=== PATIENT | male | born 1965 | race Caucasian/White ===

== ENCOUNTER → 2019-07-27 10:43 | Outpatient (CLI) | payer MEDICARE, MEDICAID, SELFPAY ==
--- NOTE | 2019-07-27 11:11 | BD_ITS ---
STUDY: DUAL ENERGY X-RAY ABSORPTIOMETRY / DXA REASON FOR EXAM: Male, 53 years old. DIABETIC- TAKES MEDS -- HAS BEEN ON PREDNISONE DAILY x8 YRS -- DOES MODERATE-HIGH AMOUNT OF EXERCISE -- NO FABIAN TECHNIQUE: Bone Mineral Density (BMD) measurements of lumbar spine and bilateral hips were obtained. COMPARISON: Comparison is made with prior study dated June 03, 2017. FINDINGS: Lumbar Spine (L1-L4): g/cm2 (1.118) / T-score (-0.9) / Z-score (-0.6) Findings are suggestive of normal bone density with a low fracture risk. Left Femur Total: g/cm2 (0.701) / T-score (-2.8) / Z-score (-2.4) Left Femoral Neck: g/cm2 (0.768) / T-score (-2.3) / Z-score (-1.6) Right Femur Total: g/cm2 (0.789) / T-score (-2.2) / Z-score (-1.8) Right Femoral Neck: g/cm2 (0.828) / T-score (-1.9) / Z-score (-1.1) The T-Scores on the most recent prior examination were: Lumbar Spine (L1-L4): There has been improvement of bone density since the previous examination. Left Femur Total: which represents a worsening of 0.1%. Right Femur Total: which represents a worsening of 1.3%. BD/Dexa Bone Density Study IMPRESSION: The patient is considered osteoporotic as outlined below according to World Herm[employer] Organization (WHO) criteria with a high fracture risk. There has been worsening of bone density since the previous examination. Reference Information: The T-score is the number of standard deviations above or below the standard which is normal for young adults at their peak bone mineral density. The World Health Organization (WHO) interprets the T-scores as follows: Above -1 Normal bone density Between -1 and -2.5 Osteopenia Equal to / or below -2.5 Osteoporosis As a practical clinical guideline, osteopenia may be graded as follows: Mild -1 through -1.5 Moderate -1.6 through -2.0 Severe -2.1 through -2.4 The Z-score is the number of standard deviations above or below age-matched controls. A Z-score of less than -1.5 would be considered abnormal. References: 1. NIH Osteoporosis and Related Bone Diseases http://www.osteo.org 2. International Society for Clinical Densitometry http://www.iscd.org 3. National Osteoporosis Foundation http://www.nof.org Electronically Signed: Uriel Albright, at 15:24 EST , Service support ,
== END ==
PROVIDERS: Family Provider Internal Medicine; PCP Internal Medicine; Referring Provider Internal Medicine Nephrology; Visit Provider Internal Medicine Nephrology
DX: M85.89 Other specified disorders of bone density and structure, multiple sites (principal)
CPT/HCPCS: 77080

== ENCOUNTER → 2020-07-31 12:47 | Outpatient (CLI) | payer MEDICARE, SELFPAY ==
[2020-07-14 11:43] VITALS: BMI 26.2
[2020-07-31 12:55] VITALS: BP 147/77; PULSE 76; RESP 16; TEMP 37.1; O2SAT 96; BMI 25.7
[2020-07-31] MEDS: DENOSUMAB 60 MG/ML SQ (12:57)
== END ==
PROVIDERS: PCP Internal Medicine; Referring Provider Internal Medicine Endocrinology, Diabetes & Metabolism; Visit Provider Internal Medicine Endocrinology, Diabetes & Metabolism
DX: M81.0 Age-related osteoporosis without current pathological fracture (principal)
CPT/HCPCS: 96372; J0897

== ENCOUNTER → 2021-01-29 12:46 | Outpatient (CLI) | payer MEDICARE, MEDICAID, SELFPAY ==
[2020-07-14 11:43] VITALS: BMI 26.2
[2020-07-31 12:55] VITALS: BMI 25.7
[2021-01-29 12:53] VITALS: BP 142/77; PULSE 88; RESP 16; TEMP 36.6; BMI 26.2
[2021-01-29] MEDS: DENOSUMAB 60 MG/ML SC (12:56)
== END ==
PROVIDERS: PCP Internal Medicine; Referring Provider Internal Medicine Endocrinology, Diabetes & Metabolism; Visit Provider Internal Medicine Endocrinology, Diabetes & Metabolism
DX: M81.0 Age-related osteoporosis without current pathological fracture (principal)
CPT/HCPCS: 96372; J0897

== ENCOUNTER 2021-07-31 12:52 | Outpatient (CLI) | payer MEDICARE, MEDICAID, SELFPAY ==
[2020-07-31 12:55] VITALS: BMI 25.7
[2021-07-31 13:30] VITALS: BP 123/77; PULSE 81; RESP 16; TEMP 36.1; O2SAT 99
[2021-07-31] MEDS: DENOSUMAB 60 MG/ML SC (13:32)
== END 2021-07-31 23:59 | disposition short-term general hospital (02) ==
LOC: MEDOUTP 12:52
PROVIDERS: PCP Internal Medicine; Referring Provider Internal Medicine Endocrinology, Diabetes & Metabolism; Visit Provider Internal Medicine Endocrinology, Diabetes & Metabolism
DX: M81.0 Age-related osteoporosis without current pathological fracture (principal)
CPT/HCPCS: 96372; J0897

== ENCOUNTER → 2022-02-01 | Outpatient (CLI) | payer MEDICARE, MEDICAID, SELFPAY ==
[2022-02-01] MEDS: DENOSUMAB 60 MG/ML SC (13:04)
[2022-02-01 13:09] VITALS: BP 132/78; PULSE 85; RESP 16; TEMP 35.9; O2SAT 97
== END | disposition home or self-care (01) ==
LOC: MEDOUTP 12:55
PROVIDERS: PCP Internal Medicine; Referring Provider Internal Medicine Endocrinology, Diabetes & Metabolism; Visit Provider Internal Medicine Endocrinology, Diabetes & Metabolism
DX: M81.8 Other osteoporosis without current pathological fracture (principal)
CPT/HCPCS: 96372; J0897

== ENCOUNTER 2022-02-05 18:36 | Emergency (ER) | payer MEDICARE, MEDICAID, SELFPAY ==
[2022-02-05] VITALS (7 sets, daily range): BP systolic 149–168; BP diastolic 56–88; PULSE 97–102; RESP 16–18; TEMP 36.6–36.9; O2SAT 95–99; BMI 27.1
--- NOTE | 2022-02-05 19:25 | EKG12_ITS ---
Test Reason : Blood Pressure : / mmHG Vent. Rate : 101 BPM Atrial Rate : 101 BPM P-R Int : 166 ms QRS Dur : 094 ms QT Int : 344 ms P-R-T Axes : 049 025 055 degrees QTc Int : 446 ms Sinus tachycardia Otherwise normal ECG Confirmed by SRINIVASAN SENIOR, AUBREY ([id number]), food editor JOSEPH MICHELE ([id number]) on 02/08/2022 2:01:00 PM Referred By: Confirmed By:AUBREY MATTSON MD
--- NOTE | 2022-02-05 19:27 | EDS_ITS ---
HPI <Dr. Elias Casiano DO - Last Filed: 02/05/22 22:47> Narrative Narrative: 56-year-old male presenting with altered mental status which has resolved. Apparently his blood sugar was in the 40s at home. On EMS arrival he was given glucose. Is also given intranasal Narcan had a concern that he might be an overdose. After this he did awake. Patient states that he has blood sugar was about 390 today and he gave himself 17 units of insulin and his typical dose of long-acting insulin. Patient states his blood sugar has not been that high in a while. He states he was otherwise well prior to this. He denies fever, chills, cough. He has mild nausea but no vomiting. He has been eating okay. No urinary complaints. Patient denies drug or alcohol use. [facility] <Dr. Elias Casiano DO - Last Filed: 02/05/22 22:47> [facility] Medical History Diabetes type 1, controlled Steroid-induced osteoporosis Vitamin D deficiency Home Medications aspirin 81 mg chewable tablet 81 mg PO DAILY@0800 09/07/13 [History Last Taken Unknown] mycophenolate mofetil 250 mg capsule 750 mg PO BID 09/07/13 [History Last Taken Unknown] prednisone 5 mg tablet 7.5 mg PO DAILY 09/07/13 [History Last Taken Unknown] tacrolimus 1 mg capsule, immediate-release 1 mg PO BID 09/07/13 [History Last Taken Unknown] atorvastatin 20 mg tablet 20 mg PO QHS 04/24/16 [History Last Taken Unknown] cholecalciferol (vitamin D3) 25 mcg (1,000 unit) tablet 1,000 unit PO DAILY 04/24/16 [History Last Taken Unknown] gabapentin 300 mg capsule 300 mg PO BIDCM 04/24/16 [History Last Taken Unknown] insulin lispro 100 unit/mL subcutaneous pen 6 units subcut TIDCM 04/24/16 [History Last Taken Unknown] magnesium 250 mg tablet 250 mg PO DAILY 04/24/16 [History Last Taken Unknown] naproxen sodium 220 mg tablet 220 mg PO Q12H PRN PRN Pain 04/24/16 [History Last Taken Unknown] omeprazole 40 mg capsule,delayed release 40 mg PO DAILY 04/24/16 [History Last Taken Unknown] vitamin E (dl, acetate) 90 mg (200 unit) capsule 200 unit PO DAILY 04/24/16 [History Last Taken Unknown] dicyclomine 10 mg capsule ea PO 07/14/20 [History Last Taken Unknown] escitalopram oxalate 10 mg tablet ea PO 07/14/20 [History Last Taken Unknown] insulin glargine 100 unit/mL (3 mL) subcutaneous pen 12 unit subcut QHS 07/14/20 [History Last Taken Unknown] multivit,mineral-folic acid 800 mcg-vit K 100 mcg-herbal no.289 tablet (Alive Once Daily Women 50 Plus) 1 tab PO DAILY 07/14/20 [History Last Taken Unknown] tacrolimus 0.5 mg capsule,extended release 24 hr 1 mg PO BREAKFAST 07/14/20 [History Last Taken Unknown] zolpidem 5 mg tablet (Ambien) 5 mg PO QHS PRN 07/14/20 [History Last Taken Unknown] denosumab 60 mg/mL subcutaneous syringe (Prolia) 60 mg subcut [id number] #1 mL 07/06/21 [Rx Last Taken Unknown] Allergy/AdvReac Type Severity Reaction Status Date / Time No Known Allergies Allergy Verified 02/05/22 18:42 Surgical History History of appendectomy Renal transplant, status post Social History Smoking Status: Former smoker alcohol intake: never substance use type: does not use ROS <Dr. Elias Casiano DO - Last Filed: 02/05/22 22:47> ROS ED Constitutional Constitutional ED: Denies chills or fever(s) Eyes Eyes: Denies change in vision ENT ENT ED: Denies rhinorrhea or sore throat Cardiovascular Cardiovascular: Denies chest pain or palpitations Respiratory/Chest Respiratory/Chest: Denies cough or dyspnea Gastrointestinal Gastrointestinal: Reports nausea; Denies abdominal pain Genitourinary Genitourinary ED: Denies dysuria or hematuria Musculoskeletal Musculoskeletal: Denies arthralgias or back pain Integumentary Denies abscess Neurologic Neurologic: Reports headache(s); Denies paresthesias or weakness Psychiatric Psychiatric: Denies anxiety or depression EXAM <Dr. Elias Casiano DO - Last Filed: 02/05/22 22:47> Physical Exam Const Vital Signs: 02/05/22 18:37 02/05/22 19:41 02/05/22 21:00 Temperature 97.8 F 98.4 F Temperature Source Oral Oral Pulse Rate 97 98 Respiratory Rate 16 18 Blood Pressure 154/56 H 161/79 H Blood Pressure Mean 88 106 Pulse Ox 99 95 Oxygen Delivery Method Room Air Room Air 02/05/22 21:35 02/05/22 22:16 Temperature 98.4 F Temperature Source Oral Pulse Rate 102 H 101 H Respiratory Rate 18 18 Blood Pressure 168/88 H 165/86 H Blood Pressure Mean 114 112 Pulse Ox 99 98 Oxygen Delivery Method Room Air Room Air Positive well nourished HEENT Reports moist mucous membranes Eyes PERRL and EOMs intact bilaterally Chest Wall inspection of chest normal and palpation of chest normal Resp normal respiratory effort and clear to auscultation bilaterally Cardio regular rate and regular rhythm GI normal to inspection, nondistended, normoactive bowel sounds Extremity normal to inspection Neuro oriented x3 and CN's II-XII intact bilaterally Sensorium / Orientation: alert Motor Exam: strength 5/5 throughout Psych mental status grossly normal Skin no rashes or lesions noted <Dr. Michael Easley MD - Last Filed: 02/10/22 00:17> Physical Exam Const Vital Signs: 02/05/22 18:37 02/05/22 19:41 02/05/22 21:00 Temperature 97.8 F 98.4 F Temperature Source Oral Oral Pulse Rate 97 98 Respiratory Rate 16 18 Blood Pressure 154/56 H 161/79 H Blood Pressure Mean 88 106 Pulse Ox 99 95 Oxygen Delivery Method Room Air Room Air 02/05/22 21:35 02/05/22 22:16 Temperature 98.4 F Temperature Source Oral Pulse Rate 102 H 101 H Respiratory Rate 18 18 Blood Pressure 168/88 H 165/86 H Blood Pressure Mean 114 112 Pulse Ox 99 98 Oxygen Delivery Method Room Air Room Air MDM <Dr. Elias Casiano DO - Last Filed: 02/05/22 22:47> [facility] Narrative Medical decision making narrative: Presenting with altered mental status and confusion for short while. He was hypoglycemic and he was given glucose via squad. Patient was also given Narcan out of concern he might be an opioid overdose. Patient denies any drug or alcohol use. He is awake and alert and talking. He stated to me on arrival that he felt like his sugar was dropping and he was given something to eat. He does not have any pain complaints. He has not been otherwise ill prior to his sugar dropping. He does state that his blood sugar was around 390 and he gave him himself 17 units of Humalog. He states he thinks he might of over treated himself. Blood work was obtained and his CBC shows a leukocytosis of 15.7, hemoglobin 14.4, hematocrit 44.3, platelets 186. Creatinine is normal. BUN slightly elevated. Glucose is 101. Potassium is elevated 7.5 however there is moderate hemolysis. I will retest this. LFTs are unremarkable. Urinalysis negative for infection but does show small ketones. Urine drug screen is positive for MDMA however the patient is just recently started on Wellbutrin. Is possible to cross-react. Patient denies that he did any drugs. With a negative chest x-ray, urinalysis, COVID test I think the white blood cell count is likely reactive to the hypoglycemic exercises. I called the lab and received a verbal report that the potassium on redraw is 3.6. At this point I feel the patient is stable for discharge. Impression: 1. Hypoglycemia 2. Leukocytosis Lab Data Attestation: I reviewed the patient's lab results. Labs: Laboratory Results - last 24 hr 02/05/22 02/05/22 02/05/22 18:17 18:17 18:17 WBC 15.7 H RBC 4.55 L Hgb 14.4 Hct 44.3 MCV 97.4 H MCH 31.6 MCHC 32.5 RDW Std Deviation 45.1 H RDW Coeff of Jarad 12.8 Plt Count 186 MPV 10.4 Immature Gran % (Auto) 0.600 Neut % (Auto) 87.5 H Lymph % (Auto) 4.4 L [place] % (Auto) 6.9 Eos % (Auto) 0.2 Baso % (Auto) 0.4 Absolute Neuts (auto) 13.8 H Absolute Lymphs (auto) 0.69 L Nucleated RBC % 0 Sodium 138 Potassium 7.5 H* Chloride 111 H Carbon Dioxide 26.0 Anion Gap 1 L BUN 30 H Creatinine 1.17 Estim Creat Clear Calc 77.38 Est GFR (MDRD) Af Amer 83 Est GFR (MDRD) Non-Af 69 BUN/Creatinine Ratio 25.6 H Glucose 101 Calcium 8.6 Total Bilirubin 0.40 AST 67 H ALT 31 Alkaline Phosphatase 62 Troponin I High Sens 8 Total Protein 5.9 L Albumin 3.0 L Globulin 2.9 Albumin/Globulin Ratio 1.0 Urine Color Urine Clarity Urine pH Ur Specific [place] Urine Protein Urine Glucose (UA) Urine Ketones Urine Occult Blood Urine Nitrite Urine Bilirubin Urine Urobilinogen Ur Leukocyte Esterase Urine RBC Urine WBC Ur Squamous Epith Cells Calcium Oxalate Crystal Urine Bacteria Urine Mucus Urine Opiates Screen Urine Methadone Screen Ur Barbiturates Screen Ur Phencyclidine Scrn Ur Amphetamines Screen MDMA (Ecstasy) Screen U Benzodiazepines Scrn Urine Cocaine Screen U Cannabinoids Screen Ur Drug Screen Comment Ethyl Alcohol < 3.0 POC Glucose 02/05/22 02/05/22 02/05/22 20:02 21:25 21:25 WBC RBC Hgb Hct MCV MCH MCHC RDW Std Deviation RDW Coeff of Jarad Plt Count MPV Immature Gran % (Auto) Neut % (Auto) Lymph % (Auto) [place] % (Auto) Eos % (Auto) Baso % (Auto) Absolute Neuts (auto) Absolute Lymphs (auto) Nucleated RBC % Sodium Potassium Chloride Carbon Dioxide Anion Gap BUN Creatinine Estim Creat Clear Calc Est GFR (MDRD) Af Amer Est GFR (MDRD) Non-Af BUN/Creatinine Ratio Glucose Calcium Total Bilirubin AST ALT Alkaline Phosphatase Troponin I High Sens Total Protein Albumin Globulin Albumin/Globulin Ratio Urine Color Yellow Urine Clarity Sl. Cloudy Urine pH 6.0 Ur Specific [place] 1.020 Urine Protein 30 H Urine Glucose (UA) 100 H Urine Ketones 5 H Urine Occult Blood Negative Urine Nitrite Negative Urine Bilirubin Negative Urine Urobilinogen Normal Ur Leukocyte Esterase Negative Urine RBC 0 SEEN Urine WBC 0 SEEN Ur Squamous Epith Cells 0 SEEN Calcium Oxalate Crystal 3+ Urine Bacteria RARE Urine Mucus 0 SEEN Urine Opiates Screen NEGATIVE Urine Methadone Screen NEGATIVE Ur Barbiturates Screen NEGATIVE Ur Phencyclidine Scrn NEGATIVE Ur Amphetamines Screen NEGATIVE MDMA (Ecstasy) Screen POSITIVE H U Benzodiazepines Scrn NEGATIVE Urine Cocaine Screen NEGATIVE U Cannabinoids Screen NEGATIVE Ur Drug Screen Comment Ethyl Alcohol POC Glucose 117 H Radiography Diagnostic Testing: Clinical Impression(s) from Imaging Studies Chest X-Ray 02/05/22 20:14 IMPRESSION: No radiographic evidence of acute cardiopulmonary disease. Electronically Signed: Vu Greenwood MD at 21:13 EDT , <Dr. Michael Easley MD - Last Filed: 02/10/22 00:17> [facility] Narrative Medical decision making narrative: Presenting with altered mental status and confusion for short while. He was hypoglycemic and he was given glucose via squad. Patient was also given Narcan out of concern he might be an opioid overdose. Patient denies any drug or alcohol use. He is awake and alert and talking. He stated to me on arrival that he felt like his sugar was dropping and he was given something to eat. He does not have any pain complaints. He has not been otherwise ill prior to his sugar dropping. He does state that his blood sugar was around 390 and he gave him himself 17 units of Humalog. He states he thinks he might of over treated himself. Blood work was obtained and his CBC shows a leukocytosis of 15.7, hemoglobin 14.4, hematocrit 44.3, platelets 186. Creatinine is normal. BUN slightly elevated. Glucose is 101. Potassium is elevated 7.5 however there is moderate hemolysis. I will retest this. LFTs are unremarkable. Urinalysis negative for infection but does show small ketones. Urine drug screen is positive for MDMA however the patient is just recently started on Wellbutrin. Is possible to cross-react. Patient denies that he did any drugs. With a negative chest x-ray, urinalysis, COVID test I think the white blood cell count is likely reactive to the hypoglycemic exercises. I called the lab and received a verbal report that the potassium on redraw is 3.6. At this point I feel the patient is stable for discharge. Impression: 1. Hypoglycemia 2. Leukocytosis This is the note from Dr. Casiano which came to me out of error. I do not need to cosign his note. I already talked to him in person. Michael Easley MD Lab Data Labs: Laboratory Results - last 24 hr 02/05/22 02/05/22 02/05/22 18:17 18:17 18:17 WBC 15.7 H RBC 4.55 L Hgb 14.4 Hct 44.3 MCV 97.4 H MCH 31.6 MCHC 32.5 RDW Std Deviation 45.1 H RDW Coeff of Jarad 12.8 Plt Count 186 MPV 10.4 Immature Gran % (Auto) 0.600 Neut % (Auto) 87.5 H Lymph % (Auto) 4.4 L [place] % (Auto) 6.9 Eos % (Auto) 0.2 Baso % (Auto) 0.4 Absolute Neuts (auto) 13.8 H Absolute Lymphs (auto) 0.69 L Nucleated RBC % 0 Sodium 138 Potassium 7.5 H* Chloride 111 H Carbon Dioxide 26.0 Anion Gap 1 L BUN 30 H Creatinine 1.17 Estim Creat Clear Calc 77.38 Est GFR (MDRD) Af Amer 83 Est GFR (MDRD) Non-Af 69 BUN/Creatinine Ratio 25.6 H Glucose 101 Calcium 8.6 Total Bilirubin 0.40 AST 67 H ALT 31 Alkaline Phosphatase 62 Troponin I High Sens 8 Total Protein 5.9 L Albumin 3.0 L Globulin 2.9 Albumin/Globulin Ratio 1.0 Urine Color Urine Clarity Urine pH Ur Specific [place] Urine Protein Urine Glucose (UA) Urine Ketones Urine Occult Blood Urine Nitrite Urine Bilirubin Urine Urobilinogen Ur Leukocyte Esterase Urine RBC Urine WBC Ur Squamous Epith Cells Calcium Oxalate Crystal Urine Bacteria Urine Mucus Urine Opiates Screen Urine Methadone Screen Ur Barbiturates Screen Ur Phencyclidine Scrn Ur Amphetamines Screen MDMA (Ecstasy) Screen U Benzodiazepines Scrn Urine Cocaine Screen U Cannabinoids Screen Ur Drug Screen Comment Ethyl Alcohol < 3.0 POC Glucose 02/05/22 02/05/22 02/05/22 20:02 21:25 21:25 WBC RBC Hgb Hct MCV MCH MCHC RDW Std Deviation RDW Coeff of Jarad Plt Count MPV Immature Gran % (Auto) Neut % (Auto) Lymph % (Auto) [place] % (Auto) Eos % (Auto) Baso % (Auto) Absolute Neuts (auto) Absolute Lymphs (auto) Nucleated RBC % Sodium Potassium Chloride Carbon Dioxide Anion Gap BUN Creatinine Estim Creat Clear Calc Est GFR (MDRD) Af Amer Est GFR (MDRD) Non-Af BUN/Creatinine Ratio Glucose Calcium Total Bilirubin AST ALT Alkaline Phosphatase Troponin I High Sens Total Protein Albumin Globulin Albumin/Globulin Ratio Urine Color Yellow Urine Clarity Sl. Cloudy Urine pH 6.0 Ur Specific [place] 1.020 Urine Protein 30 H Urine Glucose (UA) 100 H Urine Ketones 5 H Urine Occult Blood Negative Urine Nitrite Negative Urine Bilirubin Negative Urine Urobilinogen Normal Ur Leukocyte Esterase Negative Urine RBC 0 SEEN Urine WBC 0 SEEN Ur Squamous Epith Cells 0 SEEN Calcium Oxalate Crystal 3+ Urine Bacteria RARE Urine Mucus 0 SEEN Urine Opiates Screen NEGATIVE Urine Methadone Screen NEGATIVE Ur Barbiturates Screen NEGATIVE Ur Phencyclidine Scrn NEGATIVE Ur Amphetamines Screen NEGATIVE MDMA (Ecstasy) Screen POSITIVE H U Benzodiazepines Scrn NEGATIVE Urine Cocaine Screen NEGATIVE U Cannabinoids Screen NEGATIVE Ur Drug Screen Comment Ethyl Alcohol POC Glucose 117 H Radiography Diagnostic Testing: Clinical Impression(s) from Imaging Studies Chest X-Ray 02/05/22 20:14 IMPRESSION: No radiographic evidence of acute cardiopulmonary disease. Electronically Signed: Vu Greenwood MD at 21:13 EDT , Discharge Plan Triage Chief Complaint: Alt LOC ED Provider: Elias Casiano Dx/Rx/DC Orders Instructions: ED Diabetic Insulin Reaction Prescriptions: No Action Alive Once Daily Women 50 Plus 800-100 mcg tablet 1 tab PO DAILY zolpidem [Ambien] 5 mg tablet 5 mg PO QHS PRN escitalopram oxalate 10 mg tablet PO Label Comments: TAKE 1 TABLET BY MOUTH EVERY DAY dicyclomine 10 mg capsule PO Label Comments: TAKE 1 CAPSULE BY MOUTH BEFORE MEALS AND AT BEDTIME. Prolia 60 mg/mL syringe 60 mg SC [id number] Qty: 1 1RF mycophenolate mofetil 250 MG capsule 750 mg PO BID prednisone 5 MG tablet 7.5 mg PO DAILY aspirin 81 MG tablet,chewable 81 mg PO DAILY@0800 Label Comments: heart health tacrolimus 1 MG capsule 1 mg PO BID Label Comments: transplant atorvastatin 20 MG tablet 20 mg PO QHS Label Comments: high cholesterol omeprazole 40 MG capsule 40 mg PO DAILY Label Comments: acid reflux naproxen sodium 220 MG tablet 220 mg PO Q12H PRN PRN (Reason: Pain) Label Comments: anti inflammatory gabapentin 300 MG capsule 300 mg PO BIDCM Label Comments: neuropathy magnesium 250 MG tablet 250 mg PO DAILY Label Comments: supplement cholecalciferol (vitamin D3) 1,000 UNIT tablet 1,000 unit PO DAILY Label Comments: supplement vitamin E (dl, acetate) 200 UNIT capsule 200 unit PO DAILY Label Comments: vitamin insulin lispro 100 UNIT/ML insulin pen 6 units SC TIDCM Label Comments: INJECT 6-12 UNITS 3X/DAILY WITH MEALS AND 3 UNITS 2X/DAY WITH SNACKS insulin glargine 100 unit/mL (3 mL) insulin pen 12 unit SC QHS tacrolimus 0.5 mg capsule,extended release 24hr 1 mg PO BREAKFAST Label Comments: transplant Primary Care Provider: Magaly Hull Referrals: Magaly Hull MD [Primary Care Provider] - Disposition Disposition: Home, Self Care Discharge Date/Time: 02/05/22 23:13
[2022-02-05] MEDS: Ondansetron 4 MG/2 ML Vial IV (19:36)
[2022-02-05] MEDS: 0.9% Normal Saline 1,000 ML 1000 ML IV (19:36)
--- NOTE | 2022-02-05 19:44 | ED.RN ---
snack of yogurt, cody crackers and milk given to pt.
--- NOTE | 2022-02-05 20:14 | RAD_ITS ---
Portable INDICATION: ams EXAMINATION/TECHNIQUE: X-RAY - XR Chest 1 View COMPARISON: None. FINDINGS: LINES/DEVICES: None. LUNGS: No consolidation, edema or effusion. No pneumothorax. MEDIASTINUM AND CARDIOVASCULAR STRUCTURES: Cardiac silhouette not enlarged. Central airways and mediastinal contour are unremarkable. BONES AND SOFT TISSUES: Unremarkable. RAD/Chest 1 View (Portable) IMPRESSION: No radiographic evidence of acute cardiopulmonary disease. Electronically Signed: Vu Greenwood MD at 21:13 EDT ,
[2022-02-05 20:15] LABS: Absolute Lymphocyte Count 0.69 X10^3/uL (0.83-4.51); Absolute Neutrophil Count 13.8 X10^3/uL (2.0-7.7); Basophil# 0.06 X10^3/uL; Basophil% 0.4 % (0-1); Eosinophil# 0.03 X10^3/uL; Eosinophils% 0.2 % (0-5); Hematocrit 44.3 % (40-54); Hemoglobin 14.4 g/dL (13.0-16.5); Lymphocyte # 0.69 X10^3/ul (0.83-4.51); Lymphocyte % 4.4 % (19-41); Mean Corp Hgb Conc 32.5 g/dL (32-36); Mean Corpuscular Hgb 31.6 pg (27.0-32.0); Mean Corpuscular Volume 97.4 fL (80-94); Mean Platelet Vol. 10.4 fl (6.2-12.0); Monocyte# 1.09 X10^3/uL; Monocyte% 6.9 % (0-10); NRBC Flagged by Analyzer 0 % (0-5); Neutrophil # 13.77 X10^3/uL (2.7-7.7); Neutrophil % 87.5 % (47-70); Platelet Count 186 K/mm3 (150-450); RBC Distribution Width CV 12.8 % (11.6-14.6); RBC Distribution Width SD 45.1 fl (35.1-43.9); Red Blood Count 4.55 M/mm3 (4.6-6.2); White Blood Count 15.7 K/mm3 (4.4-11.0)
[2022-02-05 20:21] LABS: Bedside Glucose 117 mg/dL (74-106)
[2022-02-05 20:47] LABS: Alcohol, Blood (Medical)-Serum < 3.0 mg/dL
[2022-02-05 21:32] LABS: Mucous, Urine 0 SEEN /hpf (<or=2+); Red Blood Cells-Urine 0 SEEN /hpf (0-5); Squamous Epithelial Cells - UA 0 SEEN /hpf (0-5); White Blood Cells 0 SEEN /hpf (0-5)
[2022-02-05 21:33] LABS: Color, Urine Yellow (Yellow); Glucose, Dipstick 100 mg/dl (Normal); Ketone-Dipstick 5 mg/dl (Negative); Leukocyte Esterase-Dipstick Negative /ul (Negative); Nitrite-Dipstick Negative (Negative); Occult Blood-Urine Negative /ul (Negative); Protein-Dipstick 30 mg/dl (Negative); Urine Bilirubin Dipstick Negative (Negative); Urine Clarity Sl. Cloudy (Clear); Urine Urobilinogen Normal (Normal)
[2022-02-05 21:56] LABS: Bacteria RARE /hpf (None Seen); Calcium Oxalate Crystals Ur 3+ /hpf (<or=2+)
[2022-02-05 22:04] LABS: Amphetamine Urine VISTA NEGATIVE (<1000 ng/mL); Barbiturate Urine VISTA NEGATIVE (< 200 ng/mL); Benzodiazepine Urine VISTA NEGATIVE (< 200 ng/mL); Cocaine Urine VISTA NEGATIVE (< 300 ng/mL); Ecstacy Urine VISTA POSITIVE (< 500 ng/mL); Methadone Urine VISTA NEGATIVE (< 300 ng/mL); PCP Urine VISTA NEGATIVE (< 25 ng/mL); THC Urine VISTA NEGATIVE (< 50 ng/mL); Vista UDS pH Range 6
[2022-02-05 22:04] LABS: AST(SGOT) 67 U/L (15-37); Alanine Aminotransfer ALT/SGPT 31 U/L (16-61); Alkaline Phosphatase 62 U/L (45-117); BUN 30 mg/dL (7-18); BUN/Creat Ratio 25.6 RATIO (10-20); Calcium,Total 8.6 mg/dL (8.5-10.1); Chloride 111 mmol/L (98-107); Creatinine, Serum 1.17 mg/dL (0.70-1.30); EST Glomerular Filtration Rate 69 mL/min (>60); Est Glom Filt Rate - Afr Amer 83 mL/min (>60); Estimated Creatinine Clearance 77.38 ml/min; Globulin 2.9 g/dL (2.2-4.2); Glucose 101 mg/dL (74-106); Potassium 7.5 mmol/L (3.5-5.1); Protein, Total 5.9 g/dL (6.4-8.2); Sodium Level 138 mmol/L (136-145); Troponin-I HS 8 pg/mL (3.0-78.0)
[2022-02-05 22:07] LABS: Anion Gap 1 (5-15)
[2022-02-05 22:51] LABS: ALB/GLOB Ratio 1.4 RATIO (0.9-2.4); AST(SGOT) 23 U/L (15-37); Alanine Aminotransfer ALT/SGPT 27 U/L (16-61); Albumin, Serum 2.9 g/dL (3.2-5.0); Alkaline Phosphatase 60 U/L (45-117); Anion Gap 5 (5-15); BUN 30 mg/dL (7-18); BUN/Creat Ratio 36.1 RATIO (10-20); Calcium,Total 7.9 mg/dL (8.5-10.1); Chloride 113 mmol/L (98-107); Creatinine, Serum 0.83 mg/dL (0.70-1.30); EST Glomerular Filtration Rate 102 mL/min (>60); Est Glom Filt Rate - Afr Amer 123 mL/min (>60); Estimated Creatinine Clearance 109.08 ml/min; Glucose 121 mg/dL (74-106); Potassium 3.6 mmol/L (3.5-5.1); Protein, Total 4.9 g/dL (6.4-8.2); Sodium Level 143 mmol/L (136-145)
== END 2022-02-05 23:13 | disposition home or self-care (01) ==
PROVIDERS: Emergency Provider Student in an Organized Health Care Education/Training Program; PCP Internal Medicine; Visit Provider Student in an Organized Health Care Education/Training Program
DX: E10.649 Type 1 diabetes mellitus with hypoglycemia without coma (principal); Z79.4 Long term (current) use of insulin; D72.829 Elevated white blood cell count, unspecified; Z87.891 Personal history of nicotine dependence
CPT/HCPCS: 36415; 71045; 80053; 80307; 81001; 82077; 82962; 84484; 85025; 93005; 96361; 96374; 99285; J7030; A4216; J2405

== ENCOUNTER 2023-10-28 08:52 | Outpatient (RCR) | payer MEDICARE, MEDICAID, SELFPAY ==
[2023-10-28 09:10] VITALS: BP 116/62; PULSE 89; TEMP 36.2
--- NOTE | 2023-10-28 10:13 | HP.PCM_ITS ---
History of Present Illness Date of Service: 10/28/23 Chief Complaint: Right heel wound History of Wound: Patient is a type II diabetic with history of ESRD status post kidney transplant in setting of peripheral polyneuropathy Patient presents with neuropathic ulceration present for 1 month. Patient was treated by Dr. Linda ramirez in outpatient setting. Patient was referred to us for more advanced wound care treatment. Patient denies any fever chills nausea vomiting chest pain calf pain shortness of breath. Patient is ambulatory in a cam walking boot today. Patient has been applying Santyl dressings to the site daily basis. Patient has no acute complaints. [facility] Medical History Diabetes type 1, controlled Steroid-induced osteoporosis Vitamin D deficiency Home Medications aspirin 81 mg chewable tablet 81 mg PO DAILY@0800 09/07/13 [History Last Taken Unknown] mycophenolate mofetil 250 mg capsule 750 mg PO BID 09/07/13 [History Last Taken Unknown] prednisone 5 mg tablet 5 mg PO DAILY 09/07/13 [History Last Taken Unknown] tacrolimus 1 mg capsule, immediate-release 1 mg PO .EVENING 09/07/13 [History Last Taken Unknown] atorvastatin 20 mg tablet 20 mg PO QHS 04/24/16 [History Last Taken Unknown] cholecalciferol (vitamin D3) 25 mcg (1,000 unit) tablet 1,000 unit PO DAILY 04/24/16 [History Last Taken Unknown] gabapentin 300 mg capsule 300 mg PO BIDCM 04/24/16 [History Last Taken Unknown] insulin lispro 100 unit/mL subcutaneous pen 16 unit subcut TIDCM 04/24/16 [History Last Taken Unknown] naproxen sodium 220 mg tablet 220 mg PO Q12H PRN PRN Pain 04/24/16 [History Last Taken Unknown] omeprazole 40 mg capsule,delayed release 40 mg PO DAILY 04/24/16 [History Last Taken Unknown] vitamin E (dl, acetate) 90 mg (200 unit) capsule 200 unit PO DAILY 04/24/16 [History Last Taken Unknown] dicyclomine 10 mg capsule 10 mg PO .BEFORE MEALS AND BED 07/14/20 [History Last Taken Unknown] escitalopram oxalate 10 mg tablet 10 mg PO DAILY 07/14/20 [History Last Taken Unknown] insulin glargine 100 unit/mL (3 mL) subcutaneous pen 30 unit subcut QHS 07/14/20 [History Last Taken Unknown] multivit,mineral-folic acid 800 mcg-vit K 100 mcg-herbal no.289 tablet (Alive Once Daily Women 50 Plus) 1 tab PO DAILY 07/14/20 [History Last Taken Unknown] tacrolimus 0.5 mg capsule,extended release 24 hr 2 mg PO BREAKFAST 07/14/20 [History Last Taken Unknown] zolpidem 5 mg tablet (Ambien) 5 mg PO QHS PRN sleep 07/14/20 [History Last Taken Unknown] denosumab 60 mg/mL subcutaneous syringe (Prolia) 60 mg subcut [id number] #1 mL 08/09/22 [Rx Last Taken Unknown] bupropion HCl 75 mg tablet 75 mg PO BID 10/28/23 [History Last Taken Unknown] hydroxyzine HCl 25 mg tablet 25 mg PO QHS PRN PRN anxiety 10/28/23 [History Last Taken Unknown] magnesium oxide 400 mg PO DAILY 10/28/23 [History Last Taken Unknown] Allergy/AdvReac Type Severity Reaction Status Date / Time No Known Allergies Allergy Verified 02/05/22 18:42 Surgical History History of appendectomy Renal transplant, status post Social History Smoking Status: Former smoker alcohol intake: never substance use type: does not use Vital Signs Vital Signs Vital Signs: 10/28/23 09:10 Temperature 97.2 F L Temperature Source Temporal Pulse Rate 89 Blood Pressure 116/62 Blood Pressure Mean 80 Blood Pressure Source Monitor Blood Pressure Position Semi-Fowlers Blood Pressure Location Right Arm Physical Exam Narrative Atrophic skin changes noted. Dorsalis pedis and posterior tibial pulses are biphasic by Doppler examination. Absent digital hair growth noted to bilateral feet. Light touch protective sensation absent to entire bilateral lower extremity extending up past the knee. Dermatologic: Full-thickness wound noted to the plantar right heel. Wound demonstrates mixed fibrogranular and necrotic base predebridement. Postdebridement wound demonstrated clean granular base slightly macerated skin edges. Moderate drainage noted. No malodor edema erythema noted at current. No purulent drainage noted. Pre and postdebridement measurements documented bethany sing notes. Musculoskeletal: No wound forming deformity noted. Muscular strength full to bilateral lower extremity compartments. Debridement Note Debridement Note Post-Debridement Measurements and Additional Note: Post-Debridement Measurements/Treatment - Nurse 1 - General Ulcer Assessment Start: 10/28/23 09:08 Freq: Status: Active Protocol: JOSÉ MANUEL Activity Type Activity Date Activity User E-sign Co-sign Detail Recorded Client Recorded Date Recorded By Document 10/28/23 09:10 KW Desktop 10/28/23 09:29 KW 10/28/23 09:10 - Today's Visit Information Type of service Initial Visit Arrival Mode Ambulatory Vital Signs Temperature (97.8 F-99.1 F) 97.2 F L Temperature Source Temporal Pulse Rate (60-100) 89 Pulse Location Monitor Blood Pressure (90/60-120/80) 116/62 Blood Pressure Mean 80 Source Monitor Position Semi-Fowlers Blood Pressure Location Right Arm History Since Last Visit- (Skip if this is Patient's initial visit) Have you changed medications since your No last visit? Any new allergies or adverse reactions No Had a fall/change in ADL's that may No increase risk of falls Signs or symptoms of abuse and/or No neglect since last visit Have you been in the hospital since your No last visit? Has dressing in place as prescribed Yes Has compression in place as prescribed No Has offloadiing in place as prescribed Yes Experienced any changes in pain level or Yes management Left Footwear Regular Shoe Right Footwear Removable Cast Walker/Walking Boot Pain Scale: 0-10 Numeric Is Patient Pain Free? Yes Lower Extremity Assessment/ Foot Assessment/ Toe Nail Assessment Right -Posterior Tibial Doppler Monophasic -Dorsalis Pedis Doppler Multiphasic -Hair Growth on Legs Yes -Hair Growth on Toes No -Capillary Refill Less than 3 Seconds -Thick Yes -Discolored Yes -Deformed No -Improper Length & Hygeine No Communication Assessment Preferred language French Gas Engineer Required No Able to Read Yes Able to Write Yes Right Hearing Abillity Normal Visual Assistive Devices Glasses Teaching Assessment Preferences Verbal,Written, Demonstration Readiness To Learn Good Willingness to Engage in Self Management High Activies Readiness to Engage in Self Management High Activities Anxiety Level Calm Cooperation Cooperative Perception Coherent Interest in Health Problem Asks Questions Education Importance Acknowledges Need Does Patient Smoke tobacco or other No substances Smoking Status Former smoker Is Patient Diabetic Yes Functional Assessment Recent Decline in Ability to Perform Denies Any Declines Culture/Jehovah'S Witness/Contact And Service 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 Cultural/Jehovah'S Witness Needs that may affect No Treatment Plan Teaching: Wound Center *Welcome to the Wound Center -Person Taught Patient,Family -Teaching Method Discussion -Response to teaching Verbalize understanding MARK - Nurse 1 - General Ulcer Measurement Start: 10/28/23 09:08 Freq: Status: Active Protocol: Activity Type Activity Date Activity User E-sign Co-sign Detail Recorded Client Recorded Date Recorded By Document 10/28/23 09:10 KW Desktop 10/28/23 09:29 KW 10/28/23 09:10 Wound Center Nurse 1 #1 right heel -Combined with other wound No -Current Size (cm) - Length 3 -Current Size (cm) - Width 3 -Current Size (cm) - Depth 0.1 -Total Square Cm 9 -Date of Last Picture (Recall this 10/28/23 field) -Photo Taken Yes -Tunneling No -Undermining/Tunneling No -Circular Undermining No -Exudate Amt Small -Exudate Type Serosanguineous -Wound Margin Distinct, Outline Attached -Granulation Amt Medium (34-66%) -Granulation Quality Red -Slough/Fibrin Yes -Necrosis Amt Medium (34-66%) -Necrotic Tissue Type Adherent Slough -Texture (Eloisa-wound Skin Appearance) Assessed -Moisture (Eloisa-wound Skin Appearance) Assessed,Dry/ Scaly -Color (Eloisa-wound Skin Appearance) Assessed, Erythema -Temperature (Eloisa-wound Skin No Abnormality Appearance) (Pt Warm) -Tenderness on Palpation (Eloisa-wound No Skin Appearance) -Ulcer Cleansing Rinsed/ Irrigated with Saline -Anesthetic Used 5% Lidocaine Gel Right Calf (cm) 36.5 Right Ankle (cm) 21.5 Left Calf (cm) 36 Left Ankle (cm) 20 MARK - Nurse 2 - General Ulcer CM Notes Start: 10/28/23 09:08 Freq: Status: Active Protocol: Activity Type Activity Date Activity User E-sign Co-sign Detail Recorded Client Recorded Date Recorded By Document 10/28/23 09:52 Laptop 10/28/23 10:09 10/28/23 09:52 Wound Center Nurse 2 #1 right heel -Time 10:06 -Correct Patient Yes -Correct Side, Site, Position Yes -Correct Procedure Yes -Procedure Performed Yes -Type of Procedure Debridement -Clinical Debridement Subcutaneous -Tissue Removed Subcutaneous -Post Debridement (cm) - Length 4.3 -Post Debridement (cm) - Width 3.5 -Post Debridement (cm) - Depth 0.2 -Total Square (Post) (cm) 15.05 -Area of Debridement (cm) - Length 4.3 -Area of Debridement (cm) - Width 3.5 -Total Square (Area) (cm) 15.05 -Tunneling No -Undermining/Tunneling No -Circular Undermining No -Wound/Ulcer Outcome Not Healed -Ulcer Cleansing Rinsed/ Irrigated with Saline -Foul Odor after Cleansing No -Bioengineered Tissue No -Bleeding Controlled with Pressure -Treatment Response Procedure Tolerated Well -Offloading Yes -Type of Offloading Surgical Shoe -Assistive Device(s) Crutches -Debridement - Subq, 1st 20sq cm Yes Pain Scale: 0-10 Numeric Is Patient Pain Free? Yes Assessment/Plan Assessment/Plan (1) Other specified peripheral vascular diseases: CODE(S): I73.89 - Other specified peripheral vascular diseases PLAN: Exam performed. Radiographs right foot ordered. Lab work including CBC, CMP, ESR, CRP, hemoglobin A1c ordered. Arterial and venous studies ordered. Today wound was excisionally debrided down to including the level of subcutaneous tissue of all nonviable tissue using a 5 mm dermal curette to the right heel without incident. Topical anesthesia used despite patient's neuropathy. Patient tolerated procedure well. Hemostasis obtained with light compression. Pre and postdebridement measurements documented nursing notes. At current I have recommended transition to nonweightbearing. Patient has crutches at home maintain nonweightbearing status with crutches. At current I have recommended daily dressing changes consisting of Betadine paint DSD and Tubigrip. Wound was flushed and cultured prior to dressing today. There are any systemic signs of infection or invasive bacterial will consider treatment. Due to setting of renal transplant we will avoid antibiotics unless required. Will consider advanced wound care grafting and total contact cast if there are any delays in healing. Follow-up in 1 week. (2) Non-pressure chronic ulcer of other part of right foot with fat layer exposed: CODE(S): L97.512 - Non-pressure chronic ulcer of other part of right foot with fat layer exposed (3) Type 2 diabetes mellitus with diabetic polyneuropathy: CODE(S): E11.42 - Type 2 diabetes mellitus with diabetic polyneuropathy
--- NOTE | 2023-10-28 11:06 | RAD_ITS ---
STUDY: X-RAY - RIGHT FOOT CLINICAL: Male, 57 years old. Right heel ulcer x one month. TECHNIQUE: 3 views of the right foot. COMPARISON: None. FINDINGS: Normal talus, calcaneus, and tarsal bones. Normal visualized subtalar, talonavicular, calcaneocuboid, tarsal and tarsometatarsal articulations. Normal metatarsi. Normal metatarsophalangeal joint of the great toe. Normal tibial and fibular sesamoid bones. There is degenerative arthrosis of the interphalangeal joint of the great toe. Normal phalanges of the great toe. Normal second through fifth metatarsophalangeal joints. Normal interphalangeal joints and phalanges of the lesser toes. There are atherosclerotic calcifications. There is no demonstrated fracture. There is mild ulceration at the heel. Normal underlying calcaneus. 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 Mild heel ulceration, with normal underlying calcaneus. Electronically Signed: Jerry Morrow MD at 9:51 EDT ,
[2023-10-28 12:39] LABS: Hematocrit 44.5 % (40-54); Hemoglobin 14.1 g/dL (13.0-16.5); Mean Corp Hgb Conc 31.7 g/dL (32-36); Mean Corpuscular Hgb 31.1 pg (27.0-32.0); Mean Corpuscular Volume 98.2 fL (80-94); Mean Platelet Vol. 9.8 fl (6.2-12.0); Platelet Count 239 K/mm3 (150-450); RBC Distribution Width SD 43.9 fl (35.1-43.9); Red Blood Count 4.53 M/mm3 (4.6-6.2); White Blood Count 9.4 K/mm3 (4.4-11.0)
[2023-10-28 13:09] LABS: Erythrocyte Sedimentation Rate 20 mm/hr (0-20)
[2023-10-28 13:31] LABS: ALB/GLOB Ratio 0.9 RATIO (0.9-2.4); AST(SGOT) 21 U/L (15-37); Alanine Aminotransfer ALT/SGPT 22 U/L (16-61); Albumin, Serum 3.1 g/dL (3.2-5.0); Alkaline Phosphatase 106 U/L (45-117); Anion Gap 7 (5-15); BUN 22 mg/dL (7-18); BUN/Creat Ratio 21.8 RATIO (10-20); CRP 7.02 mg/L (0.0-3.0); Calcium,Total 8.9 mg/dL (8.5-10.1); Chloride 106 mmol/L (98-107); Creatinine, Serum 1.01 mg/dL (0.70-1.30); EST Glomerular Filtration Rate 81 mL/min (>60); Est Glom Filt Rate - Afr Amer 98 mL/min (>60); Globulin 3.3 g/dL (2.2-4.2); Glucose 239 mg/dL (74-106); Potassium 3.9 mmol/L (3.5-5.1); Prealbumin 16.1 mg/dL (20.0-40.0); Protein, Total 6.4 g/dL (6.4-8.2); Sodium Level 141 mmol/L (136-145)
[2023-10-28 13:59] LABS: Hemoglobin A1c 5.8 % (3.8-5.6)
== END 2023-10-28 23:59 | disposition home or self-care (01) ==
LOC: WC 08:52
PROVIDERS: PCP Internal Medicine; Referring Provider Podiatrist Foot & Ankle Surgery; Visit Provider Podiatrist
DX: E10.621 Type 1 diabetes mellitus with foot ulcer (principal); N18.6 End stage renal disease; L97.412 Non-pressure chronic ulcer of right heel and midfoot with fat layer exposed; Q05.9 Spina bifida, unspecified; E10.51 Type 1 diabetes mellitus with diabetic peripheral angiopathy without gangrene; E10.42 Type 1 diabetes mellitus with diabetic polyneuropathy; E10.22 Type 1 diabetes mellitus with diabetic chronic kidney disease; Z79.4 Long term (current) use of insulin; Z87.891 Personal history of nicotine dependence; Z79.82 Long term (current) use of aspirin; Z94.0 Kidney transplant status; Z79.899 Other long term (current) drug therapy
CPT/HCPCS: 11042; 36415; 73630; 80053; 83036; 84134; 85027; 85652; 86140; 87070; 87075; 87077; 87186; 87205; 99214; G0463

== ENCOUNTER 2023-11-25 11:15 | Outpatient (RCR) | payer MEDICARE, MEDICAID, SELFPAY ==
[2023-10-29 00:58] VITALS: BP 116/62; PULSE 89; TEMP 36.2
[2023-11-04 11:18] VITALS: BP 98/61; PULSE 82; RESP 18; TEMP 36.5
--- NOTE | 2023-11-04 11:39 | PN.PCM_ITS ---
History of Present Illness Date of Service: 12/05/23 Chief Complaint: Right heel wound History of Wound: Patient is a type II diabetic with history of ESRD status post kidney transplant in setting of peripheral polyneuropathy Patient presents with neuropathic ulceration present for 1 month. Patient was treated by Dr. Linda ramirez in outpatient setting. Patient was referred to us for more advanced wound care treatment. Patient denies any fever chills nausea vomiting chest pain calf pain shortness of breath. Patient is ambulatory in a cam walking boot today. Patient has been applying Santyl dressings to the site daily basis. Patient has no acute complaints. Objective Data Objective Data Vital Signs: Vital Signs Temp Pulse Resp BP 97.7 F L 82 18 98/61 11/04/23 11:18 11/04/23 11:18 11/04/23 11:18 11/04/23 11:18 Debridement Note Debridement Note Post-Debridement Measurements and Additional Note: Post-Debridement Measurements/Treatment WC - Nurse 1 - General Ulcer Assessment Start: 11/04/23 11:18 Freq: Status: Active Protocol: JOSÉ MANUEL Activity Type Activity Date Activity User E-sign Co-sign Detail Recorded Client Recorded Date Recorded By Document 11/04/23 11:18 RB Desktop 11/04/23 11:21 RB 11/04/23 11:18 WC - Today's Visit Information Type of service Follow-up Visit (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/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 Any new allergies or adverse reactions No Had a fall/change in ADL's that may No increase risk of falls Signs or symptoms of abuse and/or No neglect since last visit Have you been in the hospital since your No last visit? Has dressing in place as prescribed Yes Has compression in place as prescribed Yes Has offloadiing in place as prescribed No Experienced any changes in pain level or No management Pain Scale: 0-10 Numeric Is Patient Pain Free? Yes WC - Nurse 1 - General Ulcer Measurement Start: 11/04/23 11:18 Freq: Status: Active Protocol: Activity Type Activity Date Activity User E-sign Co-sign Detail Recorded Client Recorded Date Recorded By Document 11/04/23 11:18 RB Desktop 11/04/23 11:21 RB 11/04/23 11:18 Wound Center Nurse 1 #1 right heel -Combined with other wound No -Current Size (cm) - Length 3 -Current Size (cm) - Width 3.4 -Current Size (cm) - Depth 0.1 -Total Square Cm 10.2 -Tunneling No -Undermining/Tunneling No -Circular Undermining No -Exudate Amt Medium -Exudate Type Serosanguineous -Wound Margin Distinct, Outline Attached -Granulation Amt Medium (34-66%) -Granulation Quality [place] -Slough/Fibrin Yes -Necrosis Amt Medium (34-66%) -Necrotic Tissue Type Adherent Slough -Structure Exposed N/A -Texture (Eloisa-wound Skin Appearance) Assessed,Callus -Moisture (Eloisa-wound Skin Appearance) Assessed,Dry/ Scaly -Color (Eloisa-wound Skin Appearance) Assessed -Temperature (Eloisa-wound Skin No Abnormality Appearance) (Pt Warm) -Tenderness on Palpation (Eloisa-wound No Skin Appearance) -Ulcer Cleansing Wound Cleanser -Foul Odor after Cleansing No -Anesthetic Used 5% Lidocaine Gel Lower Limb Edema Present Yes Right Calf (cm) 36 Right Ankle (cm) 24.2
--- NOTE | 2023-11-04 11:39 | PN.PCM_ITS ---
History of Present Illness Date of Service: 11/04/23 Chief Complaint: Right heel wound History of Wound: Patient is a type II diabetic with history of ESRD status post kidney transplant in setting of peripheral polyneuropathy Patient presents with neuropathic ulceration present for 1 month. Patient was treated by Dr. Linda ramirez in outpatient setting. Patient was referred to us for more advanced wound care treatment. Patient denies any fever chills nausea vomiting chest pain calf pain shortness of breath. Patient is ambulatory in a cam walking boot today. Patient has been applying Santyl dressings to the site daily basis. Patient has no acute complaints. Objective Data Objective Data Vital Signs: Vital Signs Temp Pulse Resp BP 97.7 F L 82 18 98/61 11/04/23 11:18 11/04/23 11:18 11/04/23 11:18 11/04/23 11:18 Physical Exam Narrative Atrophic skin changes noted. Dorsalis pedis and posterior tibial pulses are biphasic by Doppler examination. Absent digital hair growth noted to bilateral feet. Light touch protective sensation absent to entire bilateral lower extremity extending up past the knee. Dermatologic: Full-thickness wound noted to the plantar right heel. Wound demonstrates mixed fibrogranular and necrotic base predebridement. Postdebridement wound demonstrated clean granular base slightly macerated skin edges. Moderate drainage noted. No malodor edema erythema noted at current. No purulent drainage noted. Pre and postdebridement measurements documented nursing notes. Musculoskeletal: No wound forming deformity noted. Muscular strength full to bilateral lower extremity compartments. 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 Any new allergies or adverse reactions No Had a fall/change in ADL's that may No increase risk of falls Signs or symptoms of abuse and/or No neglect since last visit Have you been in the hospital since your No last visit? Has dressing in place as prescribed Yes Has compression in place as prescribed Yes Has offloadiing in place as prescribed No Experienced any changes in pain level or No management Pain Scale: 0-10 Numeric Is Patient Pain Free? Yes WC - Nurse 1 - General Ulcer Measurement Start: 11/04/23 11:18 Freq: Status: Active Protocol: Activity Type Activity Date Activity User E-sign Co-sign Detail Recorded Client Recorded Date Recorded By Document 11/04/23 11:18 RB Desktop 11/04/23 11:21 RB 11/04/23 11:18 Wound Center Nurse 1 #1 right heel -Combined with other wound No -Current Size (cm) - Length 3 -Current Size (cm) - Width 3.4 -Current Size (cm) - Depth 0.1 -Total Square Cm 10.2 -Tunneling No -Undermining/Tunneling No -Circular Undermining No -Exudate Amt Medium -Exudate Type Serosanguineous -Wound Margin Distinct, Outline Attached -Granulation Amt Medium (34-66%) -Granulation Quality [place] -Slough/Fibrin Yes -Necrosis Amt Medium (34-66%) -Necrotic Tissue Type Adherent Slough -Structure Exposed N/A -Texture (Eloisa-wound Skin Appearance) Assessed,Callus -Moisture (Eloisa-wound Skin Appearance) Assessed,Dry/ Scaly -Color (Eloisa-wound Skin Appearance) Assessed -Temperature (Eloisa-wound Skin No Abnormality Appearance) (Pt Warm) -Tenderness on Palpation (Eloisa-wound No Skin Appearance) -Ulcer Cleansing Wound Cleanser -Foul Odor after Cleansing No -Anesthetic Used 5% Lidocaine Gel Lower Limb Edema Present Yes Right Calf (cm) 36 Right Ankle (cm) 24.2 Assessment/Plan Assessment/Plan (1) Other specified peripheral vascular diseases: CODE(S): I73.89 - Other specified peripheral vascular diseases PLAN: Exam performed. Radiographs right foot ordered. Hemoglobin A1c 5.8. CBC CMP ESR CRP within normal limits for kidney function, liver function. Mild elevation CRP. No leukocytosis. Some evidence of protein deficiency with diminished prealbumin and albumin levels. Recommend Shady supplementation for nutritional support. Due to positive cultures growing staph lugdunensis and Enterococcus faecalis. Rx for Augmentin and doxycycline. Arterial and venous studies awaiting results. Today wound was excisionally debrided down to including the level of subcutaneous tissue of all nonviable tissue using a 5 mm dermal curette to the right heel without incident. Topical anesthesia used despite patient's neuropathy. Patient tolerated procedure well. Hemostasis obtained with light compression. Pre and postdebridement measurements documented nursing notes. At current I have recommended transition to nonweightbearing. Patient has crutches at home maintain nonweightbearing status with crutches. At current I have recommended daily dressing changes consisting of Betadine paint DSD and Tubigrip. Wound was flushed and cultured prior to dressing today. There are any systemic signs of infection or invasive bacterial will consider treatment. Due to setting of renal transplant we will avoid antibiotics unless required. Will consider advanced wound care grafting and total contact cast if there are any delays in healing. Follow-up in 1 week. (2) Non-pressure chronic ulcer of other part of right foot with fat layer exposed: CODE(S): L97.512 - Non-pressure chronic ulcer of other part of right foot with fat layer exposed (3) Type 2 diabetes mellitus with diabetic polyneuropathy: CODE(S): E11.42 - Type 2 diabetes mellitus with diabetic polyneuropathy
--- NOTE | 2023-11-05 13:59 | ART_ITS ---
Reason For Study: PVD Procedure A bilateral lower extremity continuous wave Doppler with analog waveform analysis,segmental pressures,and ankle brachial indexes without exercise. Left Segmental Pressures Left brachial= 195mmHg. Left posterior tibial artery = >254mmHg. Left dorsalis pedis artery = >254mmHg. The left dorsalis pedis waveforms are triphasic. The left posterior tibial artery waveforms are triphasic. Right Segmental Pressures Right brachial= 185mmHg. Right posterior tibial artery = >254mmHg. Right dorsalis pedis artery = >254mmHg. Right digit = 111 mmHg. The right dorsalis pedis waveforms are triphasic. The right posterior tibial artery waveforms are triphasic. Indices The right ankle brachial index by the dorsalis pedis is NC. The right ankle brachial index by the posterior tibial artery is NC. The right digital-brachial index is 0.57. The left ankle brachial index by the dorsalis pedis is NC. The left ankle brachial index by the posterior tibial artery is NC. VL/Lower Ext Art Exam w/o Exercis Interpretation Summary Triphasic Doppler waveforms are noted at ankle level bilaterally. Pulse-volume recordings appear satisfactory at all levels bilaterally. Resting ankle-brachial indices could no t be determined on either side due to the non-compressibility of the vasculature at ankle level bi laterally. The right digital-brachial index is mildly diminished. The left digital-brachial index wa s not determined, as the patient has had a prior left great toe amputation. There is evidence of arterial calcification at ankle level bilaterally. Arteria l flow appears normal at ankle level bilaterally. There is evidence of mild arterial occlusive diseas e at digital level on the right. Arterial flow was not fully assessed at digital level on the left du e to prior left great toe amputation, though pulse-volume recordings suggest arterial flow at this le keri to be generally equivalent to that on the right. Clinical correlation is advised. Ordering Physician: Gilberto Chung Referring Physician: Magaly Hull Performed By: Zabrina Bustamante RVT and Student
--- NOTE | 2023-11-05 13:59 | VDLE_ITS ---
Reason For Study: Right heel ulcer RIGHT LEFT CFV is compressible, spontaneous, phasic, CFV is compressible, spontaneous, phasic, competent and demonstrates normal competent, and demonstrates normal augmentation. augmentation. FV is compressible, spontaneous, phasic, FV is compressible, spontaneous, phasic, competent and demonstrates normal competent and demonstrates normal augmentation. augmentation. POP V is compressible, spontaneous, phasic, POP V is compressible, phasic, and competent and demonstrates normal INCOMPETENT for greater than 1.0 second. augmentation. T/P Trunk is compressible. T/P Trunk is compressible. PTV is compressible. PTV is compressible. LT PerV is compressible. RT PerV is compressible. SFJ is competent and measures 0.67 x 0.85 cm. SFJ is competent and measures 0.60 x 0.61 cm. GSV proximal thigh measures 0.38 x 0.50 cm. GSV proximal thigh measures 0.49 x 0.51 cm. GSV above knee is competent. GSV above knee is competent. GSV at knee measures 0.39 x 0.43 cm. GSV at knee measures 0.54 x 0.54 cm. GSV below knee is INCOMPETENT for greater GSV below knee is INCOMPETENT for greater than 0.5 seconds. than 0.5 seconds. SSV is partially compressible with bright ASV proximal calf is INCOMPETENT for greater intraluminal echoes consistent with Chronic than 0.5 seconds and measures 0.33 x 0.37 cm. SVT. ASV prox/mid calf from SSV is INCOMPETENT for SSV proximal calf is INCOMPETENT for greater greater than 0.5 seconds and measures 0.45 x than 0.5 seconds and measures 0.63 x 0.60 cm. 0.48 cm. SSV is partially compressible with bright intraluminal echoes consistent with Chronic SVT. SSV at junction is INCOMPETENT for greater than 0.5 seconds and measures 0.45 x 0.47 cm. Procedure This is a venous duplex using B-mode, color flow and spectral Doppler. Exam performed in department. Patient was scanned in reverse Trendelenburg position during reflux assessment. A preliminary report was called and/or faxed to . VL/Venous Duplex US - Onel Extrem Interpretation Summary Deep veins of the lower extremities are bilaterally patent and compressible seg mentally. There is no evidence of deep vein thrombosis on either side. Valvular competence appears in tact within the proximal deep venous system on the right . On the left, the popliteal vein is i ncompetent. The great saphenous veins appear bilaterally patent and compressible segmentally. Sapheno -femoral junctions are bilaterally competent . The right great saphenous vein appears competent ab ove the knee. The right great saphenous vein appears incompetent below the knee. The left great s aphenous vein appears competent above the knee. The left great saphenous vein appears incompetent bel ow the knee. Small saphenous veins are incompetent bilaterally, and demonstrate chronic venous nola nges. The accessory saphenous vein in the right proximal calf is incompetent. An accessory saphenou s vein in the right proximal/mid-calf, emanating from the small saphenous vein, is incompetent. Ordering Physician: Gilberto Chung Referring Physician: Magaly Hull Performed By: Zabrina Bustamante RVT and Student
[2023-11-11 11:17] VITALS: BP 156/97; PULSE 80; RESP 18; TEMP 37
--- NOTE | 2023-11-11 11:40 | PCM.WC.PN ---
History of Present Illness Date of Service: 11/11/23 Chief Complaint: Right heel wound History of Wound: Patient is a type II diabetic with history of ESRD status post kidney transplant in setting of peripheral polyneuropathy Patient presents with neuropathic ulceration present for 1 month. Patient was treated by Dr. Linda ramirez in outpatient setting. Patient was referred to us for more advanced wound care treatment. Patient denies any fever chills nausea vomiting chest pain calf pain shortness of breath. patient reports non-compliance with weightbearing. Objective Data Objective Data Vital Signs: Vital Signs Temp Pulse Resp BP O2 Del Method 98.6 F 80 18 156/97 H Room Air 11/11/23 11:17 11/11/23 11:17 11/11/23 11:17 11/11/23 11:17 11/11/23 11:17 Oxygen Delivery Method Room Air Physical Exam Narrative Atrophic skin changes noted. Dorsalis pedis and posterior tibial pulses are biphasic by Doppler examination. Absent digital hair growth noted to bilateral feet. Light touch protective sensation absent to entire bilateral lower extremity extending up past the knee. Dermatologic: Full-thickness wound noted to the plantar right heel. Wound demonstrates mixed fibrogranular and necrotic base predebridement. Postdebridement wound demonstrated clean granular base slightly macerated skin edges. Moderate drainage noted. No malodor edema erythema noted at current. No purulent drainage noted. Pre and postdebridement measurements documented nursing notes. Musculoskeletal: No wound forming deformity noted. Muscular strength full to bilateral lower extremity compartments. Debridement Note Debridement Note Post-Debridement Measurements and Additional Note: Post-Debridement Measurements/Treatment - Nurse 1 - General Ulcer Assessment Start: 11/04/23 11:18 Freq: Status: Active Protocol: MARK.LOWEXT Activity Type Activity Date Activity User E-sign Co-sign Detail Recorded Client Recorded Date Recorded By Document 11/04/23 11:18 RB Desktop 11/04/23 11:21 RB Document 11/11/23 11:17 [id number] 11/11/23 11:21 KW 11/04/23 11/11/23 11:18 11:17 - Today's Visit Information Type of service Follow-up Visit Follow-up Visit (Physician/ACCELERATOR SYSTEMS DIRECTOR (Physician/ACCELERATOR SYSTEMS DIRECTOR ) ) Arrival Mode Ambulatory Ambulatory Transfer Assistance None Accompanied by MOTHER Patient Identification Verified (Name & Yes Yes ) Patient Requires Transmission-Based No Precautions Vital Signs Temperature (97.8 F-99.1 F) 97.7 F L 98.6 F Temperature Source Temporal Temporal Pulse Rate (60-100) 82 80 Pulse Location Monitor Monitor Respiratory Rate (12-18) 18 18 Respiratory rate source Observation Observation Oxygen Delivery Method Room Air Blood Pressure (90/60-120/80) 98/61 156/97 H Blood Pressure Mean (mm Hg) 73 116 Source Monitor Monitor Position Semi-Fowlers Semi-Fowlers Blood Pressure Location Left Arm Left Arm History Since Last Visit- (Skip if this is Patient's initial visit) Have you changed medications since your No No last visit? Any new allergies or adverse reactions No No Had a fall/change in ADL's that may No No increase risk of falls Signs or symptoms of abuse and/or No No neglect since last visit Have you been in the hospital since your No No last visit? Has dressing in place as prescribed Yes Yes Has compression in place as prescribed Yes Yes Has offloadiing in place as prescribed No Yes Experienced any changes in pain level or No No management Left Footwear Regular Shoe Right Footwear Removable Cast Walker/Walking Boot Pain Scale: 0-10 Numeric Is Patient Pain Free? Yes Yes WC - Nurse 1 - General Ulcer Measurement Start: 11/04/23 11:18 Freq: Status: Active Protocol: Activity Type Activity Date Activity User E-sign Co-sign Detail Recorded Client Recorded Date Recorded By Document 11/04/23 11:18 RB Desktop 11/04/23 11:21 RB Document 11/11/23 11:17 [id number] 11/11/23 11:21 11/04/23 11/11/23 11:18 11:17 Wound Center Nurse 1 #1 right heel -Combined with other wound No -Current Size (cm) - Length 3 3.6 -Current Size (cm) - Width 3.4 3.1 -Current Size (cm) - Depth 0.1 0 -Total Square Cm 10.2 11.16 -Tunneling No -Undermining/Tunneling No -Circular Undermining No -Exudate Amt Medium Small -Exudate Type Serosanguineous Serosanguineous -Wound Margin Distinct, Distinct, Outline Outline Attached Attached -Granulation Amt Medium (34-66%) Small (1-33%) -Granulation Quality [place] Red -Slough/Fibrin Yes -Necrosis Amt Medium (34-66%) Large (67-100%) -Necrotic Tissue Type Adherent Slough Adherent Slough -Structure Exposed N/A -Texture (Eloisa-wound Skin Appearance) Assessed,Callus Assessed -Moisture (Eloisa-wound Skin Appearance) Assessed,Dry/ Assessed Scaly -Color (Eloisa-wound Skin Appearance) Assessed Assessed -Temperature (Eloisa-wound Skin No Abnormality No Abnormality Appearance) (Pt Warm) (Pt Warm) -Tenderness on Palpation (Eloisa-wound No Skin Appearance) -Ulcer Cleansing Wound Cleanser Rinsed/ Irrigated with Saline -Foul Odor after Cleansing No No -Anesthetic Used 5% Lidocaine 5% Lidocaine Gel Gel Lower Limb Edema Present Yes Right Calf (cm) 36 36.8 Right Ankle (cm) 24.2 21.6 WC - Nurse 2 - General Ulcer CM Notes Start: 11/04/23 11:18 Freq: Status: Active Protocol: Activity Type Activity Date Activity User E-sign Co-sign Detail Recorded Client Recorded Date Recorded By Document 11/04/23 11:37 Laptop 11/04/23 11:40 Document 11/11/23 11:28 DS [id number] 11/11/23 11:31 11/04/23 11/11/23 11:37 11:28 Wound Center Nurse 2 #1 right heel -Time 11:38 11:28 -Correct Patient Yes Yes -Correct Side, Site, Position Yes Yes -Correct Procedure Yes Yes -Procedure Performed Yes Yes -Type of Procedure Debridement Debridement -Clinical Debridement Subcutaneous Subcutaneous -Tissue Removed Subcutaneous Subcutaneous -Post Debridement (cm) - Length 3.6 3.0 -Post Debridement (cm) - Width 3.5 3.0 -Post Debridement (cm) - Depth 0.1 0.1 -Total Square (Post) (cm) 12.60 9.00 -Area of Debridement (cm) - Length 3.6 3.0 -Area of Debridement (cm) - Width 3.5 3.0 -Total Square (Area) (cm) 12.60 9.00 -Tunneling No No -Undermining/Tunneling No No -Circular Undermining No No -Wound/Ulcer Outcome Not Healed Not Healed -Ulcer Cleansing Rinsed/ Rinsed/ Irrigated with Irrigated with Saline Saline -Foul Odor after Cleansing No -Bioengineered Tissue No -Bleeding Controlled with Pressure Pressure -Treatment Response Procedure Procedure Tolerated Well Tolerated Well -Offloading No -Assistive Device(s) Crutches -Debridement - Subq, 1st 20sq cm Yes Yes Pain Scale: 0-10 Numeric Is Patient Pain Free? Yes Yes - Nurse 3 - General Ulcer D/C NN Start: 11/04/23 11:18 Freq: Status: Active Protocol: Activity Type Activity Date Activity User E-sign Co-sign Detail Recorded Client Recorded Date Recorded By Document 11/04/23 11:45 KW Desktop 11/04/23 11:46 KW 11/04/23 11:45 Wound Care Center Nurse 3 #1 right heel -Other Dressing BETADINE -Primary Dressing Covered/Secured with Dry Gauze & Roll Gauze, Secured with Tape Right -Tubular Bandage Single Layer -Size of Tubigrip Used Size D -Size D ($) 1 Pain Scale: 0-10 Numeric Is Patient Pain Free? Yes WC - Visit Discharge Discharge Condition Stable Ambulatory Status Ambulatory Transportation Private Auto Medication Reconcilliation completed & No provided to patient/care provider Clinical Summary of Care Provided Yes Assessment/Plan Assessment/Plan (1) Other specified peripheral vascular diseases: CODE(S): I73.89 - Other specified peripheral vascular diseases PLAN: Exam performed. Hemoglobin A1c 5.8. CBC CMP ESR CRP within normal limits for kidney function, liver function. Mild elevation CRP. No leukocytosis. Some evidence of protein deficiency with diminished prealbumin and albumin levels. Recommend Shady supplementation for nutritional support. completed PO course of abx. arterial studies suggest diminished blood flow to right lower extremity Today wound was excisionally debrided down to including the level of subcutaneous tissue of all nonviable tissue using a 5 mm dermal curette to the right heel without incident. Topical anesthesia used despite patient's neuropathy. Patient tolerated procedure well. Hemostasis obtained with light compression. Pre and postdebridement measurements documented nursing notes. At current I have recommended transition to nonweightbearing. Patient has crutches at home maintain nonweightbearing status with crutches. At current I have recommended daily dressing changes consisting of Betadine paint DSD and Tubigrip - patient non-compliant with this. Will consider advanced wound care grafting and total contact cast if there are any delays in healing - will delay until after vascular evaluation Follow-up in 1 week. detailed discussion regarding risk of non-healing wound to right heel. discussed risk of life/limb threatening infection due to presence and location of wound. Patient understands. Uncertain if patient will improve weightbearing restrictions. (2) Non-pressure chronic ulcer of other part of right foot with fat layer exposed: CODE(S): L97.512 - Non-pressure chronic ulcer of other part of right foot with fat layer exposed (3) Type 2 diabetes mellitus with diabetic polyneuropathy: CODE(S): E11.42 - Type 2 diabetes mellitus with diabetic polyneuropathy
[2023-11-25 11:19] VITALS: BP 115/71; PULSE 87; RESP 18; TEMP 36.2
--- NOTE | 2023-11-25 11:35 | PN.PCM_ITS ---
History of Present Illness Date of Service: 11/25/23 Chief Complaint: Right heel wound History of Wound: Patient is a type II diabetic with history of ESRD status post kidney transplant in setting of peripheral polyneuropathy Patient presents with neuropathic ulceration present for 1 month. Patient was treated by Dr. Linda ramirez in outpatient setting. Patient was referred to us for more advanced wound care treatment. Patient denies any fever chills nausea vomiting chest pain calf pain shortness of breath. patient reports non- compliance with weightbearing. Objective Data Objective Data Vital Signs: Vital Signs Temp Pulse Resp BP O2 Del Method 97.1 F L 87 18 115/71 Room Air 11/25/23 11:19 11/25/23 11:19 11/25/23 11:19 11/25/23 11:19 11/25/23 11:19 Oxygen Delivery Method Room Air Physical Exam Narrative Atrophic skin changes noted. Dorsalis pedis and posterior tibial pulses are biphasic by Doppler examination. Absent digital hair growth noted to bilateral feet. Light touch protective sensation absent to entire bilateral lower extremity extending up past the knee. Dermatologic: Full-thickness wound noted to the plantar right heel. Wound demonstrates mixed fibrogranular and necrotic base predebridement. Postdebridement wound demonstrated clean granular with no deep probing nor any signs of infection. No purulent drainage noted. Pre and postdebridement measurements documented nursing notes. Musculoskeletal: No wound forming deformity noted. Muscular strength full to bilateral lower extremity compartments. Debridement Note Debridement Note Post-Debridement Measurements and Additional Note: Post-Debridement Measurements/Treatment - Nurse 1 - General Ulcer Assessment Start: 11/04/23 11:18 Freq: Status: Active Protocol: JOSÉ MANUEL Activity Type Activity Date Activity User E-sign Co-sign Detail Recorded Client Recorded Date Recorded By Document 11/04/23 11:18 RB Desktop 11/04/23 11:21 RB Document 11/11/23 11:17 [id number] [id number] 11/11/23 11:21 KW Document 11/25/23 11:19 KW wound center 11/25/23 11:26 KW 11/04/23 11/11/23 11/25/23 11:18 11:17 11:19 - Today's Visit Information Type of service Follow-up Visit Follow-up Visit Follow-up Visit (Physician/RUNNER WORKER (Physician/RUNNER WORKER (Physician/RUNNER WORKER ) ) ) Arrival Mode Ambulatory Ambulatory Ambulatory Transfer Assistance None Accompanied by MOTHER Patient Identification Verified (Name & Yes Yes Yes ) Patient Requires Transmission-Based No Precautions Vital Signs Temperature (97.8 F-99.1 F) 97.7 F L 98.6 F 97.1 F L Temperature Source Temporal Temporal Temporal Pulse Rate (60-100) 82 80 87 Pulse Location Monitor Monitor Monitor Respiratory Rate (12-18) 18 18 18 Respiratory rate source Observation Observation Observation Oxygen Delivery Method Room Air Room Air Blood Pressure (90/60-120/80) 98/61 156/97 H 115/71 Blood Pressure Mean (mm Hg) 73 116 85 Source Monitor Monitor Monitor Position Semi-Fowlers Semi-Fowlers Semi-Fowlers Blood Pressure Location Left Arm Left Arm Left Arm History Since Last Visit- (Skip if this is Patient's initial visit) Have you changed medications since your No No No last visit? Any new allergies or adverse reactions No No No Had a fall/change in ADL's that may No No No increase risk of falls Signs or symptoms of abuse and/or No No No neglect since last visit Have you been in the hospital since your No No No last visit? Has dressing in place as prescribed Yes Yes Yes Has compression in place as prescribed Yes Yes Yes Has offloadiing in place as prescribed No Yes Yes Experienced any changes in pain level or No No No management Left Footwear Regular Shoe Regular Shoe Right Footwear Removable Cast Removable Cast Walker/Walking Walker/Walking Boot Boot Pain Scale: 0-10 Numeric Is Patient Pain Free? Yes Yes Yes WC - Nurse 1 - General Ulcer Measurement Start: 11/04/23 11:18 Freq: Status: Active Protocol: Activity Type Activity Date Activity User E-sign Co-sign Detail Recorded Client Recorded Date Recorded By Document 11/04/23 11:18 RB Desktop 11/04/23 11:21 RB Document 11/11/23 11:17 KW [id number] 11/11/23 11:21 KW Document 11/25/23 11:19 KW wound center 11/25/23 11:26 KW 11/04/23 11/11/23 11/25/23 11:18 11:17 11:19 Wound Center Nurse 1 #1 right heel -Combined with other wound No -Current Size (cm) - Length 3 3.6 3.4 -Current Size (cm) - Width 3.4 3.1 2.2 -Current Size (cm) - Depth 0.1 0 0 -Total Square Cm 10.2 11.16 7.48 -Date of Last Picture (Recall this 11/25/23 field) -Tunneling No -Undermining/Tunneling No -Circular Undermining No -Exudate Amt Medium Small Small -Exudate Type Serosanguineous Serosanguineous Serosanguineous -Wound Margin Distinct, Distinct, Distinct, Outline Outline Outline Attached Attached Attached -Granulation Amt Medium (34-66%) Small (1-33%) Large (67-100%) -Granulation Quality [place] Red Hyper- granulation, [place],Red -Slough/Fibrin Yes -Necrosis Amt Medium (34-66%) Large (67-100%) Small (1-33%) -Necrotic Tissue Type Adherent Slough Adherent Slough Adherent Slough -Structure Exposed N/A -Texture (Eloisa-wound Skin Appearance) Assessed,Callus Assessed Assessed -Moisture (Eloisa-wound Skin Appearance) Assessed,Dry/ Assessed Assessed, Scaly Maceration -Color (Eloisa-wound Skin Appearance) Assessed Assessed Assessed -Temperature (Eloisa-wound Skin No Abnormality No Abnormality No Abnormality Appearance) (Pt Warm) (Pt Warm) (Pt Warm) -Tenderness on Palpation (Eloisa-wound No No Skin Appearance) -Ulcer Cleansing Wound Cleanser Rinsed/ Rinsed/ Irrigated with Irrigated with Saline Saline -Foul Odor after Cleansing No No No -Anesthetic Used 5% Lidocaine 5% Lidocaine 5% Lidocaine Gel Gel Gel Lower Limb Edema Present Yes Right Calf (cm) 36 36.8 36 Right Ankle (cm) 24.2 21.6 21.5 WC - Nurse 2 - General Ulcer CM Notes Start: 11/04/23 11:18 Freq: Status: Active Protocol: Activity Type Activity Date Activity User E-sign Co-sign Detail Recorded Client Recorded Date Recorded By Document 11/04/23 11:37 Laptop 11/04/23 11:40 JF Document 11/11/23 11:28 [id number] 11/11/23 11:31 DS 11/04/23 11/11/23 11:37 11:28 Wound Center Nurse 2 #1 right heel -Time 11:38 11:28 -Correct Patient Yes Yes -Correct Side, Site, Position Yes Yes -Correct Procedure Yes Yes -Procedure Performed Yes Yes -Type of Procedure Debridement Debridement -Clinical Debridement Subcutaneous Subcutaneous -Tissue Removed Subcutaneous Subcutaneous -Post Debridement (cm) - Length 3.6 3.0 -Post Debridement (cm) - Width 3.5 3.0 -Post Debridement (cm) - Depth 0.1 0.1 -Total Square (Post) (cm) 12.60 9.00 -Area of Debridement (cm) - Length 3.6 3.0 -Area of Debridement (cm) - Width 3.5 3.0 -Total Square (Area) (cm) 12.60 9.00 -Tunneling No No -Undermining/Tunneling No No -Circular Undermining No No -Wound/Ulcer Outcome Not Healed Not Healed -Ulcer Cleansing Rinsed/ Rinsed/ Irrigated with Irrigated with Saline Saline -Foul Odor after Cleansing No -Bioengineered Tissue No -Bleeding Controlled with Pressure Pressure -Treatment Response Procedure Procedure Tolerated Well Tolerated Well -Offloading No -Assistive Device(s) Crutches -Debridement - Subq, 1st 20sq cm Yes Yes Pain Scale: 0-10 Numeric Is Patient Pain Free? Yes Yes - Nurse 3 - General Ulcer D/C NN Start: 11/04/23 11:18 Freq: Status: Active Protocol: Activity Type Activity Date Activity User E-sign Co-sign Detail Recorded Client Recorded Date Recorded By Document 11/04/23 11:45 KW Desktop 11/04/23 11:46 KW Document 11/11/23 11:42 DS [id number] 11/11/23 11:43 DS 11/04/23 11/11/23 11:45 11:42 Wound Care Center Nurse 3 #1 right heel -Ulcer Cleansing Rinsed/ Irrigated with Saline -Other Dressing BETADINE betadine -Primary Dressing Covered/Secured with Dry Gauze & Dry Gauze & Roll Gauze, Roll Gauze Secured with Tape Right -Tubular Bandage Single Layer -Size of Tubigrip Used Size D -Size D ($) 1 Pain Scale: 0-10 Numeric Is Patient Pain Free? Yes Yes - Visit Discharge Discharge Condition Stable Stable Ambulatory Status Ambulatory Crutches Transportation Private Auto Private Auto Medication Reconcilliation completed & No Yes provided to patient/care provider Clinical Summary of Care Provided Yes Yes Assessment/Plan Assessment/Plan (1) Other specified peripheral vascular diseases: CODE(S): I73.89 - Other specified peripheral vascular diseases PLAN: Exam performed. Hemoglobin A1c 5.8. No additional antibiotics indicated at this time arterial studies suggest diminished blood flow to right lower extremity - patient following with vascular surgery Today wound was excisionally debrided down to including the level of subcutaneous tissue of all nonviable tissue using a 5 mm dermal curette to the right heel without incident. Topical anesthesia used despite patient's neuropathy. Patient tolerated procedure well. Hemostasis obtained with light compression. Pre and postdebridement measurements documented nursing notes. I have recommended transition to nonweightbearing. Patient has crutches at home maintain nonweightbearing status with crutches. I have recommended daily dressing changes consisting of Betadine paint DSD and Tubigrip - patient non-compliant with this. Will consider advanced wound care grafting and total contact cast if there are any delays in healing Wound improving at this time Follow-up in 1 week. detailed discussion regarding risk of non-healing wound to right heel. discussed risk of life/limb threatening infection due to presence and location of wound. Patient understands. Uncertain if patient will improve weightbearing restrictions. (2) Non-pressure chronic ulcer of other part of right foot with fat layer exposed: CODE(S): L97.512 - Non-pressure chronic ulcer of other part of right foot with fat layer exposed (3) Type 2 diabetes mellitus with diabetic polyneuropathy: CODE(S): E11.42 - Type 2 diabetes mellitus with diabetic polyneuropathy
== END 2023-11-28 23:59 | disposition home or self-care (01) ==
LOC: WC 11:15
PROVIDERS: PCP Internal Medicine; Referring Provider Podiatrist Foot & Ankle Surgery; Visit Provider Podiatrist
DX: E11.621 Type 2 diabetes mellitus with foot ulcer (principal); N18.6 End stage renal disease; L97.512 Non-pressure chronic ulcer of other part of right foot with fat layer exposed; I83.015 Varicose veins of right lower extremity with ulcer other part of foot; E11.51 Type 2 diabetes mellitus with diabetic peripheral angiopathy without gangrene; E11.42 Type 2 diabetes mellitus with diabetic polyneuropathy; E11.22 Type 2 diabetes mellitus with diabetic chronic kidney disease; Z94.0 Kidney transplant status; Z91.199 Patient's noncompliance with other medical treatment and regimen due to unspecified reason; Z89.422 Acquired absence of other left toe(s); I83.92 Asymptomatic varicose veins of left lower extremity; R60.9 Edema, unspecified
CPT/HCPCS: 11042; 93923; 93970

== ENCOUNTER 2023-12-23 11:00 | Outpatient (RCR) | payer MEDICARE, MEDICAID, SELFPAY ==
[2023-11-29 01:16] VITALS: BP 116/62; PULSE 89; RESP 18; TEMP 36.2
[2023-12-02 11:11] VITALS: BP 121/63; PULSE 87; RESP 18; TEMP 35.9
--- NOTE | 2023-12-02 11:36 | PN.PCM_ITS ---
History of Present Illness Date of Service: 11/25/23 Chief Complaint: Right heel wound History of Wound: Patient is a type II diabetic with history of ESRD status post kidney transplant in setting of peripheral polyneuropathy Patient presents with neuropathic ulceration present for 1 month. Patient was treated by Dr. Linda ramirez in outpatient setting. Patient was referred to us for more advanced wound care treatment. Patient denies any fever chills nausea vomiting chest pain calf pain shortness of breath. patient reports non- compliance with weightbearing. Objective Data Objective Data Vital Signs: Vital Signs Temp Pulse Resp BP O2 Del Method 96.7 F L 87 18 121/63 H Room Air 12/02/23 11:11 12/02/23 11:11 12/02/23 11:11 12/02/23 11:11 12/02/23 11:11 Oxygen Delivery Method Room Air Physical Exam Narrative Atrophic skin changes noted. Dorsalis pedis and posterior tibial pulses are biphasic by Doppler examination. Absent digital hair growth noted to bilateral feet. Light touch protective sensation absent to entire bilateral lower extremity extending up past the knee. Dermatologic: Full-thickness wound noted to the plantar right heel. Wound demonstrates clean granular base. Postdebridement wound demonstrated clean granular with no deep probing nor any signs of infection. No purulent drainage noted. Pre and postdebridement measurements documented nursing notes. Musculoskeletal: No wound forming deformity noted. Muscular strength full to bilateral lower extremity compartments. Debridement Note Debridement Note Post-Debridement Measurements and Additional Note: Post-Debridement Measurements/Treatment - Nurse 1 - General Ulcer Assessment Start: 12/02/23 11:11 Freq: Status: Active Protocol: JOSÉ MANUEL Activity Type Activity Date Activity User E-sign Co-sign Detail Recorded Client Recorded Date Recorded By Document 12/02/23 11:11 wound center 12/02/23 11:17 KW 12/02/23 11:11 - Today's Visit Information Type of service Follow-up Visit (Physician/TELEPHONIC NURSE CASE MANAGER ) Arrival Mode Ambulatory Accompanied by MOTHER Patient Identification Verified (Name & Yes ) Vital Signs Temperature (97.8 F-99.1 F) 96.7 F L Temperature Source Temporal Pulse Rate (60-100) 87 Pulse Location Monitor Respiratory Rate (12-18) 18 Respiratory rate source Observation Oxygen Delivery Method Room Air Blood Pressure (90/60-120/80) 121/63 H Blood Pressure Mean (mm Hg) 82 Source Monitor Position Sitting Blood Pressure Location Right Arm History Since Last Visit- (Skip if this is Patient's initial visit) Have you changed medications since your No last visit? Any new allergies or adverse reactions No Had a fall/change in ADL's that may No increase risk of falls Signs or symptoms of abuse and/or No neglect since last visit Have you been in the hospital since your No last visit? Has dressing in place as prescribed Yes Has compression in place as prescribed Yes Has offloadiing in place as prescribed Yes Experienced any changes in pain level or No management Left Footwear Regular Shoe Right Footwear Removable Cast Walker/Walking Boot Pain Scale: 0-10 Numeric Is Patient Pain Free? Yes WC - Nurse 1 - General Ulcer Measurement Start: 12/02/23 11:11 Freq: Status: Active Protocol: Activity Type Activity Date Activity User E-sign Co-sign Detail Recorded Client Recorded Date Recorded By Document 12/02/23 11:11 wound center 12/02/23 11:17 12/02/23 11:11 Wound Center Nurse 1 #1 right heel -Current Size (cm) - Length 3.3 -Current Size (cm) - Width 3 -Current Size (cm) - Depth 0.1 -Total Square Cm 9.9 -Exudate Amt Small -Exudate Type Serosanguineous -Wound Margin Distinct, Outline Attached -Granulation Amt Large (67-100%) -Granulation Quality [place] -Texture (Eloisa-wound Skin Appearance) Assessed,Callus -Moisture (Eloisa-wound Skin Appearance) Assessed -Color (Eloisa-wound Skin Appearance) Assessed -Temperature (Eloisa-wound Skin No Abnormality Appearance) (Pt Warm) -Tenderness on Palpation (Eloisa-wound No Skin Appearance) -Ulcer Cleansing Rinsed/ Irrigated with Saline -Foul Odor after Cleansing No -Anesthetic Used 5% Lidocaine Gel Right Calf (cm) 35.5 Right Ankle (cm) 21 Assessment/Plan Assessment/Plan (1) Other specified peripheral vascular diseases: CODE(S): I73.89 - Other specified peripheral vascular diseases PLAN: Exam performed. Hemoglobin A1c 5.8. No additional antibiotics indicated at this time arterial studies suggest diminished blood flow to right lower extremity - patient following with vascular surgery Today wound was excisionally debrided down to including the level of subcutaneous tissue of all nonviable tissue using a 5 mm dermal curette to the right heel without incident. Topical anesthesia used despite patient's neuropathy. Patient tolerated procedure well. Hemostasis obtained with light compression. Pre and postdebridement measurements documented nursing notes. Today a 4 x 4.5 cm, 11 billing units, EpiFix graft was applied to the plantar heel wound on the right side. Entire graft used, no waste. Graft was stabilized with overlying wound veil and Steri-Strips. Site was dressed with a dry sterile dressing. Total contact cast applied to the right lower extremity. Patient to follow-up in 1 week. (2) Non-pressure chronic ulcer of other part of right foot with fat layer exposed: CODE(S): L97.512 - Non-pressure chronic ulcer of other part of right foot with fat layer exposed (3) Type 2 diabetes mellitus with diabetic polyneuropathy: CODE(S): E11.42 - Type 2 diabetes mellitus with diabetic polyneuropathy
[2023-12-09 11:41] VITALS: BP 109/62; PULSE 85; RESP 18; TEMP 36.9
--- NOTE | 2023-12-09 11:52 | PCM.WC.PN ---
History of Present Illness Date of Service: 12/09/23 Chief Complaint: Right heel wound History of Wound: Patient is a type II diabetic with history of ESRD status post kidney transplant in setting of peripheral polyneuropathy Patient presents with neuropathic ulceration present for 1 month. Patient was treated by Dr. Linda ramirez in outpatient setting. Patient was referred to us for more advanced wound care treatment. Patient denies any fever chills nausea vomiting chest pain calf pain shortness of breath. Patient is ambulatory in a cam walking boot today. Patient has been applying Santyl dressings to the site daily basis. Patient has no acute complaints. Objective Data Objective Data Vital Signs: Vital Signs Temp Pulse Resp BP O2 Del Method 98.4 F 85 18 109/62 Room Air 12/09/23 11:41 12/09/23 11:41 12/09/23 11:41 12/09/23 11:41 12/02/23 11:11 Oxygen Delivery Method Room Air Physical Exam Narrative Atrophic skin changes noted. Dorsalis pedis and posterior tibial pulses are biphasic by Doppler examination. Absent digital hair growth noted to bilateral feet. Light touch protective sensation absent to entire bilateral lower extremity extending up past the knee. Dermatologic: Full-thickness wound noted to the plantar right heel. Wound demonstrates clean granular base. Postdebridement wound demonstrated clean granular with no deep probing nor any signs of infection. No purulent drainage noted. Pre and postdebridement measurements documented nursing notes. Musculoskeletal: No wound forming deformity noted. Muscular strength full to bilateral lower extremity compartments. Debridement Note Debridement Note Post-Debridement Measurements and Additional Note: Post-Debridement Measurements/Treatment WC - Nurse 1 - General Ulcer Assessment Start: 12/02/23 11:11 Freq: Status: Active Protocol: AMRK.LOWEXT Activity Type Activity Date Activity User E-sign Co-sign Detail Recorded Client Recorded Date Recorded By Document 12/02/23 11:11 KW wound center 12/02/23 11:17 KW Document 12/09/23 11:41 RB wound 12/09/23 11:42 RB 12/02/23 12/09/23 11:11 11:41 - Today's Visit Information Type of service Follow-up Visit Follow-up Visit (Physician/INFORMATION CLERK BROKERAGE (Physician/INFORMATION CLERK BROKERAGE ) ) Arrival Mode Ambulatory Ambulatory Transfer Assistance None Accompanied by MOTHER Patient Identification Verified (Name & Yes Yes ) Patient Requires Transmission-Based No Precautions Vital Signs Temperature (97.8 F-99.1 F) 96.7 F L 98.4 F Temperature Source Temporal Temporal Pulse Rate (60-100) 87 85 Pulse Location Monitor Monitor Respiratory Rate (12-18) 18 18 Respiratory rate source Observation Observation Oxygen Delivery Method Room Air Blood Pressure (90/60-120/80) 121/63 H 109/62 Blood Pressure Mean (mm Hg) 82 77 Source Monitor Monitor Position Sitting Semi-Fowlers Blood Pressure Location Right Arm Left Arm History Since Last Visit- (Skip if this is Patient's initial visit) Have you changed medications since your No No last visit? Any new allergies or adverse reactions No No Had a fall/change in ADL's that may No No increase risk of falls Signs or symptoms of abuse and/or No No neglect since last visit Have you been in the hospital since your No No last visit? Has dressing in place as prescribed Yes Yes Has compression in place as prescribed Yes No Has offloadiing in place as prescribed Yes Yes Experienced any changes in pain level or No No management Left Footwear Regular Shoe Right Footwear Removable Cast Walker/Walking Boot Pain Scale: 0-10 Numeric Is Patient Pain Free? Yes Yes - Nurse 1 - General Ulcer Measurement Start: 12/02/23 11:11 Freq: Status: Active Protocol: Activity Type Activity Date Activity User E-sign Co-sign Detail Recorded Client Recorded Date Recorded By Document 12/02/23 11:11 KW wound center 12/02/23 11:17 KW Document 12/09/23 11:41 RB wound 12/09/23 11:42 RB 12/02/23 12/09/23 11:11 11:41 Wound Center Nurse 1 #1 right heel -Combined with other wound No -Current Size (cm) - Length 3.3 2.7 -Current Size (cm) - Width 3 2.9 -Current Size (cm) - Depth 0.1 0.1 -Total Square Cm 9.9 7.83 -Tunneling No -Undermining/Tunneling No -Circular Undermining No -Exudate Amt Small Medium -Exudate Type Serosanguineous Serosanguineous -Wound Margin Distinct, Distinct, Outline Outline Attached Attached -Granulation Amt Large (67-100%) Large (67-100%) -Granulation Quality [place] -Slough/Fibrin Yes -Necrosis Amt Small (1-33%) -Necrotic Tissue Type Adherent Slough -Structure Exposed N/A -Texture (Eloisa-wound Skin Appearance) Assessed,Callus Assessed,Callus -Moisture (Eloisa-wound Skin Appearance) Assessed Assessed -Color (Eloisa-wound Skin Appearance) Assessed Assessed -Temperature (Eloisa-wound Skin No Abnormality No Abnormality Appearance) (Pt Warm) (Pt Warm) -Tenderness on Palpation (Eloisa-wound No No Skin Appearance) -Ulcer Cleansing Rinsed/ Wound Cleanser Irrigated with Saline -Foul Odor after Cleansing No No -Anesthetic Used 5% Lidocaine 5% Lidocaine Gel Gel Right Calf (cm) 35.5 Right Ankle (cm) 21 WC - Nurse 2 - General Ulcer CM Notes Start: 12/02/23 11:11 Freq: Status: Active Protocol: Activity Type Activity Date Activity User E-sign Co-sign Detail Recorded Client Recorded Date Recorded By Document 12/02/23 11:58 KRIS [id number] 12/02/23 12:08 KRIS 12/02/23 11:58 Wound Center Nurse 2 -Time 11:59 -Correct Patient Yes -Correct Side, Site, Position Yes -Correct Procedure Yes -Procedure Performed Yes -Type of Procedure Debridement -Clinical Debridement Subcutaneous -Tissue Removed Subcutaneous -Post Debridement (cm) - Length 2.6 -Post Debridement (cm) - Width 2.9 -Post Debridement (cm) - Depth 0.1 -Total Square (Post) (cm) 7.54 -Area of Debridement (cm) - Length 2.6 -Area of Debridement (cm) - Width 2.9 -Total Square (Area) (cm) 7.54 -Tunneling No -Undermining/Tunneling No -Circular Undermining No -Wound/Ulcer Outcome Not Healed -Ulcer Cleansing Rinsed/ Irrigated with Saline -Foul Odor after Cleansing No -Bioengineered Tissue Yes -Type of Bioengineered Tissue Epifix Mesh -Expiration Date 06/30/28 -Product Lot Number [id number] -Percent Used 100 -Lot number of Saline Used [id number] -Bleeding Controlled with Pressure -Treatment Response Procedure Tolerated Well -Offloading Yes -Type of Offloading Total Contact Cast (TCC) - Right ($) -Debridement - Subq, 1st 20sq cm No -Apply Skin Sub - 1st 25 sq cm - Feet 1 -Epifix Mesh (per sq cm) 11 Pain Scale: 0-10 Numeric Is Patient Pain Free? Yes - Nurse 3 - General Ulcer D/C NN Start: 12/02/23 11:11 Freq: Status: Active Protocol: Activity Type Activity Date Activity User E-sign Co-sign Detail Recorded Client Recorded Date Recorded By Document 12/02/23 11:51 JF [id number] 12/02/23 11:52 12/02/23 11:51 Wound Care Center Nurse 3 #1 right heel -Ulcer Cleansing Rinsed/ Irrigated with Saline -Foul Odor after Cleansing No -Primary Dressing Applied Optilok 6.5x10 -Optilok 6.5x10 1 Pain Scale: 0-10 Numeric Is Patient Pain Free? Yes WC - Visit Discharge Discharge Condition Stable Ambulatory Status Ambulatory Transportation Private Auto Accompanied by mom Medication Reconcilliation completed & Yes provided to patient/care provider Clinical Summary of Care Provided Yes Assessment/Plan Assessment/Plan (1) Other specified peripheral vascular diseases: CODE(S): I73.89 - Other specified peripheral vascular diseases PLAN: Exam performed. Hemoglobin A1c 5.8. No additional antibiotics indicated at this time arterial studies suggest diminished blood flow to right lower extremity - patient following with vascular surgery Today wound was excisionally debrided down to including the level of subcutaneous tissue of all nonviable tissue using a 5 mm dermal curette to the right heel without incident. Topical anesthesia used despite patient's neuropathy. Patient tolerated procedure well. Hemostasis obtained with light compression. Pre and postdebridement measurements documented nursing notes. Today a 4 x 4.5 cm, 11 billing units, EpiFix graft was applied to the plantar heel wound on the right side. Entire graft used, no waste. Graft was stabilized with overlying wound veil and Steri-Strips. Site was dressed with a dry sterile dressing. Total contact cast applied to the right lower extremity. Patient to follow-up in 1 week. (2) Non-pressure chronic ulcer of other part of right foot with fat layer exposed: CODE(S): L97.512 - Non-pressure chronic ulcer of other part of right foot with fat layer exposed (3) Type 2 diabetes mellitus with diabetic polyneuropathy: CODE(S): E11.42 - Type 2 diabetes mellitus with diabetic polyneuropathy
[2023-12-16 11:18] VITALS: BP 138/75; PULSE 78; RESP 18; TEMP 35.7
--- NOTE | 2023-12-16 11:39 | PCM.WC.PN ---
History of Present Illness Date of Service: 12/16/23 Chief Complaint: Right heel wound History of Wound: Patient is a type II diabetic with history of ESRD status post kidney transplant in setting of peripheral polyneuropathy Patient presents with neuropathic ulceration present for 1 month. Patient was treated by Dr. Linda ramirez in outpatient setting. Patient was referred to us for more advanced wound care treatment. Patient denies any fever chills nausea vomiting chest pain calf pain shortness of breath. Patient is ambulatory in a cam walking boot today. Patient has been applying Santyl dressings to the site daily basis. Patient has no acute complaints. Objective Data Objective Data Vital Signs: Vital Signs Temp Pulse Resp BP O2 Del Method 96.3 F L 78 18 138/75 H Room Air 12/16/23 11:18 12/16/23 11:18 12/16/23 11:18 12/16/23 11:18 12/16/23 11:18 Oxygen Delivery Method Room Air Physical Exam Narrative Atrophic skin changes noted. Dorsalis pedis and posterior tibial pulses are biphasic by Doppler examination. Absent digital hair growth noted to bilateral feet. Light touch protective sensation absent to entire bilateral lower extremity extending up past the knee. Dermatologic: Full-thickness wound noted to the plantar right heel. Wound demonstrates clean granular base. Postdebridement wound demonstrated clean granular with no deep probing nor any signs of infection. No purulent drainage noted. Pre and postdebridement measurements documented nursing notes. Musculoskeletal: No wound forming deformity noted. Muscular strength full to bilateral lower extremity compartments. Debridement Note Debridement Note Post-Debridement Measurements and Additional Note: Post-Debridement Measurements/Treatment WC - Nurse 1 - General Ulcer Assessment Start: 12/02/23 11:11 Freq: Status: Active Protocol: JOSÉ MANUEL Activity Type Activity Date Activity User E-sign Co-sign Detail Recorded Client Recorded Date Recorded By Document 12/02/23 11:11 KW wound center 12/02/23 11:17 KW Document 12/09/23 11:41 RB wound 12/09/23 11:42 RB Document 12/16/23 11:18 KW g 12/16/23 11:28 KW 12/02/23 12/09/23 12/16/23 11:11 11:41 11:18 - Today's Visit Information Type of service Follow-up Visit Follow-up Visit Follow-up Visit (Physician/DIRECTOR OF DONOR RELATIONS (Physician/DIRECTOR OF DONOR RELATIONS (Physician/DIRECTOR OF DONOR RELATIONS ) ) ) Arrival Mode Ambulatory Ambulatory Ambulatory Transfer Assistance None Accompanied by MOTHER mother Patient Identification Verified (Name & Yes Yes Yes ) Patient Requires Transmission-Based No Precautions Vital Signs Temperature (97.8 F-99.1 F) 96.7 F L 98.4 F 96.3 F L Temperature Source Temporal Temporal Temporal Pulse Rate (60-100) 87 85 78 Pulse Location Monitor Monitor Monitor Respiratory Rate (12-18) 18 18 18 Respiratory rate source Observation Observation Observation Oxygen Delivery Method Room Air Room Air Blood Pressure (90/60-120/80) 121/63 H 109/62 138/75 H Blood Pressure Mean (mm Hg) 82 77 96 Source Monitor Monitor Monitor Position Sitting Semi-Fowlers Semi-Fowlers Blood Pressure Location Right Arm Left Arm Left Arm History Since Last Visit- (Skip if this is Patient's initial visit) Have you changed medications since your No No No last visit? Any new allergies or adverse reactions No No No Had a fall/change in ADL's that may No No No increase risk of falls Signs or symptoms of abuse and/or No No No neglect since last visit Have you been in the hospital since your No No No last visit? Has dressing in place as prescribed Yes Yes Yes Has compression in place as prescribed Yes No Yes Has offloadiing in place as prescribed Yes Yes Yes Experienced any changes in pain level or No No No management Left Footwear Regular Shoe Regular Shoe Right Footwear Removable Cast Total Contact Walker/Walking Cast Boot Pain Scale: 0-10 Numeric Is Patient Pain Free? Yes Yes Yes WC - Nurse 1 - General Ulcer Measurement Start: 12/02/23 11:11 Freq: Status: Active Protocol: Activity Type Activity Date Activity User E-sign Co-sign Detail Recorded Client Recorded Date Recorded By Document 12/02/23 11:11 KW wound center 12/02/23 11:17 KW Document 12/09/23 11:41 RB wound 12/09/23 11:42 RB Document 12/16/23 11:18 KW g 12/16/23 11:28 KW 12/02/23 12/09/23 12/16/23 11:11 11:41 11:18 Wound Center Nurse 1 #1 right heel -Combined with other wound No No -Current Size (cm) - Length 3.3 2.7 2.1 -Current Size (cm) - Width 3 2.9 2.6 -Current Size (cm) - Depth 0.1 0.1 0.1 -Total Square Cm 9.9 7.83 5.46 -Photo Taken No -Tunneling No No -Undermining/Tunneling No No -Circular Undermining No No -Exudate Amt Small Medium Medium -Exudate Type Serosanguineous Serosanguineous Serosanguineous -Wound Margin Distinct, Distinct, Distinct, Outline Outline Outline Attached Attached Attached -Granulation Amt Large (67-100%) Large (67-100%) Medium (34-66%) -Granulation Quality [place] -Slough/Fibrin Yes Yes -Necrosis Amt Small (1-33%) Medium (34-66%) -Necrotic Tissue Type Adherent Slough Adherent Slough -Structure Exposed N/A N/A -Texture (Eloisa-wound Skin Appearance) Assessed,Callus Assessed,Callus Callus -Moisture (Eloisa-wound Skin Appearance) Assessed Assessed Assessed, Maceration -Color (Eloisa-wound Skin Appearance) Assessed Assessed Assessed -Temperature (Eloisa-wound Skin No Abnormality No Abnormality No Abnormality Appearance) (Pt Warm) (Pt Warm) (Pt Warm) -Tenderness on Palpation (Eloisa-wound No No No Skin Appearance) -Ulcer Cleansing Rinsed/ Wound Cleanser Wound Cleanser Irrigated with Saline -Foul Odor after Cleansing No No No -Anesthetic Used 5% Lidocaine 5% Lidocaine 5% Lidocaine Gel Gel Gel Right Calf (cm) 35.5 Right Ankle (cm) 21 WC - Nurse 2 - General Ulcer CM Notes Start: 12/02/23 11:11 Freq: Status: Active Protocol: Activity Type Activity Date Activity User E-sign Co-sign Detail Recorded Client Recorded Date Recorded By Document 12/02/23 11:58 [id number] 12/02/23 12:08 Document 12/09/23 11:51 [id number] 12/09/23 11:55 Document 12/16/23 11:34 [id number] 12/16/23 11:37 12/02/23 12/09/23 12/16/23 11:58 11:51 11:34 Wound Center Nurse 2 #1 right heel -Time 11:59 11:54 11:35 -Correct Patient Yes Yes Yes -Correct Side, Site, Position Yes Yes Yes -Correct Procedure Yes Yes Yes -Procedure Performed Yes Yes Yes -Type of Procedure Debridement Debridement Debridement -Clinical Debridement Subcutaneous Subcutaneous Subcutaneous -Tissue Removed Subcutaneous Subcutaneous Subcutaneous -Post Debridement (cm) - Length 2.6 2.6 2.5 -Post Debridement (cm) - Width 2.9 2.9 2.3 -Post Debridement (cm) - Depth 0.1 0.1 0.1 -Total Square (Post) (cm) 7.54 7.54 5.75 -Area of Debridement (cm) - Length 2.6 2.6 2.5 -Area of Debridement (cm) - Width 2.9 2.9 2.3 -Total Square (Area) (cm) 7.54 7.54 5.75 -Tunneling No No No -Undermining/Tunneling No No No -Circular Undermining No No No -Wound/Ulcer Outcome Not Healed Not Healed Not Healed -Ulcer Cleansing Rinsed/ Rinsed/ Rinsed/ Irrigated with Irrigated with Irrigated with Saline Saline Saline -Foul Odor after Cleansing No No No -Bioengineered Tissue Yes Yes Yes -Type of Bioengineered Tissue Epifix Mesh Epifix Mesh Epifix Mesh -Expiration Date 06/30/28 06/30/28 06/30/28 -Product Lot Number [id number] -Percent Used 100 100 100 -Lot number of Saline Used [id number] -Bleeding Controlled with Pressure Pressure Pressure -Treatment Response Procedure Procedure Procedure Tolerated Well Tolerated Well Tolerated Well -Offloading Yes Yes Yes -Type of Offloading Total Contact Total Contact Total Contact Cast (TCC) - Cast (TCC) - Cast (TCC) - Right ($) Right ($) Right ($) -Debridement - Subq, 1st 20sq cm No No No -Apply Skin Sub - each addt'l 25 sq cm 1 - Legs -Apply Skin Sub - 1st 25 sq cm - Feet 1 1 -Epifix Mesh (per sq cm) 11 11 11 Pain Scale: 0-10 Numeric Is Patient Pain Free? Yes Yes Yes - Nurse 3 - General Ulcer D/C NN Start: 12/02/23 11:11 Freq: Status: Active Protocol: Activity Type Activity Date Activity User E-sign Co-sign Detail Recorded Client Recorded Date Recorded By Document 12/02/23 11:51 [id number] 12/02/23 11:52 Document 12/09/23 11:56 [id number] 12/09/23 11:56 12/02/23 12/09/23 11:51 11:56 Wound Care Center Nurse 3 #1 right heel -Ulcer Cleansing Rinsed/ Rinsed/ Irrigated with Irrigated with Saline Saline -Foul Odor after Cleansing No No -Primary Dressing Applied Optilok 6.5x10 Optilok 6.5x10 -Optilok 6.5x10 1 1 Pain Scale: 0-10 Numeric Is Patient Pain Free? Yes Yes WC - Visit Discharge Discharge Condition Stable Stable Ambulatory Status Ambulatory Ambulatory Transportation Private Auto Private Auto Accompanied by mom mother Medication Reconcilliation completed & Yes Yes provided to patient/care provider Clinical Summary of Care Provided Yes Yes Assessment/Plan Assessment/Plan (1) Other specified peripheral vascular diseases: CODE(S): I73.89 - Other specified peripheral vascular diseases PLAN: Exam performed. Hemoglobin A1c 5.8. No additional antibiotics indicated at this time arterial studies suggest diminished blood flow to right lower extremity - patient following with vascular surgery Today wound was excisionally debrided down to including the level of subcutaneous tissue of all nonviable tissue using a 5 mm dermal curette to the right heel without incident. Topical anesthesia used despite patient's neuropathy. Patient tolerated procedure well. Hemostasis obtained with light compression. Pre and postdebridement measurements documented nursing notes. Today a 4 x 4.5 cm, 11 billing units, EpiFix graft was applied to the plantar heel wound on the right side. Entire graft used, no waste. Graft was stabilized with overlying wound veil and Steri-Strips. Site was dressed with a dry sterile dressing. Total contact cast applied to the right lower extremity. Patient to follow-up in 1 week. (2) Non-pressure chronic ulcer of other part of right foot with fat layer exposed: CODE(S): L97.512 - Non-pressure chronic ulcer of other part of right foot with fat layer exposed (3) Type 2 diabetes mellitus with diabetic polyneuropathy: CODE(S): E11.42 - Type 2 diabetes mellitus with diabetic polyneuropathy
[2023-12-23 11:03] VITALS: BP 117/64; PULSE 77; RESP 18; TEMP 36.1
--- NOTE | 2023-12-23 11:29 | PN.PCM_ITS ---
History of Present Illness Date of Service: 12/23/23 Chief Complaint: Right heel wound History of Wound: Patient is a type II diabetic with history of ESRD status post kidney transplant in setting of peripheral polyneuropathy Patient presents with neuropathic ulceration present for 1 month. Patient was treated by Dr. Linda ramirez in outpatient setting. Patient was referred to us for more advanced wound care treatment. Patient denies any fever chills nausea vomiting chest pain calf pain shortness of breath. Patient is ambulatory in a cam walking boot today. Patient has been applying Santyl dressings to the site daily basis. Patient has no acute complaints. Objective Data Objective Data Vital Signs: Vital Signs Temp Pulse Resp BP O2 Del Method 97.0 F L 77 18 117/64 Room Air 12/23/23 11:03 12/23/23 11:03 12/23/23 11:03 12/23/23 11:03 12/23/23 11:03 Oxygen Delivery Method Room Air Physical Exam Narrative Atrophic skin changes noted. Dorsalis pedis and posterior tibial pulses are biphasic by Doppler examination. Absent digital hair growth noted to bilateral feet. Light touch protective sensation absent to entire bilateral lower extremity extending up past the knee. Dermatologic: Full-thickness wound noted to the plantar right heel. Wound demonstrates clean granular base. Postdebridement wound demonstrated clean granular with no deep probing nor any signs of infection. No purulent drainage noted. Pre and postdebridement measurements documented nursing notes. Musculoskeletal: No wound forming deformity noted. Muscular strength full to bilateral lower extremity compartments. Debridement Note Debridement Note Post-Debridement Measurements and Additional Note: Post-Debridement Measurements/Treatment - Nurse 1 - General Ulcer Assessment Start: 12/02/23 11:11 Freq: Status: Active Protocol: MARK.REZA Activity Type Activity Date Activity User E-sign Co-sign Detail Recorded Client Recorded Date Recorded By Document 12/02/23 11:11 KW wound center 12/02/23 11:17 KW Document 12/09/23 11:41 RB wound 12/09/23 11:42 RB Document 12/16/23 11:18 KW g 12/16/23 11:28 KW Document 12/23/23 11:03 KW h 12/23/23 11:18 KW 12/02/23 12/09/23 12/16/23 11:11 11:41 11:18 - Today's Visit Information Type of service Follow-up Visit Follow-up Visit Follow-up Visit (Physician/WATCH INSPECTOR (Physician/WATCH INSPECTOR (Physician/WATCH INSPECTOR ) ) ) Arrival Mode Ambulatory Ambulatory Ambulatory Transfer Assistance None Accompanied by MOTHER mother Patient Identification Verified (Name & Yes Yes Yes ) Patient Requires Transmission-Based No Precautions Vital Signs Temperature (97.8 F-99.1 F) 96.7 F L 98.4 F 96.3 F L Temperature Source Temporal Temporal Temporal Pulse Rate (60-100) 87 85 78 Pulse Location Monitor Monitor Monitor Respiratory Rate (12-18) 18 18 18 Respiratory rate source Observation Observation Observation Oxygen Delivery Method Room Air Room Air Blood Pressure (90/60-120/80) 121/63 H 109/62 138/75 H Blood Pressure Mean (mm Hg) 82 77 96 Source Monitor Monitor Monitor Position Sitting Semi-Fowlers Semi-Fowlers Blood Pressure Location Right Arm Left Arm Left Arm History Since Last Visit- (Skip if this is Patient's initial visit) Have you changed medications since your No No No last visit? Any new allergies or adverse reactions No No No Had a fall/change in ADL's that may No No No increase risk of falls Signs or symptoms of abuse and/or No No No neglect since last visit Have you been in the hospital since your No No No last visit? Has dressing in place as prescribed Yes Yes Yes Has compression in place as prescribed Yes No Yes Has offloadiing in place as prescribed Yes Yes Yes Experienced any changes in pain level or No No No management Left Footwear Regular Shoe Regular Shoe Right Footwear Removable Cast Total Contact Walker/Walking Cast Boot Pain Scale: 0-10 Numeric Is Patient Pain Free? Yes Yes Yes 12/23/23 11:03 - Today's Visit Information Type of service Follow-up Visit (Physician/WATCH INSPECTOR ) Arrival Mode Ambulatory Transfer Assistance Accompanied by mother Patient Identification Verified (Name & Yes ) Patient Requires Transmission-Based Precautions Vital Signs Temperature (97.8 F-99.1 F) 97.0 F L Temperature Source Temporal Pulse Rate (60-100) 77 Pulse Location Monitor Respiratory Rate (12-18) 18 Respiratory rate source Observation Oxygen Delivery Method Room Air Blood Pressure (90/60-120/80) 117/64 Blood Pressure Mean (mm Hg) 81 Source Monitor Position Semi-Fowlers Blood Pressure Location Left Forearm History Since Last Visit- (Skip if this is Patient's initial visit) Have you changed medications since your No last visit? Any new allergies or adverse reactions No Had a fall/change in ADL's that may No increase risk of falls Signs or symptoms of abuse and/or No neglect since last visit Have you been in the hospital since your No last visit? Has dressing in place as prescribed Yes Has compression in place as prescribed Yes Has offloadiing in place as prescribed Yes Experienced any changes in pain level or No management Left Footwear Regular Shoe Right Footwear Total Contact Cast Pain Scale: 0-10 Numeric Is Patient Pain Free? Yes WC - Nurse 1 - General Ulcer Measurement Start: 12/02/23 11:11 Freq: Status: Active Protocol: Activity Type Activity Date Activity User E-sign Co-sign Detail Recorded Client Recorded Date Recorded By Document 12/02/23 11:11 KW wound center 12/02/23 11:17 KW Document 12/09/23 11:41 RB wound 12/09/23 11:42 RB Document 12/16/23 11:18 KW g 12/16/23 11:28 KW Document 12/23/23 11:03 KW h 12/23/23 11:18 KW 12/02/23 12/09/23 12/16/23 11:11 11:41 11:18 Wound Center Nurse 1 #1 right heel -Combined with other wound No No -Current Size (cm) - Length 3.3 2.7 2.1 -Current Size (cm) - Width 3 2.9 2.6 -Current Size (cm) - Depth 0.1 0.1 0.1 -Total Square Cm 9.9 7.83 5.46 -Photo Taken No -Epithelialization -Tunneling No No -Undermining/Tunneling No No -Circular Undermining No No -Exudate Amt Small Medium Medium -Exudate Type Serosanguineous Serosanguineous Serosanguineous -Wound Margin Distinct, Distinct, Distinct, Outline Outline Outline Attached Attached Attached -Granulation Amt Large (67-100%) Large (67-100%) Medium (34-66%) -Granulation Quality [place] -Slough/Fibrin Yes Yes -Necrosis Amt Small (1-33%) Medium (34-66%) -Necrotic Tissue Type Adherent Slough Adherent Slough -Structure Exposed N/A N/A -Texture (Eloisa-wound Skin Appearance) Assessed,Callus Assessed,Callus Callus -Moisture (Eloisa-wound Skin Appearance) Assessed Assessed Assessed, Maceration -Color (Eloisa-wound Skin Appearance) Assessed Assessed Assessed -Temperature (Eloisa-wound Skin No Abnormality No Abnormality No Abnormality Appearance) (Pt Warm) (Pt Warm) (Pt Warm) -Tenderness on Palpation (Eloisa-wound No No No Skin Appearance) -Ulcer Cleansing Rinsed/ Wound Cleanser Wound Cleanser Irrigated with Saline -Foul Odor after Cleansing No No No -Anesthetic Used 5% Lidocaine 5% Lidocaine 5% Lidocaine Gel Gel Gel Right Calf (cm) 35.5 Right Ankle (cm) 21 12/23/23 11:03 Wound Center Nurse 1 #1 right heel -Combined with other wound -Current Size (cm) - Length 2.3 -Current Size (cm) - Width 2.5 -Current Size (cm) - Depth 0 -Total Square Cm 5.75 -Photo Taken -Epithelialization Small 1-33% -Tunneling -Undermining/Tunneling -Circular Undermining -Exudate Amt Medium -Exudate Type Serosanguineous -Wound Margin Distinct, Outline Attached -Granulation Amt Large (67-100%) -Granulation Quality Hyper- granulation,Red -Slough/Fibrin -Necrosis Amt -Necrotic Tissue Type -Structure Exposed -Texture (Eloisa-wound Skin Appearance) Assessed -Moisture (Eloisa-wound Skin Appearance) Assessed,Dry/ Scaly -Color (Eloisa-wound Skin Appearance) Assessed -Temperature (Eloisa-wound Skin No Abnormality Appearance) (Pt Warm) -Tenderness on Palpation (Eloisa-wound No Skin Appearance) -Ulcer Cleansing Soap and Water -Foul Odor after Cleansing No -Anesthetic Used 5% Lidocaine Gel Right Calf (cm) Right Ankle (cm) WC - Nurse 2 - General Ulcer CM Notes Start: 12/02/23 11:11 Freq: Status: Active Protocol: Activity Type Activity Date Activity User E-sign Co-sign Detail Recorded Client Recorded Date Recorded By Document 12/02/23 11:58 KRIS [id number] 12/02/23 12:08 Document 12/09/23 11:51 [id number] 12/09/23 11:55 Document 12/16/23 11:34 [id number] 12/16/23 11:37 Document 12/23/23 11:26 0000 12/23/23 11:28 JF 12/02/23 12/09/23 12/16/23 11:58 11:51 11:34 Wound Center Nurse 2 #1 right heel -Time 11:59 11:54 11:35 -Correct Patient Yes Yes Yes -Correct Side, Site, Position Yes Yes Yes -Correct Procedure Yes Yes Yes -Procedure Performed Yes Yes Yes -Type of Procedure Debridement Debridement Debridement -Clinical Debridement Subcutaneous Subcutaneous Subcutaneous -Tissue Removed Subcutaneous Subcutaneous Subcutaneous -Post Debridement (cm) - Length 2.6 2.6 2.5 -Post Debridement (cm) - Width 2.9 2.9 2.3 -Post Debridement (cm) - Depth 0.1 0.1 0.1 -Total Square (Post) (cm) 7.54 7.54 5.75 -Area of Debridement (cm) - Length 2.6 2.6 2.5 -Area of Debridement (cm) - Width 2.9 2.9 2.3 -Total Square (Area) (cm) 7.54 7.54 5.75 -Tunneling No No No -Undermining/Tunneling No No No -Circular Undermining No No No -Wound/Ulcer Outcome Not Healed Not Healed Not Healed -Ulcer Cleansing Rinsed/ Rinsed/ Rinsed/ Irrigated with Irrigated with Irrigated with Saline Saline Saline -Foul Odor after Cleansing No No No -Bioengineered Tissue Yes Yes Yes -Type of Bioengineered Tissue Epifix Mesh Epifix Mesh Epifix Mesh -Expiration Date 06/30/28 06/30/28 06/30/28 -Product Lot Number [id number] -Percent Used 100 100 100 -Lot number of Saline Used [id number] -Bleeding Controlled with Pressure Pressure Pressure -Treatment Response Procedure Procedure Procedure Tolerated Well Tolerated Well Tolerated Well -Offloading Yes Yes Yes -Type of Offloading Total Contact Total Contact Total Contact Cast (TCC) - Cast (TCC) - Cast (TCC) - Right ($) Right ($) Right ($) -Debridement - Subq, 1st 20sq cm No No No -Apply Skin Sub - each addt'l 25 sq cm 1 - Legs -Apply Skin Sub - 1st 25 sq cm - Feet 1 1 -Epifix Mesh (per sq cm) 11 11 11 Pain Scale: 0-10 Numeric Is Patient Pain Free? Yes Yes Yes 12/23/23 11:26 Wound Center Nurse 2 #1 right heel -Time 11:27 -Correct Patient Yes -Correct Side, Site, Position Yes -Correct Procedure Yes -Procedure Performed Yes -Type of Procedure Debridement -Clinical Debridement Subcutaneous -Tissue Removed Subcutaneous -Post Debridement (cm) - Length 2.3 -Post Debridement (cm) - Width 2.3 -Post Debridement (cm) - Depth 0.1 -Total Square (Post) (cm) 5.29 -Area of Debridement (cm) - Length 2.3 -Area of Debridement (cm) - Width 2.3 -Total Square (Area) (cm) 5.29 -Tunneling No -Undermining/Tunneling No -Circular Undermining No -Wound/Ulcer Outcome Not Healed -Ulcer Cleansing Rinsed/ Irrigated with Saline -Foul Odor after Cleansing No -Bioengineered Tissue Yes -Type of Bioengineered Tissue Epifix Mesh -Expiration Date 06/30/28 -Product Lot Number [id number] -Percent Used 100 -Lot number of Saline Used [id number] -Bleeding Controlled with Pressure -Treatment Response Procedure Tolerated Well -Offloading Yes -Type of Offloading Total Contact Cast (TCC) - Right ($) -Debridement - Subq, 1st 20sq cm No -Apply Skin Sub - each addt'l 25 sq cm - Legs -Apply Skin Sub - 1st 25 sq cm - Feet 1 -Epifix Mesh (per sq cm) 11 Pain Scale: 0-10 Numeric Is Patient Pain Free? Yes - Nurse 3 - General Ulcer D/C NN Start: 12/02/23 11:11 Freq: Status: Active Protocol: Activity Type Activity Date Activity User E-sign Co-sign Detail Recorded Client Recorded Date Recorded By Document 12/02/23 11:51 [id number] 12/02/23 11:52 JF Document 12/09/23 11:56 [id number] 12/09/23 11:56 JF Document 12/16/23 11:55 [id number] 12/16/23 11:56 JF 12/02/23 12/09/23 12/16/23 11:51 11:56 11:55 Wound Care Center Nurse 3 #1 right heel -Ulcer Cleansing Rinsed/ Rinsed/ Rinsed/ Irrigated with Irrigated with Irrigated with Saline Saline Saline -Foul Odor after Cleansing No No No -Primary Dressing Applied Optilok 6.5x10 Optilok 6.5x10 Optilok 6.5x10 -Optilok 6.5x10 1 1 1 Pain Scale: 0-10 Numeric Is Patient Pain Free? Yes Yes Yes WC - Visit Discharge Discharge Condition Stable Stable Stable Ambulatory Status Ambulatory Ambulatory Ambulatory Transportation Private Auto Private Auto Private Auto Accompanied by mom mother mom Medication Reconcilliation completed & Yes Yes Yes provided to patient/care provider Clinical Summary of Care Provided Yes Yes Yes Assessment/Plan Assessment/Plan (1) Other specified peripheral vascular diseases: CODE(S): I73.89 - Other specified peripheral vascular diseases PLAN: Exam performed. Hemoglobin A1c 5.8. No additional antibiotics indicated at this time arterial studies suggest diminished blood flow to right lower extremity - patient following with vascular surgery Today wound was excisionally debrided down to including the level of subcutaneous tissue of all nonviable tissue using a 5 mm dermal curette to the right heel without incident. Topical anesthesia used despite patient's neuropathy. Patient tolerated procedure well. Hemostasis obtained with light compression. Pre and postdebridement measurements documented nursing notes. Today a 4 x 4.5 cm, 11 billing units, EpiFix graft was applied to the plantar heel wound on the right side. Entire graft used, no waste. Graft was sta bilized with overlying wound veil and Steri-Strips. Site was dressed with a dry sterile dressing. Total contact cast applied to the right lower extremity. Patient to follow-up in 1 week. (2) Non-pressure chronic ulcer of other part of right foot with fat layer exposed: CODE(S): L97.512 - Non-pressure chronic ulcer of other part of right foot with fat layer exposed (3) Type 2 diabetes mellitus with diabetic polyneuropathy: CODE(S): E11.42 - Type 2 diabetes mellitus with diabetic polyneuropathy
== END 2023-12-28 23:59 | disposition home or self-care (01) ==
LOC: WC 11:00
PROVIDERS: PCP Internal Medicine; Referring Provider Podiatrist Foot & Ankle Surgery; Visit Provider Podiatrist
DX: E11.621 Type 2 diabetes mellitus with foot ulcer (principal); L97.412 Non-pressure chronic ulcer of right heel and midfoot with fat layer exposed; E11.42 Type 2 diabetes mellitus with diabetic polyneuropathy; E11.51 Type 2 diabetes mellitus with diabetic peripheral angiopathy without gangrene; Z94.0 Kidney transplant status
CPT/HCPCS: 15272; 15275; 29445; Q4186

== ENCOUNTER 2023-12-28 07:40 | Emergency (ER) | payer MEDICARE, MEDICAID, SELFPAY ==
[2023-12-28 07:41] VITALS: BP 86/59; PULSE 78; RESP 16; TEMP 36; O2SAT 98; BMI 28.7
--- NOTE | 2023-12-28 07:53 | EKG12_ITS ---
Test Reason : SYNCOPE Blood Pressure : / mmHG Vent. Rate : 073 BPM Atrial Rate : 073 BPM P-R Int : 152 ms QRS Dur : 092 ms QT Int : 384 ms P-R-T Axes : 043 009 046 degrees QTc Int : 423 ms Normal sinus rhythm Normal ECG Confirmed by FARHEEN SENIOR, JAMES ([id number]), commercial production editor TANIA CAGLE ([id number]) on 12/29/2023 8:09:29 AM Referred By: Confirmed By:JAMES ZHONG MD
--- NOTE | 2023-12-28 07:54 | EDS_ITS ---
HPI History of Present Illness Chief Complaint: Syncope Narrative Narrative: 58-year-old male presenting with an episode of lightheadedness. He felt like his blood sugar was low and he tried to eat some cereal. He states he fell into the stove and somehow sustained a laceration to the left lower leg. Last tetanus unknown. Patient able to ambulate. Bleeding was controlled on scene with pressure and a dressing. Patient denies hitting his head or LOC. Patient states that he is a diabetic and occasionally his blood sugars do drop but he usually catches it. He states that while he was trying to get up off the floor he checked his blood sugar and he thinks it was in the 40s. Patient denies chest pain or shortness of breath. He states he was in his usual state of health prior to his sugar going low. Patient's blood pressure is noted to be 86/59 on arrival he states it has been an issue since he had his renal transplant that his blood pressure is lower. [facility] Medical History Diabetes type 1, controlled Vitamin D deficiency Steroid-induced osteoporosis Home Medications ?Medication ?Instructions ?Recorded ?Last Taken ?Type aspirin 81 mg chewable tablet 81 mg PO DAILY@0800 09/07/13 Unknown History mycophenolate mofetil 250 mg 750 mg PO BID 09/07/13 Unknown History capsule prednisone 5 mg tablet 5 mg PO DAILY 09/07/13 Unknown History tacrolimus 1 mg capsule, 1 mg PO .EVENING 09/07/13 Unknown History immediate-release atorvastatin 20 mg tablet 20 mg PO QHS 04/24/16 Unknown History cholecalciferol (vitamin D3) 25 1,000 unit PO DAILY 04/24/16 Unknown History mcg (1,000 unit) tablet gabapentin 300 mg capsule 300 mg PO BIDCM 04/24/16 Unknown History insulin lispro 100 unit/mL 16 unit subcut TIDCM 04/24/16 Unknown History subcutaneous pen naproxen sodium 220 mg tablet 220 mg PO Q12H PRN PRN Pain 04/24/16 Unknown History omeprazole 40 mg capsule,delayed 40 mg PO DAILY 04/24/16 Unknown History release vitamin E (dl, acetate) 90 mg (200 200 unit PO DAILY 04/24/16 Unknown History unit) capsule dicyclomine 10 mg capsule 10 mg PO .BEFORE MEALS AND BED 07/14/20 Unknown History escitalopram oxalate 10 mg tablet 10 mg PO DAILY 07/14/20 Unknown History insulin glargine 100 unit/mL (3 30 unit subcut QHS 07/14/20 Unknown History mL) subcutaneous pen multivit,mineral-folic acid 800 1 tab PO DAILY 07/14/20 Unknown History mcg-vit K 100 mcg-herbal no.289 tablet (Alive Once Daily Women 50 Plus) zolpidem 5 mg tablet (Ambien) 5 mg PO QHS PRN sleep 07/14/20 Unknown History denosumab 60 mg/mL subcutaneous 60 mg subcut [id number] #1 mL 08/09/22 Unknown Rx syringe (Prolia) bupropion HCl 75 mg tablet 75 mg PO BID 10/28/23 Unknown History hydroxyzine HCl 25 mg tablet 25 mg PO QHS PRN PRN anxiety 10/28/23 Unknown History magnesium oxide 400 mg PO DAILY 10/28/23 Unknown History amoxicillin 875 mg-potassium 1 tab PO BID 10 days #20 tabs 11/04/23 Unknown Rx clavulanate 125 mg tablet doxycycline hyclate 100 mg capsule 100 mg PO BID #20 caps 11/04/23 Unknown Rx tacrolimus 0.5 mg capsule, 0.5 mg PO DAILY 12/28/23 Unknown History immediate-release Allergy/AdvReac Type Severity Reaction Status Date / Time No Known Allergies Allergy Verified 12/28/23 07:41 Surgical History History of appendectomy Renal transplant, status post Social History Smoking Status: Former smoker alcohol intake: never substance use type: does not use ROS ROS ED Constitutional Constitutional ED: Denies chills, fever(s) or sweats Eyes Eyes: Denies blurry vision or change in vision ENT ENT ED: Denies ear pain or sore throat Cardiovascular Cardiovascular: Reports other Details: Lightheadedness ; Denies chest pain, palpitations or racing heartbeat Respiratory/Chest Respiratory/Chest: Denies cough, dyspnea or sputum Gastrointestinal Gastrointestinal: Denies abdominal pain, constipation, diarrhea, nausea or vomiting Genitourinary Genitourinary ED: Denies dysuria, hematuria or urinary frequency Musculoskeletal Musculoskeletal: Denies arthralgias, myalgias or neck pain Integumentary Denies abscess, Abrasions or rash Neurologic Neurologic: Denies headache(s), paresthesias or weakness Psychiatric Psychiatric: Denies anxiety, depression, suicidal ideation or suicidal thoughts Endocrine Endocrinology: Reports other Details: Hypoglycemia ; Denies polydipsia or polyuria EXAM Physical Exam Const Vital Signs: 12/28/23 07:41 12/28/23 08:18 12/28/23 08:56 Temperature 96.8 F L 97.4 F L Temperature Source Temporal Temporal Pulse Rate 78 72 Respiratory Rate 16 15 Respiratory Effort Normal Non-Labored Respiratory Pattern Normal Blood Pressure 86/59 L 136/84 H Blood Pressure Mean 68 101 Pulse Ox 98 97 Oxygen Delivery Method Room Air Room Air 12/28/23 09:00 Temperature Temperature Source Pulse Rate 18 L Respiratory Rate 75 H Respiratory Effort Respiratory Pattern Blood Pressure 145/70 H Blood Pressure Mean 95 Pulse Ox 98 Oxygen Delivery Method Room Air Positive well nourished General Appearance ED: NAD HEENT Reports moist mucous membranes Eyes PERRL and EOMs intact bilaterally Chest Wall inspection of chest normal Resp normal respiratory effort and clear to auscultation bilaterally Auscultation: Negative for rales, rhonchi or wheezes Cardio regular rate and regular rhythm GI normal to inspection, nondistended, normoactive bowel sounds Neuro oriented x3 and CN's II-XII intact bilaterally Sensorium / Orientation: alert Psych mental status grossly normal Skin Skin Narrative: 6 cm laceration over the left tibia with slight V shaped. [place] medial. This includes skin and subcutaneous adipose layer. Bleeding well-controlled. No tendon or bony exposure. MDM MDM MDM Narrative Medical decision making narrative: Patient presenting with slightly low blood pressure and lightheadedness. He states he believes his blood sugar was in the 40s and he ate some cereal. He feels normal now. His blood sugar on the bedside was 178. Patient also states he has had some troubles with low blood pressure since his renal transplant and this occasionally happens as well. Differential includes orthostatic hypotension, dehydration, anemia, hypoglycemia, dysrhythmia. CBC will be obtained to assess white blood cell count, hemoglobin, platelets. BMP to assess renal function, electrolytes, glucose. High-sensitivity troponin and EKG to assess for ischemia/dysrhythmia. Chest x-ray will be obtained as part of cardiac workup. Patient's tetanus is updated today. Patient is given a liter normal saline. CBC shows mild leukocytosis 13.4. Hemoglobin 13.6. Platelets are 214. Renal function and electrolytes within normal limits. Slight prerenal azotemia noted. Patient given a liter IV fluids and his blood pressure is now 145/70. High-sensitivity troponin 11 and EKG interpreted by myself shows normal sinus rhythm at 75 bpm without sign of ischemic change or ectopy. Patient's wound was sutured. Please see procedure note. Patient tolerated well. Wound instructions and return precautions given. Impression: 1. Hypoglycemia 2. Hypotension resolved 3. Leg laceration 6 cm Lab Data Attestation: I reviewed the patient's lab results. Labs: Laboratory Results - last 24 hr 12/28/23 12/28/23 07:50 08:07 WBC 13.4 H RBC 4.43 L Hgb 13.6 Hct 43.3 MCV 97.7 H MCH 30.7 MCHC 31.4 L RDW Std Deviation 45.9 H RDW Coeff of Jarad 12.7 Plt Count 214 MPV 9.6 Immature Gran % (Auto) 0.600 Neut % (Auto) 81.4 H Lymph % (Auto) 8.6 L Gila % (Auto) 8.5 Eos % (Auto) 0.4 Baso % (Auto) 0.5 Absolute Neuts (auto) 10.9 H Absolute Lymphs (auto) 1.15 Nucleated RBC % 0 Sodium 140 Potassium 4.0 Chloride 105 Carbon Dioxide 29.0 Anion Gap 6 BUN 24 H Creatinine 1.14 Estim Creat Clear Calc 84.94 Est GFR (MDRD) Af Amer 85 Est GFR (MDRD) Non-Af 70 BUN/Creatinine Ratio 21.1 H Glucose 209 H Calcium 8.5 Troponin I High Sens 11 POC Glucose 178 H Procedures Lacerations left tibia: Length: 2.36 in Depth: Skin Shape: Flap Prep: Sterile Conditions and Shure-Clens Laceration repair: Irrigated and Lidocaine with epi Irrigated (ml): 250 Number of Sutures/Rizwan: 7 Suture Information: [place] Discharge Plan Triage Chief Complaint: Syncope ED Provider: Elias Casiano Dx/Rx/DC Orders Instructions: ED Low Blood Pressure, All Causes, ED Diabetic Insulin Reaction, ED Laceration Extremity Prescriptions: No Action Alive Once Daily Women 50 Plus 800-100 mcg tablet 1 tab PO DAILY zolpidem [Ambien] 5 mg tablet 5 mg PO QHS PRN (Reason: sleep) escitalopram oxalate 10 mg tablet 10 mg PO DAILY Patient Comments: TAKE 1 TABLET BY MOUTH EVERY DAY dicyclomine 10 mg capsule 10 mg PO .BEFORE MEALS AND BED Patient Comments: TAKE 1 CAPSULE BY MOUTH BEFORE MEALS AND AT BEDTIME. mycophenolate mofetil 250 MG capsule 750 mg PO BID prednisone 5 MG tablet 5 mg PO DAILY aspirin 81 MG tablet,chewable 81 mg PO DAILY@0800 Patient Comments: heart health tacrolimus 1 MG capsule 1 mg PO .EVENING Patient Comments: [id number] IN AM AND 12HROURS LATER 1MG IN EVENING atorvastatin 20 MG tablet 20 mg PO QHS Patient Comments: high cholesterol omeprazole 40 MG capsule 40 mg PO DAILY Patient Comments: acid reflux naproxen sodium 220 MG tablet 220 mg PO Q12H PRN PRN (Reason: Pain) Patient Comments: anti inflammatory gabapentin 300 MG capsule 300 mg PO BIDCM Patient Comments: neuropathy cholecalciferol (vitamin D3) 1,000 UNIT tablet 1,000 unit PO DAILY Patient Comments: supplement vitamin E (dl, acetate) 200 UNIT capsule 200 unit PO DAILY Patient Comments: vitamin insulin lispro 100 UNIT/ML insulin pen 16 unit SC TIDCM Patient Comments: INJECT 6-12 UNITS 3X/DAILY WITH MEALS AND 3 UNITS 2X/DAY WITH SNACKS insulin glargine 100 unit/mL (3 mL) insulin pen 30 unit SC QHS amoxicillin-pot clavulanate 875-125 mg tablet 1 tab PO BID 10 Days Qty: 20 0RF doxycycline hyclate 100 mg capsule 100 mg PO BID Qty: 20 0RF tacrolimus 0.5 mg capsule 0.5 mg PO DAILY bupropion HCl 75 mg tablet 75 mg PO BID hydroxyzine HCl 25 mg tablet 25 mg PO QHS PRN PRN (Reason: anxiety) magnesium oxide 400 mg magnesium capsule 400 mg PO DAILY Prolia 60 mg/mL syringe 60 mg SC [id number] Qty: 1 1RF Primary Care Provider: Magaly Hull Referrals: Magaly Hull MD [Primary Care Provider] - Print Language: [place] Disposition Disposition: Home, Self Care
[2023-12-28 08:08] LABS: Bedside Glucose 178 mg/dL (74-106)
[2023-12-28] MEDS: Diphth,Pertuss(Acell),Tet Vac 0.5 ML Vial IM (08:11)
[2023-12-28] MEDS: Lidocaine 1% /Epi 1:100 (20ml) 20 ML Vial 30 ML INFILT (08:11)
[2023-12-28] MEDS: 0.9% Normal Saline (1000mL) 1,000 ML 1000 ML IV (08:12)
[2023-12-28 08:17] LABS: Absolute Lymphocyte Count 1.15 X10^3/uL (0.83-4.51); Absolute Neutrophil Count 10.9 X10^3/uL (2.0-7.7); Basophil# 0.07 X10^3/uL; Basophil% 0.5 % (0-1); Eosinophil# 0.05 X10^3/uL; Eosinophils% 0.4 % (0-5); Hematocrit 43.3 % (40-54); Hemoglobin 13.6 g/dL (13.0-16.5); Lymphocyte # 1.15 X10^3/ul (0.83-4.51); Lymphocyte % 8.6 % (19-41); Mean Corp Hgb Conc 31.4 g/dL (32-36); Mean Corpuscular Hgb 30.7 pg (27.0-32.0); Mean Corpuscular Volume 97.7 fL (80-94); Mean Platelet Vol. 9.6 fl (6.2-12.0); Monocyte# 1.13 X10^3/uL; Monocyte% 8.5 % (0-10); NRBC Flagged by Analyzer 0 % (0-5); Neutrophil # 10.87 X10^3/uL (2.7-7.7); Neutrophil % 81.4 % (47-70); Platelet Count 214 K/mm3 (150-450); RBC Distribution Width CV 12.7 % (11.6-14.6); RBC Distribution Width SD 45.9 fl (35.1-43.9); Red Blood Count 4.43 M/mm3 (4.6-6.2); White Blood Count 13.4 K/mm3 (4.4-11.0)
[2023-12-28 08:35] LABS: Anion Gap 6 (5-15); BUN 24 mg/dL (7-18); BUN/Creat Ratio 21.1 RATIO (10-20); Calcium,Total 8.5 mg/dL (8.5-10.1); Chloride 105 mmol/L (98-107); Creatinine, Serum 1.14 mg/dL (0.70-1.30); EST Glomerular Filtration Rate 70 mL/min (>60); Est Glom Filt Rate - Afr Amer 85 mL/min (>60); Estimated Creatinine Clearance 84.94 ml/min; Glucose 209 mg/dL (74-106); Sodium Level 140 mmol/L (136-145); Troponin-I HS 11 pg/mL (3.0-78.0)
[2023-12-28 08:56] VITALS: BP 136/84; PULSE 72; RESP 15; TEMP 36.3; O2SAT 97
[2023-12-28 09:00] VITALS: BP 145/70; PULSE 75; RESP 18; O2SAT 98
[2023-12-28 10:00] VITALS: BP 144/99
[2023-12-28 10:54] VITALS: BP 121/71; PULSE 81; RESP 20; TEMP 36.4; O2SAT 98
== END 2023-12-28 11:00 | disposition home or self-care (01) ==
PROVIDERS: Emergency Provider Student in an Organized Health Care Education/Training Program; PCP Internal Medicine; Visit Provider Student in an Organized Health Care Education/Training Program
DX: E10.649 Type 1 diabetes mellitus with hypoglycemia without coma (principal); S81.812A Laceration without foreign body, left lower leg, initial encounter; Z87.891 Personal history of nicotine dependence; W19.XXXA Unspecified fall, initial encounter
CPT/HCPCS: 12002; 80048; 82962; 84484; 85025; 90715; 93005; 96360; 96361; 99285; J7030

== ENCOUNTER 2024-01-27 11:00 | Outpatient (RCR) | payer MEDICARE, MEDICAID, SELFPAY ==
[2023-12-29 00:15] VITALS: BP 116/62; PULSE 89; RESP 18; TEMP 36.2
[2023-12-30 11:03] VITALS: BP 122/29; PULSE 86; RESP 18; TEMP 36.5
--- NOTE | 2023-12-30 11:38 | PN.PCM_ITS ---
History of Present Illness Date of Service: 12/30/23 Chief Complaint: Right heel wound History of Wound: Patient is a type II diabetic with history of ESRD status post kidney transplant in setting of peripheral polyneuropathy Patient presents with neuropathic ulceration present for 1 month. Patient was treated by Dr. Linda ramirez in outpatient setting. Patient was referred to us for more advanced wound care treatment. Patient denies any fever chills nausea vomiting chest pain calf pain shortness of breath. patient reports non- compliance with weightbearing. Objective Data Objective Data Vital Signs: Vital Signs Temp Pulse Resp BP O2 Del Method 97.7 F L 86 18 122/29 H Room Air 12/30/23 11:03 12/30/23 11:03 12/30/23 11:03 12/30/23 11:03 12/30/23 11:03 Oxygen Delivery Method Room Air Physical Exam Narrative Atrophic skin changes noted. Dorsalis pedis and posterior tibial pulses are biphasic by Doppler examination. Absent digital hair growth noted to bilateral feet. Light touch protective sensation absent to entire bilateral lower extremity extending up past the knee. Dermatologic: Full-thickness wound noted to the plantar right heel. Wound demonstrates clean granular base. Postdebridement wound demonstrated clean granular with no deep probing nor any signs of infection. No purulent drainage noted. Pre and postdebridement measurements documented nursing notes. Musculoskeletal: No wound forming deformity noted. Muscular strength full to bilateral lower extremity compartments. Debridement Note Debridement Note Post-Debridement Measurements and Additional Note: Post-Debridement Measurements/Treatment - Nurse 1 - General Ulcer Assessment Start: 12/30/23 11:03 Freq: Status: Active Protocol: JOSÉ MANUEL Activity Type Activity Date Activity User E-sign Co-sign Detail Recorded Client Recorded Date Recorded By Document 12/30/23 11:03 KW z 12/30/23 11:14 KW 12/30/23 11:03 - Today's Visit Information Type of service Follow-up Visit (Physician/[employer] ) Arrival Mode Ambulatory Accompanied by mother Patient Identification Verified (Name & Yes ) Vital Signs Temperature (97.8 F-99.1 F) 97.7 F L Temperature Source Temporal Pulse Rate (60-100) 86 Pulse Location Monitor Respiratory Rate (12-18) 18 Respiratory rate source Observation Oxygen Delivery Method Room Air Blood Pressure (90/60-120/80) 122/29 H Blood Pressure Mean (mm Hg) 60 Source Monitor Position Sitting Blood Pressure Location Left Arm History Since Last Visit- (Skip if this is Patient's initial visit) Have you changed medications since your No last visit? Any new allergies or adverse reactions No Had a fall/change in ADL's that may No increase risk of falls Signs or symptoms of abuse and/or No neglect since last visit Have you been in the hospital since your No last visit? Has dressing in place as prescribed Yes Has compression in place as prescribed Yes Has offloadiing in place as prescribed Yes Experienced any changes in pain level or No management Left Footwear Regular Shoe Right Footwear Total Contact Cast Pain Scale: 0-10 Numeric Is Patient Pain Free? Yes WC - Nurse 1 - General Ulcer Measurement Start: 12/30/23 11:03 Freq: Status: Active Protocol: Activity Type Activity Date Activity User E-sign Co-sign Detail Recorded Client Recorded Date Recorded By Document 12/30/23 11:03 KW z 12/30/23 11:14 KW 12/30/23 11:03 Wound Center Nurse 1 #1 right heel -Combined with other wound No -Current Size (cm) - Length 1.5 -Current Size (cm) - Width 2 -Current Size (cm) - Depth 0.1 -Total Square Cm 3.0 -Epithelialization Small 1-33% -Tunneling No -Undermining/Tunneling No -Circular Undermining No -Exudate Amt Medium -Exudate Type Serosanguineous -Wound Margin Flat & Intact -Granulation Amt Large (67-100%) -Granulation Quality Red -Slough/Fibrin No -Necrosis Amt None Present (0 %) -Texture (Eloisa-wound Skin Appearance) Assessed, Scarring -Moisture (Eloisa-wound Skin Appearance) Assessed,Dry/ Scaly -Color (Eloisa-wound Skin Appearance) Assessed, Erythema -Temperature (Eloisa-wound Skin No Abnormality Appearance) (Pt Warm) -Tenderness on Palpation (Eloisa-wound No Skin Appearance) -Ulcer Cleansing Soap and Water -Foul Odor after Cleansing No -Anesthetic Used 5% Lidocaine Gel WC - Nurse 2 - General Ulcer CM Notes Start: 12/30/23 11:03 Freq: Status: Active Protocol: Activity Type Activity Date Activity User E-sign Co-sign Detail Recorded Client Recorded Date Recorded By Document 12/30/23 11:32 [id number] 12/30/23 11:37 JF 12/30/23 11:32 Wound Center Nurse 2 -Time 11:35 -Correct Patient Yes -Correct Side, Site, Position Yes -Correct Procedure Yes -Procedure Performed Yes -Type of Procedure Debridement -Clinical Debridement Subcutaneous -Tissue Removed Subcutaneous -Post Debridement (cm) - Length 1.6 -Post Debridement (cm) - Width 2.1 -Post Debridement (cm) - Depth 0.1 -Total Square (Post) (cm) 3.36 -Area of Debridement (cm) - Length 1.6 -Area of Debridement (cm) - Width 2.1 -Total Square (Area) (cm) 3.36 -Tunneling No -Undermining/Tunneling No -Circular Undermining No -Wound/Ulcer Outcome Not Healed -Ulcer Cleansing Rinsed/ Irrigated with Saline -Foul Odor after Cleansing No -Bioengineered Tissue Yes -Type of Bioengineered Tissue Epifix -Expiration Date 07/31/28 -Product Lot Number [id number] -Percent Used 100 -Lot number of Saline Used [id number] -Bleeding Controlled with Pressure -Treatment Response Procedure Tolerated Well -Offloading Yes -Type of Offloading Total Contact Cast (TCC) - Right ($) -Debridement - Subq, 1st 20sq cm No -Apply Skin Sub - 1st 25 sq cm - Feet 1 -Epifix (per sq cm) 4 Pain Scale: 0-10 Numeric Is Patient Pain Free? Yes Assessment/Plan Assessment/Plan (1) Other specified peripheral vascular diseases: CODE(S): I73.89 - Other specified peripheral vascular diseases PLAN: Exam performed. Hemoglobin A1c 5.8. No additional antibiotics indicated at this time arterial studies suggest diminished blood flow to right lower extremity - patient following with vascular surgery Today wound was excisionally debrided down to including the level of subcutaneous tissue of all nonviable tissue using a 5 mm dermal curette to the right heel without incident. Topical anesthesia used despite patient's neuropathy. Patient tolerated procedure well. Hemostasis obtained with light compression. Pre and postdebridement measurements documented nursing notes. Today a 2x2cm, EpiFix graft was applied to the plantar heel wound on the right side. Entire graft used, no waste. Graft was stabilized with overlying wound veil and Steri-Strips. Site was dressed with a dry sterile dressing. Total contact cast applied to the right lower extremity. Patient to follow-up in 1 week. (2) Non-pressure chronic ulcer of other part of right foot with fat layer exposed: CODE(S): L97.512 - Non-pressure chronic ulcer of other part of right foot with fat layer exposed (3) Type 2 diabetes mellitus with diabetic polyneuropathy: CODE(S): E11.42 - Type 2 diabetes mellitus with diabetic polyneuropathy
[2024-01-06 11:04] VITALS: BP 101/44; PULSE 82; RESP 18; TEMP 36.4
--- NOTE | 2024-01-06 11:38 | PCM.WC.PN ---
History of Present Illness Date of Service: 01/06/24 Chief Complaint: Right heel wound History of Wound: Patient is a type II diabetic with history of ESRD status post kidney transplant in setting of peripheral polyneuropathy Patient presents with neuropathic ulceration present for 1 month. Patient was treated by Dr. Linda ramirez in outpatient setting. Patient was referred to us for more advanced wound care treatment. Patient denies any fever chills nausea vomiting chest pain calf pain shortness of breath. patient compliant with total contact cast use. Objective Data Objective Data Vital Signs: Vital Signs Temp Pulse Resp BP O2 Del Method 97.5 F L 82 18 101/44 L Room Air 01/06/24 11:04 01/06/24 11:04 01/06/24 11:04 01/06/24 11:04 12/30/23 11:03 Oxygen Delivery Method Room Air Physical Exam Narrative Atrophic skin changes noted. Dorsalis pedis and posterior tibial pulses are biphasic by Doppler examination. Absent digital hair growth noted to bilateral feet. Light touch protective sensation absent to entire bilateral lower extremity extending up past the knee. Dermatologic: Full-thickness wound noted to the plantar right heel. Wound demonstrates clean granular base. Postdebridement wound demonstrated clean granular with no deep probing nor any signs of infection. No purulent drainage noted. Pre and postdebridement measurements documented nursing notes. laceration to superior anterior left leg, distal anterior left leg wound and 4th toe wound formation in setting of rigid adductovarus toe. no acute signs of infection. stable granular bases. Musculoskeletal: No wound forming deformity noted. Muscular strength full to bilateral lower extremity compartments. Debridement Note Debridement Note Post-Debridement Measurements and Additional Note: Post-Debridement Measurements/Treatment - Nurse 1 - General Ulcer Assessment Start: 12/30/23 11:03 Freq: Status: Active Protocol: WC.LOWERIKT Activity Type Activity Date Activity User E-sign Co-sign Detail Recorded Client Recorded Date Recorded By Document 12/30/23 11:03 KW z 12/30/23 11:14 KW Document 01/06/24 11:04 DL [id number] 01/06/24 11:17 DL 12/30/23 01/06/24 11:03 11:04 - Today's Visit Information Type of service Follow-up Visit Follow-up Visit (Physician/CHANNEL SALES MANAGER (Physician/CHANNEL SALES MANAGER ) ) Arrival Mode Ambulatory Ambulatory Transfer Assistance None Accompanied by mother Patient Identification Verified (Name & Yes Yes ) Patient Requires Transmission-Based No Precautions Safety Precautions Fall Prevention Finger Stick Blood Sugar(mg/dl) (if 127 indicated): Blood Sugar Stated by Patient Vital Signs Temperature (97.8 F-99.1 F) 97.7 F L 97.5 F L Temperature Source Temporal Temporal Pulse Rate (60-100) 86 82 Pulse Location Monitor Monitor Respiratory Rate (12-18) 18 18 Respiratory rate source Observation Observation Oxygen Delivery Method Room Air Blood Pressure (90/60-120/80) 122/29 H 101/44 L Blood Pressure Mean (mm Hg) 60 63 Source Monitor Monitor Position Sitting Blood Pressure Location Left Arm History Since Last Visit- (Skip if this is Patient's initial visit) Have you changed medications since your No No last visit? Any new allergies or adverse reactions No No Had a fall/change in ADL's that may No No increase risk of falls Signs or symptoms of abuse and/or No No neglect since last visit Have you been in the hospital since your No No last visit? Has dressing in place as prescribed Yes Yes Has compression in place as prescribed Yes Yes Has offloadiing in place as prescribed Yes Yes Experienced any changes in pain level or No No management Left Footwear Regular Shoe Regular Shoe Right Footwear Total Contact Total Contact Cast Cast Pain Scale: 0-10 Numeric Is Patient Pain Free? Yes Yes WC - Nurse 1 - General Ulcer Measurement Start: 12/30/23 11:03 Freq: Status: Active Protocol: Activity Type Activity Date Activity User E-sign Co-sign Detail Recorded Client Recorded Date Recorded By Document 12/30/23 11:03 KW z 12/30/23 11:14 KW Document 01/06/24 11:04 DL .[id number] 01/06/24 11:17 DL Edit Result 01/06/24 11:04 DL (1) [id number] 01/06/24 11:26 DL (1) #3 L [place] - Current Size (cm) - Length => 0.7 - Current Size (cm) - Width => 1.5 - Current Size (cm) - Depth => 0.1 - Total Square Cm => 1.05 - Photo Taken => Yes - Classification - Thickness => Full Thickness => without Exposed => Support Structure - Exudate Amt => Small - Granulation Amt => Medium (34-66%) - Granulation Quality => Red - Necrosis Amt => None Present (0%) - Structure Exposed => N/A - Texture (Eloisa-wound Skin Appearance) => Scarring - Moisture (Eloisa-wound Skin Appearance) => No Abnormality - Color (Eloisa-wound Skin Appearance) => No Abnormality - Temperature (Eloisa-wound Skin => No Abnormality (Pt Appearance) => Warm) - Tenderness on Palpation (Eloisa-wound => Yes Skin Appearance) - Ulcer Cleansing => Soap and Water - Foul Odor after Cleansing => No - Anesthetic Used => 4% Lidocaine => Solution #2 L 4th toe - Current Size (cm) - Length => 0.4 - Current Size (cm) - Width => 0.5 - Current Size (cm) - Depth => 0.1 - Total Square Cm => 0.20 - Photo Taken => Yes - Exudate Amt => Small - Exudate Type => Serosanguineous - Wound Margin => Distinct, Outline => Attached - Granulation Amt => Medium (34-66%) - Granulation Quality => [place] - Necrosis Amt => Small (1-33%) - Necrotic Tissue Type => Adherent Slough - Structure Exposed => N/A - Texture (Eloisa-wound Skin Appearance) => Scarring - Moisture (Eloisa-wound Skin Appearance) => No Abnormality - Color (Eloisa-wound Skin Appearance) => Erythema - Temperature (Eloisa-wound Skin => No Abnormality (Pt Appearance) => Warm) - Tenderness on Palpation (Eloisa-wound => No Skin Appearance) - Ulcer Cleansing => Soap and Water - Foul Odor after Cleansing => No - Anesthetic Used => 5% Lidocaine Gel 12/30/23 01/06/24 11:03 11:04 Wound Center Nurse 1 #3 L [place] -Current Size (cm) - Length 0.7 -Current Size (cm) - Width 1.5 -Current Size (cm) - Depth 0.1 -Total Square Cm 1.05 -Photo Taken Yes -Classification - Thickness Full Thickness without Exposed Support Structure -Exudate Amt Small -Granulation Amt Medium (34-66%) -Granulation Quality Red -Necrosis Amt None Present (0 %) -Structure Exposed N/A -Texture (Eloisa-wound Skin Appearance) Scarring -Moisture (Eloisa-wound Skin Appearance) No Abnormality -Color (Eloisa-wound Skin Appearance) No Abnormality -Temperature (Eloisa-wound Skin No Abnormality Appearance) (Pt Warm) -Tenderness on Palpation (Eloisa-wound Yes Skin Appearance) -Ulcer Cleansing Soap and Water -Foul Odor after Cleansing No -Anesthetic Used 4% Lidocaine Solution #2 L 4th toe -Current Size (cm) - Length 0.4 -Current Size (cm) - Width 0.5 -Current Size (cm) - Depth 0.1 -Total Square Cm 0.20 -Photo Taken Yes -Exudate Amt Small -Exudate Type Serosanguineous -Wound Margin Distinct, Outline Attached -Granulation Amt Medium (34-66%) -Granulation Quality [place] -Necrosis Amt Small (1-33%) -Necrotic Tissue Type Adherent Slough -Structure Exposed N/A -Texture (Eloisa-wound Skin Appearance) Scarring -Moisture (Eloisa-wound Skin Appearance) No Abnormality -Color (Eloisa-wound Skin Appearance) Erythema -Temperature (Eloisa-wound Skin No Abnormality Appearance) (Pt Warm) -Tenderness on Palpation (Eloisa-wound No Skin Appearance) -Ulcer Cleansing Soap and Water -Foul Odor after Cleansing No -Anesthetic Used 5% Lidocaine Gel #1 right heel -Combined with other wound No -Current Size (cm) - Length 1.5 1.6 -Current Size (cm) - Width 2 1.8 -Current Size (cm) - Depth 0.1 0.1 -Total Square Cm 3.0 2.88 -Epithelialization Small 1-33% -Tunneling No -Undermining/Tunneling No -Circular Undermining No -Exudate Amt Medium Medium -Exudate Type Serosanguineous -Wound Margin Flat & Intact Distinct, Outline Attached -Granulation Amt Large (67-100%) Large (67-100%) -Granulation Quality Red Red -Slough/Fibrin No -Necrosis Amt None Present (0 None Present (0 %) %) -Structure Exposed N/A -Texture (Eloisa-wound Skin Appearance) Assessed, Callus,Scarring Scarring -Moisture (Eloisa-wound Skin Appearance) Assessed,Dry/ No Abnormality Scaly -Color (Eloisa-wound Skin Appearance) Assessed, No Abnormality Erythema -Temperature (Eloisa-wound Skin No Abnormality No Abnormality Appearance) (Pt Warm) (Pt Warm) -Tenderness on Palpation (Eloisa-wound No Skin Appearance) -Ulcer Cleansing Soap and Water Soap and Water -Foul Odor after Cleansing No No -Anesthetic Used 5% Lidocaine 5% Lidocaine Gel Gel WC - Nurse 2 - General Ulcer CM Notes Start: 12/30/23 11:03 Freq: Status: Active Protocol: Activity Type Activity Date Activity User E-sign Co-sign Detail Recorded Client Recorded Date Recorded By Document 12/30/23 11:32 [id number] 12/30/23 11:37 JF Document 01/06/24 11:29 JF 0000 01/06/24 11:35 12/30/23 01/06/24 11:32 11:29 Wound Center Nurse 2 #3 L [place] -Correct Patient No -Correct Side, Site, Position No -Correct Procedure No -Procedure Performed No -Wound/Ulcer Outcome Not Healed #2 L 4th toe -Correct Patient No -Correct Side, Site, Position No -Correct Procedure No -Procedure Performed No -Wound/Ulcer Outcome Not Healed #1 right heel -Time 11:35 -Correct Patient Yes Yes -Correct Side, Site, Position Yes Yes -Correct Procedure Yes Yes -Procedure Performed Yes Yes -Type of Procedure Debridement Debridement -Clinical Debridement Subcutaneous Subcutaneous -Tissue Removed Subcutaneous Subcutaneous -Post Debridement (cm) - Length 1.6 1.6 -Post Debridement (cm) - Width 2.1 1.5 -Post Debridement (cm) - Depth 0.1 0.1 -Total Square (Post) (cm) 3.36 2.40 -Area of Debridement (cm) - Length 1.6 1.6 -Area of Debridement (cm) - Width 2.1 1.5 -Total Square (Area) (cm) 3.36 2.40 -Tunneling No No -Undermining/Tunneling No No -Circular Undermining No No -Wound/Ulcer Outcome Not Healed Not Healed -Ulcer Cleansing Rinsed/ Rinsed/ Irrigated with Irrigated with Saline Saline -Foul Odor after Cleansing No No -Bioengineered Tissue Yes Yes -Type of Bioengineered Tissue Epifix Epifix 18mm Disc -Expiration Date 07/31/28 07/31/28 -Product Lot Number [id number] -Percent Used 100 100 -Lot number of Saline Used [id number] -Bleeding Controlled with Pressure Pressure -Treatment Response Procedure Procedure Tolerated Well Tolerated Well -Offloading Yes Yes -Type of Offloading Total Contact Total Contact Cast (TCC) - Cast (TCC) - Right ($) Right ($) -Debridement - Subq, 1st 20sq cm No No -Apply Skin Sub - 1st 25 sq cm - Feet 1 1 -Epifix (per sq cm) 4 -Epifix 18mm Disc 3 Pain Scale: 0-10 Numeric Is Patient Pain Free? Yes Yes - Nurse 3 - General Ulcer D/C NN Start: 12/30/23 11:03 Freq: Status: Active Protocol: Activity Type Activity Date Activity User E-sign Co-sign Detail Recorded Client Recorded Date Recorded By Document 12/30/23 11:[address] [facility] [id number] 12/30/23 11:[address] [facility] 12/30/23 11:51 Wound Care Center Nurse 3 #1 right heel -Primary Dressing Applied AMD Dressing 4x4 -Other Dressing EPIMESH -AMD Dressing 4x4 1 -Wound Comment(s) TCC UNDERCAST APPLIED Treatment Response Procedure Tolerated Well Pain Scale: 0-10 Numeric Is Patient Pain Free? Yes - Visit Discharge Discharge Condition Stable Ambulatory Status Ambulatory Transportation Private Auto Accompanied by Assessment/Plan Assessment/Plan (1) Other specified peripheral vascular diseases: CODE(S): I73.89 - Other specified peripheral vascular diseases PLAN: Exam performed. Hemoglobin A1c 5.8. No additional antibiotics indicated at this time arterial studies suggest diminished blood flow to right lower extremity - patient following with vascular surgery Today wound was excisionally debrided down to including the level of subcutaneous tissue of all nonviable tissue using a 5 mm dermal curette to the right heel without incident. Topical anesthesia used despite patient's neuropathy. Patient tolerated procedure well. Hemostasis obtained with light compression. Pre and postdebridement measurements documented nursing notes. Today an 18mm disc EpiFix graft was applied to the plantar heel wound on the right side. Entire graft used, no waste. Graft was stabilized with overlying wound veil and Steri-Strips. Site was dressed with a dry sterile dressing. Patient to dress all sites on left with abx ointmend, dsd and tubigrip patient to offload left foot with surgical shoe will plan for left 4th toe flexor tenotomy to allow for reduction of flexion contracture to alleviate friction from the wound Total contact cast applied to the right lower extremity. Patient to follow-up in 1 week. (2) Non-pressure chronic ulcer of other part of right foot with fat layer exposed: CODE(S): L97.512 - Non-pressure chronic ulcer of other part of right foot with fat layer exposed (3) Type 2 diabetes mellitus with diabetic polyneuropathy: CODE(S): E11.42 - Type 2 diabetes mellitus with diabetic polyneuropathy
--- NOTE | 2024-01-08 10:05 | WC ---
PHOTO 01/06/2024 LEFT 4TH TOE
--- NOTE | 2024-01-08 10:06 | WC ---
PHOTO (I) LEFT LOWER GALINDO
[2024-01-13 08:44] VITALS: BP 142/82; PULSE 87; RESP 18; TEMP 36.1
--- NOTE | 2024-01-13 09:19 | PCM.WC.PN ---
History of Present Illness Date of Service: 01/13/24 Chief Complaint: Right heel wound History of Wound: Patient is a type II diabetic with history of ESRD status post kidney transplant in setting of peripheral polyneuropathy Follow-up bilateral lower extremity wounds. Denies fever chills nausea vomiting chest pain calf pain shortness of breath. Patient compliant. No other complaints. Objective Data Objective Data Vital Signs: Vital Signs Temp Pulse Resp BP O2 Del Method 97.0 F L 87 18 142/82 H Room Air 01/13/24 08:44 01/13/24 08:44 01/13/24 08:44 01/13/24 08:44 01/13/24 08:44 Oxygen Delivery Method Room Air Physical Exam Narrative Atrophic skin changes noted. Dorsalis pedis and posterior tibial pulses are biphasic by Doppler examination. Absent digital hair growth noted to bilateral feet. Light touch protective sensation absent to entire bilateral lower extremity extending up past the knee. Dermatologic: Full-thickness wound noted to the plantar right heel. Wound demonstrates clean granular base. Postdebridement wound demonstrated clean granular with no deep probing nor any signs of infection. No purulent drainage noted. Pre and postdebridement measurements documented nursing notes. laceration to superior anterior left leg, distal anterior left leg wound and 4th toe wound formation in setting of rigid adductovarus toe -healing well. No acute signs of infection. stable granular bases. Musculoskeletal: Adductovarus hammertoe left fourth toe contributing to dorsal fourth toe wound. Muscular strength full to bilateral lower extremity compartments. Debridement Note Debridement Note Post-Debridement Measurements and Additional Note: Post-Debridement Measurements/Treatment - Nurse 1 - General Ulcer Assessment Start: 12/30/23 11:03 Freq: Status: Active Protocol: JOSÉ MANUEL Activity Type Activity Date Activity User E-sign Co-sign Detail Recorded Client Recorded Date Recorded By Document 12/30/23 11:03 KW z 12/30/23 11:14 KW Document 01/06/24 11:04 DL [email or web address] 01/06/24 11:17 DL Document 01/13/24 08:44 KW ; 01/13/24 08:54 KW 12/30/23 01/06/24 01/13/24 11:03 11:04 08:44 - Today's Visit Information Type of service Follow-up Visit Follow-up Visit Follow-up Visit (Physician/COMPUTER HELP DESK REPRESENTATIVE (Physician/COMPUTER HELP DESK REPRESENTATIVE (Physician/COMPUTER HELP DESK REPRESENTATIVE ) ) ) Arrival Mode Ambulatory Ambulatory Ambulatory Transfer Assistance None Accompanied by mother mother Patient Identification Verified (Name & Yes Yes Yes ) Patient Requires Transmission-Based No Precautions Safety Precautions Fall Prevention Finger Stick Blood Sugar(mg/dl) (if 127 indicated): Blood Sugar Stated by Patient Vital Signs Temperature (97.8 F-99.1 F) 97.7 F L 97.5 F L 97.0 F L Temperature Source Temporal Temporal Temporal Pulse Rate (60-100) 86 82 87 Pulse Location Monitor Monitor Monitor Respiratory Rate (12-18) 18 18 18 Respiratory rate source Observation Observation Observation Oxygen Delivery Method Room Air Room Air Blood Pressure (90/60-120/80) 122/29 H 101/44 L 142/82 H Blood Pressure Mean (mm Hg) 60 63 102 Source Monitor Monitor Monitor Position Sitting Sitting Blood Pressure Location Left Arm Left Arm History Since Last Visit- (Skip if this is Patient's initial visit) Have you changed medications since your No No No last visit? Any new allergies or adverse reactions No No No Had a fall/change in ADL's that may No No No increase risk of falls Signs or symptoms of abuse and/or No No No neglect since last visit Have you been in the hospital since your No No No last visit? Has dressing in place as prescribed Yes Yes Yes Has compression in place as prescribed Yes Yes Yes Has offloadiing in place as prescribed Yes Yes Yes Experienced any changes in pain level or No No No management Left Footwear Regular Shoe Regular Shoe Regular Shoe Right Footwear Total Contact Total Contact Total Contact Cast Cast Cast Pain Scale: 0-10 Numeric Is Patient Pain Free? Yes Yes Yes WC - Nurse 1 - General Ulcer Measurement Start: 12/30/23 11:03 Freq: Status: Active Protocol: Activity Type Activity Date Activity User E-sign Co-sign Detail Recorded Client Recorded Date Recorded By Document 12/30/23 11:03 KW z 12/30/23 11:14 KW Document 01/06/24 11:04 DL [email or web address] 01/06/24 11:17 DL Edit Result 01/06/24 11:04 DL (1) [email or web address] 01/06/24 11:26 DL Document 01/13/24 08:44 KW ; 01/13/24 08:54 KW (1) #3 L [place] - Current Size (cm) - Length => 0.7 - Current Size (cm) - Width => 1.5 - Current Size (cm) - Depth => 0.1 - Total Square Cm => 1.05 - Photo Taken => Yes - Classification - Thickness => Full Thickness => without Exposed => Support Structure - Exudate Amt => Small - Granulation Amt => Medium (34-66%) - Granulation Quality => Red - Necrosis Amt => None Present (0%) - Structure Exposed => N/A - Texture (Eloisa-wound Skin Appearance) => Scarring - Moisture (Eloisa-wound Skin Appearance) => No Abnormality - Color (Eloisa-wound Skin Appearance) => No Abnormality - Temperature (Eloisa-wound Skin => No Abnormality (Pt Appearance) => Warm) - Tenderness on Palpation (Eloisa-wound => Yes Skin Appearance) - Ulcer Cleansing => Soap and Water - Foul Odor after Cleansing => No - Anesthetic Used => 4% Lidocaine => Solution #2 L 4th toe - Current Size (cm) - Length => 0.4 - Current Size (cm) - Width => 0.5 - Current Size (cm) - Depth => 0.1 - Total Square Cm => 0.20 - Photo Taken => Yes - Exudate Amt => Small - Exudate Type => Serosanguineous - Wound Margin => Distinct, Outline => Attached - Granulation Amt => Medium (34-66%) - Granulation Quality => Sealy - Necrosis Amt => Small (1-33%) - Necrotic Tissue Type => Adherent Slough - Structure Exposed => N/A - Texture (Eloisa-wound Skin Appearance) => Scarring - Moisture (Eloisa-wound Skin Appearance) => No Abnormality - Color (Eloisa-wound Skin Appearance) => Erythema - Temperature (Eloisa-wound Skin => No Abnormality (Pt Appearance) => Warm) - Tenderness on Palpation (Eloisa-wound => No Skin Appearance) - Ulcer Cleansing => Soap and Water - Foul Odor after Cleansing => No - Anesthetic Used => 5% Lidocaine Gel 12/30/23 01/06/24 01/13/24 11:03 11:04 08:44 Wound Center Nurse 1 #3 L [place] -Current Size (cm) - Length 0.7 0.8 -Current Size (cm) - Width 1.5 1.1 -Current Size (cm) - Depth 0.1 0.1 -Total Square Cm 1.05 0.88 -Photo Taken Yes -Classification - Thickness Full Thickness without Exposed Support Structure -Exudate Amt Small Small -Exudate Type Serosanguineous -Wound Margin Distinct, Outline Attached -Granulation Amt Medium (34-66%) Large (67-100%) -Granulation Quality Red Sealy,Red -Necrosis Amt None Present (0 %) -Structure Exposed N/A -Texture (Eloisa-wound Skin Appearance) Scarring Assessed -Moisture (Eloisa-wound Skin Appearance) No Abnormality Assessed -Color (Eloisa-wound Skin Appearance) No Abnormality Assessed -Temperature (Eloisa-wound Skin No Abnormality No Abnormality Appearance) (Pt Warm) (Pt Warm) -Tenderness on Palpation (Eloisa-wound Yes No Skin Appearance) -Ulcer Cleansing Soap and Water Soap and Water -Foul Odor after Cleansing No No -Anesthetic Used 4% Lidocaine 5% Lidocaine Solution Gel #2 L 4th toe -Current Size (cm) - Length 0.4 0.2 -Current Size (cm) - Width 0.5 0.2 -Current Size (cm) - Depth 0.1 0.1 -Total Square Cm 0.20 0.04 -Photo Taken Yes -Exudate Amt Small Small -Exudate Type Serosanguineous -Wound Margin Distinct, Distinct, Outline Outline Attached Attached -Granulation Amt Medium (34-66%) Large (67-100%) -Granulation Quality Sealy Sealy,Red -Necrosis Amt Small (1-33%) -Necrotic Tissue Type Adherent Slough -Structure Exposed N/A -Texture (Eloisa-wound Skin Appearance) Scarring Assessed -Moisture (Eloisa-wound Skin Appearance) No Abnormality Assessed -Color (Eloisa-wound Skin Appearance) Erythema Assessed -Temperature (Eloisa-wound Skin No Abnormality Appearance) (Pt Warm) -Tenderness on Palpation (Eloisa-wound No No Skin Appearance) -Ulcer Cleansing Soap and Water Soap and Water -Foul Odor after Cleansing No -Anesthetic Used 5% Lidocaine 5% Lidocaine Gel Gel #1 right heel -Combined with other wound No -Current Size (cm) - Length 1.5 1.6 1 -Current Size (cm) - Width 2 1.8 1.4 -Current Size (cm) - Depth 0.1 0.1 -Total Square Cm 3.0 2.88 1.4 -Epithelialization Small 1-33% -Tunneling No -Undermining/Tunneling No -Circular Undermining No -Exudate Amt Medium Medium -Exudate Type Serosanguineous -Wound Margin Flat & Intact Distinct, Distinct, Outline Outline Attached Attached -Granulation Amt Large (67-100%) Large (67-100%) -Granulation Quality Red Red -Slough/Fibrin No -Necrosis Amt None Present (0 None Present (0 %) %) -Structure Exposed N/A -Texture (Eloisa-wound Skin Appearance) Assessed, Callus,Scarring Assessed,Callus Scarring -Moisture (Eloisa-wound Skin Appearance) Assessed,Dry/ No Abnormality Assessed Scaly -Color (Eloisa-wound Skin Appearance) Assessed, No Abnormality Assessed Erythema -Temperature (Eloisa-wound Skin No Abnormality No Abnormality No Abnormality Appearance) (Pt Warm) (Pt Warm) (Pt Warm) -Tenderness on Palpation (Eloisa-wound No No Skin Appearance) -Ulcer Cleansing Soap and Water Soap and Water Soap and Water -Foul Odor after Cleansing No No No -Anesthetic Used 5% Lidocaine 5% Lidocaine 5% Lidocaine Gel Gel Gel Right Calf (cm) 37.5 Right Ankle (cm) 21.2 Left Calf (cm) 36 Left Ankle (cm) 21 - Nurse 2 - General Ulcer CM Notes Start: 12/30/23 11:03 Freq: Status: Active Protocol: Activity Type Activity Date Activity User E-sign Co-sign Detail Recorded Client Recorded Date Recorded By Document 12/30/23 11:32 [id number] 12/30/23 11:37 Document 01/06/24 11:29 0000 01/06/24 11:35 Document 01/13/24 08:57 [facility] [email or web address] 01/13/24 09:17 [facility] 12/30/23 01/06/24 01/13/24 11:32 11:29 08:57 Wound Center Nurse 2 #3 L [place] -Correct Patient No -Correct Side, Site, Position No -Correct Procedure No -Procedure Performed No -Post Debridement (cm) - Length 0.1 -Post Debridement (cm) - Width 0.1 -Post Debridement (cm) - Depth 0.1 -Total Square (Post) (cm) 0.01 -Area of Debridement (cm) - Length 0.1 -Area of Debridement (cm) - Width 0.1 -Total Square (Area) (cm) 0.01 -Wound/Ulcer Outcome Not Healed Not Healed #2 L 4th toe -Correct Patient No -Correct Side, Site, Position No -Correct Procedure No -Procedure Performed No -Wound/Ulcer Outcome Not Healed -Wound Comment(s) flexor tenotomy performed in clinic. consent obtained/ signed #1 right heel -Time 11:35 09:06 -Correct Patient Yes Yes Yes -Correct Side, Site, Position Yes Yes Yes -Correct Procedure Yes Yes Yes -Procedure Performed Yes Yes Yes -Type of Procedure Debridement Debridement Debridement -Clinical Debridement Subcutaneous Subcutaneous Subcutaneous -Tissue Removed Subcutaneous Subcutaneous Subcutaneous -Post Debridement (cm) - Length 1.6 1.6 1.2 -Post Debridement (cm) - Width 2.1 1.5 1.2 -Post Debridement (cm) - Depth 0.1 0.1 0.1 -Total Square (Post) (cm) 3.36 2.40 1.44 -Area of Debridement (cm) - Length 1.6 1.6 1.2 -Area of Debridement (cm) - Width 2.1 1.5 1.2 -Total Square (Area) (cm) 3.36 2.40 1.44 -Tunneling No No No -Undermining/Tunneling No No No -Circular Undermining No No No -Wound/Ulcer Outcome Not Healed Not Healed Not Healed -Ulcer Cleansing Rinsed/ Rinsed/ Rinsed/ Irrigated with Irrigated with Irrigated with Saline Saline Saline -Foul Odor after Cleansing No No No -Bioengineered Tissue Yes Yes Yes -Type of Bioengineered Tissue Epifix Epifix 18mm Epifix 18mm Disc Disc -Expiration Date 07/31/28 07/31/28 07/31/28 -Product Lot Number [id number] -Percent Used 100 100 100 -Lot number of Saline Used [id number] -Bleeding Controlled with Pressure Pressure Pressure -Treatment Response Procedure Procedure Procedure Tolerated Well Tolerated Well Tolerated Well -Offloading Yes Yes -Type of Offloading Total Contact Total Contact Cast (TCC) - Cast (TCC) - Right ($) Right ($) -Debridement - Subq, 1st 20sq cm No No No -Apply Skin Sub - 1st 25 sq cm - Feet 1 1 1 -Epifix (per sq cm) 4 -Epifix 18mm Disc 3 3 Pain Scale: 0-10 Numeric Is Patient Pain Free? Yes Yes Yes - Nurse 3 - General Ulcer D/C NN Start: 12/30/23 11:03 Freq: Status: Active Protocol: Activity Type Activity Date Activity User E-sign Co-sign Detail Recorded Client Recorded Date Recorded By Document 12/30/23 11:51 [facility] [id number] 12/30/23 11:52 [facility] Document 01/06/24 11:44 KW l 01/06/24 11:47 KW 12/30/23 01/06/24 11:51 11:44 Wound Care Center Nurse 3 #3 L [place] -Other Dressing ATB OINTMENT -Primary Dressing Covered/Secured with Dry Gauze & Roll Gauze, Secured with Tape #2 L 4th toe -Other Dressing ATB OINTMENT -Primary Dressing Covered/Secured with Dry Gauze & Roll Gauze, Secured with Tape #1 right heel -Primary Dressing Applied AMD Dressing AMD Dressing 4x4 4x4 -Other Dressing EPIMESH -Primary Dressing Covered/Secured with Secured with Tape -AMD Dressing 4x4 1 1 -Wound Comment(s) TCC UNDERCAST APPLIED Left -Tubular Bandage Single Layer -Size of Tubigrip Used Size D -Size D ($) 1 Treatment Response Procedure Tolerated Well Pain Scale: 0-10 Numeric Is Patient Pain Free? Yes Yes - Visit Discharge Discharge Condition Stable Stable Ambulatory Status Ambulatory Ambulatory Transportation Private Auto Private Auto Accompanied by Medication Reconcilliation completed & No provided to patient/care provider Clinical Summary of Care Provided Yes Assessment/Plan Assessment/Plan (1) Other specified peripheral vascular diseases: CODE(S): I73.89 - Other specified peripheral vascular diseases PLAN: Exam performed. Hemoglobin A1c 5.8. No additional antibiotics indicated at this time arterial studies suggest diminished blood flow to right lower extremity - patient following with vascular surgery Today wound was excisionally debrided down to including the level of subcutaneous tissue of all nonviable tissue using a 5 mm dermal curette to the right heel without incident. Topical anesthesia used despite patient's neuropathy. Patient tolerated procedure well. Hemostasis obtained with light compression. Pre and postdebridement measurements documented nursing notes. Today an 18mm disc EpiFix graft was applied to the plantar heel wound on the right side. Entire graft used, no waste. Graft was stabilized with overlying wound veil and Steri-Strips. Site was dressed with a dry sterile dressing. Sutures removed from laceration site to superior leg. Small full-thickness wound noted as a fissure. Appears to be healing well though. Content continue local wound care. Patient to dress all sites on left with abx ointmend, dsd and tubigrip patient to offload left foot with surgical shoe Left fourth toe flexor tenotomy performed today see below for procedure note Total contact cast applied to the right lower extremity. Patient to follow-up in 1 week. Patient consented for left fourth toe flexor tenotomy this was performed: Surgeon: Gilberto Chung D.P.M. No Mechanical Integrity Specialist Preoperative diagnosis left fourth toe hammertoe Postoperative diagnosis same Procedure flexor tenotomy left fourth toe Local anesthesia with 7 cc 2% lidocaine plain injected in a standard digital block technique Hemostasis with light compression Estimated blood loss minimal Materials none Injectables listed above Left fourth toe was painted with Betadine paint after obtaining consent. Local injection was performed with a digital block technique with 7 cc 2% lidocaine plain. Flexor tenotomy performed with a mini open incision using a #11 blade. Flexor tenotomy was noted to be successful as there is some flexibility and reduced ability to the left fourth toe hammertoe deformity. No suture due to small incision that should heal on its own. Patient tolerated procedure and anesthesia well with no complications. (2) Non-pressure chronic ulcer of other part of right foot with fat layer exposed: CODE(S): L97.512 - Non-pressure chronic ulcer of other part of right foot with fat layer exposed (3) Type 2 diabetes mellitus with diabetic polyneuropathy: CODE(S): E11.42 - Type 2 diabetes mellitus with diabetic polyneuropathy
[2024-01-20 11:44] VITALS: BP 109/54; PULSE 78; RESP 18; TEMP 36.1
--- NOTE | 2024-01-20 11:54 | PCM.WC.PN ---
History of Present Illness Date of Service: 01/20/24 Chief Complaint: Right heel wound History of Wound: Patient is a type II diabetic with history of ESRD status post kidney transplant in setting of peripheral polyneuropathy Follow-up bilateral lower extremity wounds. Denies fever chills nausea vomiting chest pain calf pain shortness of breath. Patient compliant. No other complaints. Objective Data Objective Data Vital Signs: Vital Signs Temp Pulse Resp BP O2 Del Method 96.9 F L 78 18 109/54 L Room Air 01/20/24 11:44 01/20/24 11:44 01/20/24 11:44 01/20/24 11:44 01/13/24 08:44 Oxygen Delivery Method Room Air Physical Exam Narrative Atrophic skin changes noted. Dorsalis pedis and posterior tibial pulses are biphasic by Doppler examination. Absent digital hair growth noted to bilateral feet. Light touch protective sensation absent to entire bilateral lower extremity extending up past the knee. Dermatologic: Full-thickness wound noted to the plantar right heel. Wound demonstrates clean granular base. Postdebridement wound demonstrated clean granular with no deep probing nor any signs of infection. No purulent drainage noted. Pre and postdebridement measurements documented nursing notes. laceration to superior anterior left leg - focal eschar noted - otherwise healing well. distal anterior left leg wound improving. healed left 4th toe wound Musculoskeletal: resolved adductovarus hammertoe left fourth toe. Muscular strength full to bilateral lower extremity compartments. Debridement Note Debridement Note Post-Debridement Measurements and Additional Note: Post-Debridement Measurements/Treatment - Nurse 1 - General Ulcer Assessment Start: 12/30/23 11:03 Freq: Status: Active Protocol: JOSÉ MANUEL Activity Type Activity Date Activity User E-sign Co-sign Detail Recorded Client Recorded Date Recorded By Document 12/30/23 11:03 KW z 12/30/23 11:14 KW Document 01/06/24 11:04 DL [email or web address] 01/06/24 11:17 DL Document 01/13/24 08:44 KW ; 01/13/24 08:54 KW Document 01/20/24 11:44 RB wound 01/20/24 11:47 RB 12/30/23 01/06/24 01/13/24 11:03 11:04 08:44 - Today's Visit Information Type of service Follow-up Visit Follow-up Visit Follow-up Visit (Physician/HADOOP DEVELOPER (Physician/HADOOP DEVELOPER (Physician/HADOOP DEVELOPER ) ) ) Arrival Mode Ambulatory Ambulatory Ambulatory Transfer Assistance None Accompanied by mother mother Patient Identification Verified (Name & Yes Yes Yes ) Patient Requires Transmission-Based No Precautions Safety Precautions Fall Prevention Finger Stick Blood Sugar(mg/dl) (if 127 indicated): Blood Sugar Stated by Patient Vital Signs Temperature (97.8 F-99.1 F) 97.7 F L 97.5 F L 97.0 F L Temperature Source Temporal Temporal Temporal Pulse Rate (60-100) 86 82 87 Pulse Location Monitor Monitor Monitor Respiratory Rate (12-18) 18 18 18 Respiratory rate source Observation Observation Observation Oxygen Delivery Method Room Air Room Air Blood Pressure (90/60-120/80) 122/29 H 101/44 L 142/82 H Blood Pressure Mean (mm Hg) 60 63 102 Source Monitor Monitor Monitor Position Sitting Sitting Blood Pressure Location Left Arm Left Arm History Since Last Visit- (Skip if this is Patient's initial visit) Have you changed medications since your No No No last visit? Any new allergies or adverse reactions No No No Had a fall/change in ADL's that may No No No increase risk of falls Signs or symptoms of abuse and/or No No No neglect since last visit Have you been in the hospital since your No No No last visit? Has dressing in place as prescribed Yes Yes Yes Has compression in place as prescribed Yes Yes Yes Has offloadiing in place as prescribed Yes Yes Yes Experienced any changes in pain level or No No No management Left Footwear Regular Shoe Regular Shoe Regular Shoe Right Footwear Total Contact Total Contact Total Contact Cast Cast Cast Pain Scale: 0-10 Numeric Is Patient Pain Free? Yes Yes Yes 01/20/24 11:44 - Today's Visit Information Type of service Follow-up Visit (Physician/HADOOP DEVELOPER ) Arrival Mode Ambulatory Transfer Assistance None Accompanied by Patient Identification Verified (Name & Yes ) Patient Requires Transmission-Based No Precautions Safety Precautions Finger Stick Blood Sugar(mg/dl) (if indicated): Blood Sugar Vital Signs Temperature (97.8 F-99.1 F) 96.9 F L Temperature Source Temporal Pulse Rate (60-100) 78 Pulse Location Monitor Respiratory Rate (12-18) 18 Respiratory rate source Observation Oxygen Delivery Method Blood Pressure (90/60-120/80) 109/54 L Blood Pressure Mean (mm Hg) 72 Source Monitor Position Semi-Fowlers Blood Pressure Location Left Arm History Since Last Visit- (Skip if this is Patient's initial visit) Have you changed medications since your No last visit? Any new allergies or adverse reactions No Had a fall/change in ADL's that may No increase risk of falls Signs or symptoms of abuse and/or No neglect since last visit Have you been in the hospital since your No last visit? Has dressing in place as prescribed Yes Has compression in place as prescribed No Has offloadiing in place as prescribed Yes Experienced any changes in pain level or No management Left Footwear Right Footwear Pain Scale: 0-10 Numeric Is Patient Pain Free? Yes WC - Nurse 1 - General Ulcer Measurement Start: 12/30/23 11:03 Freq: Status: Active Protocol: Activity Type Activity Date Activity User E-sign Co-sign Detail Recorded Client Recorded Date Recorded By Document 12/30/23 11:03 KW z 12/30/23 11:14 KW Document 01/06/24 11:04 DL [email or web address] 01/06/24 11:17 DL Edit Result 01/06/24 11:04 DL (1) [email or web address] 01/06/24 11:26 DL Document 01/13/24 08:44 KW ; 01/13/24 08:54 KW Document 01/20/24 11:44 RB wound 01/20/24 11:47 RB (1) #3 L [place] - Current Size (cm) - Length => 0.7 - Current Size (cm) - Width => 1.5 - Current Size (cm) - Depth => 0.1 - Total Square Cm => 1.05 - Photo Taken => Yes - Classification - Thickness => Full Thickness => without Exposed => Support Structure - Exudate Amt => Small - Granulation Amt => Medium (34-66%) - Granulation Quality => Red - Necrosis Amt => None Present (0%) - Structure Exposed => N/A - Texture (Eloisa-wound Skin Appearance) => Scarring - Moisture (Eloisa-wound Skin Appearance) => No Abnormality - Color (Eloisa-wound Skin Appearance) => No Abnormality - Temperature (Eloisa-wound Skin => No Abnormality (Pt Appearance) => Warm) - Tenderness on Palpation (Eloisa-wound => Yes Skin Appearance) - Ulcer Cleansing => Soap and Water - Foul Odor after Cleansing => No - Anesthetic Used => 4% Lidocaine => Solution #2 L 4th toe - Current Size (cm) - Length => 0.4 - Current Size (cm) - Width => 0.5 - Current Size (cm) - Depth => 0.1 - Total Square Cm => 0.20 - Photo Taken => Yes - Exudate Amt => Small - Exudate Type => Serosanguineous - Wound Margin => Distinct, Outline => Attached - Granulation Amt => Medium (34-66%) - Granulation Quality => [place] - Necrosis Amt => Small (1-33%) - Necrotic Tissue Type => Adherent Slough - Structure Exposed => N/A - Texture (Eloisa-wound Skin Appearance) => Scarring - Moisture (Eloisa-wound Skin Appearance) => No Abnormality - Color (Eloisa-wound Skin Appearance) => Erythema - Temperature (Eloisa-wound Skin => No Abnormality (Pt Appearance) => Warm) - Tenderness on Palpation (Eloisa-wound => No Skin Appearance) - Ulcer Cleansing => Soap and Water - Foul Odor after Cleansing => No - Anesthetic Used => 5% Lidocaine Gel 12/30/23 01/06/24 01/13/24 11:03 11:04 08:44 Wound Center Nurse 1 #3 L [place] -Combined with other wound -Current Size (cm) - Length 0.7 0.8 -Current Size (cm) - Width 1.5 1.1 -Current Size (cm) - Depth 0.1 0.1 -Total Square Cm 1.05 0.88 -Photo Taken Yes -Tunneling -Undermining/Tunneling -Circular Undermining -Classification - Thickness Full Thickness without Exposed Support Structure -Exudate Amt Small Small -Exudate Type Serosanguineous -Wound Margin Distinct, Outline Attached -Granulation Amt Medium (34-66%) Large (67-100%) -Granulation Quality Red [place],Red -Slough/Fibrin -Necrosis Amt None Present (0 %) -Necrotic Tissue Type -Structure Exposed N/A -Texture (Eloisa-wound Skin Appearance) Scarring Assessed -Moisture (Eloisa-wound Skin Appearance) No Abnormality Assessed -Color (Eloisa-wound Skin Appearance) No Abnormality Assessed -Temperature (Eloisa-wound Skin No Abnormality No Abnormality Appearance) (Pt Warm) (Pt Warm) -Tenderness on Palpation (Eloisa-wound Yes No Skin Appearance) -Ulcer Cleansing Soap and Water Soap and Water -Foul Odor after Cleansing No No -Anesthetic Used 4% Lidocaine 5% Lidocaine Solution Gel #2 L 4th toe -Combined with other wound -Current Size (cm) - Length 0.4 0.2 -Current Size (cm) - Width 0.5 0.2 -Current Size (cm) - Depth 0.1 0.1 -Total Square Cm 0.20 0.04 -Photo Taken Yes -Tunneling -Undermining/Tunneling -Circular Undermining -Exudate Amt Small Small -Exudate Type Serosanguineous -Wound Margin Distinct, Distinct, Outline Outline Attached Attached -Granulation Amt Medium (34-66%) Large (67-100%) -Granulation Quality [place],Red -Slough/Fibrin -Necrosis Amt Small (1-33%) -Necrotic Tissue Type Adherent Slough -Structure Exposed N/A -Texture (Eloisa-wound Skin Appearance) Scarring Assessed -Moisture (Eloisa-wound Skin Appearance) No Abnormality Assessed -Color (Eloisa-wound Skin Appearance) Erythema Assessed -Temperature (Eloisa-wound Skin No Abnormality Appearance) (Pt Warm) -Tenderness on Palpation (Eloisa-wound No No Skin Appearance) -Ulcer Cleansing Soap and Water Soap and Water -Foul Odor after Cleansing No -Anesthetic Used 5% Lidocaine 5% Lidocaine Gel Gel #1 right heel -Combined with other wound No -Current Size (cm) - Length 1.5 1.6 1 -Current Size (cm) - Width 2 1.8 1.4 -Current Size (cm) - Depth 0.1 0.1 -Total Square Cm 3.0 2.88 1.4 -Epithelialization Small 1-33% -Tunneling No -Undermining/Tunneling No -Circular Undermining No -Exudate Amt Medium Medium -Exudate Type Serosanguineous -Wound Margin Flat & Intact Distinct, Distinct, Outline Outline Attached Attached -Granulation Amt Large (67-100%) Large (67-100%) -Granulation Quality Red Red -Slough/Fibrin No -Necrosis Amt None Present (0 None Present (0 %) %) -Necrotic Tissue Type -Structure Exposed N/A -Texture (Eloisa-wound Skin Appearance) Assessed, Callus,Scarring Assessed,Callus Scarring -Moisture (Eloisa-wound Skin Appearance) Assessed,Dry/ No Abnormality Assessed Scaly -Color (Eloisa-wound Skin Appearance) Assessed, No Abnormality Assessed Erythema -Temperature (Eloisa-wound Skin No Abnormality No Abnormality No Abnormality Appearance) (Pt Warm) (Pt Warm) (Pt Warm) -Tenderness on Palpation (Eloisa-wound No No Skin Appearance) -Ulcer Cleansing Soap and Water Soap and Water Soap and Water -Foul Odor after Cleansing No No No -Anesthetic Used 5% Lidocaine 5% Lidocaine 5% Lidocaine Gel Gel Gel Lower Limb Edema Present Right Calf (cm) 37.5 Right Ankle (cm) 21.2 Left Calf (cm) 36 Left Ankle (cm) 21 01/20/24 11:44 Wound Center Nurse 1 #3 L [place] -Combined with other wound No -Current Size (cm) - Length 0.1 -Current Size (cm) - Width 0.1 -Current Size (cm) - Depth 0.1 -Total Square Cm 0.01 -Photo Taken -Tunneling No -Undermining/Tunneling No -Circular Undermining No -Classification - Thickness -Exudate Amt Large -Exudate Type Serosanguineous -Wound Margin Distinct, Outline Attached -Granulation Amt Medium (34-66%) -Granulation Quality [place] -Slough/Fibrin Yes -Necrosis Amt Small (1-33%) -Necrotic Tissue Type Adherent Slough -Structure Exposed N/A -Texture (Eloisa-wound Skin Appearance) Assessed -Moisture (Eloisa-wound Skin Appearance) Assessed -Color (Eloisa-wound Skin Appearance) Assessed -Temperature (Eloisa-wound Skin No Abnormality Appearance) (Pt Warm) -Tenderness on Palpation (Eloisa-wound No Skin Appearance) -Ulcer Cleansing Wound Cleanser -Foul Odor after Cleansing No -Anesthetic Used 5% Lidocaine Gel #2 L 4th toe -Combined with other wound No -Current Size (cm) - Length 0.1 -Current Size (cm) - Width 0.1 -Current Size (cm) - Depth 0.1 -Total Square Cm 0.01 -Photo Taken -Tunneling No -Undermining/Tunneling No -Circular Undermining No -Exudate Amt Medium -Exudate Type Serosanguineous -Wound Margin Distinct, Outline Attached -Granulation Amt Medium (34-66%) -Granulation Quality -Slough/Fibrin Yes -Necrosis Amt Medium (34-66%) -Necrotic Tissue Type Adherent Slough -Structure Exposed N/A -Texture (Eloisa-wound Skin Appearance) Assessed -Moisture (Eloisa-wound Skin Appearance) Assessed -Color (Eloisa-wound Skin Appearance) Assessed -Temperature (Eloisa-wound Skin No Abnormality Appearance) (Pt Warm) -Tenderness on Palpation (Eloisa-wound No Skin Appearance) -Ulcer Cleansing Wound Cleanser -Foul Odor after Cleansing No -Anesthetic Used 5% Lidocaine Gel #1 right heel -Combined with other wound No -Current Size (cm) - Length 0.5 -Current Size (cm) - Width 1 -Current Size (cm) - Depth 0.1 -Total Square Cm 0.5 -Epithelialization -Tunneling No -Undermining/Tunneling No -Circular Undermining No -Exudate Amt Medium -Exudate Type Serosanguineous -Wound Margin Distinct, Outline Attached -Granulation Amt Medium (34-66%) -Granulation Quality [place] -Slough/Fibrin Yes -Necrosis Amt Medium (34-66%) -Necrotic Tissue Type Adherent Slough -Structure Exposed N/A -Texture (Eloisa-wound Skin Appearance) Assessed -Moisture (Eloisa-wound Skin Appearance) Assessed -Color (Eloisa-wound Skin Appearance) Assessed -Temperature (Eloisa-wound Skin No Abnormality Appearance) (Pt Warm) -Tenderness on Palpation (Eloisa-wound No Skin Appearance) -Ulcer Cleansing Wound Cleanser -Foul Odor after Cleansing No -Anesthetic Used 5% Lidocaine Gel Lower Limb Edema Present No Right Calf (cm) Right Ankle (cm) Left Calf (cm) Left Ankle (cm) WC - Nurse 2 - General Ulcer CM Notes Start: 12/30/23 11:03 Freq: Status: Active Protocol: Activity Type Activity Date Activity User E-sign Co-sign Detail Recorded Client Recorded Date Recorded By Document 12/30/23 11:32 [id number] 12/30/23 11:37 Document 01/06/24 11:29 JF 0000 01/06/24 11:35 Document 01/13/24 08:57 BMF [email or web address] 01/13/24 09:17 BMF Edit Result 01/13/24 08:57 BMF (1) [id number] 01/13/24 09:26 BMF Edit Result 01/13/24 08:57 BMF (2) [id number] 01/13/24 12:25 BMF (1) #3 L [place] - Wound Comment(s) => suture removal #2 L 4th toe - Post Debridement (cm) - Length => 0.1 - Post Debridement (cm) - Width => 0.1 - Post Debridement (cm) - Depth => 0.1 - Total Square (Post) (cm) => 0.01 - Area of Debridement (cm) - Length => 0.1 - Area of Debridement (cm) - Width => 0.1 - Total Square (Area) (cm) => 0.01 (2) #2 L 4th toe - Injectable Lidocaine (%) => 2 - Lidocaine (ml) => 10 12/30/23 01/06/24 01/13/24 11:32 11:29 08:57 Wound Center Nurse 2 #3 L [place] -Correct Patient No -Correct Side, Site, Position No -Correct Procedure No -Procedure Performed No -Post Debridement (cm) - Length 0.1 -Post Debridement (cm) - Width 0.1 -Post Debridement (cm) - Depth 0.1 -Total Square (Post) (cm) 0.01 -Area of Debridement (cm) - Length 0.1 -Area of Debridement (cm) - Width 0.1 -Total Square (Area) (cm) 0.01 -Wound/Ulcer Outcome Not Healed Not Healed -Wound Comment(s) suture removal #2 L 4th toe -Correct Patient No -Correct Side, Site, Position No -Correct Procedure No -Procedure Performed No -Post Debridement (cm) - Length 0.1 -Post Debridement (cm) - Width 0.1 -Post Debridement (cm) - Depth 0.1 -Total Square (Post) (cm) 0.01 -Area of Debridement (cm) - Length 0.1 -Area of Debridement (cm) - Width 0.1 -Total Square (Area) (cm) 0.01 -Wound/Ulcer Outcome Not Healed -Injectable Lidocaine (%) 2 -Lidocaine (ml) 10 -Wound Comment(s) flexor tenotomy performed in clinic. consent obtained/ signed #1 right heel -Time 11:35 09:06 -Correct Patient Yes Yes Yes -Correct Side, Site, Position Yes Yes Yes -Correct Procedure Yes Yes Yes -Procedure Performed Yes Yes Yes -Type of Procedure Debridement Debridement Debridement -Clinical Debridement Subcutaneous Subcutaneous Subcutaneous -Tissue Removed Subcutaneous Subcutaneous Subcutaneous -Post Debridement (cm) - Length 1.6 1.6 1.2 -Post Debridement (cm) - Width 2.1 1.5 1.2 -Post Debridement (cm) - Depth 0.1 0.1 0.1 -Total Square (Post) (cm) 3.36 2.40 1.44 -Area of Debridement (cm) - Length 1.6 1.6 1.2 -Area of Debridement (cm) - Width 2.1 1.5 1.2 -Total Square (Area) (cm) 3.36 2.40 1.44 -Tunneling No No No -Undermining/Tunneling No No No -Circular Undermining No No No -Wound/Ulcer Outcome Not Healed Not Healed Not Healed -Ulcer Cleansing Rinsed/ Rinsed/ Rinsed/ Irrigated with Irrigated with Irrigated with Saline Saline Saline -Foul Odor after Cleansing No No No -Bioengineered Tissue Yes Yes Yes -Type of Bioengineered Tissue Epifix Epifix 18mm Epifix 18mm Disc Disc -Expiration Date 07/31/28 07/31/28 07/31/28 -Product Lot Number [id number] -Percent Used 100 100 100 -Lot number of Saline Used [id number] -Bleeding Controlled with Pressure Pressure Pressure -Treatment Response Procedure Procedure Procedure Tolerated Well Tolerated Well Tolerated Well -Offloading Yes Yes -Type of Offloading Total Contact Total Contact Cast (TCC) - Cast (TCC) - Right ($) Right ($) -Debridement - Subq, 1st 20sq cm No No No -Apply Skin Sub - 1st 25 sq cm - Feet 1 1 1 -Epifix (per sq cm) 4 -Epifix 18mm Disc 3 3 Pain Scale: 0-10 Numeric Is Patient Pain Free? Yes Yes Yes - Nurse 3 - General Ulcer D/C NN Start: 12/30/23 11:03 Freq: Status: Active Protocol: Activity Type Activity Date Activity User E-sign Co-sign Detail Recorded Client Recorded Date Recorded By Document 12/30/23 11:51 [facility] [id number] 12/30/23 11:52 [facility] Document 01/06/24 11:44 KW l 01/06/24 11:47 KW 12/30/23 01/06/24 11:51 11:44 Wound Care Center Nurse 3 #3 L [place] -Other Dressing ATB OINTMENT -Primary Dressing Covered/Secured with Dry Gauze & Roll Gauze, Secured with Tape #2 L 4th toe -Other Dressing ATB OINTMENT -Primary Dressing Covered/Secured with Dry Gauze & Roll Gauze, Secured with Tape #1 right heel -Primary Dressing Applied AMD Dressing AMD Dressing 4x4 4x4 -Other Dressing EPIMESH -Primary Dressing Covered/Secured with Secured with Tape -AMD Dressing 4x4 1 1 -Wound Comment(s) TCC UNDERCAST APPLIED Left -Tubular Bandage Single Layer -Size of Tubigrip Used Size D -Size D ($) 1 Treatment Response Procedure Tolerated Well Pain Scale: 0-10 Numeric Is Patient Pain Free? Yes Yes WC - Visit Discharge Discharge Condition Stable Stable Ambulatory Status Ambulatory Ambulatory Transportation Private Auto Private Auto Accompanied by Medication Reconcilliation completed & No provided to patient/care provider Clinical Summary of Care Provided Yes Assessment/Plan Assessment/Plan (1) Other specified peripheral vascular diseases: CODE(S): I73.89 - Other specified peripheral vascular diseases PLAN: Exam performed. Hemoglobin A1c 5.8. No additional antibiotics indicated at this time arterial studies suggest diminished blood flow to right lower extremity - patient following with vascular surgery Today wound was excisionally debrided down to including the level of subcutaneous tissue of all nonviable tissue using a 5 mm dermal curette to the right heel without incident. Topical anesthesia used despite patient's neuropathy. Patient tolerated procedure well. Hemostasis obtained with light compression. Pre and postdebridement measurements documented nursing notes. Today an 18mm disc EpiFix graft was applied to the plantar heel wound on the right side. Entire graft used, no waste. Graft was stabilized with overlying wound veil and Steri-Strips. Site was dressed with a dry sterile dressing. Patient to dress all sites on left with abx ointmend, dsd and tubigrip (2) Non-pressure chronic ulcer of other part of right foot with fat layer exposed: CODE(S): L97.512 - Non-pressure chronic ulcer of other part of right foot with fat layer exposed (3) Type 2 diabetes mellitus with diabetic polyneuropathy: CODE(S): E11.42 - Type 2 diabetes mellitus with diabetic polyneuropathy
--- NOTE | 2024-01-27 11:39 | PN.PCM_ITS ---
History of Present Illness Date of Service: 01/27/24 Chief Complaint: Right heel wound History of Wound: Patient is a type II diabetic with history of ESRD status post kidney transplant in setting of peripheral polyneuropathy Follow-up bilateral lower extremity wounds. Denies fever chills nausea vomiting chest pain calf pain shortness of breath. Patient compliant. No other complaints. Objective Data Objective Data Vital Signs: Vital Signs Temp Pulse Resp BP O2 Del Method 96.9 F L 78 18 109/54 L Room Air 01/20/24 11:44 01/20/24 11:44 01/20/24 11:44 01/20/24 11:44 01/13/24 08:44 Oxygen Delivery Method Room Air Physical Exam Narrative Atrophic skin changes noted. Dorsalis pedis and posterior tibial pulses are biphasic by Doppler examination. Absent digital hair growth noted to bilateral feet. Light touch protective sensation absent to entire bilateral lower extremity extending up past the knee. Dermatologic: Full-thickness wound noted to the plantar right heel. Wound demonstrates clean granular base. Postdebridement wound demonstrated clean granular with no deep probing nor any signs of infection. No purulent drainage noted. Pre and postdebridement measurements documented nursing notes. laceration to superior anterior left leg - healed. distal anterior left leg wound healed. healed left 4th toe wound Musculoskeletal: resolved adductovarus hammertoe left fourth toe. Muscular strength full to bilateral lower extremity compartments. Debridement Note Debridement Note Post-Debridement Measurements and Additional Note: Post-Debridement Measurements/Treatment - Nurse 1 - General Ulcer Assessment Start: 12/30/23 11:03 Freq: Status: Active Protocol: JOSÉ MANUEL Activity Type Activity Date Activity User E-sign Co-sign Detail Recorded Client Recorded Date Recorded By Document 12/30/23 11:03 KW z 12/30/23 11:14 KW Document 01/06/24 11:04 DL [email or web address] 01/06/24 11:17 DL Document 01/13/24 08:44 KW ; 01/13/24 08:54 KW Document 01/20/24 11:44 RB wound 01/20/24 11:47 RB 12/30/23 01/06/24 01/13/24 11:03 11:04 08:44 - Today's Visit Information Type of service Follow-up Visit Follow-up Visit Follow-up Visit (Physician/HAULAGE ENGINE OPERATOR (Physician/HAULAGE ENGINE OPERATOR (Physician/HAULAGE ENGINE OPERATOR ) ) ) Arrival Mode Ambulatory Ambulatory Ambulatory Transfer Assistance None Accompanied by mother mother Patient Identification Verified (Name & Yes Yes Yes ) Patient Requires Transmission-Based No Precautions Safety Precautions Fall Prevention Finger Stick Blood Sugar(mg/dl) (if 127 indicated): Blood Sugar Stated by Patient Vital Signs Temperature (97.8 F-99.1 F) 97.7 F L 97.5 F L 97.0 F L Temperature Source Temporal Temporal Temporal Pulse Rate (60-100) 86 82 87 Pulse Location Monitor Monitor Monitor Respiratory Rate (12-18) 18 18 18 Respiratory rate source Observation Observation Observation Oxygen Delivery Method Room Air Room Air Blood Pressure (90/60-120/80) 122/29 H 101/44 L 142/82 H Blood Pressure Mean (mm Hg) 60 63 102 Source Monitor Monitor Monitor Position Sitting Sitting Blood Pressure Location Left Arm Left Arm History Since Last Visit- (Skip if this is Patient's initial visit) Have you changed medications since your No No No last visit? Any new allergies or adverse reactions No No No Had a fall/change in ADL's that may No No No increase risk of falls Signs or symptoms of abuse and/or No No No neglect since last visit Have you been in the hospital since your No No No last visit? Has dressing in place as prescribed Yes Yes Yes Has compression in place as prescribed Yes Yes Yes Has offloadiing in place as prescribed Yes Yes Yes Experienced any changes in pain level or No No No management Left Footwear Regular Shoe Regular Shoe Regular Shoe Right Footwear Total Contact Total Contact Total Contact Cast Cast Cast Pain Scale: 0-10 Numeric Is Patient Pain Free? Yes Yes Yes 01/20/24 11:44 - Today's Visit Information Type of service Follow-up Visit (Physician/HAULAGE ENGINE OPERATOR ) Arrival Mode Ambulatory Transfer Assistance None Accompanied by Patient Identification Verified (Name & Yes ) Patient Requires Transmission-Based No Precautions Safety Precautions Finger Stick Blood Sugar(mg/dl) (if indicated): Blood Sugar Vital Signs Temperature (97.8 F-99.1 F) 96.9 F L Temperature Source Temporal Pulse Rate (60-100) 78 Pulse Location Monitor Respiratory Rate (12-18) 18 Respiratory rate source Observation Oxygen Delivery Method Blood Pressure (90/60-120/80) 109/54 L Blood Pressure Mean (mm Hg) 72 Source Monitor Position Semi-Fowlers Blood Pressure Location Left Arm History Since Last Visit- (Skip if this is Patient's initial visit) Have you changed medications since your No last visit? Any new allergies or adverse reactions No Had a fall/change in ADL's that may No increase risk of falls Signs or symptoms of abuse and/or No neglect since last visit Have you been in the hospital since your No last visit? Has dressing in place as prescribed Yes Has compression in place as prescribed No Has offloadiing in place as prescribed Yes Experienced any changes in pain level or No management Left Footwear Right Footwear Pain Scale: 0-10 Numeric Is Patient Pain Free? Yes WC - Nurse 1 - General Ulcer Measurement Start: 12/30/23 11:03 Freq: Status: Active Protocol: Activity Type Activity Date Activity User E-sign Co-sign Detail Recorded Client Recorded Date Recorded By Document 12/30/23 11:03 KW z 12/30/23 11:14 KW Document 01/06/24 11:04 DL [email or web address] 01/06/24 11:17 DL Edit Result 01/06/24 11:04 DL (1) [email or web address] 01/06/24 11:26 DL Document 01/13/24 08:44 KW ; 01/13/24 08:54 KW Document 01/20/24 11:44 RB wound 01/20/24 11:47 RB (1) #3 L [place] - Current Size (cm) - Length => 0.7 - Current Size (cm) - Width => 1.5 - Current Size (cm) - Depth => 0.1 - Total Square Cm => 1.05 - Photo Taken => Yes - Classification - Thickness => Full Thickness => without Exposed => Support Structure - Exudate Amt => Small - Granulation Amt => Medium (34-66%) - Granulation Quality => Red - Necrosis Amt => None Present (0%) - Structure Exposed => N/A - Texture (Eloisa-wound Skin Appearance) => Scarring - Moisture (Eloisa-wound Skin Appearance) => No Abnormality - Color (Eloisa-wound Skin Appearance) => No Abnormality - Temperature (Eloisa-wound Skin => No Abnormality (Pt Appearance) => Warm) - Tenderness on Palpation (Eloisa-wound => Yes Skin Appearance) - Ulcer Cleansing => Soap and Water - Foul Odor after Cleansing => No - Anesthetic Used => 4% Lidocaine => Solution #2 L 4th toe - Current Size (cm) - Length => 0.4 - Current Size (cm) - Width => 0.5 - Current Size (cm) - Depth => 0.1 - Total Square Cm => 0.20 - Photo Taken => Yes - Exudate Amt => Small - Exudate Type => Serosanguineous - Wound Margin => Distinct, Outline => Attached - Granulation Amt => Medium (34-66%) - Granulation Quality => [place] - Necrosis Amt => Small (1-33%) - Necrotic Tissue Type => Adherent Slough - Structure Exposed => N/A - Texture (Eloisa-wound Skin Appearance) => Scarring - Moisture (Eloisa-wound Skin Appearance) => No Abnormality - Color (Eloisa-wound Skin Appearance) => Erythema - Temperature (Eloisa-wound Skin => No Abnormality (Pt Appearance) => Warm) - Tenderness on Palpation (Eloisa-wound => No Skin Appearance) - Ulcer Cleansing => Soap and Water - Foul Odor after Cleansing => No - Anesthetic Used => 5% Lidocaine Gel 12/30/23 01/06/24 01/13/24 11:03 11:04 08:44 Wound Center Nurse 1 #3 L [place] -Combined with other wound -Current Size (cm) - Length 0.7 0.8 -Current Size (cm) - Width 1.5 1.1 -Current Size (cm) - Depth 0.1 0.1 -Total Square Cm 1.05 0.88 -Photo Taken Yes -Tunneling -Undermining/Tunneling -Circular Undermining -Classification - Thickness Full Thickness without Exposed Support Structure -Exudate Amt Small Small -Exudate Type Serosanguineous -Wound Margin Distinct, Outline Attached -Granulation Amt Medium (34-66%) Large (67-100%) -Granulation Quality Red [place],Red -Slough/Fibrin -Necrosis Amt None Present (0 %) -Necrotic Tissue Type -Structure Exposed N/A -Texture (Eloisa-wound Skin Appearance) Scarring Assessed -Moisture (Eloisa-wound Skin Appearance) No Abnormality Assessed -Color (Eloisa-wound Skin Appearance) No Abnormality Assessed -Temperature (Eloisa-wound Skin No Abnormality No Abnormality Appearance) (Pt Warm) (Pt Warm) -Tenderness on Palpation (Eloisa-wound Yes No Skin Appearance) -Ulcer Cleansing Soap and Water Soap and Water -Foul Odor after Cleansing No No -Anesthetic Used 4% Lidocaine 5% Lidocaine Solution Gel #2 L 4th toe -Combined with other wound -Current Size (cm) - Length 0.4 0.2 -Current Size (cm) - Width 0.5 0.2 -Current Size (cm) - Depth 0.1 0.1 -Total Square Cm 0.20 0.04 -Photo Taken Yes -Tunneling -Undermining/Tunneling -Circular Undermining -Exudate Amt Small Small -Exudate Type Serosanguineous -Wound Margin Distinct, Distinct, Outline Outline Attached Attached -Granulation Amt Medium (34-66%) Large (67-100%) -Granulation Quality [place],Red -Slough/Fibrin -Necrosis Amt Small (1-33%) -Necrotic Tissue Type Adherent Slough -Structure Exposed N/A -Texture (Eloisa-wound Skin Appearance) Scarring Assessed -Moisture (Eloisa-wound Skin Appearance) No Abnormality Assessed -Color (Eloisa-wound Skin Appearance) Erythema Assessed -Temperature (Eloisa-wound Skin No Abnormality Appearance) (Pt Warm) -Tenderness on Palpation (Eloisa-wound No No Skin Appearance) -Ulcer Cleansing Soap and Water Soap and Water -Foul Odor after Cleansing No -Anesthetic Used 5% Lidocaine 5% Lidocaine Gel Gel #1 right heel -Combined with other wound No -Current Size (cm) - Length 1.5 1.6 1 -Current Size (cm) - Width 2 1.8 1.4 -Current Size (cm) - Depth 0.1 0.1 -Total Square Cm 3.0 2.88 1.4 -Epithelialization Small 1-33% -Tunneling No -Undermining/Tunneling No -Circular Undermining No -Exudate Amt Medium Medium -Exudate Type Serosanguineous -Wound Margin Flat & Intact Distinct, Distinct, Outline Outline Attached Attached -Granulation Amt Large (67-100%) Large (67-100%) -Granulation Quality Red Red -Slough/Fibrin No -Necrosis Amt None Present (0 None Present (0 %) %) -Necrotic Tissue Type -Structure Exposed N/A -Texture (Eloisa-wound Skin Appearance) Assessed, Callus,Scarring Assessed,Callus Scarring -Moisture (Eloisa-wound Skin Appearance) Assessed,Dry/ No Abnormality Assessed Scaly -Color (Eloisa-wound Skin Appearance) Assessed, No Abnormality Assessed Erythema -Temperature (Eloisa-wound Skin No Abnormality No Abnormality No Abnormality Appearance) (Pt Warm) (Pt Warm) (Pt Warm) -Tenderness on Palpation (Eloisa-wound No No Skin Appearance) -Ulcer Cleansing Soap and Water Soap and Water Soap and Water -Foul Odor after Cleansing No No No -Anesthetic Used 5% Lidocaine 5% Lidocaine 5% Lidocaine Gel Gel Gel Lower Limb Edema Present Right Calf (cm) 37.5 Right Ankle (cm) 21.2 Left Calf (cm) 36 Left Ankle (cm) 21 01/20/24 11:44 Wound Center Nurse 1 #3 L [place] -Combined with other wound No -Current Size (cm) - Length 0.1 -Current Size (cm) - Width 0.1 -Current Size (cm) - Depth 0.1 -Total Square Cm 0.01 -Photo Taken -Tunneling No -Undermining/Tunneling No -Circular Undermining No -Classification - Thickness -Exudate Amt Large -Exudate Type Serosanguineous -Wound Margin Distinct, Outline Attached -Granulation Amt Medium (34-66%) -Granulation Quality [place] -Slough/Fibrin Yes -Necrosis Amt Small (1-33%) -Necrotic Tissue Type Adherent Slough -Structure Exposed N/A -Texture (Eloisa-wound Skin Appearance) Assessed -Moisture (Eloisa-wound Skin Appearance) Assessed -Color (Eloisa-wound Skin Appearance) Assessed -Temperature (Eloisa-wound Skin No Abnormality Appearance) (Pt Warm) -Tenderness on Palpation (Eloisa-wound No Skin Appearance) -Ulcer Cleansing Wound Cleanser -Foul Odor after Cleansing No -Anesthetic Used 5% Lidocaine Gel #2 L 4th toe -Combined with other wound No -Current Size (cm) - Length 0.1 -Current Size (cm) - Width 0.1 -Current Size (cm) - Depth 0.1 -Total Square Cm 0.01 -Photo Taken -Tunneling No -Undermining/Tunneling No -Circular Undermining No -Exudate Amt Medium -Exudate Type Serosanguineous -Wound Margin Distinct, Outline Attached -Granulation Amt Medium (34-66%) -Granulation Quality -Slough/Fibrin Yes -Necrosis Amt Medium (34-66%) -Necrotic Tissue Type Adherent Slough -Structure Exposed N/A -Texture (Eloisa-wound Skin Appearance) Assessed -Moisture (Eloisa-wound Skin Appearance) Assessed -Color (Eloisa-wound Skin Appearance) Assessed -Temperature (Eloisa-wound Skin No Abnormality Appearance) (Pt Warm) -Tenderness on Palpation (Eloisa-wound No Skin Appearance) -Ulcer Cleansing Wound Cleanser -Foul Odor after Cleansing No -Anesthetic Used 5% Lidocaine Gel #1 right heel -Combined with other wound No -Current Size (cm) - Length 0.5 -Current Size (cm) - Width 1 -Current Size (cm) - Depth 0.1 -Total Square Cm 0.5 -Epithelialization -Tunneling No -Undermining/Tunneling No -Circular Undermining No -Exudate Amt Medium -Exudate Type Serosanguineous -Wound Margin Distinct, Outline Attached -Granulation Amt Medium (34-66%) -Granulation Quality [place] -Slough/Fibrin Yes -Necrosis Amt Medium (34-66%) -Necrotic Tissue Type Adherent Slough -Structure Exposed N/A -Texture (Eloisa-wound Skin Appearance) Assessed -Moisture (Eloisa-wound Skin Appearance) Assessed -Color (Eloisa-wound Skin Appearance) Assessed -Temperature (Eloisa-wound Skin No Abnormality Appearance) (Pt Warm) -Tenderness on Palpation (Eloisa-wound No Skin Appearance) -Ulcer Cleansing Wound Cleanser -Foul Odor after Cleansing No -Anesthetic Used 5% Lidocaine Gel Lower Limb Edema Present No Right Calf (cm) Right Ankle (cm) Left Calf (cm) Left Ankle (cm) WC - Nurse 2 - General Ulcer CM Notes Start: 12/30/23 11:03 Freq: Status: Active Protocol: Activity Type Activity Date Activity User E-sign Co-sign Detail Recorded Client Recorded Date Recorded By Document 12/30/23 11:32 [id number] 12/30/23 11:37 Document 01/06/24 11:29 JF 0000 01/06/24 11:35 Document 01/13/24 08:57 BMF [email or web address] 01/13/24 09:17 BMF Edit Result 01/13/24 08:57 BMF (1) [id number] 01/13/24 09:26 BMF Edit Result 01/13/24 08:57 BMF (2) [id number] 01/13/24 12:25 BMF Edit Result 01/13/24 08:57 BMF (3) [id number] 01/22/24 08:15 BMF Document 01/20/24 11:49 JF 0000 01/20/24 11:58 JF Document 01/27/24 11:36 JF 0000 01/27/24 11:39 JF (1) #3 L [place] - Wound Comment(s) => suture removal #2 L 4th toe - Post Debridement (cm) - Length => 0.1 - Post Debridement (cm) - Width => 0.1 - Post Debridement (cm) - Depth => 0.1 - Total Square (Post) (cm) => 0.01 - Area of Debridement (cm) - Length => 0.1 - Area of Debridement (cm) - Width => 0.1 - Total Square (Area) (cm) => 0.01 (2) #2 L 4th toe - Injectable Lidocaine (%) => 2 - Lidocaine (ml) => 10 (3) #1 right heel - Type of Offloading => Total Contact Cast => (TCC) - Right ($) 12/30/23 01/06/24 01/13/24 11:32 11:29 08:57 Wound Center Nurse 2 5-left superior leg -Time -Correct Patient -Correct Side, Site, Position -Correct Procedure -Procedure Performed -Type of Procedure -Clinical Debridement -Tissue Removed -Post Debridement (cm) - Length -Post Debridement (cm) - Width -Post Debridement (cm) - Depth -Total Square (Post) (cm) -Area of Debridement (cm) - Length -Area of Debridement (cm) - Width -Total Square (Area) (cm) -Tunneling -Undermining/Tunneling -Circular Undermining -Wound/Ulcer Outcome -Ulcer Cleansing -Foul Odor after Cleansing -Bioengineered Tissue -Bleeding Controlled with -Treatment Response -Offloading -Debridement - Subq, 1st 20sq cm #3 L [place] -Time -Correct Patient No -Correct Side, Site, Position No -Correct Procedure No -Procedure Performed No -Type of Procedure -Clinical Debridement -Tissue Removed -Post Debridement (cm) - Length 0.1 -Post Debridement (cm) - Width 0.1 -Post Debridement (cm) - Depth 0.1 -Total Square (Post) (cm) 0.01 -Area of Debridement (cm) - Length 0.1 -Area of Debridement (cm) - Width 0.1 -Total Square (Area) (cm) 0.01 -Tunneling -Undermining/Tunneling -Circular Undermining -Wound/Ulcer Outcome Not Healed Not Healed -Ulcer Cleansing -Foul Odor after Cleansing -Bioengineered Tissue -Bleeding Controlled with -Treatment Response -Offloading -Debridement - Subq, 1st 20sq cm -Wound Comment(s) suture removal #2 L 4th toe -Correct Patient No -Correct Side, Site, Position No -Correct Procedure No -Procedure Performed No -Post Debridement (cm) - Length 0.1 -Post Debridement (cm) - Width 0.1 -Post Debridement (cm) - Depth 0.1 -Total Square (Post) (cm) 0.01 -Area of Debridement (cm) - Length 0.1 -Area of Debridement (cm) - Width 0.1 -Total Square (Area) (cm) 0.01 -Wound/Ulcer Outcome Not Healed -Injectable Lidocaine (%) 2 -Lidocaine (ml) 10 -Wound Comment(s) flexor tenotomy performed in clinic. consent obtained/ signed #1 right heel -Time 11:35 09:06 -Correct Patient Yes Yes Yes -Correct Side, Site, Position Yes Yes Yes -Correct Procedure Yes Yes Yes -Procedure Performed Yes Yes Yes -Type of Procedure Debridement Debridement Debridement -Clinical Debridement Subcutaneous Subcutaneous Subcutaneous -Tissue Removed Subcutaneous Subcutaneous Subcutaneous -Post Debridement (cm) - Length 1.6 1.6 1.2 -Post Debridement (cm) - Width 2.1 1.5 1.2 -Post Debridement (cm) - Depth 0.1 0.1 0.1 -Total Square (Post) (cm) 3.36 2.40 1.44 -Area of Debridement (cm) - Length 1.6 1.6 1.2 -Area of Debridement (cm) - Width 2.1 1.5 1.2 -Total Square (Area) (cm) 3.36 2.40 1.44 -Tunneling No No No -Undermining/Tunneling No No No -Circular Undermining No No No -Wound/Ulcer Outcome Not Healed Not Healed Not Healed -Ulcer Cleansing Rinsed/ Rinsed/ Rinsed/ Irrigated with Irrigated with Irrigated with Saline Saline Saline -Foul Odor after Cleansing No No No -Bioengineered Tissue Yes Yes Yes -Type of Bioengineered Tissue Epifix Epifix 18mm Epifix 18mm Disc Disc -Expiration Date 07/31/28 07/31/28 07/31/28 -Product Lot Number [id number] -Percent Used 100 100 100 -Lot number of Saline Used [id number] -Bleeding Controlled with Pressure Pressure Pressure -Treatment Response Procedure Procedure Procedure Tolerated Well Tolerated Well Tolerated Well -Offloading Yes Yes -Type of Offloading Total Contact Total Contact Total Contact Cast (TCC) - Cast (TCC) - Cast (TCC) - Right ($) Right ($) Right ($) -Debridement - Subq, 1st 20sq cm No No No -Apply Skin Sub - 1st 25 sq cm - Feet 1 1 1 -Epifix (per sq cm) 4 -Epifix 18mm Disc 3 3 Pain Scale: 0-10 Numeric Is Patient Pain Free? Yes Yes Yes 01/20/24 01/27/24 11:49 11:36 Wound Center Nurse 2 5-left superior leg -Time 11:57 -Correct Patient Yes No -Correct Side, Site, Position Yes No -Correct Procedure Yes No -Procedure Performed Yes No -Type of Procedure Debridement -Clinical Debridement Subcutaneous -Tissue Removed Subcutaneous -Post Debridement (cm) - Length 2.5 0 -Post Debridement (cm) - Width 0.4 0 -Post Debridement (cm) - Depth 0.2 0 -Total Square (Post) (cm) 1.00 0 -Area of Debridement (cm) - Length 2.5 0 -Area of Debridement (cm) - Width 0.4 0 -Total Square (Area) (cm) 1.00 0 -Tunneling No -Undermining/Tunneling No -Circular Undermining No -Wound/Ulcer Outcome Not Healed Healed- Epithelialized -Ulcer Cleansing Rinsed/ Irrigated with Saline -Foul Odor after Cleansing No -Bioengineered Tissue No -Bleeding Controlled with Pressure -Treatment Response Procedure Tolerated Well -Offloading No -Debridement - Subq, 1st 20sq cm No #3 L [place] -Time 11:53 -Correct Patient Yes No -Correct Side, Site, Position Yes No -Correct Procedure Yes No -Procedure Performed Yes No -Type of Procedure Debridement -Clinical Debridement Subcutaneous -Tissue Removed Subcutaneous -Post Debridement (cm) - Length 0 -Post Debridement (cm) - Width 0 -Post Debridement (cm) - Depth 0 -Total Square (Post) (cm) 0 -Area of Debridement (cm) - Length 0 -Area of Debridement (cm) - Width 0 -Total Square (Area) (cm) 0 -Tunneling No -Undermining/Tunneling No -Circular Undermining No -Wound/Ulcer Outcome Not Healed Healed- Epithelialized -Ulcer Cleansing Rinsed/ Irrigated with Saline -Foul Odor after Cleansing No -Bioengineered Tissue No -Bleeding Controlled with Pressure -Treatment Response Procedure Tolerated Well -Offloading No -Debridement - Subq, 1st 20sq cm Yes -Wound Comment(s) #2 L 4th toe -Correct Patient No -Correct Side, Site, Position No -Correct Procedure No -Procedure Performed No -Post Debridement (cm) - Length 0 -Post Debridement (cm) - Width 0 -Post Debridement (cm) - Depth 0 -Total Square (Post) (cm) 0 -Area of Debridement (cm) - Length 0 -Area of Debridement (cm) - Width 0 -Total Square (Area) (cm) 0 -Wound/Ulcer Outcome Healed- Epithelialized -Injectable Lidocaine (%) -Lidocaine (ml) -Wound Comment(s) #1 right heel -Time 11:50 11:37 -Correct Patient Yes Yes -Correct Side, Site, Position Yes Yes -Correct Procedure Yes Yes -Procedure Performed Yes Yes -Type of Procedure Debridement Debridement -Clinical Debridement Subcutaneous Subcutaneous -Tissue Removed Subcutaneous Subcutaneous -Post Debridement (cm) - Length 0.7 0.3 -Post Debridement (cm) - Width 0.5 0.4 -Post Debridement (cm) - Depth 0.1 0.1 -Total Square (Post) (cm) 0.35 0.12 -Area of Debridement (cm) - Length 0.7 0.3 -Area of Debridement (cm) - Width 0.5 0.4 -Total Square (Area) (cm) 0.35 0.12 -Tunneling No No -Undermining/Tunneling No No -Circular Undermining No No -Wound/Ulcer Outcome Not Healed Not Healed -Ulcer Cleansing Rinsed/ Rinsed/ Irrigated with Irrigated with Saline Saline -Foul Odor after Cleansing No No -Bioengineered Tissue Yes Yes -Type of Bioengineered Tissue Epifix 18mm Epifix 18mm Disc Disc -Expiration Date 07/31/28 07/31/28 -Product Lot Number [id number] -Percent Used 100 100 -Lot number of Saline Used [id number] -Bleeding Controlled with Pressure Pressure -Treatment Response Procedure Procedure Tolerated Well Tolerated Well -Offloading Yes Yes -Type of Offloading Total Contact Total Contact Cast (TCC) - Cast (TCC) - Right ($) Right ($) -Debridement - Subq, 1st 20sq cm No No -Apply Skin Sub - 1st 25 sq cm - Feet 1 1 -Epifix (per sq cm) -Epifix 18mm Disc 3 3 Pain Scale: 0-10 Numeric Is Patient Pain Free? Yes Yes - Nurse 3 - General Ulcer D/C NN Start: 12/30/23 11:03 Freq: Status: Active Protocol: Activity Type Activity Date Activity User E-sign Co-sign Detail Recorded Client Recorded Date Recorded By Document 12/30/23 11:51 [facility] [id number] 12/30/23 11:52 [facility] Document 01/06/24 11:44 KW l 01/06/24 11:47 KW Document 01/20/24 12:31 RB wound 01/20/24 12:33 RB 12/30/23 01/06/24 01/20/24 11:51 11:44 12:31 Wound Care Center Nurse 3 5-left superior leg -Other Dressing bacitracin -Primary Dressing Covered/Secured with Dry Gauze, Secured with Tape #3 L [place] -Other Dressing ATB OINTMENT bacitracin -Primary Dressing Covered/Secured with Dry Gauze & Dry Gauze, Roll Gauze, Secured with Secured with Tape Tape #2 L 4th toe -Other Dressing ATB OINTMENT -Primary Dressing Covered/Secured with Dry Gauze & Roll Gauze, Secured with Tape #1 right heel -Primary Dressing Applied AMD Dressing AMD Dressing 4x4 4x4 -Other Dressing EPIMESH -Primary Dressing Covered/Secured with Secured with Tape -AMD Dressing 4x4 1 1 -Wound Comment(s) TCC UNDERCAST primary layer APPLIED of TCC applied foam appplied. Left -Tubular Bandage Single Layer Single Layer -Size of Tubigrip Used Size D Size D -Size D ($) 1 1 Treatment Response Procedure Procedure Tolerated Well Tolerated Well Pain Scale: 0-10 Numeric Is Patient Pain Free? Yes Yes Yes WC - Visit Discharge Discharge Condition Stable Stable Stable Ambulatory Status Ambulatory Ambulatory Ambulatory Transportation Private Auto Private Auto Private Auto Accompanied by Medication Reconcilliation completed & No No provided to patient/care provider Clinical Summary of Care Provided Yes Yes Assessment/Plan Assessment/Plan (1) Other specified peripheral vascular diseases: CODE(S): I73.89 - Other specified peripheral vascular diseases PLAN: Exam performed. Hemoglobin A1c 5.8. No additional antibiotics indicated at this time arterial studies suggest diminished blood flow to right lower extremity - patient following with vascular surgery Today wound was excisionally debrided down to including the level of subcutaneous tissue of all nonviable tissue using a 5 mm dermal curette to the right heel without incident. Topical anesthesia used despite patient's neuropathy. Patient tolerated procedure well. Hemostasis obtained with light compression. Pre and postdebridement measurements documented nursing notes. Today an 18mm disc EpiFix graft was applied to the plantar heel wound on the right side. Entire graft used, no waste. Graft was stabilized with overlying wound veil and Steri-Strips. Site was dressed with a dry sterile dressing. Patient to dress all sites on left with abx ointmend, dsd and tubigrip (2) Non-pressure chronic ulcer of other part of right foot with fat layer exposed: CODE(S): L97.512 - Non-pressure chronic ulcer of other part of right foot with fat layer exposed (3) Type 2 diabetes mellitus with diabetic polyneuropathy: CODE(S): E11.42 - Type 2 diabetes mellitus with diabetic polyneuropathy
[2024-01-27 11:51] VITALS: BP 109/62; PULSE 84; RESP 18; TEMP 36.5
--- NOTE | 2024-01-30 08:59 | WC ---
PHOTO 01/27/24 LEFT LEG
--- NOTE | 2024-01-30 09:00 | WC ---
PHOTO 01/27/24
== END 2024-01-28 23:59 | disposition home or self-care (01) ==
LOC: WC 11:00
PROVIDERS: PCP Internal Medicine; Referring Provider Podiatrist Foot & Ankle Surgery; Visit Provider Podiatrist
DX: E11.621 Type 2 diabetes mellitus with foot ulcer (principal); L97.512 Non-pressure chronic ulcer of other part of right foot with fat layer exposed; E11.42 Type 2 diabetes mellitus with diabetic polyneuropathy; E11.51 Type 2 diabetes mellitus with diabetic peripheral angiopathy without gangrene; Z94.0 Kidney transplant status
CPT/HCPCS: 11042; 15275; 29445; Q4186

== ENCOUNTER 2024-02-10 11:00 | Outpatient (RCR) | payer MEDICARE, MEDICAID, SELFPAY ==
[2024-01-29 00:36] VITALS: BP 116/62; PULSE 89; RESP 18; TEMP 36.2
[2024-02-03 08:37] VITALS: BP 115/64; PULSE 76; RESP 18; TEMP 35.5
--- NOTE | 2024-02-03 09:43 | WC ---
PHOTO RIGHT HEEL 02/03/24
--- NOTE | 2024-02-03 10:33 | PN.PCM_ITS ---
History of Present Illness Date of Service: 02/03/24 Chief Complaint: Right heel wound History of Wound: Patient is a type II diabetic with history of ESRD status post kidney transplant in setting of peripheral polyneuropathy Patient presents with neuropathic ulceration present for 1 month. Patient was treated by Dr. Linda ramirez in outpatient setting. Patient was referred to us for more advanced wound care treatment. Patient denies any fever chills nausea vomiting chest pain calf pain shortness of breath. patient reports non- compliance with weightbearing. Progress of Wound: Right plantar heel is healed today. There is a fragile covering of epithelial skin. He has been tolerating his TCC well. He does have a small area on his right lateral leg where the TCC rubbed. Objective Data Objective Data Vital Signs: Vital Signs Temp Pulse Resp BP 96 F L 76 18 115/64 02/03/24 08:37 02/03/24 08:37 02/03/24 08:37 02/03/24 08:37 Charges/Coding Visit Charges Office Visits / Consults: 24589 OV L3 Est 20min Physical Exam Const alert, oriented x3 and no apparent distress General Appearance: cooperative HEENT normocephalic Head and Scalp: atraumatic Eyes PERRL Resp normal respiratory effort, no use of accessory muscles and clear to auscultation bilaterally Effort and Inspection: able to speak in complete sentences Cardio regular rate and regular rhythm Extremity Extremity Narrative: Atrophic skin changes noted. Dorsalis pedis and posterior tibial pulses are biphasic by Doppler examination. Absent digital hair growth noted to bilateral feet. Skin Wound Narrative: Right plantar heel ulcer is healed today. There is fragile epithelial skin in place. He has a small wound on right lateral mid lower leg that is new this week, right where the top edge of the TCC was located. Neuro CN's II-XII intact bilaterally Psych affect normal Debridement Note Debridement Note No debridement was completed: No debridement was completed today Post-Debridement Measurements and Additional Note: Post-Debridement Measurements/Treatment MARK - Nurse 1 - General Ulcer Assessment Start: 02/03/24 08:37 Freq: Status: Active Protocol: JOSÉ MANUEL Activity Type Activity Date Activity User E-sign Co-sign Detail Recorded Client Recorded Date Recorded By Document 02/03/24 08:37 RB wound 02/03/24 08:39 RB 02/03/24 08:37 - Today's Visit Information Type of service Follow-up Visit (Physician/BAR STEWARD ) Arrival Mode Ambulatory Transfer Assistance None Patient Identification Verified (Name & Yes ) Patient Requires Transmission-Based No Precautions Vital Signs Temperature (97.8 F-99.1 F) 96 F L Temperature Source Temporal Pulse Rate (60-100) 76 Pulse Location Monitor Respiratory Rate (12-18) 18 Respiratory rate source Observation Blood Pressure (90/60-120/80) 115/64 Blood Pressure Mean (mm Hg) 81 Source Monitor Position Semi-Fowlers Blood Pressure Location Left Arm History Since Last Visit- (Skip if this is Patient's initial visit) Have you changed medications since your No last visit? Any new allergies or adverse reactions No Had a fall/change in ADL's that may No increase risk of falls Signs or symptoms of abuse and/or No neglect since last visit Have you been in the hospital since your No last visit? Has dressing in place as prescribed Yes Has compression in place as prescribed No Has offloadiing in place as prescribed Yes Experienced any changes in pain level or No management Right Footwear Total Contact Cast Pain Scale: 0-10 Numeric Is Patient Pain Free? Yes WC - Nurse 1 - General Ulcer Measurement Start: 02/03/24 08:37 Freq: Status: Active Protocol: Activity Type Activity Date Activity User E-sign Co-sign Detail Recorded Client Recorded Date Recorded By Document 02/03/24 08:37 RB wound 02/03/24 08:39 RB 02/03/24 08:37 Wound Center Nurse 1 #1 right heel -Combined with other wound No -Current Size (cm) - Length 0.1 -Current Size (cm) - Width 0.1 -Current Size (cm) - Depth 0.1 -Total Square Cm 0.01 -Photo Taken Yes -Tunneling No -Undermining/Tunneling No -Circular Undermining No -Exudate Amt None Present -Wound Margin Distinct, Outline Attached -Granulation Amt Large (67-100%) -Granulation Quality [place] -Slough/Fibrin Yes -Necrosis Amt Small (1-33%) -Necrotic Tissue Type Adherent Slough -Structure Exposed N/A -Texture (Eloisa-wound Skin Appearance) Assessed -Moisture (Eloisa-wound Skin Appearance) Assessed -Color (Eloisa-wound Skin Appearance) Assessed -Temperature (Eloisa-wound Skin No Abnormality Appearance) (Pt Warm) -Tenderness on Palpation (Eloisa-wound No Skin Appearance) -Ulcer Cleansing Wound Cleanser -Foul Odor after Cleansing No -Anesthetic Used 5% Lidocaine Gel - Nurse 2 - General Ulcer CM Notes Start: 02/03/24 08:37 Freq: Status: Active Protocol: Activity Type Activity Date Activity User E-sign Co-sign Detail Recorded Client Recorded Date Recorded By Document 02/03/24 08:43 JF 0000 02/03/24 08:47 JF 02/03/24 08:43 Wound Center Nurse 2 -Time 08:44 -Correct Patient No -Correct Side, Site, Position No -Correct Procedure No -Procedure Performed No -Post Debridement (cm) - Length 0 -Post Debridement (cm) - Width 0 -Post Debridement (cm) - Depth 0 -Total Square (Post) (cm) 0 -Area of Debridement (cm) - Length 0 -Area of Debridement (cm) - Width 0 -Total Square (Area) (cm) 0 -Wound/Ulcer Outcome Healed- Epithelialized -Type of Offloading Total Contact Cast (TCC) - Right ($) Pain Scale: 0-10 Numeric Is Patient Pain Free? Yes - Nurse 3 - General Ulcer D/C NN Start: 02/03/24 08:37 Freq: Status: Active Protocol: Activity Type Activity Date Activity User E-sign Co-sign Detail Recorded Client Recorded Date Recorded By Document 02/03/24 09:05 RB wound 02/03/24 09:07 RB 02/03/24 09:05 Wound Care Center Nurse 3 #1 right heel -Primary Dressing Applied Mepilex Border -Other Dressing hydrogel/ foam pad secured with paper tape -Mepilex Border 2 -Wound Comment(s) primary layer of TCC applied Treatment Response Procedure Tolerated Well Pain Scale: 0-10 Numeric Is Patient Pain Free? Yes WC - Visit Discharge Discharge Condition Stable Ambulatory Status Ambulatory Transportation Private Auto Medication Reconcilliation completed & No provided to patient/care provider Clinical Summary of Care Provided Yes Assessment/Plan Assessment/Plan (1) Other specified peripheral vascular diseases: CODE(S): I73.89 - Other specified peripheral vascular diseases PLAN: Courtesy visit for Dr. Chung. Hemoglobin A1c 5.8. No additional antibiotics indicated at this time arterial studies suggest diminished blood flow to right lower extremity - patient following with vascular surgery Today the right heel ulcer is healed with fragile epithelial tissue. He has had 9 applications of EpiFix. Will place collagen hydrogel and cover with gauze. Will place a TCC this week to help keep him offloaded to allow further healing. On his right lateral leg will place collagen hydrogel and cover with an [place] SAP to allow cushioning to prevent any sort of pressure from the edge of the TCC. Follow-up [address] Chung. (2) Non-pressure chronic ulcer of other part of right foot with fat layer exposed: CODE(S): L97.512 - Non-pressure chronic ulcer of other part of right foot with fat layer exposed (3) Type 2 diabetes mellitus with diabetic polyneuropathy: CODE(S): E11.42 - Type 2 diabetes mellitus with diabetic polyneuropathy (4) Wound of right lower extremity: CODE(S): S81.801A - Unspecified open wound, right lower leg, initial encounter QUALIFIERS: Encounter type: initial encounter Qualified Code(s): S81.801A - Unspecified open wound, right lower leg, initial encounter
[2024-02-10 11:22] VITALS: PULSE 84; RESP 18; TEMP 36.5
--- NOTE | 2024-02-10 11:39 | PCM.WC.PN ---
History of Present Illness Date of Service: 02/10/24 Chief Complaint: Right heel wound History of Wound: Patient is a type II diabetic with history of ESRD status post kidney transplant in setting of peripheral polyneuropathy Patient presents with neuropathic ulceration present for 1 month. Patient was treated by Dr. Linda ramirez in outpatient setting. Patient was referred to us for more advanced wound care treatment. Patient denies any fever chills nausea vomiting chest pain calf pain shortness of breath. patient reports non-compliance with weightbearing. Progress of Wound: Right plantar heel is healed today. There is a fragile covering of epithelial skin. He has been tolerating his TCC well. He does have a small area on his right lateral leg where the TCC rubbed. Objective Data Objective Data Vital Signs: Vital Signs Temp Pulse Resp BP O2 Del Method 97.7 F L 84 18 115/64 Room Air 02/10/24 11:22 02/10/24 11:22 02/10/24 11:22 02/03/24 08:37 02/10/24 11:22 Oxygen Delivery Method Room Air Physical Exam Narrative Atrophic skin changes noted. Dorsalis pedis and posterior tibial pulses are biphasic by Doppler examination. Absent digital hair growth noted to bilateral feet. Light touch protective sensation absent to entire bilateral lower extremity extending up past the knee. Dermatologic: Full-thickness wound noted to the plantar right heel healed. Musculoskeletal: resolved adductovarus hammertoe left fourth toe. Muscular strength full to bilateral lower extremity compartments. Debridement Note Debridement Note Post-Debridement Measurements and Additional Note: Post-Debridement Measurements/Treatment - Nurse 1 - General Ulcer Assessment Start: 02/03/24 08:37 Freq: Status: Active Protocol: JOSÉ MANUEL Activity Type Activity Date Activity User E-sign Co-sign Detail Recorded Client Recorded Date Recorded By Document 02/03/24 08:37 RB wound 02/03/24 08:39 RB Document 02/10/24 11:22 KW gfj 02/10/24 11:36 KW 02/03/24 02/10/24 08:37 11:22 - Today's Visit Information Type of service Follow-up Visit Follow-up Visit (Physician/FARM OPERATIONS TECHNICAL DIRECTOR (Physician/FARM OPERATIONS TECHNICAL DIRECTOR ) ) Arrival Mode Ambulatory Ambulatory Transfer Assistance None Accompanied by mother Patient Identification Verified (Name & Yes Yes ) Patient Requires Transmission-Based No Precautions Vital Signs Temperature (97.8 F-99.1 F) 96 F L 97.7 F L Temperature Source Temporal Temporal Pulse Rate (60-100) 76 84 Pulse Location Monitor Monitor Respiratory Rate (12-18) 18 18 Respiratory rate source Observation Observation Oxygen Delivery Method Room Air Blood Pressure (90/60-120/80) 115/64 Blood Pressure Mean (mm Hg) 81 Source Monitor Monitor Position Semi-Fowlers Sitting Blood Pressure Location Left Arm Left Arm History Since Last Visit- (Skip if this is Patient's initial visit) Have you changed medications since your No No last visit? Any new allergies or adverse reactions No No Had a fall/change in ADL's that may No No increase risk of falls Signs or symptoms of abuse and/or No No neglect since last visit Have you been in the hospital since your No No last visit? Has dressing in place as prescribed Yes Yes Has compression in place as prescribed No N/A Has offloadiing in place as prescribed Yes Yes Experienced any changes in pain level or No No management Left Footwear Regular Shoe Right Footwear Total Contact Total Contact Cast Cast Pain Scale: 0-10 Numeric Is Patient Pain Free? Yes Yes WC - Nurse 1 - General Ulcer Measurement Start: 02/03/24 08:37 Freq: Status: Active Protocol: Activity Type Activity Date Activity User E-sign Co-sign Detail Recorded Client Recorded Date Recorded By Document 02/03/24 08:37 RB wound 02/03/24 08:39 RB Document 02/10/24 11:22 KW gfj 02/10/24 11:36 KW 02/03/24 02/10/24 08:37 11:22 Wound Center Nurse 1 #1 right heel -Combined with other wound No -Current Size (cm) - Length 0.1 0.1 -Current Size (cm) - Width 0.1 0.1 -Current Size (cm) - Depth 0.1 0.1 -Total Square Cm 0.01 0.01 -Date of Last Picture (Recall this 02/10/24 field) -Photo Taken Yes -Tunneling No -Undermining/Tunneling No -Circular Undermining No -Exudate Amt None Present None Present -Wound Margin Distinct, Outline Attached -Granulation Amt Large (67-100%) None Present (0 %) -Granulation Quality Minor -Slough/Fibrin Yes -Necrosis Amt Small (1-33%) None Present (0 %) -Necrotic Tissue Type Adherent Slough -Structure Exposed N/A -Texture (Eloisa-wound Skin Appearance) Assessed Assessed -Moisture (Eloisa-wound Skin Appearance) Assessed Assessed -Color (Eloisa-wound Skin Appearance) Assessed Assessed -Temperature (Eloisa-wound Skin No Abnormality No Abnormality Appearance) (Pt Warm) (Pt Warm) -Tenderness on Palpation (Eloisa-wound No No Skin Appearance) -Ulcer Cleansing Wound Cleanser Soap and Water -Foul Odor after Cleansing No No -Anesthetic Used 5% Lidocaine Gel Right Calf (cm) 37 WC - Nurse 2 - General Ulcer CM Notes Start: 02/03/24 08:37 Freq: Status: Active Protocol: Activity Type Activity Date Activity User E-sign Co-sign Detail Recorded Client Recorded Date Recorded By Document 02/03/24 08:43 JF 0000 02/03/24 08:47 JF Document 02/10/24 11:37 KW gfj 02/10/24 11:37 KW 02/03/24 02/10/24 08:43 11:37 Wound Center Nurse 2 #1 right heel -Time 08:44 -Correct Patient No No -Correct Side, Site, Position No No -Correct Procedure No No -Procedure Performed No No -Post Debridement (cm) - Length 0 0 -Post Debridement (cm) - Width 0 0 -Post Debridement (cm) - Depth 0 0 -Total Square (Post) (cm) 0 0 -Area of Debridement (cm) - Length 0 0 -Area of Debridement (cm) - Width 0 0 -Total Square (Area) (cm) 0 0 -Wound/Ulcer Outcome Healed- Failed Graft Epithelialized -Type of Offloading Total Contact Cast (TCC) - Right ($) Pain Scale: 0-10 Numeric Is Patient Pain Free? Yes Yes - Nurse 3 - General Ulcer D/C NN Start: 02/03/24 08:37 Freq: Status: Active Protocol: Activity Type Activity Date Activity User E-sign Co-sign Detail Recorded Client Recorded Date Recorded By Document 02/03/24 09:05 RB wound 02/03/24 09:07 RB Document 02/10/24 11:38 KW gfj 02/10/24 11:38 KW 02/03/24 02/10/24 09:05 11:38 Wound Care Center Nurse 3 #1 right heel -Primary Dressing Applied Mepilex Border -Other Dressing hydrogel/ foam pad secured with paper tape -Mepilex Border 2 -Wound Comment(s) primary layer of TCC applied Treatment Response Procedure Tolerated Well Pain Scale: 0-10 Numeric Is Patient Pain Free? Yes Yes WC - Visit Discharge Discharge Condition Stable Stable Ambulatory Status Ambulatory Ambulatory Transportation Private Auto Private Auto Medication Reconcilliation completed & No Yes provided to patient/care provider Clinical Summary of Care Provided Yes Yes Assessment/Plan Assessment/Plan (1) Other specified peripheral vascular diseases: CODE(S): I73.89 - Other specified peripheral vascular diseases PLAN: Courtesy visit for Dr. Chung. Hemoglobin A1c 5.8. No additional antibiotics indicated at this time wound healed today Rx for DM shoes contact office as needed (2) Non-pressure chronic ulcer of other part of right foot with fat layer exposed: CODE(S): L97.512 - Non-pressure chronic ulcer of other part of right foot with fat layer exposed (3) Type 2 diabetes mellitus with diabetic polyneuropathy: CODE(S): E11.42 - Type 2 diabetes mellitus with diabetic polyneuropathy (4) Wound of right lower extremity: CODE(S): S81.801A - Unspecified open wound, right lower leg, initial encounter QUALIFIERS: Encounter type: initial encounter Qualified Code(s): S81.801A - Unspecified open wound, right lower leg, initial encounter
== END 2024-02-10 12:53 | disposition home or self-care (01) ==
LOC: WC 11:00
PROVIDERS: PCP Internal Medicine; Referring Provider Podiatrist Foot & Ankle Surgery; Visit Provider Podiatrist
DX: Z09 Encounter for follow-up examination after completed treatment for conditions other than malignant neoplasm (principal); E11.42 Type 2 diabetes mellitus with diabetic polyneuropathy; E11.51 Type 2 diabetes mellitus with diabetic peripheral angiopathy without gangrene; S81.801A Unspecified open wound, right lower leg, initial encounter; Z94.0 Kidney transplant status; X58.XXXA Exposure to other specified factors, initial encounter
CPT/HCPCS: 29445; 99213; G0463

== ENCOUNTER 2024-02-24 09:56 | Outpatient (RCR) | payer MEDICARE, MEDICAID, SELFPAY ==
[2024-02-24 10:12] VITALS: BP 136/72; PULSE 79; RESP 18; TEMP 36.3
--- NOTE | 2024-02-24 10:55 | PCM.WC.PN ---
History of Present Illness Date of Service: 02/10/24 Chief Complaint: Right heel wound History of Wound: Patient is a type II diabetic with history of ESRD status post kidney transplant in setting of peripheral polyneuropathy Patient presents with neuropathic ulceration present for 1 month. Patient was treated by Dr. Linda ramirez in outpatient setting. Patient was referred to us for more advanced wound care treatment. Patient denies any fever chills nausea vomiting chest pain calf pain shortness of breath. patient reports non-compliance with weightbearing. Progress of Wound: Recurrence to right heel wound noted today. Denies constitutional symptoms or signs or symptoms of infection. Objective Data Objective Data Vital Signs: Vital Signs Temp Pulse Resp BP O2 Del Method 97.4 F L 79 18 136/72 H Room Air 02/24/24 10:12 02/24/24 10:12 02/24/24 10:12 02/24/24 10:12 02/24/24 10:12 Oxygen Delivery Method Room Air Physical Exam Narrative Atrophic skin changes noted. Dorsalis pedis and posterior tibial pulses are biphasic by Doppler examination. Absent digital hair growth noted to bilateral feet. Light touch protective sensation absent to entire bilateral lower extremity extending up past the knee. Dermatologic: Full-thickness wound noted to the plantar right heel, no deep probing undermining. No acute signs of infection. Musculoskeletal: resolved adductovarus hammertoe left fourth toe. Muscular strength full to bilateral lower extremity compartments. Debridement Note Debridement Note Post-Debridement Measurements and Additional Note: Post-Debridement Measurements/Treatment - Nurse 1 - General Ulcer Assessment Start: 02/24/24 10:12 Freq: Status: Active Protocol: JOSÉ MANUEL Activity Type Activity Date Activity User E-sign Co-sign Detail Recorded Client Recorded Date Recorded By Document 02/24/24 10:12 KW [id number] 02/24/24 10:21 ISIDRO 02/24/24 10:12 - Today's Visit Information Type of service Follow-up Visit (Physician/FIELD CONTROL INSPECTOR ) Arrival Mode Ambulatory Accompanied by mother Patient Identification Verified (Name & Yes ) Vital Signs Temperature (97.8 F-99.1 F) 97.4 F L Temperature Source Temporal Pulse Rate (60-100) 79 Pulse Location Monitor Respiratory Rate (12-18) 18 Respiratory rate source Observation Oxygen Delivery Method Room Air Blood Pressure (90/60-120/80) 136/72 H Blood Pressure Mean (mm Hg) 93 Source Monitor Position Semi-Fowlers Blood Pressure Location Right Arm History Since Last Visit- (Skip if this is Patient's initial visit) Have you changed medications since your No last visit? Any new allergies or adverse reactions No Had a fall/change in ADL's that may No increase risk of falls Signs or symptoms of abuse and/or No neglect since last visit Have you been in the hospital since your No last visit? Has dressing in place as prescribed Yes Has compression in place as prescribed Yes Has offloadiing in place as prescribed N/A Experienced any changes in pain level or No management Left Footwear Regular Shoe Right Footwear Regular Shoe Pain Scale: 0-10 Numeric Is Patient Pain Free? Yes - Nurse 1 - General Ulcer Measurement Start: 02/24/24 10:12 Freq: Status: Active Protocol: Activity Type Activity Date Activity User E-sign Co-sign Detail Recorded Client Recorded Date Recorded By Document 02/24/24 10:12 ISIDRO [id number] 02/24/24 10:21 ISIDRO 02/24/24 10:12 Wound Center Nurse 1 #1 right heel -Current Size (cm) - Length 2 -Current Size (cm) - Width 1.6 -Current Size (cm) - Depth 0.1 -Total Square Cm 3.2 -Date of Last Picture (Recall this 02/24/24 field) -Exudate Amt Small -Exudate Type Serosanguineous -Wound Margin Distinct, Outline Attached -Granulation Amt Large (67-100%) -Granulation Quality Red -Texture (Eloisa-wound Skin Appearance) Assessed,Callus -Moisture (Eloisa-wound Skin Appearance) Assessed -Color (Eloisa-wound Skin Appearance) Assessed -Temperature (Eloisa-wound Skin No Abnormality Appearance) (Pt Warm) -Tenderness on Palpation (Eloisa-wound No Skin Appearance) -Ulcer Cleansing Rinsed/ Irrigated with Saline -Foul Odor after Cleansing No -Anesthetic Used 5% Lidocaine Gel MARK - Nurse 2 - General Ulcer CM Notes Start: 02/24/24 10:12 Freq: Status: Active Protocol: Activity Type Activity Date Activity User E-sign Co-sign Detail Recorded Client Recorded Date Recorded By Document 02/24/24 10:48 KRIS [id number] 02/24/24 10:50 KRIS 02/24/24 10:48 Wound Center Nurse 2 -Correct Patient Yes -Correct Side, Site, Position Yes -Correct Procedure Yes -Procedure Performed Yes -Type of Procedure Debridement -Clinical Debridement Subcutaneous -Tissue Removed Subcutaneous -Post Debridement (cm) - Length 1.8 -Post Debridement (cm) - Width 1.7 -Post Debridement (cm) - Depth 0.1 -Total Square (Post) (cm) 3.06 -Area of Debridement (cm) - Length 1.8 -Area of Debridement (cm) - Width 1.7 -Total Square (Area) (cm) 3.06 -Tunneling No -Undermining/Tunneling No -Circular Undermining No -Wound/Ulcer Outcome Not Healed -Ulcer Cleansing Rinsed/ Irrigated with Saline -Foul Odor after Cleansing No -Bioengineered Tissue Yes -Type of Bioengineered Tissue Epifix -Expiration Date 11/29/27 -Product Lot Number [id number] -Percent Used 100 -Lot number of Saline Used [id number] -Bleeding Controlled with Pressure -Treatment Response Procedure Tolerated Well -Offloading Yes -Type of Offloading Total Contact Cast (TCC) - Right ($) -Debridement - Subq, 1st 20sq cm No -Apply Skin Sub - 1st 25 sq cm - Feet 1 -Epifix (per sq cm) 4 Pain Scale: 0-10 Numeric Is Patient Pain Free? Yes Assessment/Plan Assessment/Plan (1) Other specified peripheral vascular diseases: CODE(S): I73.89 - Other specified peripheral vascular diseases PLAN: Exam performed. Recent hemoglobin A1c 5.8. Right heel wound noted today. Right heel wound excisionally debrided down to including level of subcutaneous tissue of all nonviable tissue using 5 mm dermal curette. Topical anesthesia used. Topical hemostasis obtained with light compression. Patient tolerated procedure well. Patient has neuropathy and topical anesthesia was used. Pre and postdebridement measurements documented nursing notes. Today a 2 x 2 cm EpiFix graft was applied to the wound bed in its entirety. This was secured with overlying Adaptic and Steri-Strips. Overlying dry sterile dressing was applied. Total contact cast applied to right lower extremity of foot and ankle held in rectus alignment. Follow-up in 1 week. (2) Non-pressure chronic ulcer of other part of right foot with fat layer exposed: CODE(S): L97.512 - Non-pressure chronic ulcer of other part of right foot with fat layer exposed (3) Type 2 diabetes mellitus with diabetic polyneuropathy: CODE(S): E11.42 - Type 2 diabetes mellitus with diabetic polyneuropathy (4) Wound of right lower extremity: CODE(S): S81.801A - Unspecified open wound, right lower leg, initial encounter QUALIFIERS: Encounter type: initial encounter Qualified Code(s): S81.801A - Unspecified open wound, right lower leg, initial encounter
--- NOTE | 2024-02-26 09:10 | WC ---
PHOTO 02/24/24 RIGHT HEEL
== END 2024-02-28 23:59 | disposition home or self-care (01) ==
LOC: WC 09:56
PROVIDERS: PCP Internal Medicine; Referring Provider Podiatrist; Visit Provider Podiatrist
DX: E11.621 Type 2 diabetes mellitus with foot ulcer (principal); L97.512 Non-pressure chronic ulcer of other part of right foot with fat layer exposed; E11.42 Type 2 diabetes mellitus with diabetic polyneuropathy; E11.51 Type 2 diabetes mellitus with diabetic peripheral angiopathy without gangrene; Z94.0 Kidney transplant status
CPT/HCPCS: 15275; 29445; Q4186

== ENCOUNTER 2024-03-23 11:30 | Outpatient (RCR) | payer MEDICARE, MEDICAID, SELFPAY ==
[2024-02-29 00:56] VITALS: BP 136/72; PULSE 79; RESP 18; TEMP 36.3
[2024-03-02 11:22] VITALS: BP 126/67; PULSE 79; RESP 18; TEMP 36.1
--- NOTE | 2024-03-02 11:52 | PN.PCM_ITS ---
History of Present Illness Date of Service: 02/10/24 Chief Complaint: Right heel wound History of Wound: Patient is a type II diabetic with history of ESRD status post kidney transplant in setting of peripheral polyneuropathy Patient presents with neuropathic ulceration present for 1 month. Patient was treated by Dr. Linda ramirez in outpatient setting. Patient was referred to us for more advanced wound care treatment. Patient denies any fever chills nausea vomiting chest pain calf pain shortness of breath. patient reports non- compliance with weightbearing. Progress of Wound: Recurrence to right heel wound noted today. Denies constitutional symptoms or signs or symptoms of infection. Objective Data Objective Data Vital Signs: Vital Signs Temp Pulse Resp BP O2 Del Method 97.0 F L 79 18 126/67 H Room Air 03/02/24 11:22 03/02/24 11:22 03/02/24 11:22 03/02/24 11:22 03/02/24 11:22 Oxygen Delivery Method Room Air Physical Exam Narrative Atrophic skin changes noted. Dorsalis pedis and posterior tibial pulses are biphasic by Doppler examination. Absent digital hair growth noted to bilateral feet. Light touch protective sensation absent to entire bilateral lower extremity extending up past the knee. Dermatologic: Full-thickness wound noted to the plantar right heel, no deep probing undermining. No acute signs of infection. Musculoskeletal: resolved adductovarus hammertoe left fourth toe. Muscular strength full to bilateral lower extremity compartments. Debridement Note Debridement Note Post-Debridement Measurements and Additional Note: Post-Debridement Measurements/Treatment - Nurse 1 - General Ulcer Assessment Start: 03/02/24 11:22 Freq: Status: Active Protocol: JOSÉ MANUEL Activity Type Activity Date Activity User E-sign Co-sign Detail Recorded Client Recorded Date Recorded By Document 03/02/24 11:22 KW [id number] 03/02/24 11:35 KW 03/02/24 11:22 - Today's Visit Information Type of service Follow-up Visit (Physician/NURSE FIRST AID ) Arrival Mode Ambulatory Patient Identification Verified (Name & Yes ) Vital Signs Temperature (97.8 F-99.1 F) 97.0 F L Temperature Source Temporal Pulse Rate (60-100) 79 Pulse Location Monitor Respiratory Rate (12-18) 18 Respiratory rate source Observation Oxygen Delivery Method Room Air Blood Pressure (90/60-120/80) 126/67 H Blood Pressure Mean (mm Hg) 86 Source Monitor Position Semi-Fowlers Blood Pressure Location Right Arm History Since Last Visit- (Skip if this is Patient's initial visit) Have you changed medications since your No last visit? Any new allergies or adverse reactions No Had a fall/change in ADL's that may No increase risk of falls Signs or symptoms of abuse and/or No neglect since last visit Have you been in the hospital since your No last visit? Has dressing in place as prescribed Yes Has compression in place as prescribed Yes Has offloadiing in place as prescribed Yes Experienced any changes in pain level or No management Left Footwear Regular Shoe Right Footwear Total Contact Cast Pain Scale: 0-10 Numeric Is Patient Pain Free? Yes - Nurse 1 - General Ulcer Measurement Start: 03/02/24 11:22 Freq: Status: Active Protocol: Activity Type Activity Date Activity User E-sign Co-sign Detail Recorded Client Recorded Date Recorded By Document 03/02/24 11:22 [email or web address] [id number] 03/02/24 11:35 ISIDRO 03/02/24 11:22 Wound Center Nurse 1 #1 right heel -Current Size (cm) - Length 1.5 -Current Size (cm) - Width 1.6 -Current Size (cm) - Depth 0.1 -Total Square Cm 2.40 -Exudate Amt Small -Exudate Type Serosanguineous -Wound Margin Distinct, Outline Attached -Granulation Amt Large (67-100%) -Granulation Quality Red -Texture (Eloisa-wound Skin Appearance) Assessed,Callus -Moisture (Eloisa-wound Skin Appearance) Maceration -Color (Eloisa-wound Skin Appearance) Assessed -Temperature (Eloisa-wound Skin No Abnormality Appearance) (Pt Warm) -Tenderness on Palpation (Eloisa-wound No Skin Appearance) -Ulcer Cleansing Soap and Water -Foul Odor after Cleansing No -Anesthetic Used 5% Lidocaine Gel Right Calf (cm) 35.6 Right Ankle (cm) 21.5 - Nurse 2 - General Ulcer CM Notes Start: 03/02/24 11:22 Freq: Status: Active Protocol: Activity Type Activity Date Activity User E-sign Co-sign Detail Recorded Client Recorded Date Recorded By Document 03/02/24 11:49 KRIS [id number] 03/02/24 11:51 KRIS 03/02/24 11:49 Wound Center Nurse 2 #1 right heel -Time 11:50 -Correct Patient Yes -Correct Side, Site, Position Yes -Correct Procedure Yes -Procedure Performed Yes -Type of Procedure Debridement -Clinical Debridement Subcutaneous -Tissue Removed Subcutaneous -Post Debridement (cm) - Length 1.1 -Post Debridement (cm) - Width 1.0 -Post Debridement (cm) - Depth 0.1 -Total Square (Post) (cm) 1.10 -Area of Debridement (cm) - Length 1.1 -Area of Debridement (cm) - Width 1.0 -Total Square (Area) (cm) 1.10 -Tunneling No -Undermining/Tunneling No -Circular Undermining No -Wound/Ulcer Outcome Not Healed -Ulcer Cleansing Rinsed/ Irrigated with Saline -Foul Odor after Cleansing Yes, Due to Product Use -Bleeding Controlled with Pressure -Treatment Response Procedure Tolerated Well -Offloading Yes -Type of Offloading Total Contact Cast (TCC) - Right ($) -Debridement - Subq, 1st 20sq cm Yes Pain Scale: 0-10 Numeric Is Patient Pain Free? Yes - Nurse 3 - General Ulcer D/C NN Start: 03/02/24 11:22 Freq: Status: Active Protocol: Activity Type Activity Date Activity User E-sign Co-sign Detail Recorded Client Recorded Date Recorded By Document 03/02/24 11:51 [id number] 03/02/24 11:51 03/02/24 11:51 Wound Care Center Nurse 3 #1 right heel -Ulcer Cleansing Rinsed/ Irrigated with Saline -Other Dressing betadine and adaptic Pain Scale: 0-10 Numeric Is Patient Pain Free? Yes - Visit Discharge Discharge Condition Stable Ambulatory Status Ambulatory Transportation Private Auto Medication Reconcilliation completed & Yes provided to patient/care provider Clinical Summary of Care Provided Yes Assessment/Plan Assessment/Plan (1) Other specified peripheral vascular diseases: CODE(S): I73.89 - Other specified peripheral vascular diseases PLAN: Exam performed. Recent hemoglobin A1c 5.8. Right heel wound improved today. Right heel wound excisionally debrided down to including level of subcutaneous tissue of all nonviable tissue using 5 mm dermal curette. Topical anesthesia used. Topical hemostasis obtained with light compression. Patient tolerated procedure well. Patient has neuropathy and topical anesthesia was used. Pre and postdebridement measurements documented nursing notes. Wound dressed with Betadine Adaptic dry sterile dressing. Total contact cast applied to right lower extremity of foot and ankle held in rectus alignment. Follow-up in 1 week. (2) Non-pressure chronic ulcer of other part of right foot with fat layer exposed: CODE(S): L97.512 - Non-pressure chronic ulcer of other part of right foot with fat layer exposed (3) Type 2 diabetes mellitus with diabetic polyneuropathy: CODE(S): E11.42 - Type 2 diabetes mellitus with diabetic polyneuropathy (4) Wound of right lower extremity: CODE(S): S81.801A - Unspecified open wound, right lower leg, initial encounter QUALIFIERS: Encounter type: initial encounter Qualified Code(s): S81.801A - Unspecified open wound, right lower leg, initial encounter
[2024-03-09 11:39] VITALS: BP 156/98; PULSE 90; RESP 18; TEMP 36.5
--- NOTE | 2024-03-09 11:56 | PN.PCM_ITS ---
History of Present Illness Date of Service: 03/09/24 Chief Complaint: Right heel wound History of Wound: Patient is a type II diabetic with history of ESRD status post kidney transplant in setting of peripheral polyneuropathy Patient presents with neuropathic ulceration present for 1 month. Patient was treated by Dr. Linda ramirez in outpatient setting. Patient was referred to us for more advanced wound care treatment. Patient denies any fever chills nausea vomiting chest pain calf pain shortness of breath. patient reports non- compliance with weightbearing. Progress of Wound: Recurrence to right heel wound noted today. Denies constitutional symptoms or signs or symptoms of infection. Objective Data Objective Data Vital Signs: Vital Signs Temp Pulse Resp BP O2 Del Method 97.7 F L 90 18 156/98 H Room Air 03/09/24 11:39 03/09/24 11:39 03/09/24 11:39 03/09/24 11:39 03/09/24 11:39 Oxygen Delivery Method Room Air Physical Exam Narrative Atrophic skin changes noted. Dorsalis pedis and posterior tibial pulses are biphasic by Doppler examination. Absent digital hair growth noted to bilateral feet. Light touch protective sensation absent to entire bilateral lower extremity extending up past the knee. Dermatologic: Full-thickness wound noted to the plantar right heel, no deep probing undermining. No acute signs of infection. Musculoskeletal: resolved adductovarus hammertoe left fourth toe. Muscular strength full to bilateral lower extremity compartments. 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 (Physician/CROWN ASSEMBLY MACHINE 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 ) ) Arrival Mode Ambulatory Ambulatory Patient Identification Verified (Name & Yes Yes ) Vital Signs Temperature (97.8 F-99.1 F) 97.0 F L 97.7 F L Temperature Source Temporal Temporal Pulse Rate (60-100) 79 90 Pulse Location Monitor Monitor Respiratory Rate (12-18) 18 18 Respiratory rate source Observation Observation Oxygen Delivery Method Room Air Room Air Blood Pressure (90/60-120/80) 126/67 H 156/98 H Blood Pressure Mean (mm Hg) 86 117 Source Monitor Monitor Position Semi-Fowlers Sitting Blood Pressure Location Right Arm Left Arm History Since Last Visit- (Skip if this is Patient's initial visit) Have you changed medications since your No No last visit? Any new allergies or adverse reactions No No Had a fall/change in ADL's that may No No increase risk of falls Signs or symptoms of abuse and/or No No neglect since last visit Have you been in the hospital since your No No last visit? Has dressing in place as prescribed Yes Yes Has compression in place as prescribed Yes Yes Has offloadiing in place as prescribed Yes Yes Experienced any changes in pain level or No No management Left Footwear Regular Shoe Regular Shoe Right Footwear Total Contact Total Contact Cast Cast Pain Scale: 0-10 Numeric Is Patient Pain Free? Yes Yes - Nurse 1 - General Ulcer Measurement Start: 03/02/24 11:22 Freq: Status: Active Protocol: Activity Type Activity Date Activity User E-sign Co-sign Detail Recorded Client Recorded Date Recorded By Document 03/02/24 11:22 KW [id number] 03/02/24 11:35 KW Document 03/09/24 11:39 KW [id number] 03/09/24 11:48 KW 03/02/24 03/09/24 11:22 11:39 Wound Center Nurse 1 #1 right heel -Current Size (cm) - Length 1.5 1 -Current Size (cm) - Width 1.6 1.7 -Current Size (cm) - Depth 0.1 0.1 -Total Square Cm 2.40 1.7 -Exudate Amt Small Large -Exudate Type Serosanguineous Serosanguineous -Wound Margin Distinct, Distinct, Outline Outline Attached Attached -Granulation Amt Large (67-100%) Large (67-100%) -Granulation Quality Red [place] -Texture (Eloisa-wound Skin Appearance) Assessed,Callus Assessed -Moisture (Eloisa-wound Skin Appearance) Maceration Assessed -Color (Eloisa-wound Skin Appearance) Assessed Assessed -Temperature (Eloisa-wound Skin No Abnormality No Abnormality Appearance) (Pt Warm) (Pt Warm) -Tenderness on Palpation (Eloisa-wound No No Skin Appearance) -Ulcer Cleansing Soap and Water Soap and Water -Foul Odor after Cleansing No No -Anesthetic Used 5% Lidocaine 5% Lidocaine Gel Gel Right Calf (cm) 35.6 Right Ankle (cm) 21.5 - Nurse 2 - General Ulcer CM Notes Start: 03/02/24 11:22 Freq: Status: Active Protocol: Activity Type Activity Date Activity User E-sign Co-sign Detail Recorded Client Recorded Date Recorded By Document 03/02/24 11:49 KRIS [id number] 03/02/24 11:51 03/02/24 11:49 Wound Center Nurse 2 -Time 11:50 -Correct Patient Yes -Correct Side, Site, Position Yes -Correct Procedure Yes -Procedure Performed Yes -Type of Procedure Debridement -Clinical Debridement Subcutaneous -Tissue Removed Subcutaneous -Post Debridement (cm) - Length 1.1 -Post Debridement (cm) - Width 1.0 -Post Debridement (cm) - Depth 0.1 -Total Square (Post) (cm) 1.10 -Area of Debridement (cm) - Length 1.1 -Area of Debridement (cm) - Width 1.0 -Total Square (Area) (cm) 1.10 -Tunneling No -Undermining/Tunneling No -Circular Undermining No -Wound/Ulcer Outcome Not Healed -Ulcer Cleansing Rinsed/ Irrigated with Saline -Foul Odor after Cleansing Yes, Due to Product Use -Bleeding Controlled with Pressure -Treatment Response Procedure Tolerated Well -Offloading Yes -Type of Offloading Total Contact Cast (TCC) - Right ($) -Debridement - Subq, 1st 20sq cm Yes Pain Scale: 0-10 Numeric Is Patient Pain Free? Yes - Nurse 3 - General Ulcer D/C NN Start: 03/02/24 11:22 Freq: Status: Active Protocol: Activity Type Activity Date Activity User E-sign Co-sign Detail Recorded Client Recorded Date Recorded By Document 03/02/24 11:51 KRIS [id number] 03/02/24 11:51 03/02/24 11:51 Wound Care Center Nurse 3 #1 right heel -Ulcer Cleansing Rinsed/ Irrigated with Saline -Other Dressing betadine and adaptic Pain Scale: 0-10 Numeric Is Patient Pain Free? Yes - Visit Discharge Discharge Condition Stable Ambulatory Status Ambulatory Transportation Private Auto Medication Reconcilliation completed & Yes provided to patient/care provider Clinical Summary of Care Provided Yes Assessment/Plan Assessment/Plan (1) Other specified peripheral vascular diseases: CODE(S): I73.89 - Other specified peripheral vascular diseases PLAN: Exam performed. Recent hemoglobin A1c 5.8. Right heel wound improved today. Right heel wound excisionally debrided down to including level of subcutaneous tissue of all nonviable tissue using 5 mm dermal curette. Topical anesthesia used. Topical hemostasis obtained with light compression. Patient tolerated procedure well. Patient has neuropathy and topical anesthesia was used. Pre and postdebridement measurements documented nursing notes. Wound dressed with silver alginate sterile dressing. Total contact cast applied to right lower extremity of foot and ankle held in rectus alignment. Follow-up in 1 week. (2) Non-pressure chronic ulcer of other part of right foot with fat layer exposed: CODE(S): L97.512 - Non-pressure chronic ulcer of other part of right foot with fat layer exposed (3) Type 2 diabetes mellitus with diabetic polyneuropathy: CODE(S): E11.42 - Type 2 diabetes mellitus with diabetic polyneuropathy (4) Wound of right lower extremity: CODE(S): S81.801A - Unspecified open wound, right lower leg, initial encounter QUALIFIERS: Encounter type: initial encounter Qualified Code(s): S81.801A - Unspecified open wound, right lower leg, initial encounter
[2024-03-16 11:04] VITALS: BP 132/82; PULSE 87; RESP 16; TEMP 36.3
--- NOTE | 2024-03-16 11:54 | PCM.WC.PN ---
History of Present Illness Date of Service: 03/16/24 Chief Complaint: Right heel wound History of Wound: Patient is a type II diabetic with history of ESRD status post kidney transplant in setting of peripheral polyneuropathy Patient presents with neuropathic ulceration present for 1 month. Patient was treated by Dr. Linda ramirez in outpatient setting. Patient was referred to us for more advanced wound care treatment. Patient denies any fever chills nausea vomiting chest pain calf pain shortness of breath. patient reports non-compliance with weightbearing. Progress of Wound: Courtesy visit for Dr. Chung. Right heel ulcer is beefy pink. Removed some thickened tissue surrounding the ulcer. Denies constitutional symptoms or signs or symptoms of infection. He has a lesion on his left lower lip. He states that he has had it for years and was told it was a chalazion lesion in the past. It is the size of over 1/3 of his lower lip. He states that it crusts and then heals. He has seen Dr. Webb in the past for this. Recommend further evaluation of this lip lesion, recommend following up with Derm for possible biopsy. Objective Data Objective Data Vital Signs: Vital Signs Temp Pulse Resp BP O2 Del Method 97.3 F L 87 16 132/82 H Room Air 03/16/24 11:04 03/16/24 11:04 03/16/24 11:04 03/16/24 11:04 03/16/24 11:04 Oxygen Delivery Method Room Air Charges/Coding Procedures Integumentary 111xxx-113xx: 92621 Bethany subq tissue 20 sq cm/< Procedures Musculoskeletal 20xxx-29xxx: 63617 APPLY RIGID LEG CAST (total contact cast applied to right lower extremity) Debridement Note Debridement Note Wound debrided: plantar heel ulcer Laterality: Right Type of Debridement: Excisional debridement Anesthesia Used: 5% Lidocaine Gel Depth: Down to and including healthy tissue and in the subcutaneous layer Percentage of wound debrided: 100 Instrument Used: 5mm curette Tissue Removed: Non viable tissue and slough Severity: Fat Layer Exposed Amount of bleeding with debridement: Mild Bleeding Controlled with: Pressure and Compression and gauze Patient tolerated procedure: Patient tolerated procedure well No debridement was completed: No debridement was completed today Post-Debridement Measurements and Additional Note: Post-Debridement Measurements/Treatment MARK - Nurse 1 - General Ulcer Assessment Start: 03/02/24 11:22 Freq: Status: Active Protocol: JIGNAEXT Activity Type Activity Date Activity User E-sign Co-sign Detail Recorded Client Recorded Date Recorded By Document 03/02/24 11:22 KW [id number] 03/02/24 11:35 KW Document 03/09/24 11:39 KW [id number] 03/09/24 11:48 KW Document 03/16/24 11:04 KW [id number] 03/16/24 11:13 KW 03/02/24 03/09/24 03/16/24 11:22 11:39 11:04 - Today's Visit Information Type of service Follow-up Visit Follow-up Visit Follow-up Visit (Physician/AIRPLANE PILOT CROP DUSTING (Physician/AIRPLANE PILOT CROP DUSTING (Physician/AIRPLANE PILOT CROP DUSTING ) ) ) Arrival Mode Ambulatory Ambulatory Ambulatory Patient Identification Verified (Name & Yes Yes Yes ) Vital Signs Temperature (97.8 F-99.1 F) 97.0 F L 97.7 F L 97.3 F L Temperature Source Temporal Temporal Temporal Pulse Rate (60-100) 79 90 87 Pulse Location Monitor Monitor Monitor Respiratory Rate (12-18) 18 18 16 Respiratory rate source Observation Observation Observation Oxygen Delivery Method Room Air Room Air Room Air Blood Pressure (90/60-120/80) 126/67 H 156/98 H 132/82 H Blood Pressure Mean (mm Hg) 86 117 98 Source Monitor Monitor Monitor Position Semi-Fowlers Sitting Semi-Fowlers Blood Pressure Location Right Arm Left Arm Left Arm History Since Last Visit- (Skip if this is Patient's initial visit) Have you changed medications since your No No No last visit? Any new allergies or adverse reactions No No No Had a fall/change in ADL's that may No No No increase risk of falls Signs or symptoms of abuse and/or No No No neglect since last visit Have you been in the hospital since your No No No last visit? Has dressing in place as prescribed Yes Yes Yes Has compression in place as prescribed Yes Yes Yes Has offloadiing in place as prescribed Yes Yes Yes Experienced any changes in pain level or No No No management Left Footwear Regular Shoe Regular Shoe Regular Shoe Right Footwear Total Contact Total Contact Total Contact Cast Cast Cast Pain Scale: 0-10 Numeric Is Patient Pain Free? Yes Yes Yes - Nurse 1 - General Ulcer Measurement Start: 03/02/24 11:22 Freq: Status: Active Protocol: Activity Type Activity Date Activity User E-sign Co-sign Detail Recorded Client Recorded Date Recorded By Document 03/02/24 11:22 KW [id number] 03/02/24 11:35 KW Document 03/09/24 11:39 KW [id number] 03/09/24 11:48 KW Document 03/16/24 11:04 KW [id number] 03/16/24 11:13 KW 03/02/24 03/09/24 03/16/24 11:22 11:39 11:04 Wound Center Nurse 1 #1 right heel -Current Size (cm) - Length 1.5 1 2 -Current Size (cm) - Width 1.6 1.7 1.9 -Current Size (cm) - Depth 0.1 0.1 0.1 -Total Square Cm 2.40 1.7 3.8 -Exudate Amt Small Large Small -Exudate Type Serosanguineous Serosanguineous Serosanguineous -Wound Margin Distinct, Distinct, Distinct, Outline Outline Outline Attached Attached Attached -Granulation Amt Large (67-100%) Large (67-100%) Large (67-100%) -Granulation Quality [place] -Texture (Eloisa-wound Skin Appearance) Assessed,Callus Assessed Assessed,Callus -Moisture (Eloisa-wound Skin Appearance) Maceration Assessed Assessed,Dry/ Scaly -Color (Eloisa-wound Skin Appearance) Assessed Assessed Assessed -Temperature (Eloisa-wound Skin No Abnormality No Abnormality No Abnormality Appearance) (Pt Warm) (Pt Warm) (Pt Warm) -Tenderness on Palpation (Eloisa-wound No No No Skin Appearance) -Ulcer Cleansing Soap and Water Soap and Water Soap and Water -Foul Odor after Cleansing No No No -Anesthetic Used 5% Lidocaine 5% Lidocaine 5% Lidocaine Gel Gel Gel Right Calf (cm) 35.6 Right Ankle (cm) 21.5 WC - Nurse 2 - General Ulcer CM Notes Start: 03/02/24 11:22 Freq: Status: Active Protocol: Activity Type Activity Date Activity User E-sign Co-sign Detail Recorded Client Recorded Date Recorded By Document 03/02/24 11:49 JF [id number] 03/02/24 11:51 JF Document 03/09/24 11:56 JF [id number] 03/09/24 11:57 JF Document 03/16/24 11:30 [id number] 03/16/24 11:31 03/02/24 03/09/24 03/16/24 11:49 11:56 11:30 Wound Center Nurse 2 #1 right heel -Time 11:50 11:56 11:30 -Correct Patient Yes Yes Yes -Correct Side, Site, Position Yes Yes Yes -Correct Procedure Yes Yes Yes -Procedure Performed Yes Yes Yes -Type of Procedure Debridement Debridement Debridement -Clinical Debridement Subcutaneous Subcutaneous Subcutaneous -Tissue Removed Subcutaneous Subcutaneous Subcutaneous -Post Debridement (cm) - Length 1.1 1.8 -Post Debridement (cm) - Width 1.0 0.5 -Post Debridement (cm) - Depth 0.1 0.1 -Total Square (Post) (cm) 1.10 0.90 -Area of Debridement (cm) - Length 1.1 1.8 -Area of Debridement (cm) - Width 1.0 0.5 -Total Square (Area) (cm) 1.10 0.90 -Tunneling No No No -Undermining/Tunneling No No No -Circular Undermining No No No -Wound/Ulcer Outcome Not Healed Not Healed Not Healed -Ulcer Cleansing Rinsed/ Rinsed/ Rinsed/ Irrigated with Irrigated with Irrigated with Saline Saline Saline -Foul Odor after Cleansing Yes, Due to No No Product Use -Bioengineered Tissue No No -Bleeding Controlled with Pressure Pressure Pressure -Treatment Response Procedure Procedure Procedure Tolerated Well Tolerated Well Tolerated Well -Offloading Yes Yes Yes -Type of Offloading Total Contact Total Contact Total Contact Cast (TCC) - Cast (TCC) - Cast (TCC) - Right ($) Right ($) Right ($) -Debridement - Subq, 1st 20sq cm Yes Yes Yes Pain Scale: 0-10 Numeric Is Patient Pain Free? Yes Yes Yes - Nurse 3 - General Ulcer D/C NN Start: 03/02/24 11:22 Freq: Status: Active Protocol: Activity Type Activity Date Activity User E-sign Co-sign Detail Recorded Client Recorded Date Recorded By Document 03/02/24 11:51 KRIS [id number] 03/02/24 11:51 Document 03/09/24 12:02 KRIS [id number] 03/09/24 12:02 Document 03/16/24 11:31 KRIS [id number] 03/16/24 11:32 JF 09/03/24 09/10/24 09/17/24 11:51 12:02 11:31 Wound Care Center Nurse 3 #1 right heel -Ulcer Cleansing Rinsed/ Rinsed/ Irrigated with Irrigated with Saline Saline -Foul Odor after Cleansing No -Primary Dressing Applied Aquacel AG 2x2, Aquacel AG 2x2, Mepilex Border Mepilex Border -Other Dressing betadine and adaptic -Aquacel AG 2x2 1 1 -Mepilex Border 1 1 Pain Scale: 0-10 Numeric Is Patient Pain Free? Yes Yes Yes WC - Visit Discharge Discharge Condition Stable Stable Stable Ambulatory Status Ambulatory Ambulatory Ambulatory Transportation Private Auto Private Auto Private Auto Medication Reconcilliation completed & Yes Yes Yes provided to patient/care provider Clinical Summary of Care Provided Yes Yes Yes Assessment/Plan Assessment/Plan (1) Other specified peripheral vascular diseases: CODE(S): I73.89 - Other specified peripheral vascular diseases (2) Non-pressure chronic ulcer of other part of right foot with fat layer exposed: CODE(S): L97.512 - Non-pressure chronic ulcer of other part of right foot with fat layer exposed (3) Type 2 diabetes mellitus with diabetic polyneuropathy: CODE(S): E11.42 - Type 2 diabetes mellitus with diabetic polyneuropathy (4) Wound of right lower extremity: CODE(S): S81.801A - Unspecified open wound, right lower leg, initial encounter QUALIFIERS: Encounter type: initial encounter Qualified Code(s): S81.801A - Unspecified open wound, right lower leg, initial encounter (5) Lesion of lip: CODE(S): K13.0 - Diseases of lips PLAN: Plan Patient evaluated at the wound healing center. Wound dressed with silver alginate sterile dressing. Total contact cast applied to right lower extremity of foot and ankle held in rectus alignment. Keep right leg elevated when sitting. Instructed to follow up with Dermatology for further evaluation of his left lower lip lesion. He has seen Dr. Webb in the past but it has been many years. If he is not able to get into see Dr. Webb, recommend going to [facility] for further evaluation of this lesion. I did discuss my concern that it should be biopsied to make sure it is not a skin cancer. Patient verbalized understanding. Follow-up in [address] Chung.
[2024-03-23 11:30] VITALS: BP 133/50; RESP 18; TEMP 36.6
--- NOTE | 2024-03-23 11:45 | PN.PCM_ITS ---
History of Present Illness Date of Service: 03/23/24 Chief Complaint: Right heel wound History of Wound: Patient is a type II diabetic with history of ESRD status post kidney transplant in setting of peripheral polyneuropathy Patient presents with neuropathic ulceration present for 1 month. Patient was treated by Dr. Linda ramirez in outpatient setting. Patient was referred to us for more advanced wound care treatment. Patient denies any fever chills nausea vomiting chest pain calf pain shortness of breath. patient reports non- compliance with weightbearing. Progress of Wound: Courtesy visit for Dr. Chung. Right heel ulcer is beefy pink. Removed some thickened tissue surrounding the ulcer. Denies constitutional symptoms or signs or symptoms of infection. He has a lesion on his left lower lip. He states that he has had it for years and was told it was a chalazion lesion in the past. It is the size of over 1/3 of his lower lip. He states that it crusts and then heals. He has seen Dr. Webb in the past for this. Recommend further evaluation of this lip lesion, recommend following up with Derm for possible biopsy. Objective Data Objective Data Vital Signs: Vital Signs Temp Pulse Resp BP O2 Del Method 97.8 F 87 18 133/50 H Room Air 03/23/24 11:30 03/16/24 11:04 03/23/24 11:30 03/23/24 11:30 03/23/24 11:30 Oxygen Delivery Method Room Air Physical Exam Narrative Atrophic skin changes noted. Dorsalis pedis and posterior tibial pulses are biphasic by Doppler examination. Absent digital hair growth noted to bilateral feet. Light touch protective sensation absent to entire bilateral lower extremity extending up past the knee. Dermatologic: Full-thickness wound to right heel healed. No acute signs of infection. Musculoskeletal: resolved adductovarus hammertoe left fourth toe. Muscular strength full to bilateral lower extremity compartments. Debridement Note Debridement Note Post-Debridement Measurements and Additional Note: Post-Debridement Measurements/Treatment WC - Nurse 1 - General Ulcer Assessment Start: 03/02/24 11:22 Freq: Status: Active Protocol: JOSÉ MANUEL Activity Type Activity Date Activity User E-sign Co-sign Detail Recorded Client Recorded Date Recorded By Document 03/02/24 11:22 KW [id number] 03/02/24 11:35 KW Document 03/09/24 11:39 KW [id number] 03/09/24 11:48 KW Document 03/16/24 11:04 KW [id number] 03/16/24 11:13 KW Document 03/23/24 11:30 KW [id number] 03/23/24 11:43 KW 03/02/24 03/09/24 03/16/24 11:22 11:39 11:04 - Today's Visit Information Type of service Follow-up Visit Follow-up Visit Follow-up Visit (Physician/DIFFERENTIAL SPECIALIST (Physician/DIFFERENTIAL SPECIALIST (Physician/DIFFERENTIAL SPECIALIST ) ) ) Arrival Mode Ambulatory Ambulatory Ambulatory Accompanied by Patient Identification Verified (Name & Yes Yes Yes ) Vital Signs Temperature (97.8 F-99.1 F) 97.0 F L 97.7 F L 97.3 F L Temperature Source Temporal Temporal Temporal Pulse Rate (60-100) 79 90 87 Pulse Location Monitor Monitor Monitor Respiratory Rate (12-18) 18 18 16 Respiratory rate source Observation Observation Observation Oxygen Delivery Method Room Air Room Air Room Air Blood Pressure (90/60-120/80) 126/67 H 156/98 H 132/82 H Blood Pressure Mean (mm Hg) 86 117 98 Source Monitor Monitor Monitor Position Semi-Fowlers Sitting Semi-Fowlers Blood Pressure Location Right Arm Left Arm Left Arm History Since Last Visit- (Skip if this is Patient's initial visit) Have you changed medications since your No No No last visit? Any new allergies or adverse reactions No No No Had a fall/change in ADL's that may No No No increase risk of falls Signs or symptoms of abuse and/or No No No neglect since last visit Have you been in the hospital since your No No No last visit? Has dressing in place as prescribed Yes Yes Yes Has compression in place as prescribed Yes Yes Yes Has offloadiing in place as prescribed Yes Yes Yes Experienced any changes in pain level or No No No management Left Footwear Regular Shoe Regular Shoe Regular Shoe Right Footwear Total Contact Total Contact Total Contact Cast Cast Cast Pain Scale: 0-10 Numeric Is Patient Pain Free? Yes Yes Yes 03/23/24 11:30 - Today's Visit Information Type of service Follow-up Visit (Physician/DIFFERENTIAL SPECIALIST ) Arrival Mode Ambulatory Accompanied by mother Patient Identification Verified (Name & Yes ) Vital Signs Temperature (97.8 F-99.1 F) 97.8 F Temperature Source Temporal Pulse Rate (60-100) Pulse Location Monitor Respiratory Rate (12-18) 18 Respiratory rate source Observation Oxygen Delivery Method Room Air Blood Pressure (90/60-120/80) 133/50 H Blood Pressure Mean (mm Hg) 77 Source Monitor Position Semi-Fowlers Blood Pressure Location Left Arm History Since Last Visit- (Skip if this is Patient's initial visit) Have you changed medications since your No last visit? Any new allergies or adverse reactions No Had a fall/change in ADL's that may No increase risk of falls Signs or symptoms of abuse and/or No neglect since last visit Have you been in the hospital since your No last visit? Has dressing in place as prescribed Yes Has compression in place as prescribed Yes Has offloadiing in place as prescribed Yes Experienced any changes in pain level or No management Left Footwear Regular Shoe Right Footwear Total Contact Cast Pain Scale: 0-10 Numeric Is Patient Pain Free? Yes WC - Nurse 1 - General Ulcer Measurement Start: 03/02/24 11:22 Freq: Status: Active Protocol: Activity Type Activity Date Activity User E-sign Co-sign Detail Recorded Client Recorded Date Recorded By Document 03/02/24 11:22 KW [id number] 03/02/24 11:35 KW Document 03/09/24 11:39 KW [id number] 03/09/24 11:48 KW Document 03/16/24 11:04 KW [id number] 03/16/24 11:13 KW Document 03/23/24 11:30 KW [id number] 03/23/24 11:43 KW 03/02/24 03/09/24 03/16/24 11:22 11:39 11:04 Wound Center Nurse 1 #1 right heel -Current Size (cm) - Length 1.5 1 2 -Current Size (cm) - Width 1.6 1.7 1.9 -Current Size (cm) - Depth 0.1 0.1 0.1 -Total Square Cm 2.40 1.7 3.8 -Exudate Amt Small Large Small -Exudate Type Serosanguineous Serosanguineous Serosanguineous -Wound Margin Distinct, Distinct, Distinct, Outline Outline Outline Attached Attached Attached -Granulation Amt Large (67-100%) Large (67-100%) Large (67-100%) -Granulation Quality [place] -Texture (Eloisa-wound Skin Appearance) Assessed,Callus Assessed Assessed,Callus -Moisture (Eloisa-wound Skin Appearance) Maceration Assessed Assessed,Dry/ Scaly -Color (Eloisa-wound Skin Appearance) Assessed Assessed Assessed -Temperature (Eloisa-wound Skin No Abnormality No Abnormality No Abnormality Appearance) (Pt Warm) (Pt Warm) (Pt Warm) -Tenderness on Palpation (Eloisa-wound No No No Skin Appearance) -Ulcer Cleansing Soap and Water Soap and Water Soap and Water -Foul Odor after Cleansing No No No -Anesthetic Used 5% Lidocaine 5% Lidocaine 5% Lidocaine Gel Gel Gel -Wound Comment(s) Right Calf (cm) 35.6 Right Ankle (cm) 21.5 03/23/24 11:30 Wound Center Nurse 1 #1 right heel -Current Size (cm) - Length 0.1 -Current Size (cm) - Width 0.1 -Current Size (cm) - Depth 0 -Total Square Cm 0.01 -Exudate Amt None Present -Exudate Type -Wound Margin -Granulation Amt -Granulation Quality -Texture (Eloisa-wound Skin Appearance) Assessed -Moisture (Eloisa-wound Skin Appearance) Assessed -Color (Eloisa-wound Skin Appearance) Assessed -Temperature (Eloisa-wound Skin No Abnormality Appearance) (Pt Warm) -Tenderness on Palpation (Eloisa-wound No Skin Appearance) -Ulcer Cleansing Soap and Water -Foul Odor after Cleansing No -Anesthetic Used -Wound Comment(s) closed Right Calf (cm) Right Ankle (cm) WC - Nurse 2 - General Ulcer CM Notes Start: 03/02/24 11:22 Freq: Status: Active Protocol: Activity Type Activity Date Activity User E-sign Co-sign Detail Recorded Client Recorded Date Recorded By Document 03/02/24 11:49 [id number] 03/02/24 11:51 Document 03/09/24 11:56 [id number] 03/09/24 11:57 Document 03/16/24 11:30 [id number] 03/16/24 11:31 Document 03/23/24 11:43 [id number] 03/23/24 11:44 03/02/24 03/09/24 03/16/24 11:49 11:56 11:30 Wound Center Nurse 2 #1 right heel -Time 11:50 11:56 11:30 -Correct Patient Yes Yes Yes -Correct Side, Site, Position Yes Yes Yes -Correct Procedure Yes Yes Yes -Procedure Performed Yes Yes Yes -Type of Procedure Debridement Debridement Debridement -Clinical Debridement Subcutaneous Subcutaneous Subcutaneous -Tissue Removed Subcutaneous Subcutaneous Subcutaneous -Post Debridement (cm) - Length 1.1 1.8 -Post Debridement (cm) - Width 1.0 0.5 -Post Debridement (cm) - Depth 0.1 0.1 -Total Square (Post) (cm) 1.10 0.90 -Area of Debridement (cm) - Length 1.1 1.8 -Area of Debridement (cm) - Width 1.0 0.5 -Total Square (Area) (cm) 1.10 0.90 -Tunneling No No No -Undermining/Tunneling No No No -Circular Undermining No No No -Wound/Ulcer Outcome Not Healed Not Healed Not Healed -Ulcer Cleansing Rinsed/ Rinsed/ Rinsed/ Irrigated with Irrigated with Irrigated with Saline Saline Saline -Foul Odor after Cleansing Yes, Due to No No Product Use -Bioengineered Tissue No No -Bleeding Controlled with Pressure Pressure Pressure -Treatment Response Procedure Procedure Procedure Tolerated Well Tolerated Well Tolerated Well -Offloading Yes Yes Yes -Type of Offloading Total Contact Total Contact Total Contact Cast (TCC) - Cast (TCC) - Cast (TCC) - Right ($) Right ($) Right ($) -Debridement - Subq, 1st 20sq cm Yes Yes Yes Pain Scale: 0-10 Numeric Is Patient Pain Free? Yes Yes Yes 03/23/24 11:43 Wound Center Nurse 2 #1 right heel -Time -Correct Patient No -Correct Side, Site, Position No -Correct Procedure No -Procedure Performed No -Type of Procedure -Clinical Debridement -Tissue Removed -Post Debridement (cm) - Length 0 -Post Debridement (cm) - Width 0 -Post Debridement (cm) - Depth 0 -Total Square (Post) (cm) 0 -Area of Debridement (cm) - Length 0 -Area of Debridement (cm) - Width 0 -Total Square (Area) (cm) 0 -Tunneling -Undermining/Tunneling -Circular Undermining -Wound/Ulcer Outcome -Ulcer Cleansing -Foul Odor after Cleansing -Bioengineered Tissue -Bleeding Controlled with -Treatment Response -Offloading -Type of Offloading Total Contact Cast (TCC) - Right ($) -Debridement - Subq, 1st 20sq cm Pain Scale: 0-10 Numeric Is Patient Pain Free? Yes - Nurse 3 - General Ulcer D/C NN Start: 03/02/24 11:22 Freq: Status: Active Protocol: Activity Type Activity Date Activity User E-sign Co-sign Detail Recorded Client Recorded Date Recorded By Document 03/02/24 11:51 [id number] 03/02/24 11:51 Document 03/09/24 12:02 [id number] 03/09/24 12:02 Document 03/16/24 11:31 [id number] 03/16/24 11:32 03/02/24 03/09/24 03/16/24 11:51 12:02 11:31 Wound Care Center Nurse 3 #1 right heel -Ulcer Cleansing Rinsed/ Rinsed/ Irrigated with Irrigated with Saline Saline -Foul Odor after Cleansing No -Primary Dressing Applied Aquacel AG 2x2, Aquacel AG 2x2, Mepilex Border Mepilex Border -Other Dressing betadine and adaptic -Aquacel AG 2x2 1 1 -Mepilex Border 1 1 Pain Scale: 0-10 Numeric Is Patient Pain Free? Yes Yes Yes - Visit Discharge Discharge Condition Stable Stable Stable Ambulatory Status Ambulatory Ambulatory Ambulatory Transportation Private Auto Private Auto Private Auto Medication Reconcilliation completed & Yes Yes Yes provided to patient/care provider Clinical Summary of Care Provided Yes Yes Yes Assessment/Plan Assessment/Plan (1) Other specified peripheral vascular diseases: CODE(S): I73.89 - Other specified peripheral vascular diseases PLAN: Exam performed. Recent hemoglobin A1c 5.8. Right heel wound healed today Total contact cast applied to right lower extremity of foot and ankle held in rectus alignment. Need to allow skin to strengthen prior to return to normal ambulation. Follow-up in 1 week. (2) Non-pressure chronic ulcer of other part of right foot with fat layer exposed: CODE(S): L97.512 - Non-pressure chronic ulcer of other part of right foot with fat layer exposed (3) Type 2 diabetes mellitus with diabetic polyneuropathy: CODE(S): E11.42 - Type 2 diabetes mellitus with diabetic polyneuropathy (4) Wound of right lower extremity: CODE(S): S81.801A - Unspecified open wound, right lower leg, initial encounter QUALIFIERS: Encounter type: initial encounter Qualified Code(s): S81.801A - Unspecified open wound, right lower leg, initial encounter
== END 2024-03-29 23:59 | disposition home or self-care (01) ==
LOC: WC 11:30
PROVIDERS: PCP Internal Medicine; Referring Provider Podiatrist; Visit Provider Podiatrist
DX: E11.621 Type 2 diabetes mellitus with foot ulcer (principal); L97.512 Non-pressure chronic ulcer of other part of right foot with fat layer exposed; E11.42 Type 2 diabetes mellitus with diabetic polyneuropathy; E11.51 Type 2 diabetes mellitus with diabetic peripheral angiopathy without gangrene; S81.801A Unspecified open wound, right lower leg, initial encounter; K13.0 Diseases of lips
CPT/HCPCS: 11042; 29445; 99213; G0463

== ENCOUNTER 2024-03-30 11:10 | Outpatient (RCR) | payer MEDICARE, MEDICAID, SELFPAY ==
[2024-03-30 00:45] VITALS: BP 136/72; PULSE 79; RESP 18; TEMP 36.3
[2024-03-30 11:15] VITALS: BP 164/93; PULSE 80; RESP 18; TEMP 36.4
--- NOTE | 2024-03-30 11:33 | PN.PCM_ITS ---
History of Present Illness Date of Service: 03/23/24 Chief Complaint: Right heel wound History of Wound: Patient is a type II diabetic with history of ESRD status post kidney transplant in setting of peripheral polyneuropathy Patient presents with neuropathic ulceration present for 1 month. Patient was treated by Dr. Linda ramirez in outpatient setting. Patient was referred to us for more advanced wound care treatment. Patient denies any fever chills nausea vomiting chest pain calf pain shortness of breath. patient reports non- compliance with weightbearing. Objective Data Objective Data Vital Signs: Vital Signs Temp Pulse Resp BP O2 Del Method 97.6 F L 80 18 164/93 H Room Air 03/30/24 11:15 03/30/24 11:15 03/30/24 11:15 03/30/24 11:15 03/30/24 11:15 Oxygen Delivery Method Room Air Physical Exam Narrative Atrophic skin changes noted. Dorsalis pedis and posterior tibial pulses are biphasic by Doppler examination. Absent digital hair growth noted to bilateral feet. Light touch protective sensation absent to entire bilateral lower extremity extending up past the knee. Dermatologic: Full-thickness wound to right heel healed. No acute signs of infection. Musculoskeletal: resolved adductovarus hammertoe left fourth toe. Muscular strength full to bilateral lower extremity compartments. Debridement Note Debridement Note Post-Debridement Measurements and Additional Note: Post-Debridement Measurements/Treatment - Nurse 1 - General Ulcer Assessment Start: 03/30/24 11:15 Freq: Status: Active Protocol: .LOWEXT Activity Type Activity Date Activity User E-sign Co-sign Detail Recorded Client Recorded Date Recorded By Document 03/30/24 11:15 [id number] 03/30/24 11:21 03/30/24 11:15 - Today's Visit Information Type of service Follow-up Visit (Physician/[employer] ) Arrival Mode Ambulatory Accompanied by mother Patient Identification Verified (Name & Yes ) Vital Signs Temperature (97.8 F-99.1 F) 97.6 F L Temperature Source Temporal Pulse Rate (60-100) 80 Pulse Location Monitor Respiratory Rate (12-18) 18 Respiratory rate source Observation Oxygen Delivery Method Room Air Blood Pressure (90/60-120/80) 164/93 H Blood Pressure Mean (mm Hg) 116 Source Monitor Position Semi-Fowlers Blood Pressure Location Left Arm History Since Last Visit- (Skip if this is Patient's initial visit) Have you changed medications since your No last visit? Any new allergies or adverse reactions No Had a fall/change in ADL's that may No increase risk of falls Signs or symptoms of abuse and/or No neglect since last visit Have you been in the hospital since your No last visit? Has dressing in place as prescribed Yes Has compression in place as prescribed Yes Has offloadiing in place as prescribed N/A Experienced any changes in pain level or No management Left Footwear Regular Shoe Right Footwear Total Contact Cast Pain Scale: 0-10 Numeric Is Patient Pain Free? Yes WC - Nurse 1 - General Ulcer Measurement Start: 03/30/24 11:15 Freq: Status: Active Protocol: Activity Type Activity Date Activity User E-sign Co-sign Detail Recorded Client Recorded Date Recorded By Document 03/30/24 11:15 [email or web address] [id number] 03/30/24 11:21 KW 03/30/24 11:15 Wound Center Nurse 1 #1 right heel -Current Size (cm) - Length 0 -Current Size (cm) - Width 0 -Current Size (cm) - Depth 0 -Total Square Cm 0 -Date of Last Picture (Recall this 03/30/24 field) -Texture (Eloisa-wound Skin Appearance) Assessed -Moisture (Eloisa-wound Skin Appearance) Assessed -Color (Eloisa-wound Skin Appearance) Assessed -Temperature (Eloisa-wound Skin No Abnormality Appearance) (Pt Warm) -Tenderness on Palpation (Eloisa-wound No Skin Appearance) -Ulcer Cleansing Soap and Water -Foul Odor after Cleansing No WC - Nurse 2 - General Ulcer CM Notes Start: 03/30/24 11:15 Freq: Status: Active Protocol: Activity Type Activity Date Activity User E-sign Co-sign Detail Recorded Client Recorded Date Recorded By Document 03/30/24 11:26 KRIS [id number] 03/30/24 11:27 KRIS 03/30/24 11:26 Wound Center Nurse 2 -Correct Patient No -Correct Side, Site, Position No -Correct Procedure No -Procedure Performed No -Post Debridement (cm) - Length 0 -Post Debridement (cm) - Width 0 -Post Debridement (cm) - Depth 0 -Total Square (Post) (cm) 0 -Area of Debridement (cm) - Length 0 -Area of Debridement (cm) - Width 0 -Total Square (Area) (cm) 0 -Wound/Ulcer Outcome Healed- Epithelialized Pain Scale: 0-10 Numeric Is Patient Pain Free? Yes - Nurse 3 - General Ulcer D/C NN Start: 03/30/24 11:15 Freq: Status: Active Protocol: Activity Type Activity Date Activity User E-sign Co-sign Detail Recorded Client Recorded Date Recorded By Document 03/30/24 11:28 KRIS [id number] 03/30/24 11:28 KRIS 03/30/24 11:28 Is Patient Pain Free? Yes WC - Visit Discharge Discharge Condition Stable Ambulatory Status Ambulatory Transportation Private Auto Accompanied by mother Medication Reconcilliation completed & Yes provided to patient/care provider Clinical Summary of Care Provided Yes Assessment/Plan Assessment/Plan (1) Other specified peripheral vascular diseases: CODE(S): I73.89 - Other specified peripheral vascular diseases PLAN: Exam performed. Recent hemoglobin A1c 5.8. Right heel wound healed today Return to diabetic shoe gear Follow-up in 1 week. (2) Non-pressure chronic ulcer of other part of right foot with fat layer exposed: CODE(S): L97.512 - Non-pressure chronic ulcer of other part of right foot with fat layer exposed (3) Type 2 diabetes mellitus with diabetic polyneuropathy: CODE(S): E11.42 - Type 2 diabetes mellitus with diabetic polyneuropathy (4) Wound of right lower extremity: CODE(S): S81.801A - Unspecified open wound, right lower leg, initial encounter QUALIFIERS: Encounter type: initial encounter Qualified Code(s): S81.801A - Unspecified open wound, right lower leg, initial encounter
--- NOTE | 2024-03-31 11:52 | WC ---
PHOTO 03/30/24 RIGHT HEEL
== END 2024-03-30 15:49 | disposition home or self-care (01) ==
LOC: WC 11:10
PROVIDERS: PCP Internal Medicine; Referring Provider Podiatrist; Visit Provider Podiatrist
DX: L97.512 Non-pressure chronic ulcer of other part of right foot with fat layer exposed (principal); E11.42 Type 2 diabetes mellitus with diabetic polyneuropathy; I73.89 Other specified peripheral vascular diseases; S81.801A Unspecified open wound, right lower leg, initial encounter
CPT/HCPCS: 99213; G0463

== ENCOUNTER → 2024-08-17 | Outpatient (CLI) | payer MEDICARE, MEDICAID, SELFPAY ==
--- NOTE | 2024-08-17 07:30 | PET_ITS ---
EXAM: PET/CT Study CLINICAL SIGNS/SYMPTOMS/INDICATIONS: PROCEDURE: Following the intravenous administration of radionucleotide, image acquisition on a dedicated PET/CT unit was performed at one hour post injection. A preliminary CT study encompassing the Skull base, neck, chest, abdomen, pelvis, and bilateral lower extremities was performed for purposes of attenuation correction and anatomic localization. The proximal thighs were also included. The patient's blood glucose level was 166 mg/dL (allowable range: 50-180 mg/dL). RADIOPHARMACEUTICAL: 12 mCi 18F-FDG (Fluorodeoxyglucose F18) IV was injected into the patient. COMPARISON FROM CT, PET OR OTHER PERTINENT EXAMS: No priors available. 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 - Melanoma: Status post wide local excision and sentinel node biopsy on 04/30/2024 (demonstrating 3/3 positive axillary nodes), and left axillary node dissection on 07/16/2024 with 0/15 positive axillary nodes. 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 COMPARISON: No prior imaging available, prior PET-CT report on 05/21/2024 reporting indeterminate left lower extremity subcutaneous nodule without significant FDG uptake. TECHNIQUE: Approximately 60 minutes following the intravenous administration of 12 mCi of [id number], CT scan of the body was performed, without intravenous contrast medium, from the base of the skull down to the middle of the thighs followed by PET scan in same sequence. The CT scan was used for anatomic localization and photon attenuation correction of the PET scan. Utilizing a [employer] workstation, images were reconstructed and viewed in the axial, sagittal and coronal planes. Fused axial CT/SPECT images were also obtained. The blood glucose level was 166 mg/dl. The average SUV liver uptake is 3.3. FINDINGS: Physiologic uptake: There may be expected metabolic uptake within the brain, tongue and floor of the mouth and larynx/vocal cords, heart, juan luis (many normal individuals have hilar uptake in less than 3 nodes with mildly avid hilar nodes less than 2.7 SUV), liver and spleen, system, and GI tract and symmetric muscle uptake. FDG AVID AND NON-AVID LESIONS. Reported avid SUV values (g/mL*) are maximum SUV. HEAD/NECK: Hypermetabolic soft tissue mass along the left lower lip, demonstrating a maximum SUV of 4.8 (axial fused images # 81). CHEST: No hypermetabolic lesion. Mild uptake along the left axilla at site of axillary drain. ABDOMEN/PELVIS: No hypermetabolic lesion. LOWER EXTREMITIES: Cutaneous and subcutaneous thickening with hypermetabolic activity along the right posterior heel with focal area of ulceration. Small subcutaneous nodule along the left posterior knee correlating with vessel on noncontrast imaging. Noncontrast CT findings: Left axillary drain. Coronary artery calcifications. Layering stones within the gallbladder. Marked symmetric atrophy of the bilateral [place] kidneys. Right lower quadrant renal transplant. Moderate atherosclerotic plaque throughout the aortoiliac vessels. Nodularity along the ventral abdominal wall, likely subcutaneous injection sites. PET/PET/CT Tumor WB Subs IMPRESSION: 1. Hypermetabolic left lower lip soft tissue mass, compatible with squamous cecy l carcinoma. Findings may also reflect recent surgery in the correct clinical context. Correlation with recent surgery recom mended. 2. Cutaneous and subcutaneous thickening with hypermetabolic activity along the right posterior heel with focal area of ulceration, most compatible with ulcer. Clinical correlation recommended. 3. Mild FDG uptake within the left axilla, compatible with reported recent surg stefania and indwelling surgical drain. Please note the low-dose CT scan was performed to facilitate PET image reconstr uction and anatomic localization and does not replace a diagnostic CT. Any diagnostic CT requested and performed at the time of the PET will be reported separately. Reading Location: [id number]
== END | disposition home or self-care (01) ==
LOC: ONC 07:11
PROVIDERS: PCP Internal Medicine; Referring Provider Internal Medicine Hematology & Oncology; Visit Provider Internal Medicine Hematology & Oncology
DX: C43.62 Malignant melanoma of left upper limb, including shoulder (principal); C77.3 Secondary and unspecified malignant neoplasm of axilla and upper limb lymph nodes; C44.02 Squamous cell carcinoma of skin of lip
CPT/HCPCS: 78816; A9552

== ENCOUNTER 2024-10-26 12:59 | Outpatient (RCR) | payer MEDICARE, MEDICAID, SELFPAY ==
[2024-10-26 13:13] VITALS: BP 110/65; PULSE 96; RESP 18; TEMP 36.6; BMI 25.4
--- NOTE | 2024-10-27 09:22 | PCM.WC.HP ---
History of Present Illness Date of Service: 10/26/24 Chief Complaint: Surgical wound dehiscence of the left lower extremity History of Wound: This is a 58-year-old diabetic male with multiple pre-existing medical conditions. 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 A reconstruction was performed concurrently, and a myocutaneous tissue graft was harvested from the patient's left posterior calf. In addition, a split-thickness skin graft was obtained from the patient's left anterolateral thigh. The patient presents at this time with a large, open, surgical wound on the left posterior calf, with gastrocnemius muscle exposed. The patient's operative report is not available, but is to be requested. It appears as though some form of surgical closure of the left calf graft site was attempted, which has failed. It is conjectured that the split-thickness skin graft obtained from the left thigh may have been used for closure of the myocutaneous graft donor site in the left posterior calf, which has failed. The patient was referred for definitive evaluation and management of his nonhealing surgical wound, the donor site for his recent lip reconstruction. With respect to the open wound on the left posterior calf, the patient has been using Xeroform and Medihoney topically. The [facility] surgeon was involved in the patient's recent surgical procedure where Dr. Jeter and Dr. Yumi Bird. These are ENT and plastic surgeons, respectively. The patient has multiple pre-existing conditions, including diabetes mellitus type 1, end-stage renal failure for which the patient has previously undergone renal transplantation, peripheral polyneuropathy, steroid-induced osteoporosis, and peripheral vascular disease. The patient has previously undergone excision of the melanoma from his left arm, and a left great toe amputation in 2003. 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 without evidence of necrosis Surgical wound dehiscence Postoperative wound dehiscence Chronic kidney disease Squamous cell cancer of lip Diabetic polyneuropathy Diabetes type 1, controlled Vitamin D deficiency Steroid-induced osteoporosis Home Medications ?Medication ?Instructions ?Recorded ?Last Taken ?Type aspirin 81 mg chewable tablet 81 mg PO DAILY@0800 09/07/13 Unknown History mycophenolate mofetil 250 mg 750 mg PO BID 09/07/13 Unknown History capsule prednisone 5 mg tablet 5 mg PO DAILY 09/07/13 Unknown History tacrolimus 1 mg capsule, 1 mg PO .EVENING 09/07/13 Unknown History immediate-release atorvastatin 20 mg tablet 20 mg PO QHS 04/24/16 Unknown History cholecalciferol (vitamin D3) 25 1,000 unit PO DAILY 04/24/16 Unknown History mcg (1,000 unit) tablet gabapentin 300 mg capsule 300 mg PO BIDCM 04/24/16 Unknown History Held on 10/28/23. Instructions: MD Ordered insulin lispro 100 unit/mL 16 unit subcut TIDCM 04/24/16 Unknown History subcutaneous pen naproxen sodium 220 mg tablet 220 mg PO Q12H PRN PRN Pain 04/24/16 Unknown History Held on 10/28/23. Instructions: MD Ordered omeprazole 40 mg capsule,delayed 40 mg PO DAILY 04/24/16 Unknown History release vitamin E (dl, acetate) 90 mg (200 200 unit PO DAILY 04/24/16 Unknown History unit) capsule Held on 10/28/23. Instructions: Duplicate Order dicyclomine 10 mg capsule 10 mg PO .BEFORE MEALS AND BED 07/14/20 Unknown History escitalopram oxalate 10 mg tablet 10 mg PO DAILY 07/14/20 Unknown History insulin glargine 100 unit/mL (3 30 unit subcut QHS 07/14/20 Unknown History mL) subcutaneous pen multivit,mineral-folic acid 800 1 tab PO DAILY 07/14/20 Unknown History mcg-vit K 100 mcg-herbal no.289 tablet (Alive Once Daily Women 50 Plus) zolpidem 5 mg tablet (Ambien) 5 mg PO QHS PRN sleep 07/14/20 Unknown History Held on 10/28/23. Instructions: Duplicate Order denosumab 60 mg/mL subcutaneous 60 mg subcut [id number] #1 mL 08/09/22 Unknown Rx syringe (Prolia) Held on 10/28/23. Instructions: MD Ordered bupropion HCl 75 mg tablet 75 mg PO BID 10/28/23 Unknown History hydroxyzine HCl 25 mg tablet 25 mg PO QHS PRN PRN anxiety 10/28/23 Unknown History magnesium oxide 400 mg PO DAILY 10/28/23 Unknown History amoxicillin 875 mg-potassium 1 tab PO BID 10 days #20 tabs 11/04/23 Unknown Rx clavulanate 125 mg tablet doxycycline hyclate 100 mg capsule 100 mg PO BID #20 caps 11/04/23 Unknown Rx tacrolimus 0.5 mg capsule, 0.5 mg PO DAILY 12/28/23 Unknown History immediate-release bupropion HCl 100 mg tablet,12 hr 100 mg PO BID 10/26/24 Unknown History sustained-release everolimus (immunosuppressive) 0.5 0.5 mg PO QPM 10/26/24 Unknown History mg tablet everolimus (immunosuppressive) 1 1 mg PO BID 10/26/24 Unknown History mg tablet famotidine 40 mg tablet 40 mg PO BID 10/26/24 Unknown History Allergy/AdvReac Type Severity Reaction Status Date / Time No Known Allergies Allergy Verified 10/26/24 13:09 Surgical History History of amputation of left great toe History of melanoma excision History of appendectomy Renal transplant, status post Social History Smoking Status: Never smoker alcohol intake: never substance use type: does not use Vital Signs Vital Signs Vital Signs: 10/26/24 13:13 Temperature 97.8 F Temperature Source Temporal Pulse Rate 96 Respiratory Rate 18 Blood Pressure 110/65 Blood Pressure Mean 80 Blood Pressure Source Monitor Blood Pressure Position Semi-Fowlers Blood Pressure Location Left Arm Oxygen Delivery Method Room Air Weight Weight: 188 lb Body Mass Index (BMI) 25.4 Physical Exam Const alert, oriented x3, no apparent distress, average body habitus and no limitations Constitutional Narrative: The patient's BMI is 25.5. The patient appears chronically ill and frail. The patient is wearing a surgical mask, concealing his mouth and nose. He is reluctant to reveal the recent surgical site on his lower lip which recently underwent excision of a squamous cell carcinoma with a concurrent reconstructive procedure. Therefore, the concealed portion of the patient's face was not examined. General Appearance: cooperative and well developed Orientation / Consciousness: awake, oriented to person, oriented to place and oriented to time Exam Limitations: no limitations HEENT normocephalic and head/scalp atraumatic Head and Scalp: normocephalic External Ear: external ears normal Eyes EOMs intact bilaterally General Eye: normal appearance of both eyes Neck Neck Narrative: A skin lesion is noted at the base of the patient's left neck, measuring approximately 1 cm in diameter. Resp normal respiratory effort, normal air movement, no retractions and no use of accessory muscles Effort and Inspection: able to speak in complete sentences Extremity no calf tenderness Extremity Narrative: Left great toe amputation is noted, which appears remote, and well-healed. General Extremity: Negative for clubbing or cyanosis Skin Wound Narrative: A split-thickness skin graft site is noted on the patient's left anterolateral thigh. It appears to be healing in satisfactory fashion. There is an adjacent linear surgical incision which also appears to be healing appropriately. A large, elliptical wound is noted on the patient's left posterior calf. Dimensions are documented elsewhere. The open wound extends through all layers of the dermis and subcutaneous tissues, and the gastrocnemius muscle is exposed. There is a moderate amount of nonviable and necrotic tissue at the margins of the wound. In addition, a retained surgical suture is also noted. Probing of the wound reveals a large amount of undermining superiorly, with extension of approximately 5 centimeters. There is no sign of infection or cellulitis. The gastrocnemius muscle appears to be largely intact. Neuro oriented x3, CN's II-XII intact bilaterally, moves all extremities and no focal motor deficits Sensorium / Orientation: awake, alert, oriented to person, oriented to place and oriented to time Psych Appearance: grossly normal and appropriate Attitude: calm Activity / Motor Behavior: appropriate eye contact Speech: normal speech Mood & Affect: euthymic mood Thought Process: normal thought process Thought Content: normal thought content Attention / Concentration: attention grossly intact Debridement Note Debridement Note Wound debrided: Dehiscent surgical wound of the left posterior calf Laterality: Left Type of Debridement: Excisional debridement Anesthesia Used: 5% Lidocaine Gel and Cetacaine Depth: to muscle Percentage of wound debrided: 100 Instrument Used: 5mm curette Tissue Removed: Necrotic and nonviable tissue; bioburden Severity: Necrosis of Muscle Amount of bleeding with debridement: Mild Bleeding Controlled with: Compression and gauze Patient tolerated procedure: Patient tolerated procedure well Post-Debridement Measurements and Additional Note: Post-Debridement Measurements/Treatment MARK - Nurse 1 - General Ulcer Assessment Start: 10/26/24 13:09 Freq: Status: Active Protocol: JOSÉ MANUEL Activity Type Activity Date Activity User E-sign Co-sign Detail Recorded Client Recorded Date Recorded By Document 10/26/24 13:13 [id number] 10/26/24 13:27 10/26/24 13:13 WC - Today's Visit Information Type of service Initial Visit Arrival Mode Ambulatory Accompanied by MOTHER Finger Stick Blood Sugar(mg/dl) (if 88 indicated): Blood Sugar Stated by Patient Height and Weight Height 6 ft Weight 188 lb Weight in Pounds 188.0 lbs Weight Measurement Method Estimated by Patient Body Mass Index (BMI) 25.4 BMI Classification Overweight Vital Signs Temperature (97.8 F-99.1 F) 97.8 F Temperature Source Temporal Pulse Rate (60-100) 96 Pulse Location Monitor Respiratory Rate (12-18) 18 Respiratory rate source Observation Oxygen Delivery Method Room Air Blood Pressure (90/60-120/80) 110/65 Blood Pressure Mean 80 Source Monitor Position Semi-Fowlers Blood Pressure Location Left Arm History Since Last Visit- (Skip if this is Patient's initial visit) Left Footwear Regular Shoe Right Footwear Regular Shoe Pain Scale: 0-10 Numeric Is Patient Pain Free? Yes Communication Assessment Preferred language Tajik Slip Injector And Applicator Required No Able to Read Yes Able to Write Yes Caregiver Communication Skills No Impairment Impairment Right Hearing Abillity Normal Left Hearing Abillity Normal Visual Assistive Devices None Teaching Assessment Preferences Verbal,Written, Demonstration Barriers to Learning None Readiness To Learn Excellent Willingness to Engage in Self Management High Activies Readiness to Engage in Self Management High Activities Anxiety Level Calm Cooperation Cooperative Perception Coherent Interest in Health Problem Asks Questions Education Importance Acknowledges Need Does Patient Smoke tobacco or other No substances Smoking Status Never smoker Is Patient Diabetic Yes Functional Assessment Recent Decline in Ability to Perform Denies Any Declines Culture/Rastafari/Core Rescuer Cultural/Rastafari Needs that may affect No Treatment Plan Would you allow our hospital janitor cleaner to No meet you for the purpose of spiritual/ emotional support? Core Rescuer to contact place of zoroastrianism No WC - Nurse 1 - General Ulcer Measurement Start: 10/26/24 13:09 Freq: Status: Active Protocol: Activity Type Activity Date Activity User E-sign Co-sign Detail Recorded Client Recorded Date Recorded By Document 10/26/24 13:13 [id number] 10/26/24 13:27 10/26/24 13:13 Wound Center Nurse 1 #6 LT POST LE -Current Size (cm) - Length 13 -Current Size (cm) - Width 4.8 -Current Size (cm) - Depth 0.3 -Total Square Cm 62.4 -Date of Last Picture (Recall this 10/26/24 field) -Undermining/Tunneling Yes -Undermining/Tunneling Starts (O'clock 12 ) -Undermining/Tunneling Ends (O'clock) 3 -Maximum Distance (cm) 3.4 -Exudate Amt Medium -Exudate Type Serosanguineous -Wound Margin Distinct, Outline Attached -Granulation Amt Small (1-33%) -Granulation Quality [place] -Structure Exposed Fascia,Muscle -Texture (Eloisa-wound Skin Appearance) Assessed -Moisture (Eloisa-wound Skin Appearance) Assessed -Color (Eloisa-wound Skin Appearance) Assessed -Temperature (Eloisa-wound Skin No Abnormality Appearance) (Pt Warm) -Tenderness on Palpation (Eloisa-wound No Skin Appearance) -Ulcer Cleansing Soap and Water -Foul Odor after Cleansing No -Anesthetic Used 4% Lidocaine Solution WC - Nurse 2 - General Ulcer CM Notes Start: 10/26/24 13:09 Freq: Status: Active Protocol: Activity Type Activity Date Activity User E-sign Co-sign Detail Recorded Client Recorded Date Recorded By Document 10/26/24 13:41 [id number] 10/26/24 13:56 KRIS 10/26/24 13:41 Wound Center Nurse 2 -Time 13:47 -Correct Patient Yes -Correct Side, Site, Position Yes -Correct Procedure Yes -Procedure Performed Yes -Type of Procedure Debridement -Clinical Debridement Muscle / Fascia -Tissue Removed Muscle,Fascia -Post Debridement (cm) - Length 12 -Post Debridement (cm) - Width 5 -Post Debridement (cm) - Depth 0.4 -Total Square (Post) (cm) 60 -Area of Debridement (cm) - Length 12 -Area of Debridement (cm) - Width 5 -Total Square (Area) (cm) 60 -Tunneling Yes -Tunneling Position (O'clock) 12 -Tunneling Distance (cm) 5 -Undermining/Tunneling No -Circular Undermining No -Wound/Ulcer Outcome Not Healed -Ulcer Cleansing Rinsed/ Irrigated with Saline -Foul Odor after Cleansing No -Bioengineered Tissue No -Bleeding Controlled with Pressure -Treatment Response Procedure Tolerated Well -Offloading No -Debridement - Muscle / Fascia, 1st Yes 20sq cm -Debridement, Muscle/Fascia, ea addt'l 2 20sq cm or part thereof Pain Scale: 0-10 Numeric Is Patient Pain Free? Yes - Nurse 3 - General Ulcer D/C NN Start: 10/26/24 13:09 Freq: Status: Active Protocol: Activity Type Activity Date Activity User E-sign Co-sign Detail Recorded Client Recorded Date Recorded By Document 10/26/24 14:08 RB [id number] 10/26/24 14:12 RB 10/26/24 14:08 Wound Care Center Nurse 3 #6 LT POST LE -Ulcer Cleansing DAKINS -Other Dressing DAKINS MOISTENED GAUZE -Primary Dressing Covered/Secured with Dry Gauze,Dry Gauze & Roll Gauze,Secured with Tape -Other Covering ABD LLE -Compression Wrap Rod Wrap Treatment Response Procedure Tolerated Well Pain Scale: 0-10 Numeric Is Patient Pain Free? 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: CODE(S): L97.905 - Non-pressure chronic ulcer of unspecified part of unspecified lower leg with muscle involvement without evidence of necrosis QUALIFIERS: Laterality: left Qualified Code(s): L97.925 - Non-pressure chronic ulcer of unspecified part of left lower leg with muscle involvement without evidence of necrosis (2) Surgical wound dehiscence: CODE(S): T81.31XA - Disruption of external operation (surgical) wound, not elsewhere classified, initial encounter QUALIFIERS: Encounter type: initial encounter Qualified Code(s): T81.31XA - Disruption of external operation (surgical) wound, not elsewhere classified, initial encounter (3) Postoperative wound dehiscence: CODE(S): T81.31XA - Disruption of external operation (surgical) wound, not elsewhere classified, initial encounter QUALIFIERS: Encounter type: initial encounter Qualified Code(s): T81.31XA - Disruption of external operation (surgical) wound, not elsewhere classified, initial encounter (4) Diabetes type 1, controlled: CODE(S): E10.9 - Type 1 diabetes mellitus without complications QUALIFIERS: Diabetes mellitus complication status: with kidney complications (5) Vitamin D deficiency: CODE(S): E55.9 - Vitamin D deficiency, unspecified (6) Steroid-induced osteoporosis: CODE(S): M81.8 - Other osteoporosis without current pathological fracture; T38.0X5A - Adverse effect of glucocorticoids and synthetic analogues, initial encounter (7) Renal transplant, status post: CODE(S): Z94.0 - Kidney transplant status (8) Other specified peripheral vascular diseases: CODE(S): I73.89 - Other specified peripheral vascular diseases (9) Diabetic polyneuropathy: CODE(S): E11.42 - Type 2 diabetes mellitus with diabetic polyneuropathy (10) Squamous cell cancer of lip: CODE(S): C44.02 - Squamous cell carcinoma of skin of lip (11) Chronic kidney disease: CODE(S): N18.9 - Chronic kidney disease, unspecified (12) History of melanoma excision: CODE(S): Z98.890 - Other specified postprocedural states; Z85.820 - Personal history of malignant melanoma of skin (13) History of appendectomy: CODE(S): Z90.49 - Acquired absence of other specified parts of digestive tract (14) History of amputation of left great toe: CODE(S): Z89.412 - Acquired absence of left great toe PLAN: Plan This is a 58-year-old diabetic male with multiple pre-existing medical problems. 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 At this juncture, the patient's operative report and recent medical records are not available. These are to be requested. However, it appears as though a myocutaneous graft was obtained from the patient's left posterior calf, which was then closed with a split-thickness skin graft which was obtained from the patient's left anterolateral thigh. The split-thickness skin graft has failed completely, rendering a frankly exposed left gastrocnemius muscle, with extensive undermining. The patient has been advised to consume a healthy and nutritious diet, and to use nutritional supplements as well. Optimization of the patient's blood sugars has also been recommended. We are to implement the use of Dakin's-moistened gauze packing to the open wound, which will be performed on a daily basis. The patient and his mother, at the bedside, have been instructed in the appropriate means of application. Ultimately, the patient may be a candidate for negative pressure wound therapy. We are to request consultation by the Plastic Surgery service, Dr. Juan Carlos Duenas. Of concern, as the large degree of undermining related to the open wound, and whether surgical unroofing may be of benefit. The patient is to return in 1 week for reassessment. Additional evaluation is likely to include lab work and a noninvasive lower extremity arterial study in the near future. We are to request the patient's medical records, which will be reviewed upon receipt. Total time: 50 minutes
--- NOTE | 2024-10-27 14:01 | WC ---
PHOTO 10/26/24 LEFT POST LE
== END 2024-10-27 23:59 | disposition home or self-care (01) ==
LOC: WC 12:59
PROVIDERS: PCP Internal Medicine; Referring Provider Student in an Organized Health Care Education/Training Program; Visit Provider Surgery
DX: T81.31XA Disruption of external operation (surgical) wound, not elsewhere classified, initial encounter (principal); N18.6 End stage renal disease; E10.22 Type 1 diabetes mellitus with diabetic chronic kidney disease; E10.42 Type 1 diabetes mellitus with diabetic polyneuropathy; E10.51 Type 1 diabetes mellitus with diabetic peripheral angiopathy without gangrene; Z79.4 Long term (current) use of insulin; C44.02 Squamous cell carcinoma of skin of lip; E55.9 Vitamin D deficiency, unspecified; Z94.0 Kidney transplant status; Y83.2 Surgical operation with anastomosis, bypass or graft as the cause of abnormal reaction of the patient, or of later complication, without mention of misadventure at the time of the procedure; T86.821 Skin graft (allograft) (autograft) failure; Z79.899 Other long term (current) drug therapy; Z79.82 Long term (current) use of aspirin; Z89.412 Acquired absence of left great toe; M81.8 Other osteoporosis without current pathological fracture; T38.0X5A Adverse effect of glucocorticoids and synthetic analogues, initial encounter
CPT/HCPCS: 11043; 11046; 99214; G0463

== ENCOUNTER 2024-11-25 14:15 | Outpatient (RCR) | payer MEDICARE, MEDICAID, SELFPAY ==
[2024-10-28 00:46] VITALS: BP 110/65; PULSE 96; RESP 18; TEMP 36.6; BMI 25.4
--- NOTE | 2024-11-01 10:10 | PCM.WC.HP ---
History of Present Illness Date of Service: 11/01/24 Chief Complaint: Surgical wound dehiscence of the left lower extremity History of Wound: Raymundo Soler is a delightful 58-year-old male with history of type 1 diabetes as well as other multiple pre-existing comorbid medical conditions including end-stage kidney disease who underwent wide local excision for a lower lip squamous cell carcinoma as well as selective neck dissection at [facility] on 08 October 2024, followed by immediate reconstruction with a left cervical advancement flap, tensor fascia jaspreet sling, and left medial sural artery power plant mechanic free flap reconstruction anastomosed to the left facial artery. In addition, a split-thickness skin graft was obtained from the patient's left anterolateral thigh for reconstruction of the donor site. He was seen and evaluated by Dr. Miguel Meneses at the wound care center last week and referred to me for follow-up as he has persistent left calf surgical wound with exposure of underlying gastrocnemius muscle. The patient's operative report was reviewed today (I reviewed extensive medical medical records from the clinical). The patient reports that he has been doing dressing changes for the left medial calf with the assistance of his who is at the appointment today. He also is complaining that he is having some drooling. He has been eating like normal since surgery (no PEG tube) and feels like he is getting sufficient calories. The patient has multiple pre-existing conditions, including diabetes mellitus type 1, end-stage renal failure for which the patient has previously undergone renal transplantation, peripheral polyneuropathy, steroid-induced osteoporosis, and peripheral vascular disease. 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 Patient is currently making excellent urine. He takes Prograf and corticosteroids for immunosuppression. He does not smoke. 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 Surgical wound dehiscence Postoperative wound dehiscence Chronic kidney disease Squamous cell cancer of lip Diabetic polyneuropathy Diabetes type 1, controlled Vitamin D deficiency Steroid-induced osteoporosis Home Medications ?Medication ?Instructions ?Recorded ?Last Taken ?Type aspirin 81 mg chewable tablet 81 mg PO DAILY@0800 09/07/13 Unknown History mycophenolate mofetil 250 mg 750 mg PO BID 09/07/13 Unknown History capsule prednisone 5 mg tablet 5 mg PO DAILY 09/07/13 Unknown History tacrolimus 1 mg capsule, 1 mg PO .EVENING 09/07/13 Unknown History immediate-release atorvastatin 20 mg tablet 20 mg PO QHS 04/24/16 Unknown History cholecalciferol (vitamin D3) 25 1,000 unit PO DAILY 04/24/16 Unknown History mcg (1,000 unit) tablet gabapentin 300 mg capsule 300 mg PO BIDCM 04/24/16 Unknown History Held on 10/28/23. Instructions: MD Ordered insulin lispro 100 unit/mL 16 unit subcut TIDCM 04/24/16 Unknown History subcutaneous pen naproxen sodium 220 mg tablet 220 mg PO Q12H PRN PRN Pain 04/24/16 Unknown History Held on 10/28/23. Instructions: MD Ordered omeprazole 40 mg capsule,delayed 40 mg PO DAILY 04/24/16 Unknown History release vitamin E (dl, acetate) 90 mg (200 200 unit PO DAILY 04/24/16 Unknown History unit) capsule Held on 10/28/23. Instructions: Duplicate Order dicyclomine 10 mg capsule 10 mg PO .BEFORE MEALS AND BED 07/14/20 Unknown History escitalopram oxalate 10 mg tablet 10 mg PO DAILY 07/14/20 Unknown History insulin glargine 100 unit/mL (3 30 unit subcut QHS 07/14/20 Unknown History mL) subcutaneous pen multivit,mineral-folic acid 800 1 tab PO DAILY 07/14/20 Unknown History mcg-vit K 100 mcg-herbal no.289 tablet (Alive Once Daily Women 50 Plus) zolpidem 5 mg tablet (Ambien) 5 mg PO QHS PRN sleep 07/14/20 Unknown History Held on 10/28/23. Instructions: Duplicate Order denosumab 60 mg/mL subcutaneous 60 mg subcut [id number] #1 mL 08/09/22 Unknown Rx syringe (Prolia) Held on 10/28/23. Instructions: MD Ordered bupropion HCl 75 mg tablet 75 mg PO BID 10/28/23 Unknown History hydroxyzine HCl 25 mg tablet 25 mg PO QHS PRN PRN anxiety 10/28/23 Unknown History magnesium oxide 400 mg PO DAILY 10/28/23 Unknown History amoxicillin 875 mg-potassium 1 tab PO BID 10 days #20 tabs 11/04/23 Unknown Rx clavulanate 125 mg tablet doxycycline hyclate 100 mg capsule 100 mg PO BID #20 caps 11/04/23 Unknown Rx tacrolimus 0.5 mg capsule, 0.5 mg PO DAILY 12/28/23 Unknown History immediate-release bupropion HCl 100 mg tablet,12 hr 100 mg PO BID 10/26/24 Unknown History sustained-release everolimus (immunosuppressive) 0.5 0.5 mg PO QPM 10/26/24 Unknown History mg tablet everolimus (immunosuppressive) 1 1 mg PO BID 10/26/24 Unknown History mg tablet famotidine 40 mg tablet 40 mg PO BID 10/26/24 Unknown History Allergy/AdvReac Type Severity Reaction Status Date / Time No Known Allergies Allergy Verified 10/26/24 13:09 Surgical History History of amputation of left great toe History of melanoma excision History of appendectomy Renal transplant, status post Social History Smoking Status: Never smoker alcohol intake: never substance use type: does not use Vital Signs Vital Signs Vital Signs: Weight Weight: 188 lb Body Mass Index (BMI) 25.4 Physical Exam Narrative Head and neck: There is dehiscence of the flap medially with fibrinous exudate and debris at the base of the wound. No purulent drainage or signs of acute infection. There is dehiscence of the left lateral oral commissure with rupture of the tensor fascia jaspreet sling. Microstomia with loss of support on the left commissure with oral incompetence. The flap is warm and well-perfused and viable, excellent residual soft tissue without any significant necrosis. Left lower extremity: Thigh skin graft donor site and TFL harvest incision both healed Left posterior medial calf with 12 x 5 cm wound with exposed fascia over the medial gastrocnemius. The skin graft has mostly melted and is nonviable. There is minimal granulation tissue over the gastroc fascia. Vascular: 2+ posterior tibial pulse Sensory: He is numb distal to the wound on the leg, and has limited sensation in his feet (but reports that this is a persistent, chronic problem). Debridement Note Debridement Note Wound debrided: Left posterior calf Laterality: Left Wound Grade/Stage: Stage III Type of Debridement: Excisional debridement Anesthesia Used: 4% Lidocaine Solution and - (10 cc of 1% lidocaine with 1-200,000 epinephrine) Depth: to muscle Percentage of wound debrided: 100 Instrument Used: 7mm curette, Forceps and - (Scissors for sharp excision) Tissue Removed: Necrotic fascia, muscle, melted skin graft, fibrinous exudate and biofilm Severity: Necrosis of Muscle Amount of bleeding with debridement: Moderate Bleeding Controlled with: Pressure, Compression and gauze, Silver Nitrate and - (Epinephrine from the local) Patient tolerated procedure: Patient tolerated procedure well Debridement Free Text: There is necrotic fascia tissue over the medial gastrocnemius that required excision today in clinic Operative Diagnosis: Surgical site wound with melted skin graft Charges/Coding Visit Charges Office Visits / Consults: 87620 OV L4 New 45min Procedures Integumentary 111xxx-113xx: 02189 Bethany musc/fascia 20 sq cm/< Add On Codes: 53510 Bethany musc/fascia add-on (x 2 units ) Assessment/Plan Assessment/Plan (1) 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 Plan for wet-to-dry dressings twice daily with Dakin's soaked Kerlix. Ordering home wound VAC for 3 times per week VAC changes to improve granulation and prepare granulation tissue over the fascia for split-thickness skin graft. I believe that the skin graft did not take as the fascia did not have enough granulating tissue underneath to support the graft. Patient's situation is complicated by many factors including significant immunosuppression for his kidney allograft. Follow-up weekly in the wound care center as wound continues to granulate. I will consider a dermal substitute as well (Integra) if you are having trouble getting granulation over the fascia. Plan also for nutrition labs and repeat A1c (A1c from 2 months ago was 6.5). Ordered A1c, CMP, CBC, and prealbumin. (2) Postoperative wound dehiscence: CODE(S): T81.31XA - Disruption of external operation (surgical) wound, not elsewhere classified, initial encounter QUALIFIERS: Encounter type: initial encounter Qualified Code(s): T81.31XA - Disruption of external operation (surgical) wound, not elsewhere classified, initial encounter PLAN: There is dehiscence of the TFL suspension and of the lateral aspects of the flap. Patient is seeing his ENT later this week. Happy to assist with wound care or revisions as needed.
[2024-11-01 10:13] VITALS: BP 111/68; PULSE 91; RESP 16; TEMP 36.1; BMI 25.4
--- NOTE | 2024-11-01 14:39 | WC ---
PHOTO 11/01/24 LEFT POST OP LE
[2024-11-08 13:31] VITALS: BP 126/18; PULSE 89; RESP 16; TEMP 36.3; BMI 25.4
--- NOTE | 2024-11-08 15:35 | PN.PCM_ITS ---
History of Present Illness Date of Service: 11/08/24 Chief Complaint: Surgical wound dehiscence of the left lower extremity History of Wound: Raymundo Soler is a delightful 58-year-old male with history of type 1 diabetes as well as other multiple pre-existing comorbid medical conditions including end-stage kidney disease who underwent wide local excision for a lower lip squamous cell carcinoma as well as selective neck dissection at [facility] on 08 October 2024, followed by immediate reconstruction with a left cervical advancement flap, tensor fascia jaspreet sling, and left medial sural artery freight solicitor free flap reconstruction anastomosed to the left facial artery. In addition, a split-thickness skin graft was obtained from the patient's left anterolateral thigh for reconstruction of the donor site. He was seen and evaluated by Dr. Miguel Meneses at the wound care center last week and referred to me for follow-up as he has persistent left calf surgical wound with exposure of underlying gastrocnemius muscle. The patient's operative report was reviewed today (I reviewed extensive medical medical records from the clinical). The patient reports that he has been doing dressing changes for the left medial calf with the assistance of his who is at the appointment today. He also is complaining that he is having some drooling. He has been eating like normal since surgery (no PEG tube) and feels like he is getting sufficient calories. The patient has multiple pre-existing conditions, including diabetes mellitus type 1, end-stage renal failure for which the patient has previously undergone renal transplantation, peripheral polyneuropathy, steroid-induced osteoporosis, and peripheral vascular disease. 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 Patient is currently making excellent urine. He takes Prograf and corticosteroids for immunosuppression. He does not smoke. Subjective Subjective Current encounter, 08 Nov 2024: Patient went to ENT at [facility] on 04 Nov 2024. Reportedly they debrided the lower lip reconstruction, and suggested he start Medihoney dressing changes. He reports significant progress in the wound since then. And his plan is to defer further reconstruction on the face until after radiation has begun. With regards to the left calf wound, ENT has deferred wound care to our team at [place]. He got at the nutrition labs on 06 Nov 2024 (last Friday) and they demonstrated the following: Albumin 3.4 Prealbumin 14 A1c of 5.9 Hemoglobin of 10.4 with MCV of 100 Discussed high-protein intake with the patient today. We discussed wound care with wound VAC. The VAC was delivered and is ready for placement today. Objective Data Objective Data Vital Signs: Vital Signs Temp Pulse Resp BP O2 Del Method 97.4 F L 89 16 126/18 H Room Air 11/08/24 13:31 11/08/24 13:31 11/08/24 13:31 11/08/24 13:31 11/08/24 13:31 Oxygen Delivery Method Room Air Weight: 188 lb Body Mass Index (BMI) 25.4 Charges/Coding Procedures Integumentary 111xxx-113xx: 41647 Bethany musc/fascia 20 sq cm/< Add On Codes: 33028 Bethany musc/fascia add-on (X2 UNITS ) Physical Exam Narrative Head and neck: There is dehiscence of the flap medially with healthy granulation at the base today. no purulent drainage or signs of acute infection. Much improvement since last week. There is dehiscence of the left lateral oral commissure with rupture of the tensor fascia jaspreet sling. Microstomia with loss of support on the left commissure with oral incompetence. The flap is warm and well-perfused and viable, excellent residual soft tissue without any significant necrosis. Left lower extremity: Thigh skin graft donor site and TFL harvest incision both healed Left posterior medial calf with 12 x 5 cm wound with exposed fascia over the medial gastrocnemius. There is minimal granulation tissue over the gastroc fascia. Vascular: 2+ posterior tibial pulse Sensory: He is numb distal to the wound on the leg, and has limited sensation in his feet (but reports that this is a persistent, chronic problem). Photograph from exam on 01 Nov 2024: Debridement Note Debridement Note Wound debrided: Left calf wound Laterality: Left Wound Grade/Stage: Stage III Type of Debridement: Excisional debridement Anesthesia Used: 4% Lidocaine Solution and - (10 cc of 1% lidocaine with 1- 200,000 epinephrine) Depth: to muscle Percentage of wound debrided: 100 Instrument Used: 7mm curette, Forceps and - (And a scissors for sharp excision of the necrotic fascia) Tissue Removed: Necrotic fascia, fibrinous exudate, and biofilm Severity: Necrosis of Muscle Amount of bleeding with debridement: Moderate Bleeding Controlled with: Compression and gauze and - (Epinephrine from the 1% lidocaine with 1-200,000 epinephrine) Patient tolerated procedure: Patient tolerated procedure well Post-Debridement Measurements and Additional Note: Post-Debridement Measurements/Treatment WC - Nurse 1 - General Ulcer Assessment Start: 11/01/24 10:12 Freq: Status: Active Protocol: JOSÉ MANUEL Activity Type Activity Date Activity User E-sign Co-sign Detail Recorded Client Recorded Date Recorded By Document 11/01/24 10:13 KW [id number] 11/01/24 10:24 KW Document 11/08/24 13:31 KW [id number] 11/08/24 13:40 KW 11/01/24 11/08/24 10:13 13:31 WC - Today's Visit Information Type of service Follow-up Visit Follow-up Visit (Physician/PORTABLE ROUTER OPERATOR (Physician/PORTABLE ROUTER OPERATOR ) ) Arrival Mode Ambulatory Ambulatory Accompanied by mother Patient Identification Verified (Name & Yes Yes ) Height and Weight Body Mass Index (BMI) 25.4 25.4 BMI Classification Overweight Overweight Vital Signs Temperature (97.8 F-99.1 F) 96.9 F L 97.4 F L Temperature Source Temporal Temporal Pulse Rate (60-100) 91 89 Pulse Location Monitor Monitor Respiratory Rate (12-18) 16 16 Respiratory rate source Observation Observation Oxygen Delivery Method Room Air Room Air Blood Pressure (90/60-120/80) 111/68 126/18 H Blood Pressure Mean (mm Hg) 82 54 Source Monitor Monitor Position Semi-Fowlers Sitting Blood Pressure Location Right Arm Left Arm History Since Last Visit- (Skip if this is Patient's initial visit) Have you changed medications since your No No last visit? Any new allergies or adverse reactions No No Had a fall/change in ADL's that may No No increase risk of falls Signs or symptoms of abuse and/or No No neglect since last visit Have you been in the hospital since your No No last visit? Has dressing in place as prescribed Yes Yes Has compression in place as prescribed Yes Yes Has offloadiing in place as prescribed N/A N/A Experienced any changes in pain level or No No management Left Footwear Regular Shoe Regular Shoe Right Footwear Regular Shoe Regular Shoe Pain Scale: 0-10 Numeric Is Patient Pain Free? Yes Yes MARK - Nurse 1 - General Ulcer Measurement Start: 11/01/24 10:12 Freq: Status: Active Protocol: Activity Type Activity Date Activity User E-sign Co-sign Detail Recorded Client Recorded Date Recorded By Document 11/01/24 10:13 KW [id number] 11/01/24 10:24 KW Document 11/08/24 13:31 KW [id number] 11/08/24 13:40 KW 11/01/24 11/08/24 10:13 13:31 Wound Center Nurse 1 #6 LT POST LE -Current Size (cm) - Length 15 14 -Current Size (cm) - Width 6.8 5 -Current Size (cm) - Depth 0.4 1 -Total Square Cm 102.0 70 -Undermining/Tunneling Yes Yes -Undermining/Tunneling Starts (O'clock 10 9 ) -Undermining/Tunneling Ends (O'clock) 2 3 -Maximum Distance (cm) 5 6 -Exudate Amt Large Medium -Exudate Type Serosanguineous Serosanguineous -Wound Margin Distinct, Distinct, Outline Outline Attached Attached -Granulation Amt Large (67-100%) Large (67-100%) -Granulation Quality Red Red -Slough/Fibrin Yes -Necrosis Amt Medium (34-66%) Small (1-33%) -Necrotic Tissue Type Adherent Slough Adherent Slough -Structure Exposed Fascia,Muscle Tendon,Fascia -Texture (Eloisa-wound Skin Appearance) Assessed Assessed -Moisture (Eloisa-wound Skin Appearance) Assessed Assessed -Color (Eloisa-wound Skin Appearance) Assessed Assessed -Temperature (Eloisa-wound Skin No Abnormality No Abnormality Appearance) (Pt Warm) (Pt Warm) -Tenderness on Palpation (Eloisa-wound No No Skin Appearance) -Ulcer Cleansing Soap and Water Soap and Water -Foul Odor after Cleansing No No -Anesthetic Used 4% Lidocaine 4% Lidocaine Solution Solution WC - Nurse 2 - General Ulcer CM Notes Start: 11/01/24 10:12 Freq: Status: Active Protocol: Activity Type Activity Date Activity User E-sign Co-sign Detail Recorded Client Recorded Date Recorded By Document 11/01/24 10:37 BMF [id number] 11/01/24 10:59 BMF Edit Result 11/01/24 10:37 BMF (1) [id number] 11/01/24 13:05 BMF Edit Result 11/01/24 10:37 BMF (2) [id number] 11/01/24 13:07 BMF Document 11/08/24 13:58 JF [id number] 11/08/24 14:08 JF (1) #6 LT POST LE - Post Debridement (cm) - Depth 0.1 => 1 (2) #6 LT POST LE - Post Debridement (cm) - Depth 1 => 0.4 11/01/24 11/08/24 10:37 13:58 Wound Center Nurse 2 #6 LT POST LE -Time 10:42 13:59 -Correct Patient Yes Yes -Correct Side, Site, Position Yes Yes -Correct Procedure Yes Yes -Procedure Performed Yes Yes -Type of Procedure Debridement Debridement -Clinical Debridement Muscle / Fascia Muscle / Fascia -Tissue Removed Muscle,Fascia Muscle -Post Debridement (cm) - Length 12 12 -Post Debridement (cm) - Width 5 5 -Post Debridement (cm) - Depth 0.4 0.4 -Total Square (Post) (cm) 60 60 -Area of Debridement (cm) - Length 12 12 -Area of Debridement (cm) - Width 5 5 -Total Square (Area) (cm) 60 60 -Tunneling No -Undermining/Tunneling No -Circular Undermining No -Wound/Ulcer Outcome Not Healed Not Healed -Ulcer Cleansing Rinsed/ Rinsed/ Irrigated with Irrigated with Saline Saline -Foul Odor after Cleansing No No -Bioengineered Tissue No No -Bleeding Controlled with Pressure,Silver Pressure Nitrate ($) -Treatment Response Procedure Procedure Tolerated Well Tolerated Well -Offloading No -Debridement - Muscle / Fascia, 1st Yes Yes 20sq cm -Debridement, Muscle/Fascia, ea addt'l 2 2 20sq cm or part thereof Pain Scale: 0-10 Numeric Is Patient Pain Free? Yes Yes WC - Nurse 3 - General Ulcer D/C NN Start: 11/01/24 10:12 Freq: Status: Active Protocol: Activity Type Activity Date Activity User E-sign Co-sign Detail Recorded Client Recorded Date Recorded By Document 11/01/24 11:11 KW [id number] 11/01/24 11:12 KW Document 11/08/24 14:41 [facility] [id number] 11/08/24 14:41 [facility] 11/01/24 11/08/24 11:11 14:41 Wound Care Center Nurse 3 #6 LT POST LE -Ulcer Cleansing Soap and Water -Foul Odor after Cleansing No -Negative Pressure Wound Therapy Start -Pieces of Black Foam Inserted 1 -NPWT Application Charge NPWT & Debridement (nc ) -Setting (mmHg) 125 -Negative Pressure is Continuous -Other Dressing dakins moisted gauze -Primary Dressing Covered/Secured with Dry Gauze & Roll Gauze, Secured with Tape LLE -Compression Wrap Rod Wrap Rod Wrap Treatment Response Procedure Tolerated Well Pain Scale: 0-10 Numeric Is Patient Pain Free? 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 Ordering home wound VAC for 3 times per week VAC changes to improve granulation and prepare granulation tissue over the fascia for split-thickness skin graft. I believe that the skin graft did not take as the fascia did not have enough granulating tissue underneath to support the graft. Patient's situation is complicated by many factors including significant immunosuppression for his kidney allograft. Follow-up weekly in the wound care center as wound continues to granulate. I will consider a dermal substitute as well (Integra) if you are having trouble getting granulation over the fascia. (2) Postoperative wound dehiscence: CODE(S): T81.31XA - Disruption of external operation (surgical) wound, not elsewhere classified, initial encounter QUALIFIERS: Encounter type: initial encounter Qualified Code(s): T81.31XA - Disruption of external operation (surgical) wound, not elsewhere classified, initial encounter PLAN: There is dehiscence of the TFL suspension and of the lateral aspects of the flap. Plan from ENT is to get wound healed and radiate and defer further reconstruction. Plastics available as needed
[2024-11-10 14:36] VITALS: BP 122/61; PULSE 83; RESP 16; TEMP 36.1; BMI 25.4
[2024-11-12 11:18] VITALS: BP 91/47; PULSE 103; RESP 18; TEMP 36.1; BMI 25.4
[2024-11-15 13:49] VITALS: BP 115/55; PULSE 84; RESP 16; TEMP 36.5; BMI 25.4
--- NOTE | 2024-11-15 15:32 | PCM.WC.PN ---
History of Present Illness Date of Service: 11/15/24 Chief Complaint: Surgical wound dehiscence of the left lower extremity History of Wound: Raymundo Soler is a delightful 58-year-old male with history of type 1 diabetes as well as other multiple pre-existing comorbid medical conditions including end-stage kidney disease who underwent wide local excision for a lower lip squamous cell carcinoma as well as selective neck dissection at [facility] on 08 October 2024, followed by immediate reconstruction with a left cervical advancement flap, tensor fascia jaspreet sling, and left medial sural artery oil analyst free flap reconstruction anastomosed to the left facial artery. In addition, a split-thickness skin graft was obtained from the patient's left anterolateral thigh for reconstruction of the donor site. He was seen and evaluated by Dr. Miguel Meneses at the wound care center last week and referred to me for follow-up as he has persistent left calf surgical wound with exposure of underlying gastrocnemius muscle. The patient's operative report was reviewed today (I reviewed extensive medical medical records from the clinical). The patient reports that he has been doing dressing changes for the left medial calf with the assistance of his who is at the appointment today. He also is complaining that he is having some drooling. He has been eating like normal since surgery (no PEG tube) and feels like he is getting sufficient calories. The patient has multiple pre-existing conditions, including diabetes mellitus type 1, end-stage renal failure for which the patient has previously undergone renal transplantation, peripheral polyneuropathy, steroid-induced osteoporosis, and peripheral vascular disease. 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 Patient is currently making excellent urine. He takes Prograf and corticosteroids for immunosuppression. He does not smoke. Subjective Subjective 08 Nov 2024: Patient went to ENT at [facility] on 04 Nov 2024. Reportedly they debrided the lower lip reconstruction, and suggested he start Medihoney dressing changes. He reports significant progress in the wound since then. And his plan is to defer further reconstruction on the face until after radiation has begun. With regards to the left calf wound, ENT has deferred wound care to our team at [facility]. He got at the nutrition labs on 06 Nov 2024 (last Friday) and they demonstrated the following: Albumin 3.4 Prealbumin 14 A1c of 5.9 Hemoglobin of 10.4 with MCV of 100 Discussed high-protein intake with the patient today. We discussed wound care with wound VAC. The VAC was delivered and is ready for placement today. Current encounter, 15 Nov 2024: Doing well overall with wound VAC therapy. He is following up with dentistry for getting his teeth pulled in the setting of planned adjuvant radiation. No fevers chills or drainage from the leg Objective Data Objective Data Vital Signs: Vital Signs Temp Pulse Resp BP O2 Del Method 97.7 F L 84 16 115/55 L Room Air 11/15/24 13:49 11/15/24 13:49 11/15/24 13:49 11/15/24 13:49 11/15/24 13:49 Oxygen Delivery Method Room Air Weight: 188 lb Body Mass Index (BMI) 25.4 Charges/Coding Procedures Integumentary 111xxx-113xx: 59517 Bethany musc/fascia 20 sq cm/< Add On Codes: 26288 Bethany musc/fascia add-on (x 2 units ) Physical Exam Narrative Head and neck: There is dehiscence of the flap medially with healthy granulation at the base today. no purulent drainage or signs of acute infection. Much improvement since last week. There is dehiscence of the left lateral oral commissure with rupture of the tensor fascia jaspreet sling. Macrostomia with loss of support on the left commissure with oral incompetence. The flap is warm and well-perfused and viable, excellent residual soft tissue without any significant necrosis. Left lower extremity: Thigh skin graft donor site and TFL harvest incision both healed Left posterior medial calf with 12 x 5 cm wound with exposed fascia over the medial gastrocnemius. It is 0.5 cm deep. There is improved granulation tissue over the gastrocnemius muscle, but still exposed fascia. Vascular: 2+ posterior tibial pulse Sensory: He is numb distal to the wound on the leg, and has limited sensation in his feet (but reports that this is a persistent, chronic problem). Photograph from exam on 01 Nov 2024: Debridement Note Debridement Note Wound debrided: Left leg wound Laterality: Left Wound Grade/Stage: Stage III Type of Debridement: Excisional debridement Anesthesia Used: 4% Lidocaine Solution Depth: to muscle (With exposed fascia) Percentage of wound debrided: 100 Instrument Used: 7mm curette Tissue Removed: Necrotic tissue debris muscle level,including desiccated/necrotic fascia Severity: Necrosis of Muscle (Tried and desiccated fascia requiring excision) Amount of bleeding with debridement: Moderate Bleeding Controlled with: Compression and gauze Patient tolerated procedure: Patient tolerated procedure well Post-Debridement Measurements and Additional Note: Post-Debridement Measurements/Treatment - Nurse 1 - General Ulcer Assessment Start: 11/01/24 10:12 Freq: Status: Active Protocol: WC.LOWEXClaire Activity Type Activity Date Activity User E-sign Co-sign Detail Recorded Client Recorded Date Recorded By Document 11/01/24 10:13 KW [id number] 11/01/24 10:24 KW Document 11/08/24 13:31 KW [id number] 11/08/24 13:40 KW Document 11/10/24 14:36 KW [id number] 11/10/24 14:51 KW Document 11/12/24 11:18 KW [id number] 11/12/24 11:44 KW Document 11/15/24 13:49 GM [id number] 11/15/24 13:54 GM 11/01/24 11/08/24 11/10/24 10:13 13:31 14:36 - Today's Visit Information Type of service Follow-up Visit Follow-up Visit Follow-up Visit (Physician/MECHANICAL ENGINEERING ADVISOR (Physician/MECHANICAL ENGINEERING ADVISOR (Physician/MECHANICAL ENGINEERING ADVISOR ) ) ) Arrival Mode Ambulatory Ambulatory Ambulatory Transfer Assistance Accompanied by mother mother Patient Identification Verified (Name & Yes Yes Yes ) Patient Requires Transmission-Based Precautions Height and Weight Body Mass Index (BMI) 25.4 25.4 25.4 BMI Classification Overweight Overweight Overweight Vital Signs Temperature (97.8 F-99.1 F) 96.9 F L 97.4 F L 97.0 F L Temperature Source Temporal Temporal Temporal Pulse Rate (60-100) 91 89 83 Pulse Location Monitor Monitor Monitor Respiratory Rate (12-18) 16 16 16 Respiratory rate source Observation Observation Observation Oxygen Delivery Method Room Air Room Air Room Air Blood Pressure (90/60-120/80) 111/68 126/18 H 122/61 H Blood Pressure Mean (mm Hg) 82 54 81 Source Monitor Monitor Monitor Position Semi-Fowlers Sitting Sitting Blood Pressure Location Right Arm Left Arm Left Arm History Since Last Visit- (Skip if this is Patient's initial visit) Have you changed medications since your No No No last visit? Any new allergies or adverse reactions No No No Had a fall/change in ADL's that may No No No increase risk of falls Signs or symptoms of abuse and/or No No No neglect since last visit Have you been in the hospital since your No No No last visit? Has dressing in place as prescribed Yes Yes Yes Has compression in place as prescribed Yes Yes Yes Has offloadiing in place as prescribed N/A N/A N/A Experienced any changes in pain level or No No No management Left Footwear Regular Shoe Regular Shoe Regular Shoe Right Footwear Regular Shoe Regular Shoe Regular Shoe Pain Scale: 0-10 Numeric Is Patient Pain Free? Yes Yes Yes 11/12/24 11/15/24 11:18 13:49 - Today's Visit Information Type of service Nurse-only Follow-up Visit Visit (Physician/MECHANICAL ENGINEERING ADVISOR ) Arrival Mode Ambulatory Ambulatory Transfer Assistance None Accompanied by mother Patient Identification Verified (Name & Yes Yes ) Patient Requires Transmission-Based No Precautions Height and Weight Body Mass Index (BMI) 25.4 25.4 BMI Classification Overweight Overweight Vital Signs Temperature (97.8 F-99.1 F) 97.0 F L 97.7 F L Temperature Source Temporal Temporal Pulse Rate (60-100) 103 H 84 Pulse Location Monitor Monitor Respiratory Rate (12-18) 18 16 Respiratory rate source Observation Observation Oxygen Delivery Method Room Air Room Air Blood Pressure (90/60-120/80) 91/47 L 115/55 L Blood Pressure Mean (mm Hg) 61 75 Source Monitor Monitor Position Sitting Sitting Blood Pressure Location Left Arm Left Arm History Since Last Visit- (Skip if this is Patient's initial visit) Have you changed medications since your No No last visit? Any new allergies or adverse reactions No No Had a fall/change in ADL's that may No No increase risk of falls Signs or symptoms of abuse and/or No No neglect since last visit Have you been in the hospital since your No No last visit? Has dressing in place as prescribed Yes Yes Has compression in place as prescribed N/A Yes Has offloadiing in place as prescribed N/A N/A Experienced any changes in pain level or No No management Left Footwear Regular Shoe Right Footwear Regular Shoe Pain Scale: 0-10 Numeric Is Patient Pain Free? Yes Yes - Nurse 1 - General Ulcer Measurement Start: 11/01/24 10:12 Freq: Status: Active Protocol: Activity Type Activity Date Activity User E-sign Co-sign Detail Recorded Client Recorded Date Recorded By Document 11/01/24 10:13 KW [id number] 11/01/24 10:24 KW Document 11/08/24 13:31 KW [id number] 11/08/24 13:40 KW Document 11/15/24 13:49 [id number] 11/15/24 13:54 11/01/24 11/08/24 11/15/24 10:13 13:31 13:49 Wound Center Nurse 1 #6 LT POST LE -Current Size (cm) - Length 15 14 12.4 -Current Size (cm) - Width 6.8 5 5.0 -Current Size (cm) - Depth 0.4 1 0.4 -Total Square Cm 102.0 70 62.00 -Date of Last Picture (Recall this 11/15/24 field) -Photo Taken Yes -Epithelialization Small 1-33% -Tunneling No -Undermining/Tunneling Yes Yes Yes -Undermining/Tunneling Starts (O'clock 10 9 12 ) -Undermining/Tunneling Ends (O'clock) 2 3 5 -Maximum Distance (cm) 5 6 3.8 -Circular Undermining No -Exudate Amt Large Medium Medium -Exudate Type Serosanguineous Serosanguineous Yellow/Green -Wound Margin Distinct, Distinct, Distinct, Outline Outline Outline Attached Attached Attached -Granulation Amt Large (67-100%) Large (67-100%) Small (1-33%) -Granulation Quality Red Red Red -Slough/Fibrin Yes No -Necrosis Amt Medium (34-66%) Small (1-33%) -Necrotic Tissue Type Adherent Slough Adherent Slough -Structure Exposed Fascia,Muscle Tendon,Fascia Fascia -Texture (Eloisa-wound Skin Appearance) Assessed Assessed Assessed -Moisture (Eloisa-wound Skin Appearance) Assessed Assessed Assessed, Maceration -Color (Eloisa-wound Skin Appearance) Assessed Assessed Assessed -Temperature (Eloisa-wound Skin No Abnormality No Abnormality Appearance) (Pt Warm) (Pt Warm) -Tenderness on Palpation (Eloisa-wound No No Skin Appearance) -Ulcer Cleansing Soap and Water Soap and Water Soap and Water -Foul Odor after Cleansing No No No -Anesthetic Used 4% Lidocaine 4% Lidocaine 4% Lidocaine Solution Solution Solution WC - Nurse 2 - General Ulcer CM Notes Start: 11/01/24 10:12 Freq: Status: Active Protocol: Activity Type Activity Date Activity User E-sign Co-sign Detail Recorded Client Recorded Date Recorded By Document 11/01/24 10:37 BMF [id number] 11/01/24 10:59 BMF Edit Result 11/01/24 10:37 BMF (1) [id number] 11/01/24 13:05 BMF Edit Result 11/01/24 10:37 BM (2) [id number] 11/01/24 13:07 BMF Document 11/08/24 13:58 [id number] 11/08/24 14:08 Document 11/15/24 14:18 [id number] 11/15/24 14:20 JF (1) #6 LT POST LE - Post Debridement (cm) - Depth 0.1 => 1 (2) #6 LT POST LE - Post Debridement (cm) - Depth 1 => 0.4 11/01/24 11/08/24 11/15/24 10:37 13:58 14:18 Wound Center Nurse 2 #6 LT POST LE -Time 10:42 13:59 14:18 -Correct Patient Yes Yes Yes -Correct Side, Site, Position Yes Yes Yes -Correct Procedure Yes Yes Yes -Procedure Performed Yes Yes Yes -Type of Procedure Debridement Debridement Debridement -Clinical Debridement Muscle / Fascia Muscle / Fascia Muscle / Fascia -Tissue Removed Muscle,Fascia Muscle Fascia -Post Debridement (cm) - Length 12 12 12 -Post Debridement (cm) - Width 5 5 5 -Post Debridement (cm) - Depth 0.4 0.4 0.5 -Total Square (Post) (cm) 60 60 60 -Area of Debridement (cm) - Length 12 12 12 -Area of Debridement (cm) - Width 5 5 5 -Total Square (Area) (cm) 60 60 60 -Tunneling No No -Undermining/Tunneling No No -Circular Undermining No No -Wound/Ulcer Outcome Not Healed Not Healed Not Healed -Ulcer Cleansing Rinsed/ Rinsed/ Rinsed/ Irrigated with Irrigated with Irrigated with Saline Saline Saline -Foul Odor after Cleansing No No No -Bioengineered Tissue No No No -Bleeding Controlled with Pressure,Silver Pressure Pressure Nitrate ($) -Treatment Response Procedure Procedure Procedure Tolerated Well Tolerated Well Tolerated Well -Offloading No No -Debridement - Muscle / Fascia, 1st Yes Yes Yes 20sq cm -Debridement, Muscle/Fascia, ea addt'l 2 2 2 20sq cm or part thereof Pain Scale: 0-10 Numeric Is Patient Pain Free? Yes Yes Yes - Nurse 3 - General Ulcer D/C NN Start: 11/01/24 10:12 Freq: Status: Active Protocol: Activity Type Activity Date Activity User E-sign Co-sign Detail Recorded Client Recorded Date Recorded By Document 11/01/24 11:11 KW [id number] 11/01/24 11:12 KW Document 11/08/24 14:41 BM [id number] 11/08/24 14:41 BMF Document 11/10/24 14:36 KW [id number] 11/10/24 14:51 KW Document 11/12/24 11:18 KW [id number] 11/12/24 11:44 KW Document 11/15/24 14:30 KW [id number] 11/15/24 14:32 KW 11/01/24 11/08/24 11/10/24 11:11 14:41 14:36 Wound Care Center Nurse 3 #6 LT POST LE -Ulcer Cleansing Soap and Water Soap and Water -Foul Odor after Cleansing No No -Negative Pressure Wound Therapy Start Continue -Pieces of Black Foam Inserted 1 1 -NPWT Application Charge NPWT & NPWT > 50 sq cm Debridement (nc ($) ) -Setting (mmHg) 125 125 -Negative Pressure is Continuous Continuous -Other Dressing dakins moisted gauze -Primary Dressing Covered/Secured with Dry Gauze & Roll Gauze, Secured with Tape LLE -Compression Wrap Rod Wrap Rod Wrap Rod Wrap Treatment Response Procedure Tolerated Well Pain Scale: 0-10 Numeric Is Patient Pain Free? Yes Yes Yes - Visit Discharge Discharge Condition Stable Stable Stable Ambulatory Status Ambulatory Ambulatory Ambulatory Transportation Private Auto Private Auto Private Auto Accompanied by mom Medication Reconcilliation completed & No No provided to patient/care provider Clinical Summary of Care Provided Yes Yes 11/12/24 11/15/24 11:18 14:30 Wound Care Center Nurse 3 #6 LT POST LE -Ulcer Cleansing Soap and Water -Foul Odor after Cleansing -Negative Pressure Wound Therapy Continue -Pieces of Black Foam Inserted 1 1 -NPWT Application Charge NPWT > 50 sq cm ($) -Setting (mmHg) 125 125 -Negative Pressure is Continuous Continuous -Other Dressing -Primary Dressing Covered/Secured with LLE -Compression Wrap Rod Wrap Rod Wrap Treatment Response Pain Scale: 0-10 Numeric Is Patient Pain Free? 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 Ordering home wound VAC for 3 times per week VAC changes to improve granulation and prepare granulation tissue over the fascia for split-thickness skin graft. I believe that the skin graft did not take as the fascia did not have enough granulating tissue underneath to support the graft. Patient's situation is complicated by many factors including significant immunosuppression for his kidney allograft. Plan for likely skin grafting in a couple of weeks when there is better granulation tissue in a better wound bed (will reassess wound next week). Continue 3 times per week VAC changes for now. I will also consider a dermal substitute as well (Integra) if we are having trouble getting granulation over the fascia. (2) Postoperative wound dehiscence: CODE(S): T81.31XA - Disruption of external operation (surgical) wound, not elsewhere classified, initial encounter QUALIFIERS: Encounter type: initial encounter Qualified Code(s): T81.31XA - Disruption of external operation (surgical) wound, not elsewhere classified, initial encounter PLAN: There is dehiscence of the TFL suspension and of the lateral aspects of the flap. Plan from ENT is to get wound healed and radiate and defer further reconstruction. Plastics available as needed
--- NOTE | 2024-11-16 13:00 | WC ---
L POST LE 11/15/24
[2024-11-25 14:21] VITALS: BP 109/58; PULSE 85; RESP 18; TEMP 37.1; BMI 25.4
--- NOTE | 2024-11-26 09:21 | PN.PCM_ITS ---
History of Present Illness Date of Service: 11/25/24 Chief Complaint: Surgical wound dehiscence of the left lower extremity History of Wound: Raymundo Soler is a delightful 58-year-old male with history of type 1 diabetes as well as other multiple pre-existing comorbid medical conditions including end-stage kidney disease who underwent wide local excision for a lower lip squamous cell carcinoma as well as selective neck dissection at [facility] on 08 October 2024, followed by immediate reconstruction with a left cervical advancement flap, tensor fascia jaspreet sling, and left medial sural artery energy trading analyst free flap reconstruction anastomosed to the left facial artery. In addition, a split-thickness skin graft was obtained from the patient's left anterolateral thigh for reconstruction of the donor site. He was seen and evaluated by Dr. Miguel Meneses at the wound care center last week and referred to me for follow-up as he has persistent left calf surgical wound with exposure of underlying gastrocnemius muscle. The patient's operative report was reviewed today (I reviewed extensive medical medical records from the clinical). The patient reports that he has been doing dressing changes for the left medial calf with the assistance of his who is at the appointment today. He also is complaining that he is having some drooling. He has been eating like normal since surgery (no PEG tube) and feels like he is getting sufficient calories. The patient has multiple pre-existing conditions, including diabetes mellitus type 1, end-stage renal failure for which the patient has previously undergone renal transplantation, peripheral polyneuropathy, steroid-induced osteoporosis, and peripheral vascular disease. 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 Patient is currently making excellent urine. He takes Prograf and corticosteroids for immunosuppression. He does not smoke. Subjective Subjective 08 Nov 2024: Patient went to ENT at [facility] on 04 Nov 2024. Reportedly they debrided the lower lip reconstruction, and suggested he start Medihoney dressing changes. He reports significant progress in the wound since then. And his plan is to defer further reconstruction on the face until after radiation has begun. With regards to the left calf wound, ENT has deferred wound care to our team at [place]. He got at the nutrition labs on 06 Nov 2024 (last Friday) and they demonstrated the following: Albumin 3.4 Prealbumin 14 A1c of 5.9 Hemoglobin of 10.4 with MCV of 100 Discussed high-protein intake with the patient today. We discussed wound care with wound VAC. The VAC was delivered and is ready for placement today. 15 Nov 2024: Doing well overall with wound VAC therapy. He is following up with dentistry for getting his teeth pulled in the setting of planned adjuvant radiation. No fevers chills or drainage from the leg. Current encounter, 25 Nov 2024: Patient endorses excellent 3 times per week VAC changes. Doing well overall Objective Data Objective Data Vital Signs: Vital Signs Temp Pulse Resp BP O2 Del Method 98.8 F 85 18 109/58 L Room Air 11/25/24 14:21 11/25/24 14:21 11/25/24 14:21 11/25/24 14:21 11/15/24 13:49 Oxygen Delivery Method Room Air Weight: 188 lb Body Mass Index (BMI) 25.4 Charges/Coding Procedures Integumentary 111xxx-113xx: [id number] Bethany musc/fascia 20 sq cm/< Add On Codes: 77837 Bethany musc/fascia add-on Physical Exam Narrative Head and neck (from 15 Nov 2024): There is dehiscence of the flap medially with healthy granulation at the base today. no purulent drainage or signs of acute infection. Much improvement since last week. There is dehiscence of the left lateral oral commissure with rupture of the tensor fascia jaspreet sling. Macrostomia with loss of support on the left commissure with oral incompetence. The flap is warm and well-perfused and viable, excellent residual soft tissue without any significant necrosis. Left lower extremity from today's visit (25 Nov 2024): Thigh skin graft donor site and TFL harvest incision both healed Left posterior medial calf with 9 x 3 cm wound with exposed fascia over the medial gastrocnemius. It is 0.5 cm deep. There is improved granulation tissue over the gastrocnemius muscle. Vascular: 2+ posterior tibial pulse Sensory: He is numb distal to the wound on the leg, and has limited sensation in his feet (but reports that this is a persistent, chronic problem). Photograph from exam on 25 Nov 2024: Debridement Note Debridement Note Wound debrided: Left calf wound Laterality: Left Wound Grade/Stage: Stage III Type of Debridement: Excisional debridement Anesthesia Used: 4% Lidocaine Solution and - (10 cc of 1% lidocaine with 1- 200,000 epinephrine) Depth: to muscle Percentage of wound debrided: 100 Instrument Used: 7mm curette Tissue Removed: Hypertrophic granulation tissue and fibrinous exudate from the muscle layer Severity: Necrosis of Muscle Amount of bleeding with debridement: Moderate Bleeding Controlled with: Compression and gauze and - (Epinephrine from the above-noted local anesthesia) Patient tolerated procedure: Patient tolerated procedure well Post-Debridement Measurements and Additional Note: Post-Debridement Measurements/Treatment WC - Nurse 1 - General Ulcer Assessment Start: 11/01/24 10:12 Freq: Status: Active Protocol: JOSÉ MANUEL Activity Type Activity Date Activity User E-sign Co-sign Detail Recorded Client Recorded Date Recorded By Document 11/01/24 10:13 KW [id number] 11/01/24 10:24 KW Document 11/08/24 13:31 KW [id number] 11/08/24 13:40 KW Document 11/10/24 14:36 KW [id number] 11/10/24 14:51 KW Document 11/12/24 11:18 KW [id number] 11/12/24 11:44 KW Document 11/15/24 13:49 GM [id number] 11/15/24 13:54 GM Document 11/25/24 14:21 DL [id number] 11/25/24 14:32 DL 11/01/24 11/08/24 11/10/24 10:13 13:31 14:36 - Today's Visit Information Type of service Follow-up Visit Follow-up Visit Follow-up Visit (Physician/OPERATIONS RESEARCH DIRECTOR (Physician/OPERATIONS RESEARCH DIRECTOR (Physician/OPERATIONS RESEARCH DIRECTOR ) ) ) Arrival Mode Ambulatory Ambulatory Ambulatory Transfer Assistance Accompanied by mother mother Patient Identification Verified (Name & Yes Yes Yes ) Patient Requires Transmission-Based Precautions Height and Weight Body Mass Index (BMI) 25.4 25.4 25.4 BMI Classification Overweight Overweight Overweight Vital Signs Temperature (97.8 F-99.1 F) 96.9 F L 97.4 F L 97.0 F L Temperature Source Temporal Temporal Temporal Pulse Rate (60-100) 91 89 83 Pulse Location Monitor Monitor Monitor Respiratory Rate (12-18) 16 16 16 Respiratory rate source Observation Observation Observation Oxygen Delivery Method Room Air Room Air Room Air Blood Pressure (90/60-120/80) 111/68 126/18 H 122/61 H Blood Pressure Mean (mm Hg) 82 54 81 Source Monitor Monitor Monitor Position Semi-Fowlers Sitting Sitting Blood Pressure Location Right Arm Left Arm Left Arm History Since Last Visit- (Skip if this is Patient's initial visit) Have you changed medications since your No No No last visit? Any new allergies or adverse reactions No No No Had a fall/change in ADL's that may No No No increase risk of falls Signs or symptoms of abuse and/or No No No neglect since last visit Have you been in the hospital since your No No No last visit? Has dressing in place as prescribed Yes Yes Yes Has compression in place as prescribed Yes Yes Yes Has offloadiing in place as prescribed N/A N/A N/A Experienced any changes in pain level or No No No management Left Footwear Regular Shoe Regular Shoe Regular Shoe Right Footwear Regular Shoe Regular Shoe Regular Shoe Pain Scale: 0-10 Numeric Is Patient Pain Free? Yes Yes Yes 11/12/24 11/15/24 11/25/24 11:18 13:49 14:21 WC - Today's Visit Information Type of service Nurse-only Follow-up Visit Follow-up Visit Visit (Physician/OPERATIONS RESEARCH DIRECTOR (Physician/OPERATIONS RESEARCH DIRECTOR ) ) Arrival Mode Ambulatory Ambulatory Ambulatory Transfer Assistance None None Accompanied by mother Patient Identification Verified (Name & Yes Yes Yes ) Patient Requires Transmission-Based No No Precautions Height and Weight Body Mass Index (BMI) 25.4 25.4 25.4 BMI Classification Overweight Overweight Overweight Vital Signs Temperature (97.8 F-99.1 F) 97.0 F L 97.7 F L 98.8 F Temperature Source Temporal Temporal Temporal Pulse Rate (60-100) 103 H 84 85 Pulse Location Monitor Monitor Monitor Respiratory Rate (12-18) 18 16 18 Respiratory rate source Observation Observation Oxygen Delivery Method Room Air Room Air Blood Pressure (90/60-120/80) 91/47 L 115/55 L 109/58 L Blood Pressure Mean (mm Hg) 61 75 75 Source Monitor Monitor Monitor Position Sitting Sitting Blood Pressure Location Left Arm Left Arm History Since Last Visit- (Skip if this is Patient's initial visit) Have you changed medications since your No No No last visit? Any new allergies or adverse reactions No No No Had a fall/change in ADL's that may No No No increase risk of falls Signs or symptoms of abuse and/or No No No neglect since last visit Have you been in the hospital since your No No No last visit? Has dressing in place as prescribed Yes Yes Yes Has compression in place as prescribed N/A Yes Yes Has offloadiing in place as prescribed N/A N/A N/A Experienced any changes in pain level or No No No management Left Footwear Regular Shoe Right Footwear Regular Shoe Pain Scale: 0-10 Numeric Is Patient Pain Free? Yes Yes Yes WC - Nurse 1 - General Ulcer Measurement Start: 11/01/24 10:12 Freq: Status: Active Protocol: Activity Type Activity Date Activity User E-sign Co-sign Detail Recorded Client Recorded Date Recorded By Document 11/01/24 10:13 KW [id number] 11/01/24 10:24 KW Document 11/08/24 13:31 KW [id number] 11/08/24 13:40 KW Document 11/15/24 13:49 GM [id number] 11/15/24 13:54 GM Document 11/25/24 14:21 DL [id number] 11/25/24 14:32 DL 11/01/24 11/08/24 11/15/24 10:13 13:31 13:49 Wound Center Nurse 1 #6 LT POST LE -Current Size (cm) - Length 15 14 12.4 -Current Size (cm) - Width 6.8 5 5.0 -Current Size (cm) - Depth 0.4 1 0.4 -Total Square Cm 102.0 70 62.00 -Date of Last Picture (Recall this 11/15/24 field) -Photo Taken Yes -Epithelialization Small 1-33% -Tunneling No -Undermining/Tunneling Yes Yes Yes -Undermining/Tunneling Starts (O'clock 10 9 12 ) -Undermining/Tunneling Ends (O'clock) 2 3 5 -Maximum Distance (cm) 5 6 3.8 -Circular Undermining No -Exudate Amt Large Medium Medium -Exudate Type Serosanguineous Serosanguineous Yellow/Green -Wound Margin Distinct, Distinct, Distinct, Outline Outline Outline Attached Attached Attached -Granulation Amt Large (67-100%) Large (67-100%) Small (1-33%) -Granulation Quality Red Red Red -Slough/Fibrin Yes No -Necrosis Amt Medium (34-66%) Small (1-33%) -Necrotic Tissue Type Adherent Slough Adherent Slough -Structure Exposed Fascia,Muscle Tendon,Fascia Fascia -Texture (Eloisa-wound Skin Appearance) Assessed Assessed Assessed -Moisture (Eloisa-wound Skin Appearance) Assessed Assessed Assessed, Maceration -Color (Eloisa-wound Skin Appearance) Assessed Assessed Assessed -Temperature (Eloisa-wound Skin No Abnormality No Abnormality Appearance) (Pt Warm) (Pt Warm) -Tenderness on Palpation (Eloisa-wound No No Skin Appearance) -Ulcer Cleansing Soap and Water Soap and Water Soap and Water -Foul Odor after Cleansing No No No -Anesthetic Used 4% Lidocaine 4% Lidocaine 4% Lidocaine Solution Solution Solution 11/25/24 14:21 Wound Center Nurse 1 #6 LT POST LE -Current Size (cm) - Length 10.7 -Current Size (cm) - Width 4 -Current Size (cm) - Depth 0.4 -Total Square Cm 42.8 -Date of Last Picture (Recall this field) -Photo Taken Yes -Epithelialization -Tunneling -Undermining/Tunneling -Undermining/Tunneling Starts (O'clock ) -Undermining/Tunneling Ends (O'clock) -Maximum Distance (cm) -Circular Undermining -Exudate Amt Medium -Exudate Type Serosanguineous -Wound Margin Distinct, Outline Attached -Granulation Amt Large (67-100%) -Granulation Quality Red -Slough/Fibrin -Necrosis Amt None Present (0 %) -Necrotic Tissue Type -Structure Exposed N/A -Texture (Eloisa-wound Skin Appearance) Scarring -Moisture (Eloisa-wound Skin Appearance) No Abnormality -Color (Eloisa-wound Skin Appearance) No Abnormality -Temperature (Eloisa-wound Skin No Abnormality Appearance) (Pt Warm) -Tenderness on Palpation (Eloisa-wound Skin Appearance) -Ulcer Cleansing Soap and Water -Foul Odor after Cleansing No -Anesthetic Used 4% Lidocaine Solution WC - Nurse 2 - General Ulcer CM Notes Start: 11/01/24 10:12 Freq: Status: Active Protocol: Activity Type Activity Date Activity User E-sign Co-sign Detail Recorded Client Recorded Date Recorded By Document 11/01/24 10:37 BMF [id number] 11/01/24 10:59 BMF Edit Result 11/01/24 10:37 BMF (1) [id number] 11/01/24 13:05 BMF Edit Result 11/01/24 10:37 BMF (2) [id number] 11/01/24 13:07 BMF Document 11/08/24 13:58 [id number] 11/08/24 14:08 Document 11/15/24 14:18 JF [id number] 11/15/24 14:20 Document 11/25/24 14:43 DS [id number] 11/25/24 14:45 DS Edit Result 11/25/24 14:43 DS (3) [id number] 11/25/24 14:50 DS Edit Result 11/25/24 14:43 DS (4) [id number] 11/25/24 16:25 DS (1) #6 LT POST LE - Post Debridement (cm) - Depth 0.1 => 1 (2) #6 LT POST LE - Post Debridement (cm) - Depth 1 => 0.4 (3) #6 LT POST LE - Correct Procedure => Yes - Procedure Performed No => Yes - Type of Procedure => Debridement - Clinical Debridement => Subcutaneous - Tissue Removed => Subcutaneous - Post Debridement (cm) - Length => 9.0 - Post Debridement (cm) - Width => 3.0 - Post Debridement (cm) - Depth => 0.1 - Total Square (Post) (cm) => 27.00 - Area of Debridement (cm) - Length => 9.0 - Area of Debridement (cm) - Width => 3.0 - Total Square (Area) (cm) => 27.00 - Tunneling => No - Undermining/Tunneling => Yes - Undermining/Tunneling Starts #2 (O' => 12 clock) - Undermining/Tunneling Ends #2 (O'clock => 3 ) - Maximum Distance #2 (cm) => 5 - Circular Undermining => No - Ulcer Cleansing => Rinsed/Irrigated => with Saline - Foul Odor after Cleansing => No - Bleeding Controlled with => Pressure - Treatment Response => Procedure => Tolerated Well - Debridement - Subq, 1st 20sq cm => Yes - Debridement, SubQ, ea addt'l 20sq cm => 1 or part thereof (4) #6 LT POST LE - Clinical Debridement Subcutaneous => Muscle / Fascia - Tissue Removed Subcutaneous => Muscle,Fascia - Debridement - Subq, 1st 20sq cm Yes => - Debridement, SubQ, ea addt'l 20sq cm 1 => or part thereof - Debridement - Muscle / Fascia, 1st => Yes 20sq cm - Debridement, Muscle/Fascia, ea addt'l => 1 20sq cm or part thereof 11/01/24 11/08/24 11/15/24 10:37 13:58 14:18 Wound Center Nurse 2 #6 LT POST LE -Time 10:42 13:59 14:18 -Correct Patient Yes Yes Yes -Correct Side, Site, Position Yes Yes Yes -Correct Procedure Yes Yes Yes -Procedure Performed Yes Yes Yes -Type of Procedure Debridement Debridement Debridement -Clinical Debridement Muscle / Fascia Muscle / Fascia Muscle / Fascia -Tissue Removed Muscle,Fascia Muscle Fascia -Post Debridement (cm) - Length 12 12 12 -Post Debridement (cm) - Width 5 5 5 -Post Debridement (cm) - Depth 0.4 0.4 0.5 -Total Square (Post) (cm) 60 60 60 -Area of Debridement (cm) - Length 12 12 12 -Area of Debridement (cm) - Width 5 5 5 -Total Square (Area) (cm) 60 60 60 -Tunneling No No -Undermining/Tunneling No No -Undermining/Tunneling Starts #2 (O' clock) -Undermining/Tunneling Ends #2 (O' clock) -Maximum Distance #2 (cm) -Circular Undermining No No -Wound/Ulcer Outcome Not Healed Not Healed Not Healed -Ulcer Cleansing Rinsed/ Rinsed/ Rinsed/ Irrigated with Irrigated with Irrigated with Saline Saline Saline -Foul Odor after Cleansing No No No -Bioengineered Tissue No No No -Bleeding Controlled with Pressure,Silver Pressure Pressure Nitrate ($) -Treatment Response Procedure Procedure Procedure Tolerated Well Tolerated Well Tolerated Well -Offloading No No -Debridement - Muscle / Fascia, 1st Yes Yes Yes 20sq cm -Debridement, Muscle/Fascia, ea addt'l 2 2 2 20sq cm or part thereof Pain Scale: 0-10 Numeric Is Patient Pain Free? Yes Yes Yes 11/25/24 14:43 Wound Center Nurse 2 #6 LT POST LE -Time 14:43 -Correct Patient Yes -Correct Side, Site, Position Yes -Correct Procedure Yes -Procedure Performed Yes -Type of Procedure Debridement -Clinical Debridement Muscle / Fascia -Tissue Removed Muscle,Fascia -Post Debridement (cm) - Length 9.0 -Post Debridement (cm) - Width 3.0 -Post Debridement (cm) - Depth 0.1 -Total Square (Post) (cm) 27.00 -Area of Debridement (cm) - Length 9.0 -Area of Debridement (cm) - Width 3.0 -Total Square (Area) (cm) 27.00 -Tunneling No -Undermining/Tunneling Yes -Undermining/Tunneling Starts #2 (O' 12 clock) -Undermining/Tunneling Ends #2 (O' 3 clock) -Maximum Distance #2 (cm) 5 -Circular Undermining No -Wound/Ulcer Outcome Not Healed -Ulcer Cleansing Rinsed/ Irrigated with Saline -Foul Odor after Cleansing No -Bioengineered Tissue No -Bleeding Controlled with Pressure -Treatment Response Procedure Tolerated Well -Offloading -Debridement - Muscle / Fascia, 1st Yes 20sq cm -Debridement, Muscle/Fascia, ea addt'l 1 20sq cm or part thereof Pain Scale: 0-10 Numeric Is Patient Pain Free? Yes WC - Nurse 3 - General Ulcer D/C NN Start: 11/01/24 10:12 Freq: Status: Active Protocol: Activity Type Activity Date Activity User E-sign Co-sign Detail Recorded Client Recorded Date Recorded By Document 11/01/24 11:11 KW [id number] 11/01/24 11:12 KW Document 11/08/24 14:[address] [facility] [id number] 11/08/24 14:[address] [facility] Document 11/10/24 14:36 KW [id number] 11/10/24 14:51 KW Document 11/12/24 11:18 KW [id number] 11/12/24 11:44 KW Document 11/15/24 14:30 KW [id number] 11/15/24 14:32 KW Document 11/25/24 15:17 [id number] 11/25/24 15:18 11/01/24 11/08/24 11/10/24 11:11 14:41 14:36 Wound Care Center Nurse 3 #6 LT POST LE -Ulcer Cleansing Soap and Water Soap and Water -Foul Odor after Cleansing No No -Negative Pressure Wound Therapy Start Continue -Pieces of Black Foam Inserted 1 1 -NPWT Application Charge NPWT & NPWT > 50 sq cm Debridement (nc ($) ) -Foam Supply Charges -Setting (mmHg) 125 125 -Negative Pressure is Continuous Continuous -Other Dressing dakins moisted gauze -Primary Dressing Covered/Secured with Dry Gauze & Roll Gauze, Secured with Tape LLE -Compression Wrap Rod Wrap Rod Wrap Rod Wrap Treatment Response Procedure Tolerated Well Pain Scale: 0-10 Numeric Is Patient Pain Free? Yes Yes Yes WC - Visit Discharge Discharge Condition Stable Stable Stable Ambulatory Status Ambulatory Ambulatory Ambulatory Transportation Private Auto Private Auto Private Auto Accompanied by mom Medication Reconcilliation completed & No No provided to patient/care provider Clinical Summary of Care Provided Yes Yes 11/12/24 11/15/24 11/25/24 11:18 14:30 15:17 Wound Care Center Nurse 3 #6 LT POST LE -Ulcer Cleansing Soap and Water Soap and Water -Foul Odor after Cleansing -Negative Pressure Wound Therapy Continue -Pieces of Black Foam Inserted 1 1 -NPWT Application Charge NPWT > 50 sq cm NPWT </= 50 sq ($) cm ($) -Foam Supply Charges Patient Supplied Dressing -Setting (mmHg) 125 125 125 -Negative Pressure is Continuous Continuous Continuous -Other Dressing -Primary Dressing Covered/Secured with LLE -Compression Wrap Rod Wrap Rod Wrap Rod Wrap Treatment Response Pain Scale: 0-10 Numeric Is Patient Pain Free? 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 I believe that the skin graft did not take as the fascia did not have enough granulating tissue underneath to support the graft. Patient's situation is complicated by many factors including significant immunosuppression for his kidney allograft. Plan for closure of proximal wound (undermined portion) and open wound skin grafting next week as the wound has appropriate granulation over the wound bed. General/LMA and local supplemental. Continue 3 times per week VAC changes for now. I talked to the patient extensively about the risks of surgery, including bleeding, infection, damage to surrounding structures, poor scaring, skin graft failure, fluid collections/abscess, surgical site dehiscence and wound formation, need for wound care, need for repeat operations, failure to obtain the desired result, DVT/PE, and the risks of anesthesia including , including stroke (from low blood pressure/ischemia or clot). The benefits and alternatives of this surgery were also discussed. All of their questions were answered, and they agreed to proceed with surgery. I talked to the patient further more about options of continued wound care with the wound VAC as he is making significant progress. He wants to get the wound healed as soon as possible and is not interested in continued wound care. He would like to speed wound healing with reconstruction of the wound. (2) Postoperative wound dehiscence: CODE(S): T81.31XA - Disruption of external operation (surgical) wound, not elsewhere classified, initial encounter QUALIFIERS: Encounter type: initial encounter Qualified Code(s): T81.31XA - Disruption of external operation (surgical) wound, not elsewhere classified, initial encounter PLAN: There is dehiscence of the TFL suspension and of the lateral aspects of the flap. Plan from ENT is to get wound healed and radiate and defer further reconstruction. Plastics available as needed PLAN: Plan CPT codes for insurance prior authorization are as follows:[id number], [id number], [id number]
--- NOTE | 2024-12-27 15:06 | PCM.WC.HP ---
History of Present Illness Date of Service: 12/27/24 Chief Complaint: Surgical wound dehiscence of the left lower extremity History of Wound: Raymundo Soler is a 59-year-old male with history of type 1 diabetes as well as other multiple pre-existing comorbid medical conditions including end-stage kidney disease. The patient underwent wide local excision for a lower lip squamous cell carcinoma as well as selective neck dissection at [facility] on 08 October 2024, followed by immediate reconstruction with a left cervical advancement flap, tensor fascia jaspreet sling, and left medial sural artery cosmetic consultant free flap reconstruction anastomosed to the left facial artery. In addition, a split-thickness skin graft was obtained from the patient's left anterolateral thigh for reconstruction of the donor site. The patient has a persistent left calf surgical wound with exposure of underlying gastrocnemius muscle. The patient has been under the care of Dr. Juan Carlos Duenas, Plastic Surgeon, for the last 6 weeks relative to the open wound on his left posterior calf. Negative pressure wound therapy has been utilized, and a TheraSkin allograft was applied for the first time 1 week ago. Patient has returned in follow-up today, and is seen as a courtesy in Dr. Duenas's absence. The patient has multiple pre-existing conditions, including diabetes mellitus type 1, end-stage renal failure for which the patient has previously undergone renal transplantation, peripheral polyneuropathy, steroid-induced osteoporosis, and peripheral vascular disease. Of note, the patient currently has a functioning kidney transplant (2 donor kidneys from small child approximately 10 years ago). He takes Prograf and corticosteroids for immunosuppression. He does not smoke. 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 Surgical wound dehiscence Postoperative wound dehiscence Chronic kidney disease Squamous cell cancer of lip Diabetic polyneuropathy Diabetes type 1, controlled Vitamin D deficiency Steroid-induced osteoporosis Home Medications ?Medication ?Instructions ?Recorded ?Last Taken ?Type aspirin 81 mg chewable tablet 81 mg PO DAILY@0800 09/07/13 Unknown History mycophenolate mofetil 250 mg 750 mg PO BID 09/07/13 Unknown History capsule prednisone 5 mg tablet 5 mg PO DAILY 09/07/13 Unknown History tacrolimus 1 mg capsule, 1 mg PO .EVENING 09/07/13 Unknown History immediate-release atorvastatin 20 mg tablet 20 mg PO QHS 04/24/16 Unknown History cholecalciferol (vitamin D3) 25 1,000 unit PO DAILY 04/24/16 Unknown History mcg (1,000 unit) tablet gabapentin 300 mg capsule 300 mg PO BIDCM 04/24/16 Unknown History Held on 10/28/23. Instructions: MD Ordered insulin lispro 100 unit/mL 16 unit subcut TIDCM 04/24/16 Unknown History subcutaneous pen naproxen sodium 220 mg tablet 220 mg PO Q12H PRN PRN Pain 04/24/16 Unknown History Held on 10/28/23. Instructions: MD Ordered omeprazole 40 mg capsule,delayed 40 mg PO DAILY 04/24/16 Unknown History release vitamin E (dl, acetate) 90 mg (200 200 unit PO DAILY 04/24/16 Unknown History unit) capsule Held on 10/28/23. Instructions: Duplicate Order dicyclomine 10 mg capsule 10 mg PO .BEFORE MEALS AND BED 07/14/20 Unknown History escitalopram oxalate 10 mg tablet 10 mg PO DAILY 07/14/20 Unknown History insulin glargine 100 unit/mL (3 30 unit subcut QHS 07/14/20 Unknown History mL) subcutaneous pen multivit,mineral-folic acid 800 1 tab PO DAILY 07/14/20 Unknown History mcg-vit K 100 mcg-herbal no.289 tablet (Alive Once Daily Women 50 Plus) zolpidem 5 mg tablet (Ambien) 5 mg PO QHS PRN sleep 07/14/20 Unknown History Held on 10/28/23. Instructions: Duplicate Order denosumab 60 mg/mL subcutaneous 60 mg subcut [id number] #1 mL 08/09/22 Unknown Rx syringe (Prolia) Held on 10/28/23. Instructions: MD Ordered bupropion HCl 75 mg tablet 75 mg PO BID 10/28/23 Unknown History hydroxyzine HCl 25 mg tablet 25 mg PO QHS PRN PRN anxiety 10/28/23 Unknown History magnesium oxide 400 mg PO DAILY 10/28/23 Unknown History amoxicillin 875 mg-potassium 1 tab PO BID 10 days #20 tabs 11/04/23 Unknown Rx clavulanate 125 mg tablet doxycycline hyclate 100 mg capsule 100 mg PO BID #20 caps 11/04/23 Unknown Rx tacrolimus 0.5 mg capsule, 0.5 mg PO DAILY 12/28/23 Unknown History immediate-release bupropion HCl 100 mg tablet,12 hr 100 mg PO BID 10/26/24 Unknown History sustained-release everolimus (immunosuppressive) 0.5 0.5 mg PO QPM 10/26/24 Unknown History mg tablet everolimus (immunosuppressive) 1 1 mg PO BID 10/26/24 Unknown History mg tablet famotidine 40 mg tablet 40 mg PO BID 10/26/24 Unknown History Allergy/AdvReac Type Severity Reaction Status Date / Time No Known Allergies Allergy Verified 10/26/24 13:09 Surgical History History of amputation of left great toe History of melanoma excision History of appendectomy Renal transplant, status post Social History Smoking Status: Never smoker alcohol intake: never substance use type: does not use Vital Signs Vital Signs Vital Signs: Weight Weight: 188 lb Body Mass Index (BMI) 25.4 Physical Exam Const alert, oriented x3, no apparent distress, average body habitus and no limitations Constitutional Narrative: The patient's BMI is 25.5. General Appearance: cooperative, comfortable, well kempt and well developed Orientation / Consciousness: awake, oriented to person, oriented to place and oriented to time Exam Limitations: no limitations HEENT normocephalic and head/scalp atraumatic Head and Scalp: normal to inspection External Ear: external ears normal Eyes EOMs intact bilaterally Resp normal respiratory effort, normal air movement, no retractions and no use of accessory muscles Effort and Inspection: able to speak in complete sentences Skin Wound Narrative: There is no swelling or edema noted in the patient's left lower extremity. A large wound is noted on the patient's left posterior calf. Dimensions are documented elsewhere. Covering the entire wound is an intact TheraSkin allograft which was placed 1 week ago. The allograft is not degrade in any way. It is firmly attached to the underlying wound. There is no drainage. There is no odor. There is no periwound erythema or inflammation. 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: CODE(S): L97.905 - Non-pressure chronic ulcer of unspecified part of unspecified lower leg with muscle involvement without evidence of necrosis QUALIFIERS: Laterality: left Qualified Code(s): L97.925 - Non-pressure chronic ulcer of unspecified part of left lower leg with muscle involvement without evidence of necrosis (2) Postoperative wound dehiscence: CODE(S): T81.31XA - Disruption of external operation (surgical) wound, not elsewhere classified, initial encounter QUALIFIERS: Encounter type: subsequent encounter Qualified Code(s): T81.31XD - Disruption of external operation (surgical) wound, not elsewhere classified, subsequent encounter (3) History of amputation of left great toe: CODE(S): Z89.412 - Acquired absence of left great toe (4) History of appendectomy: CODE(S): Z90.49 - Acquired absence of other specified parts of digestive tract (5) History of melanoma excision: CODE(S): Z98.890 - Other specified postprocedural states; Z85.820 - Personal history of malignant melanoma of skin (6) Chronic kidney disease: CODE(S): N18.9 - Chronic kidney disease, unspecified (7) Squamous cell cancer of lip: CODE(S): C44.02 - Squamous cell carcinoma of skin of lip (8) Diabetic polyneuropathy: CODE(S): E11.42 - Type 2 diabetes mellitus with diabetic polyneuropathy PLAN: Plan This is a 59-year-old male who has been under the care of Dr. Juan Carlos Duenas, Plastic Surgeon, in recent weeks. Initially, negative pressure wound therapy was used for the left posterior calf surgical wound. However, one week ago, the first TheraSkin allograft was applied. Upon examination today, the TheraSkin allograft appears completely intact, and has not degraded to any degree by visual inspection. It is firmly attached, with no odor, drainage, or sign of infection. Therefore, the decision was made to leave the TheraSkin allograft intact and in place, in anticipation that continued benefit could be achieved for an additional week. Adaptic was placed over the intact allograft, it was anchored in place using Steri-Strips. Hydrogel was then placed over the site, and covered with gauze. The patient has been instructed to leave the site dry and undisturbed for another week, and to follow-up with Dr. Duenas in one week. He has also been advised to optimize his nutritional intake, as well as his glycemic control. The patient is aware that his immunosuppression status may affect ultimate wound healing. Total time: 25 minutes
== END 2024-11-27 23:59 | disposition home or self-care (01) ==
LOC: WC 14:15
PROVIDERS: PCP Internal Medicine; Referring Provider Student in an Organized Health Care Education/Training Program; Visit Provider Surgery Plastic and Reconstructive Surgery
DX: E10.622 Type 1 diabetes mellitus with other skin ulcer (principal); L97.223 Non-pressure chronic ulcer of left calf with necrosis of muscle; N18.6 End stage renal disease; E10.51 Type 1 diabetes mellitus with diabetic peripheral angiopathy without gangrene; E10.42 Type 1 diabetes mellitus with diabetic polyneuropathy; C44.02 Squamous cell carcinoma of skin of lip; T81.31XA Disruption of external operation (surgical) wound, not elsewhere classified, initial encounter; Z94.0 Kidney transplant status; Z79.82 Long term (current) use of aspirin; Z79.899 Other long term (current) drug therapy
CPT/HCPCS: 11042; 11043; 11045; 11046; 97605; 97606

== ENCOUNTER 2024-12-27 14:00 | Outpatient (RCR) | payer MEDICARE, MEDICAID, SELFPAY ==
[2024-11-28 00:20] VITALS: BP 109/58; PULSE 85; RESP 18; TEMP 37.1; BMI 25.4
[2024-12-06 10:14] VITALS: BP 129/69; PULSE 85; RESP 16; TEMP 36; BMI 25.4
--- NOTE | 2024-12-06 11:19 | PCM.WC.PN ---
History of Present Illness Date of Service: 12/06/24 Chief Complaint: Surgical wound dehiscence of the left lower extremity History of Wound: Raymundo Soler is a delightful 58-year-old male with history of type 1 diabetes as well as other multiple pre-existing comorbid medical conditions including end-stage kidney disease who underwent wide local excision for a lower lip squamous cell carcinoma as well as selective neck dissection at [facility] on 08 October 2024, followed by immediate reconstruction with a left cervical advancement flap, tensor fascia jaspreet sling, and left medial sural artery habilitation training specialist free flap reconstruction anastomosed to the left facial artery. In addition, a split-thickness skin graft was obtained from the patient's left anterolateral thigh for reconstruction of the donor site. He was seen and evaluated by Dr. Miguel Meneses at the wound care center last week and referred to me for follow-up as he has persistent left calf surgical wound with exposure of underlying gastrocnemius muscle. The patient's operative report was reviewed today (I reviewed extensive medical medical records from the clinical). The patient reports that he has been doing dressing changes for the left medial calf with the assistance of his who is at the appointment today. He also is complaining that he is having some drooling. He has been eating like normal since surgery (no PEG tube) and feels like he is getting sufficient calories. The patient has multiple pre-existing conditions, including diabetes mellitus type 1, end-stage renal failure for which the patient has previously undergone renal transplantation, peripheral polyneuropathy, steroid-induced osteoporosis, and peripheral vascular disease. 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 Patient is currently making excellent urine. He takes Prograf and corticosteroids for immunosuppression. He does not smoke. Subjective Subjective 08 Nov 2024: Patient went to ENT at [facility] on 04 Nov 2024. Reportedly they debrided the lower lip reconstruction, and suggested he start Medihoney dressing changes. He reports significant progress in the wound since then. And his plan is to defer further reconstruction on the face until after radiation has begun. With regards to the left calf wound, ENT has deferred wound care to our team at [place]. He got at the nutrition labs on 06 Nov 2024 (last Friday) and they demonstrated the following: Albumin 3.4 Prealbumin 14 A1c of 5.9 Hemoglobin of 10.4 with MCV of 100 Discussed high-protein intake with the patient today. We discussed wound care with wound VAC. The VAC was delivered and is ready for placement today. 15 Nov 2024: Doing well overall with wound VAC therapy. He is following up with dentistry for getting his teeth pulled in the setting of planned adjuvant radiation. No fevers chills or drainage from the leg. Current encounter, 25 Nov 2024: Patient endorses excellent 3 times per week VAC changes. Doing well overall. He decided to cancel his skin grafting procedure as he does not want another surgery and would like to continue local wound care. Objective Data Objective Data Vital Signs: Vital Signs Temp Pulse Resp BP O2 Del Method 96.8 F L 85 16 129/69 H Room Air 12/06/24 10:14 12/06/24 10:14 12/06/24 10:14 12/06/24 10:14 12/06/24 10:14 Oxygen Delivery Method Room Air Weight: 188 lb Body Mass Index (BMI) 25.4 Charges/Coding Procedures Integumentary 111xxx-113xx: [id number] Bethany musc/fascia 20 sq cm/< Physical Exam Narrative Left lower extremity from today's visit (06 December 2024): Thigh skin graft donor site and TFL harvest incision both healed Left posterior medial calf with 7 x 3 cm wound with exposed fascia over the medial gastrocnemius. It is 0.5 cm deep. There is improved granulation tissue over the gastrocnemius muscle. There is 1 cm of undermining superiorly Vascular: 2+ posterior tibial pulse Sensory: He is numb distal to the wound on the leg, and has limited sensation in his feet (but reports that this is a persistent, chronic problem). Photograph from exam on 06 December 2024: Debridement Note Debridement Note Wound debrided: Left posterior calf wound Laterality: Left Wound Grade/Stage: Stage III down to muscle and fascia Type of Debridement: Excisional debridement Anesthesia Used: 4% Lidocaine Solution Depth: to muscle (To the gastrocnemius muscle and gastrocnemius fascia) and - Percentage of wound debrided: 100 Instrument Used: 7mm curette Tissue Removed: Necrotic fascia, fibrinous exudate, and biofilm Severity: Necrosis of Muscle Amount of bleeding with debridement: Moderate Bleeding Controlled with: Compression and gauze Patient tolerated procedure: Patient tolerated procedure well Post-Debridement Measurements and Additional Note: Post-Debridement Measurements/Treatment WC - Nurse 1 - General Ulcer Assessment Start: 12/06/24 10:14 Freq: Status: Active Protocol: WC.REZA Activity Type Activity Date Activity User E-sign Co-sign Detail Recorded Client Recorded Date Recorded By Document 12/06/24 10:14 KW [id number] 12/06/24 10:26 12/06/24 10:14 - Today's Visit Information Type of service Follow-up Visit (Physician/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 DRIER OPERATOR ) Arrival Mode Ambulatory Patient Identification Verified (Name & Yes ) Height and Weight Body Mass Index (BMI) 25.4 BMI Classification Overweight Vital Signs Temperature (97.8 F-99.1 F) 96.8 F L Temperature Source Temporal Pulse Rate (60-100) 85 Pulse Location Monitor Respiratory Rate (12-18) 16 Respiratory rate source Observation Oxygen Delivery Method Room Air Blood Pressure (90/60-120/80) 129/69 H Blood Pressure Mean (mm Hg) 89 Source Monitor Position Semi-Fowlers Blood Pressure Location Right Arm History Since Last Visit- (Skip if this is Patient's initial visit) Have you changed medications since your No last visit? Any new allergies or adverse reactions No Had a fall/change in ADL's that may No increase risk of falls Signs or symptoms of abuse and/or No neglect since last visit Have you been in the hospital since your No last visit? Has dressing in place as prescribed Yes Has compression in place as prescribed Yes Has offloadiing in place as prescribed N/A Experienced any changes in pain level or No management Left Footwear Regular Shoe Right Footwear Regular Shoe Pain Scale: 0-10 Numeric Is Patient Pain Free? Yes - Nurse 1 - General Ulcer Measurement Start: 12/06/24 10:14 Freq: Status: Active Protocol: Activity Type Activity Date Activity User E-sign Co-sign Detail Recorded Client Recorded Date Recorded By Document 12/06/24 10:14 KW [id number] 12/06/24 10:26 12/06/24 10:14 Wound Center Nurse 1 #6 LT POST LE -Current Size (cm) - Length 9.8 -Current Size (cm) - Width 3.5 -Current Size (cm) - Depth 0.1 -Total Square Cm 34.30 -Date of Last Picture (Recall this 12/06/24 field) -Tunneling Yes -Tunneling Position (O'clock) 1 -Tunneling Distance (cm) 1.8 -Exudate Amt Medium -Exudate Type Serosanguineous -Wound Margin Distinct, Outline Attached -Granulation Amt Large (67-100%) -Granulation Quality Red -Texture (Eloisa-wound Skin Appearance) Assessed -Moisture (Eloisa-wound Skin Appearance) Assessed -Color (Eloisa-wound Skin Appearance) Assessed -Temperature (Eloisa-wound Skin No Abnormality Appearance) (Pt Warm) -Tenderness on Palpation (Eloisa-wound No Skin Appearance) -Ulcer Cleansing Soap and Water -Foul Odor after Cleansing No -Anesthetic Used 4% Lidocaine Solution MARK - Nurse 2 - General Ulcer CM Notes Start: 12/06/24 10:14 Freq: Status: Active Protocol: Activity Type Activity Date Activity User E-sign Co-sign Detail Recorded Client Recorded Date Recorded By Document 12/06/24 10:31 DS [id number] 12/06/24 10:35 DS 12/06/24 10:31 Wound Center Nurse 2 -Time 10:31 -Correct Patient Yes -Correct Side, Site, Position Yes -Correct Procedure Yes -Procedure Performed Yes -Type of Procedure Debridement -Clinical Debridement Muscle / Fascia -Tissue Removed Muscle -Post Debridement (cm) - Length 7 -Post Debridement (cm) - Width 3.0 -Post Debridement (cm) - Depth 1.0 -Total Square (Post) (cm) 21.0 -Area of Debridement (cm) - Length 7.0 -Area of Debridement (cm) - Width 3.0 -Total Square (Area) (cm) 21.00 -Tunneling Yes -Tunneling Distance (cm) 1.0 -Undermining/Tunneling No -Circular Undermining No -Wound/Ulcer Outcome Not Healed -Ulcer Cleansing Rinsed/ Irrigated with Saline -Foul Odor after Cleansing No -Bioengineered Tissue No -Bleeding Controlled with Pressure -Treatment Response Procedure Tolerated Well -Debridement - Muscle / Fascia, 1st Yes 20sq cm -Debridement, Muscle/Fascia, ea addt'l 1 20sq cm or part thereof Pain Scale: 0-10 Numeric Is Patient Pain Free? Yes MARK - Nurse 3 - General Ulcer D/C NN Start: 12/06/24 10:14 Freq: Status: Active Protocol: Activity Type Activity Date Activity User E-sign Co-sign Detail Recorded Client Recorded Date Recorded By Document 12/06/24 10:37 [email or web address] [id number] 12/06/24 10:38 KW 12/06/24 10:37 Wound Care Center Nurse 3 #6 LT POST LE -Negative Pressure Wound Therapy Continue -Pieces of Black Foam Inserted 1 -NPWT Application Charge NPWT & Debridement (nc ) -Setting (mmHg) 125 -Negative Pressure is Continuous -Wound Comment(s) USE GAUZE TO PAD LEG FROM TUBING LLE -Compression Wrap Rod Wrap -Other 1 Pain Scale: 0-10 Numeric Is Patient Pain Free? 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 I believe that the skin graft did not take as the fascia did not have enough granulating tissue underneath to support the graft. Patient's situation is complicated by many factors including significant immunosuppression for his kidney allograft. Patient canceled skin grafting surgery/complex closure, and elected for continued wound management with outpatient wound checks and wound care. This is a reasonable option as the wound is showing significant improvement. Plan for continued 3 times per week VAC changes. I talked to the patient about TheraSkin application which is a once per week dressing change with cadaver allograft. Patient is interested in this and would like to apply. Plan to apply for TheraSkin treatments. Follow-up in clinic in 1 week (2) Postoperative wound dehiscence: CODE(S): T81.31XA - Disruption of external operation (surgical) wound, not elsewhere classified, initial encounter QUALIFIERS: Encounter type: initial encounter Qualified Code(s): T81.31XA - Disruption of external operation (surgical) wound, not elsewhere classified, initial encounter PLAN: There is dehiscence of the TFL suspension and of the lateral aspects of the flap. Plan from ENT is to get wound healed and radiate and defer further reconstruction. Plastics available as needed
--- NOTE | 2024-12-07 09:58 | WC ---
PHOTO 12/06/24 LEFT POST LE
[2024-12-13 10:21] VITALS: BP 112/62; PULSE 87; RESP 16; TEMP 36.7; BMI 25.4
--- NOTE | 2024-12-13 10:59 | PCM.WC.PN ---
History of Present Illness Date of Service: 12/13/24 Chief Complaint: Surgical wound dehiscence of the left lower extremity History of Wound: Raymundo Soler is a delightful 58-year-old male with history of type 1 diabetes as well as other multiple pre-existing comorbid medical conditions including end-stage kidney disease who underwent wide local excision for a lower lip squamous cell carcinoma as well as selective neck dissection at [facility] on 08 October 2024, followed by immediate reconstruction with a left cervical advancement flap, tensor fascia jaspreet sling, and left medial sural artery gifts officer free flap reconstruction anastomosed to the left facial artery. In addition, a split-thickness skin graft was obtained from the patient's left anterolateral thigh for reconstruction of the donor site. He was seen and evaluated by Dr. Miguel Meneses at the wound care center last week and referred to me for follow-up as he has persistent left calf surgical wound with exposure of underlying gastrocnemius muscle. The patient's operative report was reviewed today (I reviewed extensive medical medical records from the clinical). The patient reports that he has been doing dressing changes for the left medial calf with the assistance of his who is at the appointment today. He also is complaining that he is having some drooling. He has been eating like normal since surgery (no PEG tube) and feels like he is getting sufficient calories. The patient has multiple pre-existing conditions, including diabetes mellitus type 1, end-stage renal failure for which the patient has previously undergone renal transplantation, peripheral polyneuropathy, steroid-induced osteoporosis, and peripheral vascular disease. 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 Patient is currently making excellent urine. He takes Prograf and corticosteroids for immunosuppression. He does not smoke. Subjective Subjective 08 Nov 2024: Patient went to ENT at [facility] on 04 Nov 2024. Reportedly they debrided the lower lip reconstruction, and suggested he start Medihoney dressing changes. He reports significant progress in the wound since then. And his plan is to defer further reconstruction on the face until after radiation has begun. With regards to the left calf wound, ENT has deferred wound care to our team at [place]. He got at the nutrition labs on 06 Nov 2024 (last Friday) and they demonstrated the following: Albumin 3.4 Prealbumin 14 A1c of 5.9 Hemoglobin of 10.4 with MCV of 100 Discussed high-protein intake with the patient today. We discussed wound care with wound VAC. The VAC was delivered and is ready for placement today. 15 Nov 2024: Doing well overall with wound VAC therapy. He is following up with dentistry for getting his teeth pulled in the setting of planned adjuvant radiation. No fevers chills or drainage from the leg. 25 Nov 2024: Patient endorses excellent 3 times per week VAC changes. Doing well overall. He decided to cancel his skin grafting procedure as he does not want another surgery and would like to continue local wound care. \ Current encounter, 13 December 2024: The patient is a 59-year-old male presenting for wound management on the left calf. The wound is located on the left calf and has been managed with a wound vacuum, which has shown positive results with no tunneling and a healthy granulated base. The patient has been using a wound vacuum three times a week, and there is consideration for using TheraSkin, a dermal substitute, to promote healing, although it has not yet been approved. Additionally, there is an excoriation on the medial leg, which has been covered with a bandage. Attestation: Documentation on this patient encounter was supported using ambient scribe technology/ voice AI technology. The patient consented to recording for the purpose of documenting the encounter. Provider reviewed content of the generated note prior to signature. Objective Data Objective Data Vital Signs: Vital Signs Temp Pulse Resp BP O2 Del Method 98.1 F 87 16 112/62 Room Air 12/13/24 10:21 12/13/24 10:21 12/13/24 10:21 12/13/24 10:21 12/13/24 10:21 Oxygen Delivery Method Room Air Weight: 188 lb Body Mass Index (BMI) 25.4 Charges/Coding Procedures Integumentary 111xxx-113xx: 32956 Bethany musc/fascia 20 sq cm/< Add On Codes: 29947 Bethany musc/fascia add-on Physical Exam Narrative - Integumentary: Left calf wound appears healthy with no tunneling, granulated base, no exposed fascia, and no fluid collections. Wound measurements noted below - Integumentary: Excoriation on the medial leg with bandage applied. Debridement Note Debridement Note Wound debrided: Left medial calf wound with exposed muscle from previous flap Laterality: Left Wound Grade/Stage: Stage 3 Type of Debridement: Excisional debridement Anesthesia Used: 4% Lidocaine Solution and - (10 cc of 1% lidocaine with 1:200,000 epinephrine ) Depth: to muscle Percentage of wound debrided: 100 Instrument Used: 7mm curette Tissue Removed: Necortic biofilm, fibrinous exudate and hypertrophic granulation tissue Severity: Necrosis of Muscle (At muscle level , exposed muscle (gastrocnemius) ) Amount of bleeding with debridement: Moderate Bleeding Controlled with: Compression and gauze and - (epinephrine in the local ) Patient tolerated procedure: Patient tolerated procedure well Post-Debridement Measurements and Additional Note: Post-Debridement Measurements/Treatment - Nurse 1 - General Ulcer Assessment Start: 12/06/24 10:14 Freq: Status: Active Protocol: [employer] Activity Type Activity Date Activity User E-sign Co-sign Detail Recorded Client Recorded Date Recorded By Document 12/06/24 10:14 KW [id number] 12/06/24 10:26 KW Document 12/13/24 10:21 KW [id number] 12/13/24 10:28 KW 12/06/24 12/13/24 10:14 10:21 - Today's Visit Information Type of service Follow-up Visit Follow-up Visit (Physician/FINANCIAL DIRECTOR (Physician/FINANCIAL DIRECTOR ) ) Arrival Mode Ambulatory Ambulatory Accompanied by mother Patient Identification Verified (Name & Yes Yes ) Height and Weight Body Mass Index (BMI) 25.4 25.4 BMI Classification Overweight Overweight Vital Signs Temperature (97.8 F-99.1 F) 96.8 F L 98.1 F Temperature Source Temporal Temporal Pulse Rate (60-100) 85 87 Pulse Location Monitor Monitor Respiratory Rate (12-18) 16 16 Respiratory rate source Observation Observation Oxygen Delivery Method Room Air Room Air Blood Pressure (90/60-120/80) 129/69 H 112/62 Blood Pressure Mean (mm Hg) 89 78 Source Monitor Monitor Position Semi-Fowlers Sitting Blood Pressure Location Right Arm Left Arm History Since Last Visit- (Skip if this is Patient's initial visit) Have you changed medications since your No No last visit? Any new allergies or adverse reactions No No Had a fall/change in ADL's that may No No increase risk of falls Signs or symptoms of abuse and/or No No neglect since last visit Have you been in the hospital since your No No last visit? Has dressing in place as prescribed Yes Yes Has compression in place as prescribed Yes Yes Has offloadiing in place as prescribed N/A N/A Experienced any changes in pain level or No No management Left Footwear Regular Shoe Regular Shoe Right Footwear Regular Shoe Regular Shoe Pain Scale: 0-10 Numeric Is Patient Pain Free? Yes Yes WC - Nurse 1 - General Ulcer Measurement Start: 12/06/24 10:14 Freq: Status: Active Protocol: Activity Type Activity Date Activity User E-sign Co-sign Detail Recorded Client Recorded Date Recorded By Document 12/06/24 10:14 KW [id number] 12/06/24 10:26 KW Document 12/13/24 10:21 KW [id number] 12/13/24 10:28 KW 12/06/24 12/13/24 10:14 10:21 Wound Center Nurse 1 #6 LT POST LE -Current Size (cm) - Length 9.8 7 -Current Size (cm) - Width 3.5 3 -Current Size (cm) - Depth 0.1 1 -Total Square Cm 34.30 21 -Date of Last Picture (Recall this 12/06/24 12/13/24 field) -Tunneling Yes -Tunneling Position (O'clock) 1 -Tunneling Distance (cm) 1.8 -Exudate Amt Medium Medium -Exudate Type Serosanguineous Serosanguineous -Wound Margin Distinct, Distinct, Outline Outline Attached Attached -Granulation Amt Large (67-100%) Large (67-100%) -Granulation Quality Red [place],Red -Texture (Eloisa-wound Skin Appearance) Assessed Assessed,Rash -Moisture (Eloisa-wound Skin Appearance) Assessed Assessed -Color (Eloisa-wound Skin Appearance) Assessed Assessed -Temperature (Eloisa-wound Skin No Abnormality No Abnormality Appearance) (Pt Warm) (Pt Warm) -Tenderness on Palpation (Eloisa-wound No No Skin Appearance) -Ulcer Cleansing Soap and Water Soap and Water -Foul Odor after Cleansing No No -Anesthetic Used 4% Lidocaine 5% Lidocaine Solution Gel -Wound Comment(s) wound vac issues, pt changed and applied wet to dry WC - Nurse 2 - General Ulcer CM Notes Start: 12/06/24 10:14 Freq: Status: Active Protocol: Activity Type Activity Date Activity User E-sign Co-sign Detail Recorded Client Recorded Date Recorded By Document 12/06/24 10:31 DS [id number] 12/06/24 10:35 DS 12/06/24 10:31 Wound Center Nurse 2 -Time 10:31 -Correct Patient Yes -Correct Side, Site, Position Yes -Correct Procedure Yes -Procedure Performed Yes -Type of Procedure Debridement -Clinical Debridement Muscle / Fascia -Tissue Removed Muscle -Post Debridement (cm) - Length 7 -Post Debridement (cm) - Width 3.0 -Post Debridement (cm) - Depth 1.0 -Total Square (Post) (cm) 21.0 -Area of Debridement (cm) - Length 7.0 -Area of Debridement (cm) - Width 3.0 -Total Square (Area) (cm) 21.00 -Tunneling Yes -Tunneling Distance (cm) 1.0 -Undermining/Tunneling No -Circular Undermining No -Wound/Ulcer Outcome Not Healed -Ulcer Cleansing Rinsed/ Irrigated with Saline -Foul Odor after Cleansing No -Bioengineered Tissue No -Bleeding Controlled with Pressure -Treatment Response Procedure Tolerated Well -Debridement - Muscle / Fascia, 1st Yes 20sq cm -Debridement, Muscle/Fascia, ea addt'l 1 20sq cm or part thereof Pain Scale: 0-10 Numeric Is Patient Pain Free? Yes - Nurse 3 - General Ulcer D/C NN Start: 12/06/24 10:14 Freq: Status: Active Protocol: Activity Type Activity Date Activity User E-sign Co-sign Detail Recorded Client Recorded Date Recorded By Document 12/06/24 10:37 KW [id number] 12/06/24 10:38 KW 12/06/24 10:37 Wound Care Center Nurse 3 #6 LT POST LE -Negative Pressure Wound Therapy Continue -Pieces of Black Foam Inserted 1 -NPWT Application Charge NPWT & Debridement (nc ) -Setting (mmHg) 125 -Negative Pressure is Continuous -Wound Comment(s) USE GAUZE TO PAD LEG FROM TUBING LLE -Compression Wrap Rod Wrap -Other 1 Pain Scale: 0-10 Numeric Is Patient Pain Free? 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 I believe that the skin graft did not take as the fascia did not have enough granulating tissue underneath to support the graft. Patient's situation is complicated by many factors including significant immunosuppression for his kidney allograft. Patient canceled skin grafting surgery/complex closure, and elected for continued wound management with outpatient wound checks and wound care. This is a reasonable option as the wound is showing significant improvement. Plan for continued 3 times per week VAC changes. I talked to the patient about TheraSkin application which is a once per week dressing change with cadaver allograft. Patient is interested in this and would like to apply. Plan to apply for TheraSkin treatments. (2) Postoperative wound dehiscence: CODE(S): T81.31XA - Disruption of external operation (surgical) wound, not elsewhere classified, initial encounter QUALIFIERS: Encounter type: initial encounter Qualified Code(s): T81.31XA - Disruption of external operation (surgical) wound, not elsewhere classified, initial encounter PLAN: There is dehiscence of the TFL suspension and of the lateral aspects of the flap. Plan from ENT is to get wound healed and radiate and defer further reconstruction. Plastics available as needed PLAN: Plan PLAN FROM 13 DECEMBER 2024: 1. Wound on the left calf The wound is being managed with a wound vacuum, which has shown positive results. Consideration for TheraSkin application is ongoing, pending approval. Continue current wound vacuum therapy three times a week until further notice. 2. Excoriation on the medial leg Continue to monitor and apply bandage as needed. - Continue using the wound vacuum three times a week. - Monitor the excoriation on the medial leg and apply a bandage as needed. - Follow up in one week if TheraSkin is approved, otherwise in two weeks.
--- NOTE | 2024-12-13 13:52 | WC ---
PHOTO 12/13/24 LEFT POST LE
[2024-12-20 14:46] VITALS: BP 139/76; PULSE 92; RESP 15; TEMP 36.2; BMI 25.4
--- NOTE | 2024-12-21 09:13 | PCM.WC.PN ---
History of Present Illness Date of Service: 12/20/24 Chief Complaint: Surgical wound dehiscence of the left lower extremity History of Wound: Raymundo Soler is a delightful 58-year-old male with history of type 1 diabetes as well as other multiple pre-existing comorbid medical conditions including end-stage kidney disease who underwent wide local excision for a lower lip squamous cell carcinoma as well as selective neck dissection at [facility] on 08 October 2024, followed by immediate reconstruction with a left cervical advancement flap, tensor fascia jaspreet sling, and left medial sural artery syrup maker free flap reconstruction anastomosed to the left facial artery. In addition, a split-thickness skin graft was obtained from the patient's left anterolateral thigh for reconstruction of the donor site. He was seen and evaluated by Dr. Miguel Meneses at the wound care center last week and referred to me for follow-up as he has persistent left calf surgical wound with exposure of underlying gastrocnemius muscle. The patient's operative report was reviewed today (I reviewed extensive medical medical records from the clinical). The patient reports that he has been doing dressing changes for the left medial calf with the assistance of his who is at the appointment today. He also is complaining that he is having some drooling. He has been eating like normal since surgery (no PEG tube) and feels like he is getting sufficient calories. The patient has multiple pre-existing conditions, including diabetes mellitus type 1, end-stage renal failure for which the patient has previously undergone renal transplantation, peripheral polyneuropathy, steroid-induced osteoporosis, and peripheral vascular disease. 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 Patient is currently making excellent urine. He takes Prograf and corticosteroids for immunosuppression. He does not smoke. Subjective Subjective 08 Nov 2024: Patient went to ENT at [facility] on 04 Nov 2024. Reportedly they debrided the lower lip reconstruction, and suggested he start Medihoney dressing changes. He reports significant progress in the wound since then. And his plan is to defer further reconstruction on the face until after radiation has begun. With regards to the left calf wound, ENT has deferred wound care to our team at [place]. He got at the nutrition labs on 06 Nov 2024 (last Friday) and they demonstrated the following: Albumin 3.4 Prealbumin 14 A1c of 5.9 Hemoglobin of 10.4 with MCV of 100 Discussed high-protein intake with the patient today. We discussed wound care with wound VAC. The VAC was delivered and is ready for placement today. 15 Nov 2024: Doing well overall with wound VAC therapy. He is following up with dentistry for getting his teeth pulled in the setting of planned adjuvant radiation. No fevers chills or drainage from the leg. 25 Nov 2024: Patient endorses excellent 3 times per week VAC changes. Doing well overall. He decided to cancel his skin grafting procedure as he does not want another surgery and would like to continue local wound care. \ 13 December 2024: The patient is a 59-year-old male presenting for wound management on the left calf. The wound is located on the left calf and has been managed with a wound vacuum, which has shown positive results with no tunneling and a healthy granulated base. The patient has been using a wound vacuum three times a week, and there is consideration for using TheraSkin, a dermal substitute, to promote healing, although it has not yet been approved. Additionally, there is an excoriation on the medial leg, which has been covered with a bandage. Attestation: Documentation on this patient encounter was supported using ambient scribe technology/ voice AI technology. The patient consented to recording for the purpose of documenting the encounter. Provider reviewed content of the generated note prior to signature. Current encounter,20 December 2024: The patient is a 59-year-old male presenting with a left posterior medial calf wound. The wound measures 10 x 3.5 cm with no tunneling or undermining, and there is complete granulation over the fascia. The patient has been receiving TheraSkin applications and wound vacuum therapy, which have contributed to the healthy appearance of the wound. The patient has a history of immunosuppression due to a kidney transplant, which has posed challenges in wound healing. Despite these challenges, the wound is healing well. Attestation: Documentation on this patient encounter was supported using ambient scribe technology/ voice AI technology. The patient consented to recording for the purpose of documenting the encounter. Provider reviewed content of the generated note prior to signature. Objective Data Objective Data - Integumentary: Reports healing of left posterior medial calf wound Vital Signs: Vital Signs Temp Pulse Resp BP O2 Del Method 97.2 F L 92 15 139/76 H Room Air 12/20/24 14:46 12/20/24 14:46 12/20/24 14:46 12/20/24 14:46 12/13/24 10:21 Oxygen Delivery Method Room Air Weight: 188 lb Body Mass Index (BMI) 25.4 Charges/Coding Procedures Integumentary 150xxx-152xx: 29016 Skin sub graft trnk/arm/leg Add On Codes: 41853 Skin sub graft t/a/l add-on Physical Exam Narrative - Integumentary: Left posterior medial calf wound measuring 10 x 3.5 cm, no tunneling, no undermining, complete granulation over fascia Debridement Note Debridement Note Post-Debridement Measurements and Additional Note: Post-Debridement Measurements/Treatment WC - Nurse 1 - General Ulcer Assessment Start: 12/06/24 10:14 Freq: Status: Active Protocol: JOSÉ MANUEL Activity Type Activity Date Activity User E-sign Co-sign Detail Recorded Client Recorded Date Recorded By Document 12/06/24 10:14 KW [id number] 12/06/24 10:26 KW Document 12/13/24 10:21 KW [id number] 12/13/24 10:28 KW Document 12/20/24 14:46 ML [id number] 12/20/24 14:52 ML 12/06/24 12/13/24 12/20/24 10:14 10:21 14:46 WC - Today's Visit Information Type of service Follow-up Visit Follow-up Visit Follow-up Visit (Physician/CAREER TECHNICAL COUNSELOR (Physician/CAREER TECHNICAL COUNSELOR (Physician/CAREER TECHNICAL COUNSELOR ) ) ) Arrival Mode Ambulatory Ambulatory Ambulatory Accompanied by mother Patient Identification Verified (Name & Yes Yes ) Height and Weight Body Mass Index (BMI) 25.4 25.4 25.4 BMI Classification Overweight Overweight Overweight Vital Signs Temperature (97.8 F-99.1 F) 96.8 F L 98.1 F 97.2 F L Temperature Source Temporal Temporal Temporal Pulse Rate (60-100) 85 87 92 Pulse Location Monitor Monitor Respiratory Rate (12-18) 16 16 15 Respiratory rate source Observation Observation Observation Oxygen Delivery Method Room Air Room Air Blood Pressure (90/60-120/80) 129/69 H 112/62 139/76 H Blood Pressure Mean (mm Hg) 89 78 97 Source Monitor Monitor Monitor Position Semi-Fowlers Sitting Supine Blood Pressure Location Right Arm Left Arm Right Arm History Since Last Visit- (Skip if this is Patient's initial visit) Have you changed medications since your No No No last visit? Any new allergies or adverse reactions No No No Had a fall/change in ADL's that may No No No increase risk of falls Signs or symptoms of abuse and/or No No No neglect since last visit Have you been in the hospital since your No No No last visit? Has dressing in place as prescribed Yes Yes Yes Has compression in place as prescribed Yes Yes Yes Has offloadiing in place as prescribed N/A N/A N/A Experienced any changes in pain level or No No No management Left Footwear Regular Shoe Regular Shoe Right Footwear Regular Shoe Regular Shoe Pain Scale: 0-10 Numeric Is Patient Pain Free? Yes Yes Yes WC - Nurse 1 - General Ulcer Measurement Start: 12/06/24 10:14 Freq: Status: Active Protocol: Activity Type Activity Date Activity User E-sign Co-sign Detail Recorded Client Recorded Date Recorded By Document 12/06/24 10:14 KW [id number] 12/06/24 10:26 KW Document 12/13/24 10:21 KW [id number] 12/13/24 10:28 KW Document 12/20/24 14:46 ML [id number] 12/20/24 14:52 ML 12/06/24 12/13/24 12/20/24 10:14 10:21 14:46 Wound Center Nurse 1 #6 LT POST LE -Current Size (cm) - Length 9.8 7 10 -Current Size (cm) - Width 3.5 3 3.5 -Current Size (cm) - Depth 0.1 1 0.1 -Total Square Cm 34.30 21 35.0 -Date of Last Picture (Recall this 12/06/24 12/13/24 field) -Tunneling Yes -Tunneling Position (O'clock) 1 -Tunneling Distance (cm) 1.8 -Undermining/Tunneling Yes -Undermining/Tunneling Starts (O'clock 12 ) -Undermining/Tunneling Ends (O'clock) 1 -Maximum Distance (cm) 0.1 -Exudate Amt Medium Medium Medium -Exudate Type Serosanguineous Serosanguineous Serosanguineous -Wound Margin Distinct, Distinct, Outline Outline Attached Attached -Granulation Amt Large (67-100%) Large (67-100%) Small (1-33%) -Granulation Quality Red [place],Red -Slough/Fibrin Yes -Necrosis Amt None Present (0 %) -Texture (Eloisa-wound Skin Appearance) Assessed Assessed,Rash Assessed -Moisture (Eloisa-wound Skin Appearance) Assessed Assessed Assessed -Color (Eloisa-wound Skin Appearance) Assessed Assessed Assessed -Temperature (Eloisa-wound Skin No Abnormality No Abnormality No Abnormality Appearance) (Pt Warm) (Pt Warm) (Pt Warm) -Tenderness on Palpation (Eloisa-wound No No No Skin Appearance) -Ulcer Cleansing Soap and Water Soap and Water Soap and Water -Foul Odor after Cleansing No No No -Anesthetic Used 4% Lidocaine 5% Lidocaine 5% Lidocaine Solution Gel Gel -Wound Comment(s) wound vac issues, pt changed and applied wet to dry WC - Nurse 2 - General Ulcer CM Notes Start: 12/06/24 10:14 Freq: Status: Active Protocol: Activity Type Activity Date Activity User E-sign Co-sign Detail Recorded Client Recorded Date Recorded By Document 12/06/24 10:31 DS [id number] 12/06/24 10:35 DS Document 12/13/24 10:57 DS [id number] 12/13/24 10:59 DS Document 12/20/24 15:16 DS [id number] 12/20/24 15:22 DS 12/06/24 12/13/24 12/20/24 10:31 10:57 15:16 Wound Center Nurse 2 #6 LT POST LE -Time 10:31 10:57 15:16 -Correct Patient Yes Yes Yes -Correct Side, Site, Position Yes Yes Yes -Correct Procedure Yes Yes Yes -Procedure Performed Yes Yes Yes -Type of Procedure Debridement Debridement Debridement -Clinical Debridement Muscle / Fascia Muscle / Fascia Muscle / Fascia -Tissue Removed Muscle Subcutaneous, Muscle Muscle -Post Debridement (cm) - Length 7 10.0 10.0 -Post Debridement (cm) - Width 3.0 3.0 3.0 -Post Debridement (cm) - Depth 1.0 0.1 -Total Square (Post) (cm) 21.0 30.00 30.00 -Area of Debridement (cm) - Length 7.0 10 -Area of Debridement (cm) - Width 3.0 3.0 -Total Square (Area) (cm) 21.00 30.0 -Tunneling Yes No No -Tunneling Distance (cm) 1.0 -Undermining/Tunneling No No No -Circular Undermining No No No -Wound/Ulcer Outcome Not Healed Not Healed Not Healed -Ulcer Cleansing Rinsed/ Rinsed/ Irrigated with Irrigated with Saline Saline -Foul Odor after Cleansing No No -Bioengineered Tissue No No -Type of Bioengineered Tissue Theraskin -Expiration Date 01/14/29 -Product Lot Number [id number] -Percent Used 100 -Lot number of Saline Used [id number] -Injectable Lidocaine w/ Epi (%) 1 -Injectable Lidocaine w/ Epi (mls) 10 -Bleeding Controlled with Pressure Pressure Pressure -Treatment Response Procedure Procedure Procedure Tolerated Well Tolerated Well Tolerated Well -Debridement - Muscle / Fascia, 1st Yes Yes No 20sq cm -Debridement, Muscle/Fascia, ea addt'l 1 1 20sq cm or part thereof -Theraskin - 102TSL (39 SQ CM) 102 Application 1-4 (per sq cm) Pain Scale: 0-10 Numeric Is Patient Pain Free? Yes Yes Yes WC - Nurse 3 - General Ulcer D/C NN Start: 12/06/24 10:14 Freq: Status: Active Protocol: Activity Type Activity Date Activity User E-sign Co-sign Detail Recorded Client Recorded Date Recorded By Document 12/06/24 10:37 KW [id number] 12/06/24 10:38 KW Document 12/13/24 11:28 DL [email or web address] 12/13/24 11:29 DL Document 12/20/24 15:31 DL [id number] 12/20/24 15:32 DL 12/06/24 12/13/24 12/20/24 10:37 11:28 15:31 Wound Care Center Nurse 3 #6 LT POST LE -Ulcer Cleansing Soap and Water -Foul Odor after Cleansing No No -Negative Pressure Wound Therapy Continue -Pieces of Black Foam Inserted 1 -NPWT Application Charge NPWT & NPWT & Debridement (nc Debridement (nc ) ) -Setting (mmHg) 125 125 -Negative Pressure is Continuous Continuous -Regranex (If Applicable) Continue -Other Dressing Theraskin/ Hydrogel -Primary Dressing Covered/Secured with Dry Gauze & Roll Gauze -Other Covering ABD -Wound Comment(s) USE GAUZE TO PAD LEG FROM TUBING LLE -Compression Wrap Rod Wrap Rod Wrap -Other 1 Treatment Response Procedure Procedure Tolerated Well Tolerated Well Pain Scale: 0-10 Numeric Is Patient Pain Free? 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 The wound measures 10 x 3.5 cm, with no tunneling or undermining, and shows complete granulation over the fascia, indicating good healing progress despite the challenges posed by immunosuppression. Wound vacuum therapy has been effective in promoting wound healing. 1. Left Posterior Medial Calf Wound The patient will continue with weekly dressing changes using TheraSkin to promote healing of the left posterior medial calf wound. The wound measures 10 x 3.5 cm with no tunneling or undermining, and complete granulation over the fascia has been observed. The patient is advised to return for follow-up next week to assess the wound's progress and make any necessary adjustments to the treatment plan. 2. Immunosuppression Due To Kidney Transplant The patient's immunosuppression status due to a kidney transplant continues to be monitored, as it affects wound healing. No specific changes to the immunosuppressive regimen were discussed during this visit. PLAN: Plan Theraskin application The left leg was prepped and 4% lidocaine was applied and 7 mm curette was used to excise the biofilm from the base of the wound. The wound was then washed with copious months normal saline and TheraSkin was applied over the wound bed for a total placement of 10 x 3.5 cm TheraSkin placement (dermal substitute placement) for 35 cm?. Dermabond was used to apply the TheraSkin and keep the edges attached to the normal keratinized skin at the margin of the wound. Wound veil and Steri-Strips and an ABD were applied with tape. Patient tolerated the procedure well. Plan to follow-up in 1 week for removal of TheraSkin and another application of the cadaver allograft TheraSkin
--- NOTE | 2024-12-21 14:04 | WC ---
PHOTO 12/20/24 LEFT LATERAL LE
[2024-12-27 14:05] VITALS: BP 94/42; PULSE 91; RESP 18; TEMP 36.7; BMI 25.4
== END 2024-12-27 23:59 | disposition home or self-care (01) ==
LOC: WC 14:00
PROVIDERS: PCP Internal Medicine; Referring Provider Student in an Organized Health Care Education/Training Program; Visit Provider Surgery Plastic and Reconstructive Surgery
DX: E10.622 Type 1 diabetes mellitus with other skin ulcer (principal); L97.225 Non-pressure chronic ulcer of left calf with muscle involvement without evidence of necrosis; N18.6 End stage renal disease; E10.42 Type 1 diabetes mellitus with diabetic polyneuropathy; E10.22 Type 1 diabetes mellitus with diabetic chronic kidney disease; E10.51 Type 1 diabetes mellitus with diabetic peripheral angiopathy without gangrene; Z94.0 Kidney transplant status; Z79.899 Other long term (current) drug therapy; C44.02 Squamous cell carcinoma of skin of lip; T81.31XA Disruption of external operation (surgical) wound, not elsewhere classified, initial encounter; Y83.2 Surgical operation with anastomosis, bypass or graft as the cause of abnormal reaction of the patient, or of later complication, without mention of misadventure at the time of the procedure
CPT/HCPCS: 11043; 11046; 15271; 15272; 99213; Q4121; G0463

== ENCOUNTER 2025-01-24 10:15 | Outpatient (RCR) | payer MEDICARE, MEDICAID, SELFPAY ==
--- NOTE | 2024-12-29 15:23 | WC ---
PHOTO 12/17/24 LEFT POST LE
[2025-01-03 10:46] VITALS: BP 125/63; PULSE 81; RESP 16; TEMP 36.6
--- NOTE | 2025-01-03 12:07 | PN.PCM_ITS ---
History of Present Illness Date of Service: 12/27/24 Chief Complaint: Surgical wound dehiscence of the left lower extremity History of Wound: Raymundo Soler is a delightful 58-year-old male with history of type 1 diabetes as well as other multiple pre-existing comorbid medical conditions including end-stage kidney disease who underwent wide local excision for a lower lip squamous cell carcinoma as well as selective neck dissection at [facility] on 08 October 2024, followed by immediate reconstruction with a left cervical advancement flap, tensor fascia jaspreet sling, and left medial sural artery seo coordinator free flap reconstruction anastomosed to the left facial artery. In addition, a split-thickness skin graft was obtained from the patient's left anterolateral thigh for reconstruction of the donor site. He was seen and evaluated by Dr. Miguel Meneses at the wound care center last week and referred to me for follow-up as he has persistent left calf surgical wound with exposure of underlying gastrocnemius muscle. The patient's operative report was reviewed today (I reviewed extensive medical medical records from the clinical). The patient reports that he has been doing dressing changes for the left medial calf with the assistance of his who is at the appointment today. He also is complaining that he is having some drooling. He has been eating like normal since surgery (no PEG tube) and feels like he is getting sufficient calories. The patient has multiple pre-existing conditions, including diabetes mellitus type 1, end-stage renal failure for which the patient has previously undergone renal transplantation, peripheral polyneuropathy, steroid-induced osteoporosis, and peripheral vascular disease. 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 Patient is currently making excellent urine. He takes Prograf and corticosteroids for immunosuppression. He does not smoke. Subjective Subjective 08 Nov 2024: Patient went to ENT at [facility] on 04 Nov 2024. Reportedly they debrided the lower lip reconstruction, and suggested he start Medihoney dressing changes. He reports significant progress in the wound since then. And his plan is to defer further reconstruction on the face until after radiation has begun. With regards to the left calf wound, ENT has deferred wound care to our team at [place]. He got at the nutrition labs on 06 Nov 2024 (last Friday) and they demonstrated the following: Albumin 3.4 Prealbumin 14 A1c of 5.9 Hemoglobin of 10.4 with MCV of 100 Discussed high-protein intake with the patient today. We discussed wound care with wound VAC. The VAC was delivered and is ready for placement today. 15 Nov 2024: Doing well overall with wound VAC therapy. He is following up with dentistry for getting his teeth pulled in the setting of planned adjuvant radiation. No fevers chills or drainage from the leg. 25 Nov 2024: Patient endorses excellent 3 times per week VAC changes. Doing well overall. He decided to cancel his skin grafting procedure as he does not want another lau rgery and would like to continue local wound care. \ 13 December 2024: The patient is a 59-year-old male presenting for wound management on the left calf. The wound is located on the left calf and has been managed with a wound vacuum, which has shown positive results with no tunneling and a healthy granulated base. The patient has been using a wound vacuum three times a week, and there is consideration for using TheraSkin, a dermal substitute, to promote healing, although it has not yet been approved. Additionally, there is an excoriation on the medial leg, which has been covered with a bandage. Attestation: Documentation on this patient encounter was supported using ambient scribe technology/ voice AI technology. The patient consented to recording for the purpose of documenting the encounter. Provider reviewed content of the generated note prior to signature. 20 December 2024: The patient is a 59-year-old male presenting with a left posterior medial calf wound. The wound measures 10 x 3.5 cm with no tunneling or undermining, and there is complete granulation over the fascia. The patient has been receiving TheraSkin applications and wound vacuum therapy, which have contributed to the healthy appearance of the wound. The patient has a history of immunosuppression due to a kidney transplant, which has posed challenges in wound healing. Despite these challenges, the wound is healing well. Attestation: Documentation on this patient encounter was supported using ambient scribe technology/ voice AI technology. The patient consented to recording for the purpose of documenting the encounter. Provider reviewed content of the generated note prior to signature. Current encounter, 03 January 2025: Here today for follow-up. TheraSkin was well-integrated in the wound and was therefore left by Dr. Meneses last week. Monica today for another dressing change with the TheraSkin Objective Data Objective Data Vital Signs: Vital Signs Temp Pulse Resp BP O2 Del Method 97.9 F 81 16 125/63 H Room Air 01/03/25 10:46 01/03/25 10:46 01/03/25 10:46 01/03/25 10:46 01/03/25 10:46 Oxygen Delivery Method Room Air Charges/Coding Procedures Integumentary 150xxx-152xx: 38232 Skin sub graft trnk/arm/leg Add On Codes: 82873 Skin sub graft t/a/l add-on Physical Exam Narrative - Integumentary: Left posterior medial calf wound measuring 9 x 3 cm, no tunneling, no undermining, complete granulation over fascia TheraSkin was well incorporated and was removed with a 15 blade and a pickup. Hemostasis was obtained with 10 cc of 1% lidocaine with 1-200,000 epinephrine Debridement Note Debridement Note Post-Debridement Measurements and Additional Note: Post-Debridement Measurements/Treatment - Nurse 1 - General Ulcer Assessment Start: 01/03/25 10:46 Freq: Status: Active Protocol: JOSÉ MANUEL Activity Type Activity Date Activity User E-sign Co-sign Detail Recorded Client Recorded Date Recorded By Document 01/03/25 10:46 [id number] 01/03/25 10:56 KW 01/03/25 10:46 WC - Today's Visit Information Type of service Follow-up Visit (Physician/CATTLE INSPECTOR ) Arrival Mode Ambulatory Patient Identification Verified (Name & Yes ) Vital Signs Temperature (97.8 F-99.1 F) 97.9 F Temperature Source Temporal Pulse Rate (60-100) 81 Pulse Location Monitor Respiratory Rate (12-18) 16 Respiratory rate source Observation Oxygen Delivery Method Room Air Blood Pressure (90/60-120/80) 125/63 H Blood Pressure Mean (mm Hg) 83 Source Monitor Position Semi-Fowlers Blood Pressure Location Right Arm History Since Last Visit- (Skip if this is Patient's initial visit) Have you changed medications since your No last visit? Any new allergies or adverse reactions No Had a fall/change in ADL's that may No increase risk of falls Signs or symptoms of abuse and/or No neglect since last visit Have you been in the hospital since your No last visit? Has dressing in place as prescribed Yes Has compression in place as prescribed Yes Has offloadiing in place as prescribed N/A Experienced any changes in pain level or No management Left Footwear Regular Shoe Right Footwear Regular Shoe Pain Scale: 0-10 Numeric Is Patient Pain Free? Yes WC - Nurse 1 - General Ulcer Measurement Start: 01/03/25 10:46 Freq: Status: Active Protocol: Activity Type Activity Date Activity User E-sign Co-sign Detail Recorded Client Recorded Date Recorded By Document 01/03/25 10:46 [email or web address] [id number] 01/03/25 10:56 KW 01/03/25 10:46 Wound Center Nurse 1 #6 LT POST LE -Current Size (cm) - Length 9 -Current Size (cm) - Width 3 -Current Size (cm) - Depth 0.1 -Total Square Cm 27 -Date of Last Picture (Recall this 01/03/25 field) -Exudate Amt Small -Exudate Type Serosanguineous -Wound Margin Distinct, Outline Attached -Texture (Eloisa-wound Skin Appearance) Assessed -Moisture (Eloisa-wound Skin Appearance) Assessed -Color (Eloisa-wound Skin Appearance) Assessed -Temperature (Eloisa-wound Skin No Abnormality Appearance) (Pt Warm) -Tenderness on Palpation (Eloisa-wound No Skin Appearance) -Ulcer Cleansing Soap and Water -Foul Odor after Cleansing No -Anesthetic Used 4% Lidocaine Solution -Wound Comment(s) unable to get the theraskin removed to see wound bed at this time - Nurse 2 - General Ulcer CM Notes Start: 01/03/25 10:46 Freq: Status: Active Protocol: Activity Type Activity Date Activity User E-sign Co-sign Detail Recorded Client Recorded Date Recorded By Document 01/03/25 11:04 [email or web address] [id number] 01/03/25 11:15 DS 01/03/25 11:04 Wound Center Nurse 2 -Time 11:04 -Correct Patient Yes -Correct Side, Site, Position Yes -Correct Procedure Yes -Procedure Performed Yes -Type of Procedure Debridement -Clinical Debridement Muscle / Fascia -Tissue Removed Muscle -Post Debridement (cm) - Length 9.0 -Post Debridement (cm) - Width 3.0 -Post Debridement (cm) - Depth 0.2 -Total Square (Post) (cm) 27.00 -Area of Debridement (cm) - Length 9.0 -Area of Debridement (cm) - Width 3.0 -Total Square (Area) (cm) 27.00 -Tunneling No -Undermining/Tunneling No -Circular Undermining No -Wound/Ulcer Outcome Not Healed -Ulcer Cleansing Rinsed/ Irrigated with Saline -Foul Odor after Cleansing No -Bioengineered Tissue No -Type of Bioengineered Tissue Theraskin -Expiration Date 07/27/29 -Product Lot Number [id number] -Percent Used 100 -Lot number of Saline Used [id number] -Bleeding Controlled with Pressure -Treatment Response Procedure Tolerated Well -Debridement - Muscle / Fascia, 1st No 20sq cm -Apply Skin Sub - 1st 25 sq cm - Legs 1 -Apply Skin Sub - each addt'l 25 sq cm 1 - Legs -Theraskin - 26TS (26 SQ CM) 26 Application 1-4 (per sq cm) Pain Scale: 0-10 Numeric Is Patient Pain Free? Yes - Nurse 3 - General Ulcer D/C NN Start: 01/03/25 10:46 Freq: Status: Active Protocol: Activity Type Activity Date Activity User E-sign Co-sign Detail Recorded Client Recorded Date Recorded By Document 01/03/25 11:22 DL [id number] 01/03/25 11:24 DL 01/03/25 11:22 Wound Care Center Nurse 3 #6 LT POST LE -Ulcer Cleansing Soap and Water -Foul Odor after Cleansing No -Other Dressing Theraskin -Primary Dressing Covered/Secured with Dry Gauze & Roll Gauze, Secured with Tape Treatment Response Procedure Tolerated Well Pain Scale: 0-10 Numeric Is Patient Pain Free? 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 The wound is 9 x 3 cm and secondary to his immunosuppression the TheraSkin incorporated remarkably well. Needed to be removed with instruments today. Plan for follow-up in 1 week with plan for immediate removal of the TheraSkin at the 1 week follow-up with replacement so as to prevent further incorporation. 1. Left Posterior Medial Calf Wound Continue TheraSkin. 2. Immunosuppression Due To Kidney Transplant The patient's immunosuppression status due to a kidney transplant continues to be monitored, as it affects wound healing. No specific changes to the immunosuppressive regimen were discussed during this visit. PLAN: Plan Theraskin application The left leg was prepped and 4% lidocaine was applied and 7 mm curette was used to excise the biofilm from the base of the wound after removal of the old TheraSkin. The wound was then washed with copious months normal saline and TheraSkin was applied over the wound bed for a total placement of 9 x 3 cm TheraSkin placement (dermal substitute placement) for 27 cm?. Dermabond was used to apply the TheraSkin and keep the edges attached to the normal keratinized skin at the margin of the wound. Wound veil and Steri-Strips and an ABD were applied with tape. Patient tolerated the procedure well. Plan to follow-up in 1 week for removal of TheraSkin and another application of the cadaver allograft TheraSkin
--- NOTE | 2025-01-04 08:51 | WC ---
PHOTO 01/03/25 L POST LE
[2025-01-10 10:17] VITALS: BP 114/89; PULSE 86; RESP 16; TEMP 36.7
--- NOTE | 2025-01-10 10:43 | PCM.WC.PN ---
History of Present Illness Date of Service: 01/10/25 Chief Complaint: Surgical wound dehiscence of the left lower extremity History of Wound: aRymundo Soler is a delightful 58-year-old male with history of type 1 diabetes as well as other multiple pre-existing comorbid medical conditions including end-stage kidney disease who underwent wide local excision for a lower lip squamous cell carcinoma as well as selective neck dissection at [facility] on 08 October 2024, followed by immediate reconstruction with a left cervical advancement flap, tensor fascia jaspreet sling, and left medial sural artery cardiopulmonary technician free flap reconstruction anastomosed to the left facial artery. In addition, a split-thickness skin graft was obtained from the patient's left anterolateral thigh for reconstruction of the donor site. He was seen and evaluated by Dr. Miguel Meneses at the wound care center last week and referred to me for follow-up as he has persistent left calf surgical wound with exposure of underlying gastrocnemius muscle. The patient's operative report was reviewed today (I reviewed extensive medical medical records from the clinical). The patient reports that he has been doing dressing changes for the left medial calf with the assistance of his who is at the appointment today. He also is complaining that he is having some drooling. He has been eating like normal since surgery (no PEG tube) and feels like he is getting sufficient calories. The patient has multiple pre-existing conditions, including diabetes mellitus type 1, end-stage renal failure for which the patient has previously undergone renal transplantation, peripheral polyneuropathy, steroid-induced osteoporosis, and peripheral vascular disease. 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 Patient is currently making excellent urine. He takes Prograf and corticosteroids for immunosuppression. He does not smoke. Subjective Subjective 08 Nov 2024: Patient went to ENT at [facility] on 04 Nov 2024. Reportedly they debrided the lower lip reconstruction, and suggested he start Medihoney dressing changes. He reports significant progress in the wound since then. And his plan is to defer further reconstruction on the face until after radiation has begun. With regards to the left calf wound, ENT has deferred wound care to our team at [place]. He got at the nutrition labs on 06 Nov 2024 (last Friday) and they demonstrated the following: Albumin 3.4 Prealbumin 14 A1c of 5.9 Hemoglobin of 10.4 with MCV of 100 Discussed high-protein intake with the patient today. We discussed wound care with wound VAC. The VAC was delivered and is ready for placement today. 15 Nov 2024: Doing well overall with wound VAC therapy. He is following up with dentistry for getting his teeth pulled in the setting of planned adjuvant radiation. No fevers chills or drainage from the leg. 25 Nov 2024: Patient endorses excellent 3 times per week VAC changes. Doing well overall. He decided to cancel his skin grafting procedure as he does not want another surgery and would like to continue local wound care. \ 13 December 2024: The patient is a 59-year-old male presenting for wound management on the left calf. The wound is located on the left calf and has been managed with a wound vacuum, which has shown positive results with no tunneling and a healthy granulated base. The patient has been using a wound vacuum three times a week, and there is consideration for using TheraSkin, a dermal substitute, to promote healing, although it has not yet been approved. Additionally, there is an excoriation on the medial leg, which has been covered with a bandage. Attestation: Documentation on this patient encounter was supported using ambient scribe technology/ voice AI technology. The patient consented to recording for the purpose of documenting the encounter. Provider reviewed content of the generated note prior to signature. 20 December 2024: The patient is a 59-year-old male presenting with a left posterior medial calf wound. The wound measures 10 x 3.5 cm with no tunneling or undermining, and there is complete granulation over the fascia. The patient has been receiving TheraSkin applications and wound vacuum therapy, which have contributed to the healthy appearance of the wound. The patient has a history of immunosuppression due to a kidney transplant, which has posed challenges in wound healing. Despite these challenges, the wound is healing well. Attestation: Documentation on this patient encounter was supported using ambient scribe technology/ voice AI technology. The patient consented to recording for the purpose of documenting the encounter. Provider reviewed content of the generated note prior to signature. 03 January 2025: Here today for follow-up. TheraSkin was well-integrated in the wound and was therefore left by Dr. Meneses last week. Monica today for another dressing change with the TheraSkin Current encounter, 10 January 2025: The patient is a 59-year-old male presenting with a left posterior calf wound. The wound has been healing from the inside out, with a reduction in size from 9 x 3 cm last week to 8-1/2 x 3 cm currently. The patient has been actively working towards healing, with interventions including Theraskin and the application of lidocaine with epinephrine to stop bleeding and the use of maintenance dressings. Additionally, the patient is recovering from recent tooth extractions, with a follow-up appointment scheduled to assess healing progress. ROS - Integumentary: Left posterior calf wound healing from the inside out, size reduced to 8-1/2 x 3 cm from 9 x 3 cm last week Attestation: Documentation on this patient encounter was supported using ambient scribe technology/ voice AI technology. The patient consented to recording for the purpose of documenting the encounter. Provider reviewed content of the generated note prior to signature. Objective Data Objective Data Vital Signs: Vital Signs Temp Pulse Resp BP O2 Del Method 98.0 F 86 16 114/89 H Room Air 01/10/25 10:17 01/10/25 10:17 01/10/25 10:17 01/10/25 10:17 01/03/25 10:46 Oxygen Delivery Method Room Air Charges/Coding Multi Select Codes Integumentary Integumentary CPT Codes: 04056 Skin sub graft trnk/arm/leg and 68156 Skin Graft substitute addl 25c Physical Exam Narrative - Integumentary: Left posterior calf wound healing from the inside out, size reduced to 8-1/2 x 3 cm from 9 x 3 cm last week Old theraskin removed. 10 cc of 1% lidocaine with 1-200,000 epinephrine was used for both local injection and topical application to stop the bleeding of the wound bed Debridement Note Debridement Note Post-Debridement Measurements and Additional Note: Post-Debridement Measurements/Treatment MARK - Nurse 1 - General Ulcer Assessment Start: 01/03/25 10:46 Freq: Status: Active Protocol: JOSÉ MANUEL Activity Type Activity Date Activity User E-sign Co-sign Detail Recorded Client Recorded Date Recorded By Document 01/03/25 10:46 ISIDRO [id number] 01/03/25 10:56 ISIDRO Document 01/10/25 10:17 KRIS [id number] 01/10/25 10:21 KRIS 01/03/25 01/10/25 10:46 10:17 MARK - Today's Visit Information Type of service Follow-up Visit Follow-up Visit (Physician/PRECAST CONCRETE IRONWORKER (Physician/PRECAST CONCRETE IRONWORKER ) ) Arrival Mode Ambulatory Ambulatory Patient Identification Verified (Name & Yes Yes ) Patient Requires Transmission-Based No Precautions Vital Signs Temperature (97.8 F-99.1 F) 97.9 F 98.0 F Temperature Source Temporal Temporal Pulse Rate (60-100) 81 86 Pulse Location Monitor Monitor Respiratory Rate (12-18) 16 16 Respiratory rate source Observation Observation Oxygen Delivery Method Room Air Blood Pressure (90/60-120/80) 125/63 H 114/89 H Blood Pressure Mean (mm Hg) 83 97 Source Monitor Monitor Position Semi-Fowlers Semi-Fowlers Blood Pressure Location Right Arm Left Arm History Since Last Visit- (Skip if this is Patient's initial visit) Have you changed medications since your No No last visit? Any new allergies or adverse reactions No No Had a fall/change in ADL's that may No No increase risk of falls Signs or symptoms of abuse and/or No No neglect since last visit Have you been in the hospital since your No No last visit? Has dressing in place as prescribed Yes Yes Has compression in place as prescribed Yes Yes Has offloadiing in place as prescribed N/A N/A Experienced any changes in pain level or No No management Left Footwear Regular Shoe Regular Shoe Right Footwear Regular Shoe Regular Shoe Pain Scale: 0-10 Numeric Is Patient Pain Free? Yes Yes WC - Nurse 1 - General Ulcer Measurement Start: 01/03/25 10:46 Freq: Status: Active Protocol: Activity Type Activity Date Activity User E-sign Co-sign Detail Recorded Client Recorded Date Recorded By Document 01/03/25 10:46 KW [id number] 01/03/25 10:56 KW Document 01/10/25 10:17 JF [id number] 01/10/25 10:21 JF 01/03/25 01/10/25 10:46 10:17 Wound Center Nurse 1 #6 LT POST LE -Combined with other wound No -Current Size (cm) - Length 9 9.3 -Current Size (cm) - Width 3 3.5 -Current Size (cm) - Depth 0.1 0.1 -Total Square Cm 27 32.55 -Date of Last Picture (Recall this 01/03/25 01/10/25 field) -Exudate Amt Small -Exudate Type Serosanguineous -Wound Margin Distinct, Outline Attached -Texture (Eloisa-wound Skin Appearance) Assessed Assessed -Moisture (Eloisa-wound Skin Appearance) Assessed Assessed -Color (Eloisa-wound Skin Appearance) Assessed Assessed -Temperature (Eloisa-wound Skin No Abnormality Appearance) (Pt Warm) -Tenderness on Palpation (Eloisa-wound No No Skin Appearance) -Ulcer Cleansing Soap and Water Soap and Water -Foul Odor after Cleansing No No -Anesthetic Used 4% Lidocaine 5% Lidocaine Solution Gel -Wound Comment(s) unable to get theraskin the theraskin intact, will be removed to see removed by wound bed at this time WC - Nurse 2 - General Ulcer CM Notes Start: 01/03/25 10:46 Freq: Status: Active Protocol: Activity Type Activity Date Activity User E-sign Co-sign Detail Recorded Client Recorded Date Recorded By Document 01/03/25 11:04 DS [id number] 01/03/25 11:15 DS Edit Result 01/03/25 11:04 DS (1) [id number] 01/05/25 16:11 DS Document 01/10/25 10:36 DS [id number] 01/10/25 10:39 DS Edit Result 01/10/25 10:36 DS (2) [id number] 01/10/25 10:40 DS (1) #6 LT POST LE - Dermabond => 5 - Wound Comment(s) => 5 Dermabond was used to secure theraskin. (2) #6 LT POST LE - Dermabond => 3 01/03/25 01/10/25 11:04 10:36 Wound Center Nurse 2 #6 LT POST LE -Time 11:04 10:36 -Correct Patient Yes Yes -Correct Side, Site, Position Yes Yes -Correct Procedure Yes Yes -Procedure Performed Yes Yes -Type of Procedure Debridement Debridement -Clinical Debridement Muscle / Fascia Muscle / Fascia -Tissue Removed Muscle Muscle -Post Debridement (cm) - Length 9.0 8.5 -Post Debridement (cm) - Width 3.0 3.0 -Post Debridement (cm) - Depth 0.2 0.1 -Total Square (Post) (cm) 27.00 25.50 -Area of Debridement (cm) - Length 9.0 8.5 -Area of Debridement (cm) - Width 3.0 3.0 -Total Square (Area) (cm) 27.00 25.50 -Tunneling No No -Undermining/Tunneling No No -Circular Undermining No No -Wound/Ulcer Outcome Not Healed Not Healed -Ulcer Cleansing Rinsed/ Rinsed/ Irrigated with Irrigated with Saline Saline -Foul Odor after Cleansing No No -Bioengineered Tissue No No -Type of Bioengineered Tissue Theraskin Theraskin -Expiration Date 07/27/29 01/16/29 -Product Lot Number [id number] -Percent Used 100 100 -Lot number of Saline Used [id number] 09-28-27 -Injectable Lidocaine w/ Epi (%) 1 -Injectable Lidocaine w/ Epi (mls) 10 -Bleeding Controlled with Pressure Pressure -Treatment Response Procedure Procedure Tolerated Well Tolerated Well -Offloading No -Debridement - Muscle / Fascia, 1st No No 20sq cm -Apply Skin Sub - 1st 25 sq cm - Legs 1 1 -Apply Skin Sub - each addt'l 25 sq cm 1 1 - Legs -Dermabond 5 3 -Theraskin - 26TS (26 SQ CM) 26 Application 1-4 (per sq cm) -Theraskin - 102TSL (39 SQ CM) 39 Application 1-4 (per sq cm) -Wound Comment(s) 5 Dermabond was used to secure theraskin. Pain Scale: 0-10 Numeric Is Patient Pain Free? Yes Yes - Nurse 3 - General Ulcer D/C NN Start: 01/03/25 10:46 Freq: Status: Active Protocol: Activity Type Activity Date Activity User E-sign Co-sign Detail Recorded Client Recorded Date Recorded By Document 01/03/25 11:22 DL [id number] 01/03/25 11:24 DL 01/03/25 11:22 Wound Care Center Nurse 3 #6 LT POST LE -Ulcer Cleansing Soap and Water -Foul Odor after Cleansing No -Other Dressing Theraskin -Primary Dressing Covered/Secured with Dry Gauze & Roll Gauze, Secured with Tape Treatment Response Procedure Tolerated Well Pain Scale: 0-10 Numeric Is Patient Pain Free? 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 The wound is 8.5 x 3 cm and secondary to his immunosuppression the TheraSkin incorporated remarkably well. Needed to be removed with instruments today. Plan for follow-up in 1 week with plan for immediate removal of the TheraSkin at the 1 week follow-up with replacement so as to prevent further incorporation. 1. Left Posterior Medial Calf Wound Continue TheraSkin. 2. Immunosuppression Due To Kidney Transplant The patient's immunosuppression status due to a kidney transplant continues to be monitored, as it affects wound healing. No specific changes to the immunosuppressive regimen were discussed during this visit. PLAN: Plan Theraskin application We preformed removal of the old TheraSkin. The wound was then washed with copious months normal saline and 10 cc of 1% lidocaine with 1:200,000 epinephrine for hemostasis, and TheraSkin was applied over the wound bed for a total placement of 8.5 x 3 cm TheraSkin placement (dermal substitute placement) for 25.5 cm?. Dermabond was used to apply the TheraSkin and keep the edges attached to the normal keratinized skin at the margin of the wound. Wound veil and Steri-Strips and an ABD were applied with tape. Patient tolerated the procedure well. Plan to follow-up in 1 week for removal of TheraSkin and another application of the cadaver allograft TheraSkin
--- NOTE | 2025-01-10 16:06 | WC ---
PHOTO 01/10/25 L POST LE
[2025-01-17 11:11] VITALS: BP 147/60; PULSE 87; RESP 18; TEMP 36
--- NOTE | 2025-01-18 09:42 | WC ---
PHOTO 01/17/25 AYANNA
--- NOTE | 2025-01-18 10:04 | PCM.WC.PN ---
History of Present Illness Date of Service: 01/17/25 Chief Complaint: Surgical wound dehiscence of the left lower extremity History of Wound: Raymundo Soler is a delightful 58-year-old male with history of type 1 diabetes as well as other multiple pre-existing comorbid medical conditions including end-stage kidney disease who underwent wide local excision for a lower lip squamous cell carcinoma as well as selective neck dissection at [facility] on 08 October 2024, followed by immediate reconstruction with a left cervical advancement flap, tensor fascia jaspreet sling, and left medial sural artery teacher assistant free flap reconstruction anastomosed to the left facial artery. In addition, a split-thickness skin graft was obtained from the patient's left anterolateral thigh for reconstruction of the donor site. He was seen and evaluated by Dr. Miguel Meneses at the wound care center last week and referred to me for follow-up as he has persistent left calf surgical wound with exposure of underlying gastrocnemius muscle. The patient's operative report was reviewed today (I reviewed extensive medical medical records from the clinical). The patient reports that he has been doing dressing changes for the left medial calf with the assistance of his who is at the appointment today. He also is complaining that he is having some drooling. He has been eating like normal since surgery (no PEG tube) and feels like he is getting sufficient calories. The patient has multiple pre-existing conditions, including diabetes mellitus type 1, end-stage renal failure for which the patient has previously undergone renal transplantation, peripheral polyneuropathy, steroid-induced osteoporosis, and peripheral vascular disease. 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 Patient is currently making excellent urine. He takes Prograf and corticosteroids for immunosuppression. He does not smoke. Subjective Subjective 08 Nov 2024: Patient went to ENT at [facility] on 04 Nov 2024. Reportedly they debrided the lower lip reconstruction, and suggested he start Medihoney dressing changes. He reports significant progress in the wound since then. And his plan is to defer further reconstruction on the face until after radiation has begun. With regards to the left calf wound, ENT has deferred wound care to our team at [place]. He got at the nutrition labs on 06 Nov 2024 (last Friday) and they demonstrated the following: Albumin 3.4 Prealbumin 14 A1c of 5.9 Hemoglobin of 10.4 with MCV of 100 Discussed high-protein intake with the patient today. We discussed wound care with wound VAC. The VAC was delivered and is ready for placement today. 15 Nov 2024: Doing well overall with wound VAC therapy. He is following up with dentistry for getting his teeth pulled in the setting of planned adjuvant radiation. No fevers chills or drainage from the leg. 25 Nov 2024: Patient endorses excellent 3 times per week VAC changes. Doing well overall. He decided to cancel his skin grafting procedure as he does not want another surgery and would like to continue local wound care. \ 13 December 2024: The patient is a 59-year-old male presenting for wound management on the left calf. The wound is located on the left calf and has been managed with a wound vacuum, which has shown positive results with no tunneling and a healthy granulated base. The patient has been using a wound vacuum three times a week, and there is consideration for using TheraSkin, a dermal substitute, to promote healing, although it has not yet been approved. Additionally, there is an excoriation on the medial leg, which has been covered with a bandage. Attestation: Documentation on this patient encounter was supported using ambient scribe technology/ voice AI technology. The patient consented to recording for the purpose of documenting the encounter. Provider reviewed content of the generated note prior to signature. 20 December 2024: The patient is a 59-year-old male presenting with a left posterior medial calf wound. The wound measures 10 x 3.5 cm with no tunneling or undermining, and there is complete granulation over the fascia. The patient has been receiving TheraSkin applications and wound vacuum therapy, which have contributed to the healthy appearance of the wound. The patient has a history of immunosuppression due to a kidney transplant, which has posed challenges in wound healing. Despite these challenges, the wound is healing well. Attestation: Documentation on this patient encounter was supported using ambient scribe technology/ voice AI technology. The patient consented to recording for the purpose of documenting the encounter. Provider reviewed content of the generated note prior to signature. 03 January 2025: Here today for follow-up. TheraSkin was well-integrated in the wound and was therefore left by Dr. Meneses last week. Monica today for another dressing change with the TheraSkin 10 January 2025: The patient is a 59-year-old male presenting with a left posterior calf wound. The wound has been healing from the inside out, with a reduction in size from 9 x 3 cm last week to 8-1/2 x 3 cm currently. The patient has been actively working towards healing, with interventions including Theraskin and the application of lidocaine with epinephrine to stop bleeding and the use of maintenance dressings. Additionally, the patient is recovering from recent tooth extractions, with a follow-up appointment scheduled to assess healing progress. ROS - Integumentary: Left posterior calf wound healing from the inside out, size reduced to 8-1/2 x 3 cm from 9 x 3 cm last week Attestation: Documentation on this patient encounter was supported using ambient scribe technology/ voice AI technology. The patient consented to recording for the purpose of documenting the encounter. Provider reviewed content of the generated note prior to signature. Current encounter, 17 January 2025: Doing well. Tolerating theraskin. Not interested in skin graft (discussed) Objective Data Objective Data Vital Signs: Vital Signs Temp Pulse Resp BP O2 Del Method 96.8 F L 87 18 147/60 H Room Air 01/17/25 11:11 01/17/25 11:11 01/17/25 11:11 01/17/25 11:11 01/17/25 11:11 Oxygen Delivery Method Room Air Charges/Coding Procedures Integumentary 150xxx-152xx: 61828 Skin sub graft trnk/arm/leg Physical Exam Narrative - Integumentary: Wound healing well, tender but manageable - Dressing change performed Wound 8 x 3 cm with healthy granulation at the base Debridement Note Debridement Note Post-Debridement Measurements and Additional Note: Post-Debridement Measurements/Treatment - Nurse 1 - General Ulcer Assessment Start: 01/03/25 10:46 Freq: Status: Active Protocol: MARK.LOWEXT Activity Type Activity Date Activity User E-sign Co-sign Detail Recorded Client Recorded Date Recorded By Document 01/03/25 10:46 KW [id number] 01/03/25 10:56 KW Document 01/10/25 10:17 JF [id number] 01/10/25 10:21 JF Document 01/17/25 11:11 KW [id number] 01/17/25 11:19 KW 01/03/25 01/10/25 01/17/25 10:46 10:17 11:11 - Today's Visit Information Type of service Follow-up Visit Follow-up Visit Follow-up Visit (Physician/DRY CELL ASSEMBLY SUPERVISOR (Physician/DRY CELL ASSEMBLY SUPERVISOR (Physician/DRY CELL ASSEMBLY SUPERVISOR ) ) ) Arrival Mode Ambulatory Ambulatory Ambulatory Patient Identification Verified (Name & Yes Yes Yes ) Patient Requires Transmission-Based No Precautions Vital Signs Temperature (97.8 F-99.1 F) 97.9 F 98.0 F 96.8 F L Temperature Source Temporal Temporal Temporal Pulse Rate (60-100) 81 86 87 Pulse Location Monitor Monitor Monitor Respiratory Rate (12-18) 16 16 18 Respiratory rate source Observation Observation Observation Oxygen Delivery Method Room Air Room Air Blood Pressure (90/60-120/80) 125/63 H 114/89 H 147/60 H Blood Pressure Mean (mm Hg) 83 97 89 Source Monitor Monitor Monitor Position Semi-Fowlers Semi-Fowlers Sitting Blood Pressure Location Right Arm Left Arm Right Arm History Since Last Visit- (Skip if this is Patient's initial visit) Have you changed medications since your No No No last visit? Any new allergies or adverse reactions No No No Had a fall/change in ADL's that may No No No increase risk of falls Signs or symptoms of abuse and/or No No No neglect since last visit Have you been in the hospital since your No No No last visit? Has dressing in place as prescribed Yes Yes Yes Has compression in place as prescribed Yes Yes Yes Has offloadiing in place as prescribed N/A N/A N/A Experienced any changes in pain level or No No No management Left Footwear Regular Shoe Regular Shoe Regular Shoe Right Footwear Regular Shoe Regular Shoe Regular Shoe Pain Scale: 0-10 Numeric Is Patient Pain Free? Yes Yes Yes - Nurse 1 - General Ulcer Measurement Start: 01/03/25 10:46 Freq: Status: Active Protocol: Activity Type Activity Date Activity User E-sign Co-sign Detail Recorded Client Recorded Date Recorded By Document 01/03/25 10:46 KW [id number] 01/03/25 10:56 KW Document 01/10/25 10:17 JF [id number] 01/10/25 10:21 JF Document 01/17/25 11:11 KW [id number] 01/17/25 11:19 KW 01/03/25 01/10/25 01/17/25 10:46 10:17 11:11 Wound Center Nurse 1 #6 LT POST LE -Combined with other wound No -Current Size (cm) - Length 9 9.3 0.1 -Current Size (cm) - Width 3 3.5 0.1 -Current Size (cm) - Depth 0.1 0.1 0.1 -Total Square Cm 27 32.55 0.01 -Date of Last Picture (Recall this 01/03/25 01/10/25 01/17/25 field) -Exudate Amt Small Medium -Exudate Type Serosanguineous Serosanguineous -Wound Margin Distinct, Indistinct, Non Outline -Visible Attached -Texture (Eloisa-wound Skin Appearance) Assessed Assessed Assessed -Moisture (Eloisa-wound Skin Appearance) Assessed Assessed Assessed -Color (Eloisa-wound Skin Appearance) Assessed Assessed Assessed -Temperature (Eloisa-wound Skin No Abnormality No Abnormality Appearance) (Pt Warm) (Pt Warm) -Tenderness on Palpation (Eloisa-wound No No No Skin Appearance) -Ulcer Cleansing Soap and Water Soap and Water Soap and Water -Foul Odor after Cleansing No No No -Anesthetic Used 4% Lidocaine 5% Lidocaine 4% Lidocaine Solution Gel Solution -Wound Comment(s) unable to get theraskin unable to the theraskin intact, will be measure, removed to see removed by dr kumar villegas wound bed at attached at this time this time, dr davalos removed during nurse 2 WC - Nurse 2 - General Ulcer CM Notes Start: 01/03/25 10:46 Freq: Status: Active Protocol: Activity Type Activity Date Activity User E-sign Co-sign Detail Recorded Client Recorded Date Recorded By Document 01/03/25 11:04 DS [id number] 01/03/25 11:15 DS Edit Result 01/03/25 11:04 DS (1) [id number] 01/05/25 16:11 DS Document 01/10/25 10:36 DS [id number] 01/10/25 10:39 DS Edit Result 01/10/25 10:36 DS (2) [id number] 01/10/25 10:40 DS Edit Result 01/10/25 10:36 DS (3) [id number] 01/10/25 11:32 DS Document 01/17/25 11:35 DS [id number] 01/17/25 11:40 DS (1) #6 LT POST LE - Dermabond => 5 - Wound Comment(s) => 5 Dermabond was used to secure theraskin. (2) #6 LT POST LE - Dermabond => 3 (3) #6 LT POST LE - Lot number of Saline Used 09-28-27 => [id number] 01/03/25 01/10/25 01/17/25 11:04 10:36 11:35 Wound Center Nurse 2 #6 LT POST LE -Time 11:04 10:36 11:35 -Correct Patient Yes Yes Yes -Correct Side, Site, Position Yes Yes Yes -Correct Procedure Yes Yes -Procedure Performed Yes Yes -Type of Procedure Debridement Debridement -Clinical Debridement Muscle / Fascia Muscle / Fascia -Tissue Removed Muscle Muscle -Post Debridement (cm) - Length 9.0 8.5 8.0 -Post Debridement (cm) - Width 3.0 3.0 3.0 -Post Debridement (cm) - Depth 0.2 0.1 0.1 -Total Square (Post) (cm) 27.00 25.50 24.00 -Area of Debridement (cm) - Length 9.0 8.5 8.0 -Area of Debridement (cm) - Width 3.0 3.0 3.0 -Total Square (Area) (cm) 27.00 25.50 24.00 -Tunneling No No No -Undermining/Tunneling No No No -Circular Undermining No No No -Wound/Ulcer Outcome Not Healed Not Healed Not Healed -Ulcer Cleansing Rinsed/ Rinsed/ Rinsed/ Irrigated with Irrigated with Irrigated with Saline Saline Saline -Foul Odor after Cleansing No No No -Bioengineered Tissue No No No -Type of Bioengineered Tissue Theraskin Theraskin Theraskin -Expiration Date 07/27/29 01/16/29 02/11/29 -Product Lot Number [id number] -Percent Used 100 100 100 -Lot number of Saline Used [id number] -Injectable Lidocaine w/ Epi (%) 1 -Injectable Lidocaine w/ Epi (mls) 10 -Bleeding Controlled with Pressure Pressure Pressure -Treatment Response Procedure Procedure Procedure Tolerated Well Tolerated Well Tolerated Well -Offloading No -Debridement - Muscle / Fascia, 1st No No 20sq cm -Apply Skin Sub - 1st 25 sq cm - Legs 1 1 1 -Apply Skin Sub - each addt'l 25 sq cm 1 1 - Legs -Dermabond 5 3 -Theraskin - 26TS (26 SQ CM) 26 Application 1-4 (per sq cm) -Theraskin - 102TSL (39 SQ CM) 39 39 Application 1-4 (per sq cm) -Wound Comment(s) 5 Dermabond was used to secure theraskin. Pain Scale: 0-10 Numeric Is Patient Pain Free? Yes Yes Yes - Nurse 3 - General Ulcer D/C NN Start: 01/03/25 10:46 Freq: Status: Active Protocol: Activity Type Activity Date Activity User E-sign Co-sign Detail Recorded Client Recorded Date Recorded By Document 01/03/25 11:22 DL [id number] 01/03/25 11:24 DL Document 01/10/25 10:48 DL [id number] 01/10/25 10:50 DL Document 01/17/25 11:50 KW [id number] 01/17/25 11:50 KW 01/03/25 01/10/25 01/17/25 11:22 10:48 11:50 Wound Care Center Nurse 3 #6 LT POST LE -Ulcer Cleansing Soap and Water -Foul Odor after Cleansing No No -Other Dressing Theraskin Theraskin -Primary Dressing Covered/Secured with Dry Gauze & Dry Gauze & Dry Gauze & Roll Gauze, Roll Gauze Roll Gauze, Secured with Secured with Tape Tape -Other Covering ABD/ Lt Rod per pt request LLE -Compression Wrap Rod Wrap -Other to secure dressing Treatment Response Procedure Procedure Tolerated Well Tolerated Well Pain Scale: 0-10 Numeric Is Patient Pain Free? 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 The wound is 8 x 3 cm. Plan for follow-up in 1 week with plan for immediate removal of the TheraSkin at the 1 week follow-up with replacement so as to prevent further incorporation. 1. Left Posterior Medial Calf Wound Continue TheraSkin. 2. Immunosuppression Due To Kidney Transplant The patient's immunosuppression status due to a kidney transplant continues to be monitored, as it affects wound healing. No specific changes to the immunosuppressive regimen were discussed during this visit. PLAN: Plan Theraskin application We preformed removal of the old TheraSkin. The wound was then washed with copious months normal saline and 10 cc of 1% lidocaine with 1:200,000 epinephrine for hemostasis, and TheraSkin was applied over the wound bed for a total placement of 8 x 3 cm TheraSkin placement (dermal substitute placement) for 24 cm?. Dermabond was used to apply the TheraSkin and keep the edges attached to the normal keratinized skin at the margin of the wound. Wound veil and Steri-Strips and an ABD were applied with tape. Patient tolerated the procedure well. Plan to follow-up in 1 week for removal of TheraSkin and another application of the cadaver allograft TheraSkin
[2025-01-24 10:21] VITALS: BP 140/73; PULSE 87; RESP 14; TEMP 36.6
--- NOTE | 2025-01-24 11:25 | PCM.WC.PN ---
History of Present Illness Date of Service: 01/24/25 Chief Complaint: Surgical wound dehiscence of the left lower extremity History of Wound: Raymundo Soler is a delightful 58-year-old male with history of type 1 diabetes as well as other multiple pre-existing comorbid medical conditions including end-stage kidney disease who underwent wide local excision for a lower lip squamous cell carcinoma as well as selective neck dissection at [facility] on 08 October 2024, followed by immediate reconstruction with a left cervical advancement flap, tensor fascia jaspreet sling, and left medial sural artery signaling design engineer free flap reconstruction anastomosed to the left facial artery. In addition, a split-thickness skin graft was obtained from the patient's left anterolateral thigh for reconstruction of the donor site. He was seen and evaluated by Dr. Miguel Meneses at the wound care center last week and referred to me for follow-up as he has persistent left calf surgical wound with exposure of underlying gastrocnemius muscle. The patient's operative report was reviewed today (I reviewed extensive medical medical records from the clinical). The patient reports that he has been doing dressing changes for the left medial calf with the assistance of his who is at the appointment today. He also is complaining that he is having some drooling. He has been eating like normal since surgery (no PEG tube) and feels like he is getting sufficient calories. The patient has multiple pre-existing conditions, including diabetes mellitus type 1, end-stage renal failure for which the patient has previously undergone renal transplantation, peripheral polyneuropathy, steroid-induced osteoporosis, and peripheral vascular disease. 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 Patient is currently making excellent urine. He takes Prograf and corticosteroids for immunosuppression. He does not smoke. Subjective Subjective 08 Nov 2024: Patient went to ENT at [facility] on 04 Nov 2024. Reportedly they debrided the lower lip reconstruction, and suggested he start Medihoney dressing changes. He reports significant progress in the wound since then. And his plan is to defer further reconstruction on the face until after radiation has begun. With regards to the left calf wound, ENT has deferred wound care to our team at [place]. He got at the nutrition labs on 06 Nov 2024 (last Friday) and they demonstrated the following: Albumin 3.4 Prealbumin 14 A1c of 5.9 Hemoglobin of 10.4 with MCV of 100 Discussed high-protein intake with the patient today. We discussed wound care with wound VAC. The VAC was delivered and is ready for placement today. 15 Nov 2024: Doing well overall with wound VAC therapy. He is following up with dentistry for getting his teeth pulled in the setting of planned adjuvant radiation. No fevers chills or drainage from the leg. 25 Nov 2024: Patient endorses excellent 3 times per week VAC changes. Doing well overall. He decided to cancel his skin grafting procedure as he does not want another surgery and would like to continue local wound care. \ 13 December 2024: The patient is a 59-year-old male presenting for wound management on the left calf. The wound is located on the left calf and has been managed with a wound vacuum, which has shown positive results with no tunneling and a healthy granulated base. The patient has been using a wound vacuum three times a week, and there is consideration for using TheraSkin, a dermal substitute, to promote healing, although it has not yet been approved. Additionally, there is an excoriation on the medial leg, which has been covered with a bandage. Attestation: Documentation on this patient encounter was supported using ambient scribe technology/ voice AI technology. The patient consented to recording for the purpose of documenting the encounter. Provider reviewed content of the generated note prior to signature. 20 December 2024: The patient is a 59-year-old male presenting with a left posterior medial calf wound. The wound measures 10 x 3.5 cm with no tunneling or undermining, and there is complete granulation over the fascia. The patient has been receiving TheraSkin applications and wound vacuum therapy, which have contributed to the healthy appearance of the wound. The patient has a history of immunosuppression due to a kidney transplant, which has posed challenges in wound healing. Despite these challenges, the wound is healing well. Attestation: Documentation on this patient encounter was supported using ambient scribe technology/ voice AI technology. The patient consented to recording for the purpose of documenting the encounter. Provider reviewed content of the generated note prior to signature. 03 January 2025: Here today for follow-up. TheraSkin was well-integrated in the wound and was therefore left by Dr. Meneses last week. Monica today for another dressing change with the TheraSkin 10 January 2025: The patient is a 59-year-old male presenting with a left posterior calf wound. The wound has been healing from the inside out, with a reduction in size from 9 x 3 cm last week to 8-1/2 x 3 cm currently. The patient has been actively working towards healing, with interventions including Theraskin and the application of lidocaine with epinephrine to stop bleeding and the use of maintenance dressings. Additionally, the patient is recovering from recent tooth extractions, with a follow-up appointment scheduled to assess healing progress. ROS - Integumentary: Left posterior calf wound healing from the inside out, size reduced to 8-1/2 x 3 cm from 9 x 3 cm last week Attestation: Documentation on this patient encounter was supported using ambient scribe technology/ voice AI technology. The patient consented to recording for the purpose of documenting the encounter. Provider reviewed content of the generated note prior to signature. 17 January 2025: Doing well. Tolerating theraskin. Not interested in skin graft (discussed) Current encounter, 24 January 2025: Doing well overall. Tolerating the weekly cadaver allograft applications. Objective Data Objective Data Vital Signs: Vital Signs Temp Pulse Resp BP O2 Del Method 97.9 F 87 14 140/73 H Room Air 01/24/25 10:21 01/24/25 10:21 01/24/25 10:21 01/24/25 10:21 01/17/25 11:11 Oxygen Delivery Method Room Air Charges/Coding Procedures Integumentary 150xxx-152xx: [id number] Skin sub graft trnk/arm/leg Physical Exam Narrative - Integumentary: Wound healing well, tender but manageable - Dressing change performed Wound 8 x 2.5 cm with healthy granulation at the base Debridement Note Debridement Note Post-Debridement Measurements and Additional Note: Post-Debridement Measurements/Treatment WC - Nurse 1 - General Ulcer Assessment Start: 01/03/25 10:46 Freq: Status: Active Protocol: [email or web address] Activity Type Activity Date Activity User E-sign Co-sign Detail Recorded Client Recorded Date Recorded By Document 01/03/25 10:46 KW [id number] 01/03/25 10:56 KW Document 01/10/25 10:17 JF [id number] 01/10/25 10:21 JF Document 01/17/25 11:11 KW [id number] 01/17/25 11:19 KW Document 01/24/25 10:21 ML [id number] 01/24/25 10:24 ML 01/03/25 01/10/25 01/17/25 10:46 10:17 11:11 - Today's Visit Information Type of service Follow-up Visit Follow-up Visit Follow-up Visit (Physician/DIRECTOR STAGE (Physician/DIRECTOR STAGE (Physician/DIRECTOR STAGE ) ) ) Arrival Mode Ambulatory Ambulatory Ambulatory Transfer Assistance Patient Identification Verified (Name & Yes Yes Yes ) Patient Requires Transmission-Based No Precautions Vital Signs Temperature (97.8 F-99.1 F) 97.9 F 98.0 F 96.8 F L Temperature Source Temporal Temporal Temporal Pulse Rate (60-100) 81 86 87 Pulse Location Monitor Monitor Monitor Respiratory Rate (12-18) 16 16 18 Respiratory rate source Observation Observation Observation Oxygen Delivery Method Room Air Room Air Blood Pressure (90/60-120/80) 125/63 H 114/89 H 147/60 H Blood Pressure Mean (mm Hg) 83 97 89 Source Monitor Monitor Monitor Position Semi-Fowlers Semi-Fowlers Sitting Blood Pressure Location Right Arm Left Arm Right Arm History Since Last Visit- (Skip if this is Patient's initial visit) Have you changed medications since your No No No last visit? Any new allergies or adverse reactions No No No Had a fall/change in ADL's that may No No No increase risk of falls Signs or symptoms of abuse and/or No No No neglect since last visit Have you been in the hospital since your No No No last visit? Has dressing in place as prescribed Yes Yes Yes Has compression in place as prescribed Yes Yes Yes Has offloadiing in place as prescribed N/A N/A N/A Experienced any changes in pain level or No No No management Left Footwear Regular Shoe Regular Shoe Regular Shoe Right Footwear Regular Shoe Regular Shoe Regular Shoe Pain Scale: 0-10 Numeric Is Patient Pain Free? Yes Yes Yes 01/24/25 10:21 - Today's Visit Information Type of service Follow-up Visit (Physician/DIRECTOR STAGE ) Arrival Mode Ambulatory Transfer Assistance None Patient Identification Verified (Name & Yes ) Patient Requires Transmission-Based No Precautions Vital Signs Temperature (97.8 F-99.1 F) 97.9 F Temperature Source Temporal Pulse Rate (60-100) 87 Pulse Location Monitor Respiratory Rate (12-18) 14 Respiratory rate source Monitor Oxygen Delivery Method Blood Pressure (90/60-120/80) 140/73 H Blood Pressure Mean (mm Hg) 95 Source Monitor Position Sitting Blood Pressure Location Right Arm History Since Last Visit- (Skip if this is Patient's initial visit) Have you changed medications since your No last visit? Any new allergies or adverse reactions No Had a fall/change in ADL's that may No increase risk of falls Signs or symptoms of abuse and/or No neglect since last visit Have you been in the hospital since your No last visit? Has dressing in place as prescribed Yes Has compression in place as prescribed Yes Has offloadiing in place as prescribed N/A Experienced any changes in pain level or No management Left Footwear Right Footwear Pain Scale: 0-10 Numeric Is Patient Pain Free? Yes WC - Nurse 1 - General Ulcer Measurement Start: 01/03/25 10:46 Freq: Status: Active Protocol: Activity Type Activity Date Activity User E-sign Co-sign Detail Recorded Client Recorded Date Recorded By Document 01/03/25 10:46 KW [id number] 01/03/25 10:56 KW Document 01/10/25 10:17 JF [id number] 01/10/25 10:21 JF Document 01/17/25 11:11 KW [id number] 01/17/25 11:19 KW Document 01/24/25 10:21 ML [id number] 01/24/25 10:24 ML 01/03/25 01/10/25 01/17/25 10:46 10:17 11:11 Wound Center Nurse 1 #6 LT POST LE -Combined with other wound No -Current Size (cm) - Length 9 9.3 0.1 -Current Size (cm) - Width 3 3.5 0.1 -Current Size (cm) - Depth 0.1 0.1 0.1 -Total Square Cm 27 32.55 0.01 -Date of Last Picture (Recall this 01/03/25 01/10/25 01/17/25 field) -Exudate Amt Small Medium -Exudate Type Serosanguineous Serosanguineous -Wound Margin Distinct, Indistinct, Non Outline -Visible Attached -Slough/Fibrin -Texture (Eloisa-wound Skin Appearance) Assessed Assessed Assessed -Moisture (Eloisa-wound Skin Appearance) Assessed Assessed Assessed -Color (Eloisa-wound Skin Appearance) Assessed Assessed Assessed -Temperature (Eloisa-wound Skin No Abnormality No Abnormality Appearance) (Pt Warm) (Pt Warm) -Tenderness on Palpation (Eloisa-wound No No No Skin Appearance) -Ulcer Cleansing Soap and Water Soap and Water Soap and Water -Foul Odor after Cleansing No No No -Anesthetic Used 4% Lidocaine 5% Lidocaine 4% Lidocaine Solution Gel Solution -Wound Comment(s) unable to get theraskin unable to the theraskin intact, will be measure, removed to see removed by dr kumar villegas wound bed at attached at this time this time, dr davalos removed during nurse 2 01/24/25 10:21 Wound Center Nurse 1 #6 LT POST LE -Combined with other wound -Current Size (cm) - Length 8.7 -Current Size (cm) - Width 3.7 -Current Size (cm) - Depth 0.1 -Total Square Cm 32.19 -Date of Last Picture (Recall this field) -Exudate Amt Large -Exudate Type Sanguineous -Wound Margin Flat & Intact -Slough/Fibrin Yes -Texture (Eloisa-wound Skin Appearance) Assessed -Moisture (Eloisa-wound Skin Appearance) Assessed -Color (Eloisa-wound Skin Appearance) Assessed -Temperature (Eloisa-wound Skin No Abnormality Appearance) (Pt Warm) -Tenderness on Palpation (Eloisa-wound No Skin Appearance) -Ulcer Cleansing Soap and Water -Foul Odor after Cleansing No -Anesthetic Used 4% Lidocaine Solution -Wound Comment(s) WC - Nurse 2 - General Ulcer CM Notes Start: 01/03/25 10:46 Freq: Status: Active Protocol: Activity Type Activity Date Activity User E-sign Co-sign Detail Recorded Client Recorded Date Recorded By Document 01/03/25 11:04 DS [id number] 01/03/25 11:15 DS Edit Result 01/03/25 11:04 DS (1) [id number] 01/05/25 16:11 DS Document 01/10/25 10:36 DS [id number] 01/10/25 10:39 DS Edit Result 01/10/25 10:36 DS (2) [id number] 01/10/25 10:40 DS Edit Result 01/10/25 10:36 DS (3) [id number] 01/10/25 11:32 DS Document 01/17/25 11:35 DS [id number] 01/17/25 11:40 DS Document 01/24/25 10:36 JF [id number] 01/24/25 10:38 JF Edit Result 01/24/25 10:36 JF (4) [id number] 01/24/25 10:39 JF (1) #6 LT POST LE - Dermabond => 5 - Wound Comment(s) => 5 Dermabond was used to secure theraskin. (2) #6 LT POST LE - Dermabond => 3 (3) #6 LT POST LE - Lot number of Saline Used 09-28-27 => [id number] (4) #6 LT POST LE - Dermabond => 2 01/03/25 01/10/25 01/17/25 11:04 10:36 11:35 Wound Center Nurse 2 #6 LT POST LE -Time 11:04 10:36 11:35 -Correct Patient Yes Yes Yes -Correct Side, Site, Position Yes Yes Yes -Correct Procedure Yes Yes -Procedure Performed Yes Yes -Type of Procedure Debridement Debridement -Clinical Debridement Muscle / Fascia Muscle / Fascia -Tissue Removed Muscle Muscle -Post Debridement (cm) - Length 9.0 8.5 8.0 -Post Debridement (cm) - Width 3.0 3.0 3.0 -Post Debridement (cm) - Depth 0.2 0.1 0.1 -Total Square (Post) (cm) 27.00 25.50 24.00 -Area of Debridement (cm) - Length 9.0 8.5 8.0 -Area of Debridement (cm) - Width 3.0 3.0 3.0 -Total Square (Area) (cm) 27.00 25.50 24.00 -Tunneling No No No -Undermining/Tunneling No No No -Circular Undermining No No No -Wound/Ulcer Outcome Not Healed Not Healed Not Healed -Ulcer Cleansing Rinsed/ Rinsed/ Rinsed/ Irrigated with Irrigated with Irrigated with Saline Saline Saline -Foul Odor after Cleansing No No No -Bioengineered Tissue No No No -Type of Bioengineered Tissue Theraskin Theraskin Theraskin -Expiration Date 07/27/29 01/16/29 02/11/29 -Product Lot Number [id number] -Percent Used 100 100 100 -Lot number of Saline Used [id number] -Injectable Lidocaine w/ Epi (%) 1 -Injectable Lidocaine w/ Epi (mls) 10 -Bleeding Controlled with Pressure Pressure Pressure -Treatment Response Procedure Procedure Procedure Tolerated Well Tolerated Well Tolerated Well -Offloading No -Debridement - Subq, 1st 20sq cm -Debridement - Muscle / Fascia, 1st No No 20sq cm -Apply Skin Sub - 1st 25 sq cm - Legs 1 1 1 -Apply Skin Sub - each addt'l 25 sq cm 1 1 - Legs -Dermabond 5 3 -Theraskin - 26TS (26 SQ CM) 26 Application 1-4 (per sq cm) -Theraskin - 102TSL (39 SQ CM) 39 39 Application 1-4 (per sq cm) -Wound Comment(s) 5 Dermabond was used to secure theraskin. Pain Scale: 0-10 Numeric Is Patient Pain Free? Yes Yes Yes 01/24/25 10:36 Wound Center Nurse 2 #6 LT POST LE -Time 10:37 -Correct Patient Yes -Correct Side, Site, Position No -Correct Procedure No -Procedure Performed No -Type of Procedure -Clinical Debridement -Tissue Removed -Post Debridement (cm) - Length 8 -Post Debridement (cm) - Width 2.5 -Post Debridement (cm) - Depth 0.1 -Total Square (Post) (cm) 20.0 -Area of Debridement (cm) - Length 8 -Area of Debridement (cm) - Width 2.5 -Total Square (Area) (cm) 20.0 -Tunneling No -Undermining/Tunneling No -Circular Undermining No -Wound/Ulcer Outcome Not Healed -Ulcer Cleansing Rinsed/ Irrigated with Saline -Foul Odor after Cleansing No -Bioengineered Tissue -Type of Bioengineered Tissue Theraskin -Expiration Date 02/15/29 -Product Lot Number [id number] -Percent Used 100 -Lot number of Saline Used [id number] -Injectable Lidocaine w/ Epi (%) -Injectable Lidocaine w/ Epi (mls) -Bleeding Controlled with Pressure -Treatment Response Procedure Tolerated Well -Offloading No -Debridement - Subq, 1st 20sq cm No -Debridement - Muscle / Fascia, 1st 20sq cm -Apply Skin Sub - 1st 25 sq cm - Legs 1 -Apply Skin Sub - each addt'l 25 sq cm - Legs -Dermabond 2 -Theraskin - 26TS (26 SQ CM) Application 1-4 (per sq cm) -Theraskin - 102TSL (39 SQ CM) 39 Application 1-4 (per sq cm) -Wound Comment(s) Pain Scale: 0-10 Numeric Is Patient Pain Free? Yes - Nurse 3 - General Ulcer D/C NN Start: 01/03/25 10:46 Freq: Status: Active Protocol: Activity Type Activity Date Activity User E-sign Co-sign Detail Recorded Client Recorded Date Recorded By Document 01/03/25 11:22 DL [id number] 01/03/25 11:24 DL Document 01/10/25 10:48 DL [id number] 01/10/25 10:50 DL Document 01/17/25 11:50 KW [id number] 01/17/25 11:50 KW Document 01/24/25 10:38 JF [id number] 01/24/25 10:38 JF 01/03/25 01/10/25 01/17/25 11:22 10:48 11:50 Wound Care Center Nurse 3 #6 LT POST LE -Ulcer Cleansing Soap and Water -Foul Odor after Cleansing No No -Other Dressing Theraskin Theraskin -Primary Dressing Covered/Secured with Dry Gauze & Dry Gauze & Dry Gauze & Roll Gauze, Roll Gauze Roll Gauze, Secured with Secured with Tape Tape -Other Covering ABD/ Lt Rod per pt request LLE -Compression Wrap Rod Wrap -Other to secure dressing Treatment Response Procedure Procedure Tolerated Well Tolerated Well Pain Scale: 0-10 Numeric Is Patient Pain Free? Yes Yes Yes - Visit Discharge Discharge Condition Stable Stable Stable Ambulatory Status Ambulatory Ambulatory Ambulatory Transportation Private Auto Private Auto Private Auto Medication Reconcilliation completed & No provided to patient/care provider Clinical Summary of Care Provided Yes Facility Type Home Health Home Health Orders Sent Yes Yes 01/24/25 10:38 Wound Care Center Nurse 3 #6 LT POST LE -Ulcer Cleansing Rinsed/ Irrigated with Saline -Foul Odor after Cleansing No -Other Dressing -Primary Dressing Covered/Secured with Dry Gauze & Roll Gauze, Secured with Tape -Other Covering LLE -Compression Wrap Rod Wrap -Other Treatment Response Pain Scale: 0-10 Numeric Is Patient Pain Free? 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 The wound is 8 x 2.5 cm. Plan for follow-up in 1 week with plan for immediate removal of the TheraSkin at the 1 week follow-up with replacement so as to prevent further incorporation. 1. Left Posterior Medial Calf Wound Continue TheraSkin. 2. Immunosuppression Due To Kidney Transplant The patient's immunosuppression status due to a kidney transplant continues to be monitored, as it affects wound healing. No specific changes to the immunosuppressive regimen were discussed during this visit. PLAN: Plan Theraskin application We preformed removal of the old TheraSkin. The wound was then washed with copious months normal saline and TheraSkin was applied over the wound bed for a total placement of 8 x 2.5 cm TheraSkin placement (dermal substitute placement) for 20 cm?. Dermabond was used to apply the TheraSkin and keep the edges attached to the normal keratinized skin at the margin of the wound. Wound veil and Steri-Strips and an ABD were applied with tape. Patient tolerated the procedure well. Plan to follow-up in 1 week for removal of TheraSkin and another application of the cadaver allograft TheraSkin
--- NOTE | 2025-01-25 09:40 | WC ---
PHOTO-LLE 01/24/25
== END 2025-01-27 23:59 | disposition home or self-care (01) ==
LOC: WC 10:15
PROVIDERS: PCP Internal Medicine; Referring Provider Student in an Organized Health Care Education/Training Program; Visit Provider Surgery Plastic and Reconstructive Surgery
DX: E10.622 Type 1 diabetes mellitus with other skin ulcer (principal); L97.225 Non-pressure chronic ulcer of left calf with muscle involvement without evidence of necrosis; N18.6 End stage renal disease; E10.42 Type 1 diabetes mellitus with diabetic polyneuropathy; E10.22 Type 1 diabetes mellitus with diabetic chronic kidney disease; E10.51 Type 1 diabetes mellitus with diabetic peripheral angiopathy without gangrene; C44.02 Squamous cell carcinoma of skin of lip; Y83.2 Surgical operation with anastomosis, bypass or graft as the cause of abnormal reaction of the patient, or of later complication, without mention of misadventure at the time of the procedure; T81.31XA Disruption of external operation (surgical) wound, not elsewhere classified, initial encounter; Z94.0 Kidney transplant status; Z79.899 Other long term (current) drug therapy
CPT/HCPCS: 15271; 15272; Q4121

== ENCOUNTER 2025-02-21 08:15 | Outpatient (RCR) | payer MEDICARE, MEDICAID, SELFPAY ==
[2025-01-31 10:10] VITALS: BP 105/66; PULSE 87; RESP 18; TEMP 36.4
--- NOTE | 2025-01-31 10:50 | WC ---
PHOTO-LEFT CALF 01/31/25
--- NOTE | 2025-01-31 11:04 | PCM.WC.HP ---
History of Present Illness Date of Service: 01/31/25 Chief Complaint: Surgical wound dehiscence of the left lower extremity History of Wound: The patient is seen and evaluated today as a courtesy to Dr. Duenas in his absence. The patient's history is as documented below: Raymundo Soler is a delightful 59-year-old male with history of type 1 diabetes as well as other multiple pre-existing comorbid medical conditions including end-stage kidney disease who underwent wide local excision for a lower lip squamous cell carcinoma as well as selective neck dissection at [facility] on 08 October 2024, followed by immediate reconstruction with a left cervical advancement flap, tensor fascia jaspreet sling, and left medial sural artery customer training specialist free flap reconstruction anastomosed to the left facial artery. In addition, a split-thickness skin graft was obtained from the patient's left anterolateral thigh for reconstruction of the donor site. He was seen and evaluated by Dr. [facility] and referred to me for follow-up as he had persistent left calf surgical wound with exposure of underlying gastrocnemius muscle. The patient's operative report was reviewed (I reviewed extensive medical medical records from the clinical). The patient reported that he had been doing dressing changes for the left medial calf with the assistance of his . He also is complained that he was having some drooling. He had been eating like normal since surgery (no PEG tube) and felt like he was getting sufficient calories. The patient has multiple pre-existing conditions, including diabetes mellitus type 1, end-stage renal failure for which the patient has previously undergone renal transplantation, peripheral polyneuropathy, steroid-induced osteoporosis, and peripheral vascular disease. 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 The patient is making excellent urine. He takes Prograf and corticosteroids for immunosuppression. He does not smoke. [facility] Medical History (Updated 01/31/25 @ 11:[address] 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 of necrosis Surgical wound dehiscence Postoperative wound dehiscence Chronic kidney disease Squamous cell cancer of lip Diabetic polyneuropathy Diabetes type 1, controlled Vitamin D deficiency Steroid-induced osteoporosis Home Medications ?Medication ?Instructions ?Recorded ?Last Taken ?Type aspirin 81 mg chewable tablet 81 mg PO DAILY@0800 09/07/13 Unknown History mycophenolate mofetil 250 mg 750 mg PO BID 09/07/13 Unknown History capsule prednisone 5 mg tablet 5 mg PO DAILY 09/07/13 Unknown History tacrolimus 1 mg capsule, 1 mg PO .EVENING 09/07/13 Unknown History immediate-release atorvastatin 20 mg tablet 20 mg PO QHS 04/24/16 Unknown History cholecalciferol (vitamin D3) 25 1,000 unit PO DAILY 04/24/16 Unknown History mcg (1,000 unit) tablet gabapentin 300 mg capsule 300 mg PO BIDCM 04/24/16 Unknown History Held on 10/28/23. Instructions: MD Ordered insulin lispro 100 unit/mL 16 unit subcut TIDCM 04/24/16 Unknown History subcutaneous pen naproxen sodium 220 mg tablet 220 mg PO Q12H PRN PRN Pain 04/24/16 Unknown History Held on 10/28/23. Instructions: MD Ordered omeprazole 40 mg capsule,delayed 40 mg PO DAILY 04/24/16 Unknown History release vitamin E (dl, acetate) 90 mg (200 200 unit PO DAILY 04/24/16 Unknown History unit) capsule Held on 10/28/23. Instructions: Duplicate Order dicyclomine 10 mg capsule 10 mg PO .BEFORE MEALS AND BED 07/14/20 Unknown History escitalopram oxalate 10 mg tablet 10 mg PO DAILY 07/14/20 Unknown History insulin glargine 100 unit/mL (3 30 unit subcut QHS 07/14/20 Unknown History mL) subcutaneous pen multivit,mineral-folic acid 800 1 tab PO DAILY 07/14/20 Unknown History mcg-vit K 100 mcg-herbal no.289 tablet (Alive Once Daily Women 50 Plus) zolpidem 5 mg tablet (Ambien) 5 mg PO QHS PRN sleep 07/14/20 Unknown History Held on 10/28/23. Instructions: Duplicate Order denosumab 60 mg/mL subcutaneous 60 mg subcut [id number] #1 mL 08/09/22 Unknown Rx syringe (Prolia) Held on 10/28/23. Instructions: MD Ordered bupropion HCl 75 mg tablet 75 mg PO BID 10/28/23 Unknown History hydroxyzine HCl 25 mg tablet 25 mg PO QHS PRN PRN anxiety 10/28/23 Unknown History magnesium oxide 400 mg PO DAILY 10/28/23 Unknown History amoxicillin 875 mg-potassium 1 tab PO BID 10 days #20 tabs 05/07/24 Unknown Rx clavulanate 125 mg tablet doxycycline hyclate 100 mg capsule 100 mg PO BID #20 caps 11/04/23 Unknown Rx tacrolimus 0.5 mg capsule, 0.5 mg PO DAILY 12/28/23 Unknown History immediate-release bupropion HCl 100 mg tablet,12 hr 100 mg PO BID 10/26/24 Unknown History sustained-release everolimus (immunosuppressive) 0.5 0.5 mg PO QPM 10/26/24 Unknown History mg tablet everolimus (immunosuppressive) 1 1 mg PO BID 10/26/24 Unknown History mg tablet famotidine 40 mg tablet 40 mg PO BID 10/26/24 Unknown History Allergy/AdvReac Type Severity Reaction Status Date / Time No Known Allergies Allergy Verified 10/26/24 13:09 Surgical History History of amputation of left great toe History of melanoma excision History of appendectomy Renal transplant, status post Social History Smoking Status: Never smoker alcohol intake: never substance use type: does not use Vital Signs Vital Signs Vital Signs: 01/31/25 10:10 Temperature 97.5 F L Temperature Source Temporal Pulse Rate 87 Respiratory Rate 18 Blood Pressure 105/66 Blood Pressure Mean 79 Blood Pressure Source Monitor Blood Pressure Position Sitting Blood Pressure Location Right Arm Oxygen Delivery Method Room Air Physical Exam Const alert, oriented x3, no apparent distress and average body habitus General Appearance: cooperative, comfortable, well kempt and well developed Orientation / Consciousness: awake, oriented to person, oriented to place and oriented to time HEENT normocephalic HEENT Narrative: The patient is wearing a surgical mask over his face, for the purpose of obscuring the site of his prior wide local lip excision. Head and Scalp: normal to inspection, normocephalic and atraumatic External Ear: external ears normal Eyes EOMs intact bilaterally General Eye: normal appearance of both eyes Resp normal respiratory effort, normal air movement, no retractions and no use of accessory muscles Effort and Inspection: able to speak in complete sentences Extremity General Extremity: Negative for clubbing or cyanosis Skin Wound Narrative: No significant swelling or edema are noted in the patient's left lower extremity. A large, elliptical wound is noted on the patient's left posterior calf. Dimensions are documented elsewhere. The wound is full-thickness, extending through all layers of the dermis and into the subcutaneous tissues. Wound margins are well beveled. A TheraSkin graft is noted to be in place. The TheraSkin appears to be firmly adherent throughout most of the wound. There is no drainage or odor. There is no sign of infection or cellulitis. No undermining is present. The dimensions of the wound are smaller than those noted last week. Neuro oriented x3, CN's II-XII intact bilaterally, moves all extremities and no focal motor deficits Sensorium / Orientation: awake, alert, oriented to person, oriented to place, oriented to time and orientation impaired Psych Appearance: grossly normal and appropriate Attitude: calm Activity / Motor Behavior: appropriate eye contact Speech: normal speech Mood & Affect: euthymic mood Thought Process: normal thought process Thought Content: normal thought content Attention / Concentration: attention grossly intact Debridement Note Debridement Note Wound debrided: Left posterior calf surgical wound Laterality: Left Type of Debridement: Excisional debridement Anesthesia Used: 5% Lidocaine Gel Depth: Down to and including healthy tissue and in the subcutaneous layer Percentage of wound debrided: 100 Instrument Used: 5mm curette, Forceps and - (Scissors) Tissue Removed: Bioburden and a small portion of TheraSkin Severity: Fat Layer Exposed Amount of bleeding with debridement: Mild Bleeding Controlled with: Compression and gauze Patient tolerated procedure: Patient tolerated procedure well Debridement Free Text: Inspection of the patient's left posterior calf wound reveals a TheraSkin graft which was placed 1 week ago (#5). The TheraSkin is firmly adherent over 80% of the wound surface. Despite aggressive debridement using a 5 mm sterile curette, forceps, and scissors, approximately 20% of the TheraSkin graft was removed. The portion removed was in the inferior portion of the wound. The remainder of the TheraSkin graft was very firmly adherent, and not easily moved despite efforts to do so. Therefore, the decision was made to leave the remaining 80% of the TheraSkin graft in place, to avoid unnecessary traumatization of the wound bed. Post-Debridement Measurements and Additional Note: Post-Debridement Measurements/Treatment MARK - Nurse 1 - General Ulcer Assessment Start: 01/31/25 10:10 Freq: Status: Active Protocol: JOSÉ MANUEL Activity Type Activity Date Activity User E-sign Co-sign Detail Recorded Client Recorded Date Recorded By Document 01/31/25 10:10 DS [id number] 01/31/25 10:11 DS 01/31/25 10:10 Vital Signs Temperature (97.8 F-99.1 F) 97.5 F L Temperature Source Temporal Pulse Rate (60-100) 87 Pulse Location Monitor Respiratory Rate (12-18) 18 Respiratory rate source Observation Oxygen Delivery Method Room Air Blood Pressure (90/60-120/80) 105/66 Blood Pressure Mean 79 Source Monitor Position Sitting Blood Pressure Location Right Arm History Since Last Visit- (Skip if this is Patient's initial visit) Have you changed medications since your No last visit? Any new allergies or adverse reactions No Had a fall/change in ADL's that may No increase risk of falls Signs or symptoms of abuse and/or No neglect since last visit Have you been in the hospital since your No last visit? Has dressing in place as prescribed Yes Has compression in place as prescribed N/A Has offloadiing in place as prescribed N/A Experienced any changes in pain level or No management Left Footwear Regular Shoe Right Footwear Regular Shoe Pain Scale: 0-10 Numeric Is Patient Pain Free? Yes WC - Nurse 1 - General Ulcer Measurement Start: 01/31/25 10:10 Freq: Status: Active Protocol: Activity Type Activity Date Activity User E-sign Co-sign Detail Recorded Client Recorded Date Recorded By Document 01/31/25 10:11 DS [id number] 01/31/25 10:18 DS 01/31/25 10:11 Wound Center Nurse 1 #6 LT POST LE -Date of Last Picture (Recall this 01/31/25 field) -Photo Taken Yes -Tunneling No -Undermining/Tunneling No -Circular Undermining No -Wound Margin Distinct, Outline Attached -Texture (Eloisa-wound Skin Appearance) Assessed -Moisture (Eloisa-wound Skin Appearance) Assessed -Color (Eloisa-wound Skin Appearance) Assessed -Temperature (Eloisa-wound Skin No Abnormality Appearance) (Pt Warm) -Tenderness on Palpation (Eloisa-wound No Skin Appearance) -Ulcer Cleansing Soap and Water -Anesthetic Used Cetacaine WC - Nurse 2 - General Ulcer CM Notes Start: 01/31/25 10:10 Freq: Status: Active Protocol: Activity Type Activity Date Activity User E-sign Co-sign Detail Recorded Client Recorded Date Recorded By Document 01/31/25 10:31 DS [id number] 01/31/25 10:52 DS 01/31/25 10:31 Wound Center Nurse 2 -Time 10:31 -Correct Patient Yes -Correct Side, Site, Position Yes -Correct Procedure Yes -Procedure Performed Yes -Type of Procedure Debridement -Clinical Debridement Subcutaneous -Tissue Removed Subcutaneous -Post Debridement (cm) - Length 7.4 -Post Debridement (cm) - Width 3.0 -Post Debridement (cm) - Depth 0.1 -Total Square (Post) (cm) 22.20 -Area of Debridement (cm) - Length 7.4 -Area of Debridement (cm) - Width 3.0 -Total Square (Area) (cm) 22.20 -Tunneling No -Undermining/Tunneling No -Circular Undermining No -Wound/Ulcer Outcome Not Healed -Ulcer Cleansing Rinsed/ Irrigated with Saline -Foul Odor after Cleansing No -Bioengineered Tissue No -Bleeding Controlled with Pressure -Treatment Response Procedure Tolerated Well -Debridement - Subq, 1st 20sq cm Yes -Debridement, SubQ, ea addt'l 20sq cm 1 or part thereof Pain Scale: 0-10 Numeric Is Patient Pain Free? Yes - Nurse 3 - General Ulcer D/C NN Start: 01/31/25 10:10 Freq: Status: Active Protocol: Activity Type Activity Date Activity User E-sign Co-sign Detail Recorded Client Recorded Date Recorded By Document 01/31/25 10:52 DS [id number] 01/31/25 10:53 DS 01/31/25 10:52 [facility] Nurse 3 #6 LT POST LE -Primary Dressing Applied Aquacel Extra, Optilok 5x5 1/2 -Other Dressing roll gauze -Aquacel Extra 2 -Optilok 5x5 1/2 1 LLE -Compression Wrap Rod Wrap Pain Scale: 0-10 Numeric Is Patient Pain Free? 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: CODE(S): L97.905 - Non-pressure chronic ulcer of unspecified part of unspecified lower leg with muscle involvement without evidence of necrosis QUALIFIERS: Laterality: left Qualified Code(s): L97.925 - Non-pressure chronic ulcer of unspecified part of left lower leg with muscle involvement without evidence of necrosis (2) Diabetes type 1, controlled: CODE(S): E10.9 - Type 1 diabetes mellitus without complications (3) Renal transplant, status post: CODE(S): Z94.0 - Kidney transplant status (4) Chronic kidney disease: CODE(S): N18.9 - Chronic kidney disease, unspecified (5) Personal history of immunosuppression therapy: CODE(S): Z92.25 - Personal history of immunosuppression therapy (6) History of amputation of left great toe: CODE(S): Z89.412 - Acquired absence of left great toe (7) Squamous cell cancer of lip: CODE(S): C44.02 - Squamous cell carcinoma of skin of lip (8) Diabetic polyneuropathy: CODE(S): E11.42 - Type 2 diabetes mellitus with diabetic polyneuropathy (9) Steroid-induced osteoporosis: CODE(S): M81.8 - Other osteoporosis without current pathological fracture; T38.0X5A - Adverse effect of glucocorticoids and synthetic analogues, initial encounter PLAN: Plan This is a 59-year-old male with multiple pre-existing medical problems, which include a history of chronic, long-term immunosuppression due to previous kidney transplantation. As has been discussed with the patient in the past, his immunosuppression regimen may have an adverse effect on wound healing. Current management has included the application of TheraSkin grafts, the 5th such application last week. At the patient's current visit, the allograft appears to be firmly adherent and intact throughout 80% of the wound bed. The 20% of the TheraSkin graft not firmly adherent was removed by debridement. An attempt was made to remove the remaining portion of the allograft, but it was firmly adherent and resistant to removal without traumatizing the wound bed. Therefore, approximately 80% of the formerly placed TheraSkin graft was left in place. We are to implement the use of moistened Aquacel Extra topically to the entire wound, which will be applied on a daily basis. The patient has been instructed in the appropriate means of application. The Aquacel Extra will be covered with an Lutz SAP dressing. The patient has also been encouraged to optimize his nutritional intake. He is to follow-up in [address] Duenas, at which time it is anticipated that TheraSkin applications will continue. Total time: 25 minutes
[2025-02-07 10:17] VITALS: BP 115/58; PULSE 91; RESP 18; TEMP 35.8
--- NOTE | 2025-02-07 14:27 | PN.PCM_ITS ---
History of Present Illness Date of Service: 02/07/25 Chief Complaint: Surgical wound dehiscence of the left lower extremity History of Wound: The patient is seen and evaluated today as a courtesy to Dr. Duenas in his absence. The patient's history is as documented below: Raymundo Soler is a delightful 59-year-old male with history of type 1 diabetes as well as other multiple pre-existing comorbid medical conditions including end-stage kidney disease who underwent wide local excision for a lower lip squamous cell carcinoma as well as selective neck dissection at [facility] on 08 October 2024, followed by immediate reconstruction with a left cervical advancement flap, tensor fascia jaspreet sling, and left medial sural artery candy supervisor free flap reconstruction anastomosed to the left facial artery. In addition, a split-thickness skin graft was obtained from the patient's left anterolateral thigh for reconstruction of the donor site. He was seen and evaluated by Dr. Miguel [facility] and referred to me for follow-up as he had persistent left calf surgical wound with exposure of underlying gastrocnemius muscle. The patient's operative report was reviewed (I reviewed extensive medical medical records from the clinical). The patient reported that he had been doing dressing changes for the left medial calf with the assistance of his . He also is complained that he was having some drooling. He had been eating like normal since surgery (no PEG tube) and felt like he was getting sufficient calories. The patient has multiple pre-existing conditions, including diabetes mellitus type 1, end-stage renal failure for which the patient has previously undergone renal transplantation, peripheral polyneuropathy, steroid-induced osteoporosis, and peripheral vascular disease. 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 The patient is making excellent urine. He takes Prograf and corticosteroids for immunosuppression. He does not smoke. Subjective Subjective 08 Nov 2024: Patient went to ENT at [facility] on 04 Nov 2024. Reportedly they debrided the lower lip reconstruction, and suggested he start Medihoney dressing changes. He reports significant progress in the wound since then. And his plan is to defer further reconstruction on the face until after radia tion has begun. With regards to the left calf wound, ENT has deferred wound care to our team at [place]. He got at the nutrition labs on 06 Nov 2024 (last Friday) and they demonstrated the following: Albumin 3.4 Prealbumin 14 A1c of 5.9 Hemoglobin of 10.4 with MCV of 100 Discussed high-protein intake with the patient today. We discussed wound care with wound VAC. The VAC was delivered and is ready for placement today. 15 Nov 2024: Doing well overall with wound VAC therapy. He is following up with dentistry for getting his teeth pulled in the setting of planned adjuvant radiation. No fevers chills or drainage from the leg. 25 Nov 2024: Patient endorses excellent 3 times per week VAC changes. Doing well overall. He decided to cancel his skin grafting procedure as he does not want another surgery and would like to continue local wound care. \ 13 December 2024: The patient is a 59-year-old male presenting for wound management on the left calf. The wound is located on the left calf and has been managed with a wound vacuum, which has shown positive results with no tunneling and a healthy g ranulated base. The patient has been using a wound vacuum three times a week, and there is consideration for using TheraSkin, a dermal substitute, to promote healing, although it has not yet been approved. Additionally, there is an excoriation on the medial leg, which has been covered with a bandage. Attestation: Documentation on this patient encounter was supported using ambient [employer]/ [employer] technology. The patient consented to recording for the purpose of documenting the encounter. Provider reviewed content of the generated note prior to signature. 20 December 2024: The patient is a 59-year-old male presenting with a left posterior medial calf wound. The wound measures 10 x 3.5 cm with no tunneling or undermining, and there is complete granulation over the fascia. The patient has been receiving TheraSkin applications and wound vacuum therapy, which have contributed to the healthy appearance of the wound. The patient has a history of immunosuppression due to a kidney transplant, which has posed challenges in wound healing. Despite these challenges, the wound is healing well. Attestation: Documentation on this patient encounter was supported using ambient [employer] technology/ voice [employer] technology. The patient consented to recording for the purpose of documenting the encounter. Provider reviewed content of the generated note prior to signature. 03 January 2025: Here today for follow-up. TheraSkin was well-integrated in the wound and was therefore left by Dr. Meneses last week. Monica today for another dressing change with the TheraSkin 10 January 2025: The patient is a 59-year-old male presenting with a left posterior calf wound. The wound has been healing from the inside out, with a reduction in size from 9 x 3 cm last week to 8-1/2 x 3 cm currently. The patient has been actively working towards healing, with interventions including Theraskin and the appli cation of lidocaine with epinephrine to stop bleeding and the use of maintenance dressings. Additionally, the patient is recovering from recent tooth extractions, with a follow-up appointment scheduled to assess healing progress. ROS - Integumentary: Left posterior calf wound healing from the inside out, size reduced to 8-1/2 x 3 cm from 9 x 3 cm last week Attestation: Documentation on this patient encounter was supported using ambient scribe technology/ voice AI technology. The patient consented to recording for the purpose of documenting the encounter. Provider reviewed content of the generated note prior to signature. 17 January 2025: Doing well. Tolerating theraskin. Not interested in skin graft (discussed) 24 January 2025: Doing well overall. Tolerating the weekly cadaver allograft applications. Current encounter, 07 Feb 2025: Patient doing well. Would like to continue Theraskin. Dr. Meneses elected to leave previous Theraskin on last week and did not change. Objective Data Objective Data Vital Signs: Vital Signs Temp Pulse Resp BP O2 Del Method 96.5 F L 91 18 115/58 L Room Air 02/07/25 10:17 02/07/25 10:17 02/07/25 10:17 02/07/25 10:17 02/07/25 10:17 Oxygen Delivery Method Room Air Charges/Coding Procedures Integumentary 150xxx-152xx: 27566 Skin sub graft trnk/arm/leg Physical Exam Narrative Wound healthy. Granulating well. Now only 1.5 x 6 cm No exposed muscle. Debridement Note Debridement Note Post-Debridement Measurements and Additional Note: Post-Debridement Measurements/Treatment WC - Nurse 1 - General Ulcer Assessment Start: 01/31/25 10:10 Freq: Status: Active Protocol: JIGNAEXT Activity Type Activity Date Activity User E-sign Co-sign Detail Recorded Client Recorded Date Recorded By Document 01/31/25 10:10 GEENA [id number] 01/31/25 10:11 DS Document 02/07/25 10:17 KW [id number] 02/07/25 10:25 KW 01/31/25 02/07/25 10:10 10:17 - Today's Visit Information Type of service Follow-up Visit (Physician/MEDICAL CASH POSTER ) Arrival Mode Ambulatory Patient Identification Verified (Name & Yes ) Vital Signs Temperature (97.8 F-99.1 F) 97.5 F L 96.5 F L Temperature Source Temporal Temporal Pulse Rate (60-100) 87 91 Pulse Location Monitor Monitor Respiratory Rate (12-18) 18 18 Respiratory rate source Observation Observation Oxygen Delivery Method Room Air Room Air Blood Pressure (90/60-120/80) 105/66 115/58 L Blood Pressure Mean (mm Hg) 79 77 Source Monitor Monitor Position Sitting Sitting Blood Pressure Location Right Arm Right Arm History Since Last Visit- (Skip if this is Patient's initial visit) Have you changed medications since your No No last visit? Any new allergies or adverse reactions No No Had a fall/change in ADL's that may No No increase risk of falls Signs or symptoms of abuse and/or No No neglect since last visit Have you been in the hospital since your No No last visit? Has dressing in place as prescribed Yes Yes Has compression in place as prescribed N/A N/A Has offloadiing in place as prescribed N/A N/A Experienced any changes in pain level or No No management Left Footwear Regular Shoe Regular Shoe Right Footwear Regular Shoe Regular Shoe Pain Scale: 0-10 Numeric Is Patient Pain Free? Yes Yes - Nurse 1 - General Ulcer Measurement Start: 01/31/25 10:10 Freq: Status: Active Protocol: Activity Type Activity Date Activity User E-sign Co-sign Detail Recorded Client Recorded Date Recorded By Document 01/31/25 10:11 DS [id number] 01/31/25 10:18 DS Document 02/07/25 10:17 KW [id number] 02/07/25 10:25 KW 01/31/25 02/07/25 10:11 10:17 Wound Center Nurse 1 #6 LT POST LE -Current Size (cm) - Length 6.5 -Current Size (cm) - Width 2 -Current Size (cm) - Depth 0.1 -Total Square Cm 13.0 -Date of Last Picture (Recall this 08/04/25 08/11/25 field) -Photo Taken Yes -Epithelialization Medium 34-66% -Tunneling No -Undermining/Tunneling No -Circular Undermining No -Exudate Amt Medium -Exudate Type Serosanguineous -Wound Margin Distinct, Distinct, Outline Outline Attached Attached -Granulation Amt Large (67-100%) -Granulation Quality Red -Necrosis Amt None Present (0 %) -Texture (Eloisa-wound Skin Appearance) Assessed Assessed -Moisture (Eloisa-wound Skin Appearance) Assessed Assessed -Color (Eloisa-wound Skin Appearance) Assessed Assessed -Temperature (Eloisa-wound Skin No Abnormality No Abnormality Appearance) (Pt Warm) (Pt Warm) -Tenderness on Palpation (Eloisa-wound No No Skin Appearance) -Ulcer Cleansing Soap and Water Soap and Water -Foul Odor after Cleansing No -Anesthetic Used Cetacaine 5% Lidocaine Gel WC - Nurse 2 - General Ulcer CM Notes Start: 01/31/25 10:10 Freq: Status: Active Protocol: Activity Type Activity Date Activity User E-sign Co-sign Detail Recorded Client Recorded Date Recorded By Document 01/31/25 10:31 DS [id number] 01/31/25 10:52 DS Document 02/07/25 10:43 JF [id number] 02/07/25 10:45 JF Edit Result 02/07/25 10:43 JF (1) [id number] 02/07/25 11:36 JF (1) #6 LT POST LE - Dermabond => 2 01/31/25 02/07/25 10:31 10:43 Wound Center Nurse 2 #6 LT POST LE -Time 10:31 10:44 -Correct Patient Yes Yes -Correct Side, Site, Position Yes Yes -Correct Procedure Yes Yes -Procedure Performed Yes Yes -Type of Procedure Debridement Debridement -Clinical Debridement Subcutaneous Subcutaneous -Tissue Removed Subcutaneous Subcutaneous -Post Debridement (cm) - Length 7.4 1.5 -Post Debridement (cm) - Width 3.0 6.0 -Post Debridement (cm) - Depth 0.1 0.1 -Total Square (Post) (cm) 22.20 9.00 -Area of Debridement (cm) - Length 7.4 1.5 -Area of Debridement (cm) - Width 3.0 6.0 -Total Square (Area) (cm) 22.20 9.00 -Tunneling No No -Undermining/Tunneling No No -Circular Undermining No No -Wound/Ulcer Outcome Not Healed Not Healed -Ulcer Cleansing Rinsed/ Rinsed/ Irrigated with Irrigated with Saline Saline -Foul Odor after Cleansing No No -Bioengineered Tissue No Yes -Type of Bioengineered Tissue Theraskin -Expiration Date 02/15/29 -Product Lot Number [id number] -Percent Used 100 -Lot number of Saline Used [id number] -Bleeding Controlled with Pressure Pressure -Treatment Response Procedure Procedure Tolerated Well Tolerated Well -Offloading No -Debridement - Subq, 1st 20sq cm Yes No -Debridement, SubQ, ea addt'l 20sq cm 1 or part thereof -Apply Skin Sub - 1st 25 sq cm - Legs 1 -Dermabond 2 -Theraskin - 102TSL (39 SQ CM) 39 Application 1-4 (per sq cm) Pain Scale: 0-10 Numeric Is Patient Pain Free? Yes Yes - Nurse 3 - General Ulcer D/C NN Start: 01/31/25 10:10 Freq: Status: Active Protocol: Activity Type Activity Date Activity User E-sign Co-sign Detail Recorded Client Recorded Date Recorded By Document 01/31/25 10:52 DS [id number] 01/31/25 10:53 DS Document 02/07/25 10:54 KW [id number] 02/07/25 10:55 KW 01/31/25 02/07/25 10:52 10:54 [facility] Nurse 3 #6 LT POST LE -Primary Dressing Applied Aquacel Extra, Optilok 5x5 1/2 -Other Dressing roll gauze -Primary Dressing Covered/Secured with Dry Gauze & Roll Gauze, Secured with Tape -Aquacel Extra 2 -Optilok 5x5 1/2 1 LLE -Compression Wrap Rod Wrap Rod Wrap Pain Scale: 0-10 Numeric Is Patient Pain Free? 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 The wound is 6 x 1.5 cm. Plan for follow-up in 1 week with plan for immediate removal of the TheraSkin at the 1 week follow-up with replacement so as to prevent further incorporation. 1. Left Posterior Medial Calf Wound Continue TheraSkin. 2. Immunosuppression Due To Kidney Transplant The patient's immunosuppression status due to a kidney transplant continues to be monitored, as it affects wound healing. No specific changes to the immunosuppressive regimen were discussed during this visit. PLAN: Plan Theraskin application We preformed removal of the old TheraSkin. The wound was then washed with copious months normal saline and TheraSkin was applied over the wound bed for a total placement of 1 x 6 cm TheraSkin placement (dermal substitute placement) for 6 cm?. Dermabond was used to apply the TheraSkin and keep the edges attached to the normal keratinized skin at the margin of the wound. Wound veil and Steri-Strips and an ABD were applied with tape. Patient tolerated the procedure well. Plan to follow-up in 1 week for removal of TheraSkin and another application of the cadaver allograft TheraSkin
--- NOTE | 2025-02-08 09:19 | WC ---
PHOTO-LEFT POST LE 02/07/25
[2025-02-14 09:05] VITALS: BP 107/62; PULSE 92; RESP 18; TEMP 36.3
--- NOTE | 2025-02-14 11:33 | PN.PCM_ITS ---
History of Present Illness Date of Service: 02/14/25 Chief Complaint: Surgical wound dehiscence of the left lower extremity History of Wound: The patient is seen and evaluated today as a courtesy to Dr. Duenas in his absence. The patient's history is as documented below: Raymundo Soler is a delightful 59-year-old male with history of type 1 diabetes as well as other multiple pre-existing comorbid medical conditions including end-stage kidney disease who underwent wide local excision for a lower lip squamous cell carcinoma as well as selective neck dissection at [facility] on 08 October 2024, followed by immediate reconstruction with a left cervical advancement flap, tensor fascia jaspreet sling, and left medial sural artery transferrer free flap reconstruction anastomosed to the left facial artery. In addition, a split-thickness skin graft was obtained from the patient's left anterolateral thigh for reconstruction of the donor site. He was seen and evaluated by Dr. Miguel [facility] and referred to me for follow-up as he had persistent left calf surgical wound with exposure of underlying gastrocnemius muscle. The patient's operative report was reviewed (I reviewed extensive medical medical records from the clinical). The patient reported that he had been doing dressing changes for the left medial calf with the assistance of his . He also is complained that he was having some drooling. He had been eating like normal since surgery (no PEG tube) and felt like he was getting sufficient calories. The patient has multiple pre-existing conditions, including diabetes mellitus type 1, end-stage renal failure for which the patient has previously undergone renal transplantation, peripheral polyneuropathy, steroid-induced osteoporosis, and peripheral vascular disease. 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 The patient is making excellent urine. He takes Prograf and corticosteroids for immunosuppression. He does not smoke. Subjective Subjective 08 Nov 2024: Patient went to ENT at [facility] on 04 Nov 2024. Reportedly they debrided the lower lip reconstruction, and suggested he start Medihoney dressing changes. He reports significant progress in the wound since then. And his plan is to defer further reconstruction on the face until after radia tion has begun. With regards to the left calf wound, ENT has deferred wound care to our team at [facility]. He got at the nutrition labs on 06 Nov 2024 (last Friday) and they demonstrated the following: Albumin 3.4 Prealbumin 14 A1c of 5.9 Hemoglobin of 10.4 with MCV of 100 Discussed high-protein intake with the patient today. We discussed wound care with wound VAC. The VAC was delivered and is ready for placement today. 15 Nov 2024: Doing well overall with wound VAC therapy. He is following up with dentistry for getting his teeth pulled in the setting of planned adjuvant radiation. No fevers chills or drainage from the leg. 25 Nov 2024: Patient endorses excellent 3 times per week VAC changes. Doing well overall. He decided to cancel his skin grafting procedure as he does not want another surgery and would like to continue local wound care. \ 13 December 2024: The patient is a 59-year-old male presenting for wound management on the left calf. The wound is located on the left calf and has been managed with a wound vacuum, which has shown positive results with no tunneling and a healthy g ranulated base. The patient has been using a wound vacuum three times a week, and there is consideration for using TheraSkin, a dermal substitute, to promote healing, although it has not yet been approved. Additionally, there is an excoriation on the medial leg, which has been covered with a bandage. Attestation: Documentation on this patient encounter was supported using ambient [employer] nology/ [employer] technology. The patient consented to recording for the purpose of documenting the encounter. Provider reviewed content of the generated note prior to signature. 20 December 2024: The patient is a 59-year-old male presenting with a left posterior medial calf wound. The wound measures 10 x 3.5 cm with no tunneling or undermining, and there is complete granulation over the fascia. The patient has been receiving TheraSkin applications and wound vacuum therapy, which have contributed to the healthy appearance of the wound. The patient has a history of immunosuppression due to a kidney transplant, which has posed challenges in wound healing. Despite these challenges, the wound is healing well. Attestation: Documentation on this patient encounter was supported using ambient [employer] technology/ voice [facility] technology. The patient consented to recording for the purpose of documenting the encounter. Provider reviewed content of the generated note prior to signature. 03 January 2025: Here today for follow-up. TheraSkin was well-integrated in the wound and was therefore left by Dr. Meneses last week. Monica today for another dressing change with the TheraSkin 10 January 2025: The patient is a 59-year-old male presenting with a left posterior calf wound. The wound has been healing from the inside out, with a reduction in size from 9 x 3 cm last week to 8-1/2 x 3 cm currently. The patient has been actively working towards healing, with interventions including Theraskin and the appli cation of lidocaine with epinephrine to stop bleeding and the use of maintenance dressings. Additionally, the patient is recovering from recent tooth extractions, with a follow-up appointment scheduled to assess healing progress. ROS - Integumentary: Left posterior calf wound healing from the inside out, size reduced to 8-1/2 x 3 cm from 9 x 3 cm last week Attestation: Documentation on this patient encounter was supported using ambient scribe technology/ voice AI technology. The patient consented to recording for the purpose of documenting the encounter. Provider reviewed content of the generated note prior to signature. 17 January 2025: Doing well. Tolerating theraskin. Not interested in skin graft (discussed) 24 January 2025: Doing well overall. Tolerating the weekly cadaver allograft applications. 07 Feb 2025: Patient doing well. Would like to continue Theraskin. Dr. Meneses elected to leave previous Theraskin on last week and did not change. Current encounter, 14 Feb 2025: Doing well. 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 Objective Data Objective Data Vital Signs: Vital Signs Temp Pulse Resp BP O2 Del Method 97.3 F L 92 18 107/62 Room Air 02/14/25 09:05 02/14/25 09:05 02/14/25 09:05 02/14/25 09:05 02/07/25 10:17 Oxygen Delivery Method Room Air Charges/Coding Procedures Integumentary 150xxx-152xx: [id number] Skin sub graft trnk/arm/leg Physical Exam Narrative Wound healthy. Granulating well. Now only 1.5 x 5.5 cm No exposed muscle. Debridement Note Debridement Note No debridement was completed: No debridement was completed today Post-Debridement Measurements and Additional Note: Post-Debridement Measurements/Treatment MARK - Nurse 1 - General Ulcer Assessment Start: 01/31/25 10:10 Freq: Status: Active Protocol: JOSÉ MANUEL Activity Type Activity Date Activity User E-sign Co-sign Detail Recorded Client Recorded Date Recorded By Document 01/31/25 10:10 DS [id number] 01/31/25 10:11 DS Document 02/07/25 10:17 KW [id number] 02/07/25 10:25 KW Document 02/14/25 09:05 DL [id number] 02/14/25 09:10 DL 01/31/25 02/07/25 02/14/25 10:10 10:17 09:05 WC - Today's Visit Information Type of service Follow-up Visit Follow-up Visit (Physician/TRANSPORTATION SUPERINTENDENT (Physician/TRANSPORTATION SUPERINTENDENT ) ) Arrival Mode Ambulatory Ambulatory Transfer Assistance None Patient Identification Verified (Name & Yes Yes ) Patient Requires Transmission-Based No Precautions Vital Signs Temperature (97.8 F-99.1 F) 97.5 F L 96.5 F L 97.3 F L Temperature Source Temporal Temporal Temporal Pulse Rate (60-100) 87 91 92 Pulse Location Monitor Monitor Monitor Respiratory Rate (12-18) 18 18 18 Respiratory rate source Observation Observation Observation Oxygen Delivery Method Room Air Room Air Blood Pressure (90/60-120/80) 105/66 115/58 L 107/62 Blood Pressure Mean (mm Hg) 79 77 77 Source Monitor Monitor Monitor Position Sitting Sitting Blood Pressure Location Right Arm Right Arm History Since Last Visit- (Skip if this is Patient's initial visit) Have you changed medications since your No No No last visit? Any new allergies or adverse reactions No No No Had a fall/change in ADL's that may No No No increase risk of falls Signs or symptoms of abuse and/or No No No neglect since last visit Have you been in the hospital since your No No No last visit? Has dressing in place as prescribed Yes Yes Yes Has compression in place as prescribed N/A N/A Yes Has offloadiing in place as prescribed N/A N/A N/A Experienced any changes in pain level or No No No management Left Footwear Regular Shoe Regular Shoe Right Footwear Regular Shoe Regular Shoe Pain Scale: 0-10 Numeric Is Patient Pain Free? Yes Yes Yes - Nurse 1 - General Ulcer Measurement Start: 01/31/25 10:10 Freq: Status: Active Protocol: Activity Type Activity Date Activity User E-sign Co-sign Detail Recorded Client Recorded Date Recorded By Document 01/31/25 10:11 DS [id number] 01/31/25 10:18 DS Document 02/07/25 10:17 KW [id number] 02/07/25 10:25 KW Document 02/14/25 09:05 DL [id number] 02/14/25 09:10 DL 01/31/25 02/07/25 02/14/25 10:11 10:17 09:05 Wound Center Nurse 1 #6 LT POST LE -Current Size (cm) - Length 6.5 6.1 -Current Size (cm) - Width 2 2 -Current Size (cm) - Depth 0.1 0.1 -Total Square Cm 13.0 12.2 -Date of Last Picture (Recall this 01/31/25 02/07/25 field) -Photo Taken Yes Yes -Epithelialization Medium 34-66% -Tunneling No -Undermining/Tunneling No -Circular Undermining No -Exudate Amt Medium Small -Exudate Type Serosanguineous Serosanguineous -Wound Margin Distinct, Distinct, Distinct, Outline Outline Outline Attached Attached Attached -Granulation Amt Large (67-100%) None Present (0 %) -Granulation Quality Red -Necrosis Amt None Present (0 None Present (0 %) %) -Structure Exposed N/A -Texture (Eloisa-wound Skin Appearance) Assessed Assessed Scarring -Moisture (Eloisa-wound Skin Appearance) Assessed Assessed No Abnormality, Dry/Scaly -Color (Leoisa-wound Skin Appearance) Assessed Assessed No Abnormality -Temperature (Eloisa-wound Skin No Abnormality No Abnormality No Abnormality Appearance) (Pt Warm) (Pt Warm) (Pt Warm) -Tenderness on Palpation (Eloisa-wound No No No Skin Appearance) -Ulcer Cleansing Soap and Water Soap and Water Soap and Water -Foul Odor after Cleansing No No -Anesthetic Used Cetacaine 5% Lidocaine 4% Lidocaine Gel Solution -Wound Comment(s) Theraskin intact WC - Nurse 2 - General Ulcer CM Notes Start: 01/31/25 10:10 Freq: Status: Active Protocol: Activity Type Activity Date Activity User E-sign Co-sign Detail Recorded Client Recorded Date Recorded By Document 01/31/25 10:31 DS [id number] 01/31/25 10:52 DS Document 02/07/25 10:43 JF [id number] 02/07/25 10:45 JF Edit Result 02/07/25 10:43 JF (1) [id number] 02/07/25 11:36 JF Document 02/14/25 09:31 DS [id number] 02/14/25 09:32 DS (1) #6 LT POST LE - Dermabond => 2 01/31/25 02/07/25 02/14/25 10:31 10:43 09:31 Wound Center Nurse 2 #6 LT POST LE -Time 10:31 10:44 09:31 -Correct Patient Yes Yes Yes -Correct Side, Site, Position Yes Yes Yes -Correct Procedure Yes Yes Yes -Procedure Performed Yes Yes Yes -Type of Procedure Debridement Debridement Debridement -Clinical Debridement Subcutaneous Subcutaneous Subcutaneous -Tissue Removed Subcutaneous Subcutaneous Subcutaneous -Post Debridement (cm) - Length 7.4 1.5 -Post Debridement (cm) - Width 3.0 6.0 -Post Debridement (cm) - Depth 0.1 0.1 -Total Square (Post) (cm) 22.20 9.00 -Area of Debridement (cm) - Length 7.4 1.5 -Area of Debridement (cm) - Width 3.0 6.0 -Total Square (Area) (cm) 22.20 9.00 -Tunneling No No No -Undermining/Tunneling No No No -Circular Undermining No No No -Wound/Ulcer Outcome Not Healed Not Healed Not Healed -Ulcer Cleansing Rinsed/ Rinsed/ Rinsed/ Irrigated with Irrigated with Irrigated with Saline Saline Saline -Foul Odor after Cleansing No No No -Bioengineered Tissue No Yes Yes -Type of Bioengineered Tissue Theraskin Theraskin -Expiration Date 02/15/29 05/25/29 -Product Lot Number [id number] -Percent Used 100 100 -Lot number of Saline Used [id number] -Bleeding Controlled with Pressure Pressure Pressure -Treatment Response Procedure Procedure Procedure Tolerated Well Tolerated Well Tolerated Well -Offloading No -Debridement - Subq, 1st 20sq cm Yes No No -Debridement, SubQ, ea addt'l 20sq cm 1 or part thereof -Apply Skin Sub - 1st 25 sq cm - Legs 1 1 -Dermabond 2 -Theraskin - 101TSS (13 SQ CM) 13 Application 1-4 (per sq cm) -Theraskin - 102TSL (39 SQ CM) 39 Application 1-4 (per sq cm) Pain Scale: 0-10 Numeric Is Patient Pain Free? Yes Yes Yes WC - Nurse 3 - General Ulcer D/C NN Start: 01/31/25 10:10 Freq: Status: Active Protocol: Activity Type Activity Date Activity User E-sign Co-sign Detail Recorded Client Recorded Date Recorded By Document 01/31/25 10:52 DS [id number] 01/31/25 10:53 DS Document 02/07/25 10:54 KW [id number] 02/07/25 10:55 KW Document 02/14/25 09:38 KW [id number] 02/14/25 09:38 KW 01/31/25 02/07/25 02/14/25 10:52 10:54 09:38 Wound Care Center Nurse 3 #6 LT POST LE -Primary Dressing Applied Aquacel Extra, Optilok 5x5 1/2 -Other Dressing roll gauze -Primary Dressing Covered/Secured with Dry Gauze & Dry Gauze & Roll Gauze, Roll Gauze, Secured with Secured with Tape Tape -Aquacel Extra 2 -Optilok 5x5 1/2 1 LLE -Compression Wrap Rod Wrap Rod Wrap Rod Wrap Pain Scale: 0-10 Numeric Is Patient Pain Free? 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 The wound is 5.5 x 1.5 cm. Plan for follow-up in 1 week with plan for immediate removal of the TheraSkin at the 1 week follow-up with replacement so as to prevent further incorporation. 1. Left Posterior Medial Calf Wound Continue TheraSkin. 2. Immunosuppression Due To Kidney Transplant The patient's immunosuppression status due to a kidney transplant continues to be monitored, as it affects wound healing. No specific changes to the immunosuppressive regimen were discussed during this visit. PLAN: Plan Theraskin application We preformed removal of the old TheraSkin. The wound was then washed with copious months normal saline and TheraSkin was applied over the wound bed for a total placement of 1.5 x 5.5 cm TheraSkin placement (dermal substitute placement) for 7.5 cm?. Dermabond was used to apply the TheraSkin and keep the edges attached to the normal keratinized skin at the margin of the wound. Wound veil and Steri-Strips and an ABD were applied with tape. Patient tolerated the procedure well. Plan to follow-up in 1 week for removal of TheraSkin and another application of the cadaver allograft TheraSkin
[2025-02-21 08:21] VITALS: BP 135/78; PULSE 86; RESP 16; TEMP 36.4
--- NOTE | 2025-02-21 08:57 | PN.PCM_ITS ---
History of Present Illness Date of Service: 02/21/25 Chief Complaint: Surgical wound dehiscence of the left lower extremity History of Wound: The patient is seen and evaluated today as a courtesy to Dr. Duenas in his absence. The patient's history is as documented below: Raymundo Soler is a delightful 59-year-old male with history of type 1 diabetes as well as other multiple pre-existing comorbid medical conditions including end-stage kidney disease who underwent wide local excision for a lower lip squamous cell carcinoma as well as selective neck dissection at [facility] on 08 October 2024, followed by immediate reconstruction with a left cervical advancement flap, tensor fascia jaspreet sling, and left medial sural artery production superintendent hydro free flap reconstruction anastomosed to the left facial artery. In addition, a split-thickness skin graft was obtained from the patient's left anterolateral thigh for reconstruction of the donor site. He was seen and evaluated by Dr. [facility] and referred to me for follow-up as he had persistent left calf surgical wound with exposure of underlying gastrocnemius muscle. The patient's operative report was reviewed (I reviewed extensive medical medical records from the clinical). The patient reported that he had been doing dressing changes for the left medial calf with the assistance of his . He also is complained that he was having some drooling. He had been eating like normal since surgery (no PEG tube) and felt like he was getting sufficient calories. The patient has multiple pre-existing conditions, including diabetes mellitus type 1, end-stage renal failure for which the patient has previously undergone renal transplantation, peripheral polyneuropathy, steroid-induced osteoporosis, and peripheral vascular disease. 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 The patient is making excellent urine. He takes Prograf and corticosteroids for immunosuppression. He does not smoke. Subjective Subjective 08 Nov 2024: Patient went to ENT at [facility] on 04 Nov 2024. Reportedly they debrided the lower lip reconstruction, and suggested he start Medihoney dressing changes. He reports significant progress in the wound since then. And his plan is to defer further reconstruction on the face until after radia tion has begun. With regards to the left calf wound, ENT has deferred wound care to our team at [place]. He got at the nutrition labs on 06 Nov 2024 (last Friday) and they demonstrated the following: Albumin 3.4 Prealbumin 14 A1c of 5.9 Hemoglobin of 10.4 with MCV of 100 Discussed high-protein intake with the patient today. We discussed wound care with wound VAC. The VAC was delivered and is ready for placement today. 15 Nov 2024: Doing well overall with wound VAC therapy. He is following up with dentistry for getting his teeth pulled in the setting of planned adjuvant radiation. No fevers chills or drainage from the leg. 25 Nov 2024: Patient endorses excellent 3 times per week VAC changes. Doing well overall. He decided to cancel his skin grafting procedure as he does not want another surgery and would like to continue local wound care. \ 13 December 2024: The patient is a 59-year-old male presenting for wound management on the left calf. The wound is located on the left calf and has been managed with a wound vacuum, which has shown positive results with no tunneling and a healthy g ranulated base. The patient has been using a wound vacuum three times a week, and there is consideration for using TheraSkin, a dermal substitute, to promote healing, although it has not yet been approved. Additionally, there is an excoriation on the medial leg, which has been covered with a bandage. Attestation: Documentation on this patient encounter was supported using ambient Elli nology/ Neomatrix technology. The patient consented to recording for the purpose of documenting the encounter. Provider reviewed content of the generated note prior to signature. 20 December 2024: The patient is a 59-year-old male presenting with a left posterior medial calf wound. The wound measures 10 x 3.5 cm with no tunneling or undermining, and there is complete granulation over the fascia. The patient has been receiving TheraSkin applications and wound vacuum therapy, which have contributed to the healthy appearance of the wound. The patient has a history of immunosuppression due to a kidney transplant, which has posed challenges in wound healing. Despite these challenges, the wound is healing well. Attestation: Documentation on this patient encounter was supported using ambient [employer] technology/ voice Respirics technology. The patient consented to recording for the purpose of documenting the encounter. Provider reviewed content of the generated note prior to signature. 03 January 2025: Here today for follow-up. TheraSkin was well-integrated in the wound and was therefore left by Dr. Meneses last week. Monica today for another dressing change with the TheraSkin 10 January 2025: The patient is a 59-year-old male presenting with a left posterior calf wound. The wound has been healing from the inside out, with a reduction in size from 9 x 3 cm last week to 8-1/2 x 3 cm currently. The patient has been actively working towards healing, with interventions including Theraskin and the appli cation of lidocaine with epinephrine to stop bleeding and the use of maintenance dressings. Additionally, the patient is recovering from recent tooth extractions, with a follow-up appointment scheduled to assess healing progress. ROS - Integumentary: Left posterior calf wound healing from the inside out, size reduced to 8-1/2 x 3 cm from 9 x 3 cm last week Attestation: Documentation on this patient encounter was supported using ambient scribe technology/ voice AI technology. The patient consented to recording for the purpose of documenting the encounter. Provider reviewed content of the generated note prior to signature. 17 January 2025: Doing well. Tolerating theraskin. Not interested in skin graft (discussed) 24 January 2025: Doing well overall. Tolerating the weekly cadaver allograft applications. 07 Feb 2025: Patient doing well. Would like to continue Theraskin. Dr. Meneses elected to leave previous Theraskin on last week and did not change. 14 Feb 2025: Doing well. 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 Current encounter, 21 February 2025: Doing well. Started lip radiation. Tolerating Objective Data Objective Data Vital Signs: Vital Signs Temp Pulse Resp BP O2 Del Method 97.6 F L 86 16 135/78 H Room Air 02/21/25 08:21 02/21/25 08:21 02/21/25 08:21 02/21/25 08:21 02/07/25 10:17 Oxygen Delivery Method Room Air Charges/Coding Visit Charges Office Visits / Consults: 77910 OV L3 Est 20min Physical Exam Narrative Theraskin removed. 7 cc of 1% lidocaine with 1:200,000 epinephrine injected for hemostasis. Wound healthy. Granulating well. Now only 1 x 6 cm and is 0.1 cm deep. No exposed muscle. Debridement Note Debridement Note No debridement was completed: No debridement was completed today Post-Debridement Measurements and Additional Note: Post-Debridement Measurements/Treatment WC - Nurse 1 - General Ulcer Assessment Start: 01/31/25 10:10 Freq: Status: Active Protocol: WC.LOWEXT Activity Type Activity Date Activity User E-sign Co-sign Detail Recorded Client Recorded Date Recorded By Document 01/31/25 10:10 DS [id number] 01/31/25 10:11 DS Document 02/07/25 10:17 KW [id number] 02/07/25 10:25 KW Document 02/14/25 09:05 DL [id number] 02/14/25 09:10 DL Document 02/21/25 08:21 DL [id number] 02/21/25 08:26 DL 01/31/25 02/07/25 02/14/25 10:10 10:17 09:05 - Today's Visit Information Type of service Follow-up Visit Follow-up Visit (Physician/LURE MAKER (Physician/LURE MAKER ) ) Arrival Mode Ambulatory Ambulatory Transfer Assistance None Patient Identification Verified (Name & Yes Yes ) Patient Requires Transmission-Based No Precautions Vital Signs Temperature (97.8 F-99.1 F) 97.5 F L 96.5 F L 97.3 F L Temperature Source Temporal Temporal Temporal Pulse Rate (60-100) 87 91 92 Pulse Location Monitor Monitor Monitor Respiratory Rate (12-18) 18 18 18 Respiratory rate source Observation Observation Observation Oxygen Delivery Method Room Air Room Air Blood Pressure (90/60-120/80) 105/66 115/58 L 107/62 Blood Pressure Mean (mm Hg) 79 77 77 Source Monitor Monitor Monitor Position Sitting Sitting Blood Pressure Location Right Arm Right Arm History Since Last Visit- (Skip if this is Patient's initial visit) Have you changed medications since your No No No last visit? Any new allergies or adverse reactions No No No Had a fall/change in ADL's that may No No No increase risk of falls Signs or symptoms of abuse and/or No No No neglect since last visit Have you been in the hospital since your No No No last visit? Has dressing in place as prescribed Yes Yes Yes Has compression in place as prescribed N/A N/A Yes Has offloadiing in place as prescribed N/A N/A N/A Experienced any changes in pain level or No No No management Left Footwear Regular Shoe Regular Shoe Right Footwear Regular Shoe Regular Shoe Pain Scale: 0-10 Numeric Is Patient Pain Free? Yes Yes Yes 02/21/25 08:21 WC - Today's Visit Information Type of service Follow-up Visit (Physician/LURE MAKER ) Arrival Mode Ambulatory Transfer Assistance None Patient Identification Verified (Name & Yes ) Patient Requires Transmission-Based No Precautions Vital Signs Temperature (97.8 F-99.1 F) 97.6 F L Temperature Source Temporal Pulse Rate (60-100) 86 Pulse Location Monitor Respiratory Rate (12-18) 16 Respiratory rate source Observation Oxygen Delivery Method Blood Pressure (90/60-120/80) 135/78 H Blood Pressure Mean (mm Hg) 97 Source Monitor Position Blood Pressure Location History Since Last Visit- (Skip if this is Patient's initial visit) Have you changed medications since your No last visit? Any new allergies or adverse reactions No Had a fall/change in ADL's that may No increase risk of falls Signs or symptoms of abuse and/or No neglect since last visit Have you been in the hospital since your No last visit? Has dressing in place as prescribed Yes Has compression in place as prescribed Yes Has offloadiing in place as prescribed N/A Experienced any changes in pain level or No management Left Footwear Right Footwear Pain Scale: 0-10 Numeric Is Patient Pain Free? Yes - Nurse 1 - General Ulcer Measurement Start: 01/31/25 10:10 Freq: Status: Active Protocol: Activity Type Activity Date Activity User E-sign Co-sign Detail Recorded Client Recorded Date Recorded By Document 01/31/25 10:11 DS [id number] 01/31/25 10:18 DS Document 02/07/25 10:17 KW [id number] 02/07/25 10:25 KW Document 02/14/25 09:05 DL [id number] 02/14/25 09:10 DL Document 02/21/25 08:21 DL [id number] 02/21/25 08:26 DL 01/31/25 02/07/25 02/14/25 10:11 10:17 09:05 Wound Center Nurse 1 #6 LT POST LE -Current Size (cm) - Length 6.5 6.1 -Current Size (cm) - Width 2 2 -Current Size (cm) - Depth 0.1 0.1 -Total Square Cm 13.0 12.2 -Date of Last Picture (Recall this 01/31/25 02/07/25 field) -Photo Taken Yes Yes -Epithelialization Medium 34-66% -Tunneling No -Undermining/Tunneling No -Circular Undermining No -Exudate Amt Medium Small -Exudate Type Serosanguineous Serosanguineous -Wound Margin Distinct, Distinct, Distinct, Outline Outline Outline Attached Attached Attached -Granulation Amt Large (67-100%) None Present (0 %) -Granulation Quality Red -Necrosis Amt None Present (0 None Present (0 %) %) -Structure Exposed N/A -Texture (Eloisa-wound Skin Appearance) Assessed Assessed Scarring -Moisture (Eloisa-wound Skin Appearance) Assessed Assessed No Abnormality, Dry/Scaly -Color (Eloisa-wound Skin Appearance) Assessed Assessed No Abnormality -Temperature (Eloisa-wound Skin No Abnormality No Abnormality No Abnormality Appearance) (Pt Warm) (Pt Warm) (Pt Warm) -Tenderness on Palpation (Eloisa-wound No No No Skin Appearance) -Ulcer Cleansing Soap and Water Soap and Water Soap and Water -Foul Odor after Cleansing No No -Anesthetic Used Cetacaine 5% Lidocaine 4% Lidocaine Gel Solution -Wound Comment(s) Theraskin intact 02/21/25 08:21 Wound Center Nurse 1 #6 LT POST LE -Current Size (cm) - Length 0.1 -Current Size (cm) - Width 0.1 -Current Size (cm) - Depth 0.1 -Total Square Cm 0.01 -Date of Last Picture (Recall this field) -Photo Taken -Epithelialization -Tunneling -Undermining/Tunneling -Circular Undermining -Exudate Amt Small -Exudate Type -Wound Margin Distinct, Outline Attached -Granulation Amt None Present (0 %) -Granulation Quality -Necrosis Amt None Present (0 %) -Structure Exposed N/A -Texture (Eloisa-wound Skin Appearance) Scarring -Moisture (Eloisa-wound Skin Appearance) No Abnormality -Color (Eloisa-wound Skin Appearance) No Abnormality -Temperature (Eloisa-wound Skin No Abnormality Appearance) (Pt Warm) -Tenderness on Palpation (Eloisa-wound No Skin Appearance) -Ulcer Cleansing Soap and Water -Foul Odor after Cleansing No -Anesthetic Used -Wound Comment(s) Theraskin intact. Left inplace today. WC - Nurse 2 - General Ulcer CM Notes Start: 01/31/25 10:10 Freq: Status: Active Protocol: Activity Type Activity Date Activity User E-sign Co-sign Detail Recorded Client Recorded Date Recorded By Document 01/31/25 10:31 DS [id number] 01/31/25 10:52 DS Document 02/07/25 10:43 JF [id number] 02/07/25 10:45 JF Edit Result 02/07/25 10:43 JF (1) [id number] 02/07/25 11:36 JF Document 02/14/25 09:31 DS [id number] 02/14/25 09:32 DS Edit Result 02/14/25 09:31 DS (2) [id number] 02/14/25 12:11 DS Document 02/21/25 08:49 JF [id number] 02/21/25 08:51 JF (1) #6 LT POST LE - Dermabond => 2 (2) #6 LT POST LE - Dermabond => 2 01/31/25 02/07/25 02/14/25 10:31 10:43 09:31 Wound Center Nurse 2 #6 LT POST LE -Time 10:31 10:44 09:31 -Correct Patient Yes Yes Yes -Correct Side, Site, Position Yes Yes Yes -Correct Procedure Yes Yes Yes -Procedure Performed Yes Yes Yes -Type of Procedure Debridement Debridement Debridement -Clinical Debridement Subcutaneous Subcutaneous Subcutaneous -Tissue Removed Subcutaneous Subcutaneous Subcutaneous -Post Debridement (cm) - Length 7.4 1.5 -Post Debridement (cm) - Width 3.0 6.0 -Post Debridement (cm) - Depth 0.1 0.1 -Total Square (Post) (cm) 22.20 9.00 -Area of Debridement (cm) - Length 7.4 1.5 -Area of Debridement (cm) - Width 3.0 6.0 -Total Square (Area) (cm) 22.20 9.00 -Tunneling No No No -Undermining/Tunneling No No No -Circular Undermining No No No -Wound/Ulcer Outcome Not Healed Not Healed Not Healed -Ulcer Cleansing Rinsed/ Rinsed/ Rinsed/ Irrigated with Irrigated with Irrigated with Saline Saline Saline -Foul Odor after Cleansing No No No -Bioengineered Tissue No Yes Yes -Type of Bioengineered Tissue Theraskin Theraskin -Expiration Date 02/15/29 05/25/29 -Product Lot Number [id number] -Percent Used 100 100 -Lot number of Saline Used [id number] -Bleeding Controlled with Pressure Pressure Pressure -Treatment Response Procedure Procedure Procedure Tolerated Well Tolerated Well Tolerated Well -Offloading No -Debridement - Subq, 1st 20sq cm Yes No No -Debridement, SubQ, ea addt'l 20sq cm 1 or part thereof -Apply Skin Sub - 1st 25 sq cm - Legs 1 1 -Dermabond 2 2 -Theraskin - 101TSS (13 SQ CM) 13 Application 1-4 (per sq cm) -Theraskin - 102TSL (39 SQ CM) 39 Application 1-4 (per sq cm) Pain Scale: 0-10 Numeric Is Patient Pain Free? Yes Yes Yes 02/21/25 08:49 Wound Center Nurse 2 #6 LT POST LE -Time 08:50 -Correct Patient Yes -Correct Side, Site, Position No -Correct Procedure No -Procedure Performed No -Type of Procedure -Clinical Debridement -Tissue Removed -Post Debridement (cm) - Length 6 -Post Debridement (cm) - Width 1 -Post Debridement (cm) - Depth 0.1 -Total Square (Post) (cm) 6 -Area of Debridement (cm) - Length 6 -Area of Debridement (cm) - Width 1 -Total Square (Area) (cm) 6 -Tunneling No -Undermining/Tunneling No -Circular Undermining No -Wound/Ulcer Outcome Not Healed -Ulcer Cleansing Rinsed/ Irrigated with Saline -Foul Odor after Cleansing No -Bioengineered Tissue No -Type of Bioengineered Tissue -Expiration Date -Product Lot Number -Percent Used -Lot number of Saline Used -Bleeding Controlled with Pressure -Treatment Response Procedure Tolerated Well -Offloading No -Debridement - Subq, 1st 20sq cm No -Debridement, SubQ, ea addt'l 20sq cm or part thereof -Apply Skin Sub - 1st 25 sq cm - Legs -Dermabond -Theraskin - 101TSS (13 SQ CM) Application 1-4 (per sq cm) -Theraskin - 102TSL (39 SQ CM) Application 1-4 (per sq cm) Pain Scale: 0-10 Numeric Is Patient Pain Free? Yes - Nurse 3 - General Ulcer D/C NN Start: 01/31/25 10:10 Freq: Status: Active Protocol: Activity Type Activity Date Activity User E-sign Co-sign Detail Recorded Client Recorded Date Recorded By Document 08/04/25 10:52 DS [id number] 01/31/25 10:53 DS Document 02/07/25 10:54 KW [id number] 02/07/25 10:55 KW Document 02/14/25 09:38 KW [id number] 02/14/25 09:38 KW 01/31/25 02/07/25 02/14/25 10:52 10:54 09:38 Wound Care Center Nurse 3 #6 LT POST LE -Primary Dressing Applied Aquacel Extra, Optilok 5x5 1/2 -Other Dressing roll gauze -Primary Dressing Covered/Secured with Dry Gauze & Dry Gauze & Roll Gauze, Roll Gauze, Secured with Secured with Tape Tape -Aquacel Extra 2 -Optilok 5x5 1/2 1 LLE -Compression Wrap Rod Wrap Rod Wrap Rod Wrap Pain Scale: 0-10 Numeric Is Patient Pain Free? 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 1. Left Posterior Medial Calf Wound Continue TheraSkin at next appointment (in 2 weeks), as no TheraSkin available today. Do Hydrogel and Adaptic daily until then. 2. Immunosuppression Due To Kidney Transplant The patient's immunosuppression status due to a kidney transplant continues to be monitored, as it affects wound healing. No specific changes to the immunosuppressive regimen were discussed during this visit.
== END 2025-02-27 23:59 | disposition home or self-care (01) ==
LOC: WC 08:15
PROVIDERS: PCP Internal Medicine; Referring Provider Student in an Organized Health Care Education/Training Program; Visit Provider Surgery Plastic and Reconstructive Surgery
DX: E10.622 Type 1 diabetes mellitus with other skin ulcer (principal); N18.6 End stage renal disease; L97.222 Non-pressure chronic ulcer of left calf with fat layer exposed; E10.42 Type 1 diabetes mellitus with diabetic polyneuropathy; E10.51 Type 1 diabetes mellitus with diabetic peripheral angiopathy without gangrene; E10.22 Type 1 diabetes mellitus with diabetic chronic kidney disease; Z94.0 Kidney transplant status; C44.02 Squamous cell carcinoma of skin of lip; Z79.899 Other long term (current) drug therapy; T81.31XA Disruption of external operation (surgical) wound, not elsewhere classified, initial encounter; Y83.2 Surgical operation with anastomosis, bypass or graft as the cause of abnormal reaction of the patient, or of later complication, without mention of misadventure at the time of the procedure
CPT/HCPCS: 11042; 11045; 15271; 99213; Q4121; G0463

== ENCOUNTER 2025-03-21 09:00 | Outpatient (RCR) | payer MEDICARE, MEDICAID, SELFPAY ==
[2025-03-07 08:41] VITALS: BP 109/62; PULSE 86; RESP 14; TEMP 36.3
--- NOTE | 2025-03-07 13:32 | PCM.WC.PN ---
History of Present Illness Date of Service: 03/07/25 Chief Complaint: Surgical wound dehiscence of the left lower extremity Subjective Subjective 08 Nov 2024: Patient went to ENT at [facility] on 04 Nov 2024. Reportedly they debrided the lower lip reconstruction, and suggested he start Medihoney dressing changes. He reports significant progress in the wound since then. And his plan is to defer further reconstruction on the face until after radiation has begun. With regards to the left calf wound, ENT has deferred wound care to our team at [place]. He got at the nutrition labs on 06 Nov 2024 (last Friday) and they demonstrated the following: Albumin 3.4 Prealbumin 14 A1c of 5.9 Hemoglobin of 10.4 with MCV of 100 Discussed high-protein intake with the patient today. We discussed wound care with wound VAC. The VAC was delivered and is ready for placement today. 15 Nov 2024: Doing well overall with wound VAC therapy. He is following up with dentistry for getting his teeth pulled in the setting of planned adjuvant radiation. No fevers chills or drainage from the leg. 25 Nov 2024: Patient endorses excellent 3 times per week VAC changes. Doing well overall. He decided to cancel his skin grafting procedure as he does not want another surgery and would like to continue local wound care. \ 13 December 2024: The patient is a 59-year-old male presenting for wound management on the left calf. The wound is located on the left calf and has been managed with a wound vacuum, which has shown positive results with no tunneling and a healthy granulated base. The patient has been using a wound vacuum three times a week, and there is consideration for using TheraSkin, a dermal substitute, to promote healing, although it has not yet been approved. Additionally, there is an excoriation on the medial leg, which has been covered with a bandage. Attestation: Documentation on this patient encounter was supported using ambient scribe technology/ voice AI technology. The patient consented to recording for the purpose of documenting the encounter. Provider reviewed content of the generated note prior to signature. 20 December 2024: The patient is a 59-year-old male presenting with a left posterior medial calf wound. The wound measures 10 x 3.5 cm with no tunneling or undermining, and there is complete granulation over the fascia. The patient has been receiving TheraSkin applications and wound vacuum therapy, which have contributed to the healthy appearance of the wound. The patient has a history of immunosuppression due to a kidney transplant, which has posed challenges in wound healing. Despite these challenges, the wound is healing well. Attestation: Documentation on this patient encounter was supported using ambient scribe technology/ voice AI technology. The patient consented to recording for the purpose of documenting the encounter. Provider reviewed content of the generated note prior to signature. 03 January 2025: Here today for follow-up. TheraSkin was well-integrated in the wound and was therefore left by Dr. Meneses last week. Zentz today for another dressing change with the TheraSkin 10 January 2025: The patient is a 59-year-old male presenting with a left posterior calf wound. The wound has been healing from the inside out, with a reduction in size from 9 x 3 cm last week to 8-1/2 x 3 cm currently. The patient has been actively working towards healing, with interventions including Theraskin and the application of lidocaine with epinephrine to stop bleeding and the use of maintenance dressings. Additionally, the patient is recovering from recent tooth extractions, with a follow-up appointment scheduled to assess healing progress. ROS - Integumentary: Left posterior calf wound healing from the inside out, size reduced to 8-1/2 x 3 cm from 9 x 3 cm last week Attestation: Documentation on this patient encounter was supported using ambient scribe technology/ voice AI technology. The patient consented to recording for the purpose of documenting the encounter. Provider reviewed content of the generated note prior to signature. 17 January 2025: Doing well. Tolerating theraskin. Not interested in skin graft (discussed) 24 January 2025: Doing well overall. Tolerating the weekly cadaver allograft applications. 07 Feb 2025: Patient doing well. Would like to continue Theraskin. Dr. Meneses elected to leave previous Theraskin on last week and did not change. 14 Feb 2025: Doing well. 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 21 February 2025: Doing well. Started lip radiation. Tolerating Current encounter, 07 Mar 2025: Doing well. Tolerating radiation therapy for the lip cancer. No issues with the TheraSkin Objective Data Objective Data Vital Signs: Vital Signs Temp Pulse Resp BP 97.4 F L 86 14 109/62 03/07/25 08:41 03/07/25 08:41 03/07/25 08:41 03/07/25 08:41 Charges/Coding Procedures Integumentary 150xxx-152xx: 35123 Skin sub graft trnk/arm/leg Physical Exam Narrative LLE: Wound healthy. Granulating well. Now only 5.5 x 1.5 cm and is 0.1 cm deep. No exposed muscle. Debridement Note Debridement Note No debridement was completed: No debridement was completed today Post-Debridement Measurements and Additional Note: Post-Debridement Measurements/Treatment - Nurse 1 - General Ulcer Assessment Start: 03/07/25 08:41 Freq: Status: Active Protocol: JOSÉ MANUEL Activity Type Activity Date Activity User E-sign Co-sign Detail Recorded Client Recorded Date Recorded By Document 03/07/25 08:41 ML [id number] 03/07/25 08:49 ML 03/07/25 08:41 WC - Today's Visit Information Type of service Follow-up Visit (Physician/[employer] ) Arrival Mode Ambulatory Transfer Assistance None Patient Identification Verified (Name & Yes ) Patient Requires Transmission-Based No Precautions Vital Signs Temperature (97.8 F-99.1 F) 97.4 F L Temperature Source Temporal Pulse Rate (60-100) 86 Pulse Location Monitor Respiratory Rate (12-18) 14 Respiratory rate source Monitor Blood Pressure (90/60-120/80) 109/62 Blood Pressure Mean (mm Hg) 77 Source Monitor Position Sitting Blood Pressure Location Right Arm History Since Last Visit- (Skip if this is Patient's initial visit) Have you changed medications since your No last visit? Any new allergies or adverse reactions No Had a fall/change in ADL's that may No increase risk of falls Signs or symptoms of abuse and/or No neglect since last visit Have you been in the hospital since your No last visit? Has dressing in place as prescribed Yes Has compression in place as prescribed Yes Has offloadiing in place as prescribed No Experienced any changes in pain level or No management Pain Scale: 0-10 Numeric Is Patient Pain Free? Yes - Nurse 1 - General Ulcer Measurement Start: 03/07/25 08:41 Freq: Status: Active Protocol: Activity Type Activity Date Activity User E-sign Co-sign Detail Recorded Client Recorded Date Recorded By Document 03/07/25 08:41 ML [id number] 03/07/25 08:49 ML 03/07/25 08:41 Wound Center Nurse 1 #6 LT POST LE -Current Size (cm) - Length 5.8 -Current Size (cm) - Width 2 -Current Size (cm) - Depth 0.1 -Total Square Cm 11.6 -Exudate Amt Small -Exudate Type Serosanguineous -Wound Margin Distinct, Outline Attached -Granulation Amt Small (1-33%) -Slough/Fibrin Yes -Necrosis Amt Small (1-33%) -Texture (Eloisa-wound Skin Appearance) Assessed -Moisture (Eloisa-wound Skin Appearance) Assessed -Color (Eloisa-wound Skin Appearance) Assessed -Temperature (Eloisa-wound Skin No Abnormality Appearance) (Pt Warm) -Tenderness on Palpation (Eloisa-wound No Skin Appearance) -Ulcer Cleansing Rinsed/ Irrigated with Saline -Foul Odor after Cleansing No -Anesthetic Used 5% Lidocaine Gel WC - Nurse 2 - General Ulcer CM Notes Start: 03/07/25 08:41 Freq: Status: Active Protocol: Activity Type Activity Date Activity User E-sign Co-sign Detail Recorded Client Recorded Date Recorded By Document 03/07/25 09:05 KRIS [id number] 03/07/25 09:07 KRIS 03/07/25 09:05 Wound Center Nurse 2 -Time 09:05 -Correct Patient Yes -Correct Side, Site, Position Yes -Correct Procedure Yes -Procedure Performed Yes -Type of Procedure Debridement -Clinical Debridement Subcutaneous -Tissue Removed Subcutaneous -Post Debridement (cm) - Length 5.5 -Post Debridement (cm) - Width 1.5 -Post Debridement (cm) - Depth 0.1 -Total Square (Post) (cm) 8.25 -Area of Debridement (cm) - Length 5.5 -Area of Debridement (cm) - Width 1.5 -Total Square (Area) (cm) 8.25 -Tunneling No -Undermining/Tunneling No -Circular Undermining No -Wound/Ulcer Outcome Not Healed -Ulcer Cleansing Rinsed/ Irrigated with Saline -Foul Odor after Cleansing No -Bioengineered Tissue Yes -Type of Bioengineered Tissue Theraskin -Expiration Date 02/04/29 -Product Lot Number [id number] -Percent Used 100 -Lot number of Saline Used [id number] -Bleeding Controlled with Pressure -Treatment Response Procedure Tolerated Well -Offloading No -Debridement - Subq, 1st 20sq cm No -Apply Skin Sub - 1st 25 sq cm - Legs 1 -Dermabond 1 -Theraskin - 101TSS (13 SQ CM) 13 Application 1-4 (per sq cm) Pain Scale: 0-10 Numeric Is Patient Pain Free? Yes WC - Nurse 3 - General Ulcer D/C NN Start: 03/07/25 08:41 Freq: Status: Active Protocol: Activity Type Activity Date Activity User E-sign Co-sign Detail Recorded Client Recorded Date Recorded By Document 03/07/25 09:13 ML [id number] 03/07/25 09:14 ML 03/07/25 09:13 Wound Care Center Nurse 3 #6 LT POST LE -Other Dressing abd -Primary Dressing Covered/Secured with Dry Gauze Pain Scale: 0-10 Numeric Is Patient Pain Free? 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 The wound is 5.5 x 1.5 cm. Plan for follow-up in 2 weeks for removal of the TheraSkin with replacement. 1. Left Posterior Medial Calf Wound Continue TheraSkin. 2. Immunosuppression Due To Kidney Transplant The patient's immunosuppression status due to a kidney transplant continues to be monitored, as it affects wound healing. No specific changes to the immunosuppressive regimen were discussed during this visit. PLAN: Plan Theraskin application We preformed removal of the old TheraSkin. The wound was then washed with copious months normal saline and TheraSkin was applied over the wound bed for a total placement of 1.5 x 5.5 cm TheraSkin placement (dermal substitute placement) for 7.5 cm?. Dermabond was used to apply the TheraSkin and keep the edges attached to the normal keratinized skin at the margin of the wound. Wound veil and Steri-Strips and an ABD were applied with tape. Patient tolerated the procedure well. Plan to follow-up in 2 weeks for removal of TheraSkin and another application of the cadaver allograft TheraSkin
--- NOTE | 2025-03-09 09:29 | WC ---
PHOTO-LEFT POST LE 03/07/25
[2025-03-21 08:48] VITALS: BP 103/42; PULSE 89; RESP 18; TEMP 36.2
--- NOTE | 2025-03-22 09:48 | PN.PCM_ITS ---
History of Present Illness Date of Service: 03/21/25 Chief Complaint: Surgical wound dehiscence of the left lower extremity History of Wound: The patient is seen and evaluated today as a courtesy to Dr. Duenas in his absence. The patient's history is as documented below: Raymundo Soler is a delightful 59-year-old male with history of type 1 diabetes as well as other multiple pre-existing comorbid medical conditions including end-stage kidney disease who underwent wide local excision for a lower lip squamous cell carcinoma as well as selective neck dissection at [facility] on 08 October 2024, followed by immediate reconstruction with a left cervical advancement flap, tensor fascia jaspreet sling, and left medial sural artery child development consultant free flap reconstruction anastomosed to the left facial artery. In addition, a split-thickness skin graft was obtained from the patient's left anterolateral thigh for reconstruction of the donor site. He was seen and evaluated by Dr. Miguel [facility] and referred to me for follow-up as he had persistent left calf surgical wound with exposure of underlying gastrocnemius muscle. The patient's operative report was reviewed (I reviewed extensive medical medical records from the clinical). The patient reported that he had been doing dressing changes for the left medial calf with the assistance of his . He also is complained that he was having some drooling. He had been eating like normal since surgery (no PEG tube) and felt like he was getting sufficient calories. The patient has multiple pre-existing conditions, including diabetes mellitus type 1, end-stage renal failure for which the patient has previously undergone renal transplantation, peripheral polyneuropathy, steroid-induced osteoporosis, and peripheral vascular disease. 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 The patient is making excellent urine. He takes Prograf and corticosteroids for immunosuppression. He does not smoke. Subjective Subjective 08 Nov 2024: Patient went to ENT at [facility] on 04 Nov 2024. Reportedly they debrided the lower lip reconstruction, and suggested he start Medihoney dressing changes. He reports significant progress in the wound since then. And his plan is to defer further reconstruction on the face until after radia tion has begun. With regards to the left calf wound, ENT has deferred wound care to our team at [facility]. He got at the nutrition labs on 06 Nov 2024 (last Friday) and they demonstrated the following: Albumin 3.4 Prealbumin 14 A1c of 5.9 Hemoglobin of 10.4 with MCV of 100 Discussed high-protein intake with the patient today. We discussed wound care with wound VAC. The VAC was delivered and is ready for placement today. 15 Nov 2024: Doing well overall with wound VAC therapy. He is following up with dentistry for getting his teeth pulled in the setting of planned adjuvant radiation. No fevers chills or drainage from the leg. 25 Nov 2024: Patient endorses excellent 3 times per week VAC changes. Doing well overall. He decided to cancel his skin grafting procedure as he does not want another surgery and would like to continue local wound care. \ 13 December 2024: The patient is a 59-year-old male presenting for wound management on the left calf. The wound is located on the left calf and has been managed with a wound vacuum, which has shown positive results with no tunneling and a healthy g ranulated base. The patient has been using a wound vacuum three times a week, and there is consideration for using TheraSkin, a dermal substitute, to promote healing, although it has not yet been approved. Additionally, there is an excoriation on the medial leg, which has been covered with a bandage. Attestation: Documentation on this patient encounter was supported using ambient [employer] n[employer]/ Shopper[employer] technology. The patient consented to recording for the purpose of documenting the encounter. Provider reviewed content of the generated note prior to signature. 20 December 2024: The patient is a 59-year-old male presenting with a left posterior medial calf wound. The wound measures 10 x 3.5 cm with no tunneling or undermining, and there is complete granulation over the fascia. The patient has been receiving TheraSkin applications and wound vacuum therapy, which have contributed to the healthy appearance of the wound. The patient has a history of immunosuppression due to a kidney transplant, which has posed challenges in wound healing. Despite these challenges, the wound is healing well. Attestation: Documentation on this patient encounter was supported using ambient [employer]Streak[employer] technology/ voice Anomo technology. The patient consented to recording for the purpose of documenting the encounter. Provider reviewed content of the generated note prior to signature. 03 January 2025: Here today for follow-up. TheraSkin was well-integrated in the wound and was therefore left by Dr. Meneses last week. Monica today for another dressing change with the TheraSkin 10 January 2025: The patient is a 59-year-old male presenting with a left posterior calf wound. The wound has been healing from the inside out, with a reduction in size from 9 x 3 cm last week to 8-1/2 x 3 cm currently. The patient has been actively working towards healing, with interventions including Theraskin and the appli cation of lidocaine with epinephrine to stop bleeding and the use of maintenance dressings. Additionally, the patient is recovering from recent tooth extractions, with a follow-up appointment scheduled to assess healing progress. ROS - Integumentary: Left posterior calf wound healing from the inside out, size reduced to 8-1/2 x 3 cm from 9 x 3 cm last week Attestation: Documentation on this patient encounter was supported using ambient scribe technology/ voice AI technology. The patient consented to recording for the purpose of documenting the encounter. Provider reviewed content of the generated note prior to signature. 17 January 2025: Doing well. Tolerating theraskin. Not interested in skin graft (discussed) 24 January 2025: Doing well overall. Tolerating the weekly cadaver allograft applications. 07 Feb 2025: Patient doing well. Would like to continue Theraskin. Dr. Meneses elected to leave previous Theraskin on last week and did not change. 14 Feb 2025: Doing well. 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 21 February 2025: Doing well. Started lip radiation. Tolerating 07 Mar 2025: Doing well. Tolerating radiation therapy for the lip cancer. No issues with the TheraSkin Current encounter, 21 March 2025: Patient doing well overall. Tolerating dressing and tolerating radiation Objective Data Objective Data Vital Signs: Vital Signs Temp Pulse Resp BP O2 Del Method 97.1 F L 89 18 103/42 L Room Air 03/21/25 08:48 03/21/25 08:48 03/21/25 08:48 03/21/25 08:48 03/21/25 08:48 Oxygen Delivery Method Room Air Charges/Coding Visit Charges Office Visits / Consults: 35497 OV L2 Est 10min Physical Exam Narrative LLE: Wound healthy. Granulating well. Now only 5 x 1 cm and is 0.1 cm deep. No exposed muscle. Debridement Note Debridement Note No debridement was completed: No debridement was completed today Post-Debridement Measurements and Additional Note: Post-Debridement Measurements/Treatment - Nurse 1 - General Ulcer Assessment Start: 03/07/25 08:41 Freq: Status: Active Protocol: JOSÉ MANUEL Activity Type Activity Date Activity User E-sign Co-sign Detail Recorded Client Recorded Date Recorded By Document 03/07/25 08:41 ML [id number] 03/07/25 08:49 ML Document 03/21/25 08:48 DS [id number] 03/21/25 08:58 DS 03/07/25 03/21/25 08:41 08:48 WC - Today's Visit Information Type of service Follow-up Visit Follow-up Visit (Physician/POCKET MARKER (Physician/POCKET MARKER ) ) Arrival Mode Ambulatory Ambulatory Transfer Assistance None Patient Identification Verified (Name & Yes Yes ) Patient Requires Transmission-Based No No Precautions Safety Precautions Fall Prevention Vital Signs Temperature (97.8 F-99.1 F) 97.4 F L 97.1 F L Temperature Source Temporal Temporal Pulse Rate (60-100) 86 89 Pulse Location Monitor Monitor Respiratory Rate (12-18) 14 18 Respiratory rate source Monitor Observation Oxygen Delivery Method Room Air Blood Pressure (90/60-120/80) 109/62 103/42 L Blood Pressure Mean (mm Hg) 77 62 Source Monitor Monitor Position Sitting Semi-Fowlers Blood Pressure Location Right Arm Right Arm History Since Last Visit- (Skip if this is Patient's initial visit) Have you changed medications since your No No last visit? Any new allergies or adverse reactions No No Had a fall/change in ADL's that may No No increase risk of falls Signs or symptoms of abuse and/or No No neglect since last visit Have you been in the hospital since your No No last visit? Has dressing in place as prescribed Yes Yes Has compression in place as prescribed Yes Yes Has offloadiing in place as prescribed No N/A Experienced any changes in pain level or No No management Left Footwear Regular Shoe Right Footwear Regular Shoe Pain Scale: 0-10 Numeric Is Patient Pain Free? Yes Yes - Nurse 1 - General Ulcer Measurement Start: 03/07/25 08:41 Freq: Status: Active Protocol: Activity Type Activity Date Activity User E-sign Co-sign Detail Recorded Client Recorded Date Recorded By Document 03/07/25 08:41 ML [id number] 03/07/25 08:49 ML Document 03/21/25 08:48 DS [id number] 03/21/25 08:58 DS 03/07/25 03/21/25 08:41 08:48 Wound Center Nurse 1 #6 LT POST LE -Current Size (cm) - Length 5.8 0.1 -Current Size (cm) - Width 2 0.1 -Current Size (cm) - Depth 0.1 0.1 -Total Square Cm 11.6 0.01 -Photo Taken No -Exudate Amt Small -Exudate Type Serosanguineous -Wound Margin Distinct, Outline Attached -Granulation Amt Small (1-33%) -Slough/Fibrin Yes -Necrosis Amt Small (1-33%) -Texture (Eloisa-wound Skin Appearance) Assessed Assessed -Moisture (Eloisa-wound Skin Appearance) Assessed Assessed -Color (Eloisa-wound Skin Appearance) Assessed Assessed -Temperature (Eloisa-wound Skin No Abnormality Appearance) (Pt Warm) -Tenderness on Palpation (Eloisa-wound No Skin Appearance) -Ulcer Cleansing Rinsed/ Soap and Water Irrigated with Saline -Foul Odor after Cleansing No -Anesthetic Used 5% Lidocaine Gel -Wound Comment(s) theraskin left on. unable to remove theraskin, will inform Dr. Yulissa FLORES - Nurse 2 - General Ulcer CM Notes Start: 03/07/25 08:41 Freq: Status: Active Protocol: Activity Type Activity Date Activity User E-sign Co-sign Detail Recorded Client Recorded Date Recorded By Document 03/07/25 09:05 KRIS [id number] 03/07/25 09:07 Document 03/21/25 09:31 [id number] 03/21/25 09:33 03/07/25 03/21/25 09:05 09:31 Wound Center Nurse 2 #6 LT POST LE -Time 09:05 09:32 -Correct Patient Yes Yes -Correct Side, Site, Position Yes No -Correct Procedure Yes No -Procedure Performed Yes No -Type of Procedure Debridement Debridement -Clinical Debridement Subcutaneous -Tissue Removed Subcutaneous -Post Debridement (cm) - Length 5.5 5 -Post Debridement (cm) - Width 1.5 1 -Post Debridement (cm) - Depth 0.1 0.1 -Total Square (Post) (cm) 8.25 5 -Area of Debridement (cm) - Length 5.5 5 -Area of Debridement (cm) - Width 1.5 1 -Total Square (Area) (cm) 8.25 5 -Tunneling No No -Undermining/Tunneling No No -Circular Undermining No No -Wound/Ulcer Outcome Not Healed Not Healed -Ulcer Cleansing Rinsed/ Rinsed/ Irrigated with Irrigated with Saline Saline -Foul Odor after Cleansing No No -Bioengineered Tissue Yes No -Type of Bioengineered Tissue Theraskin -Expiration Date 02/04/29 -Product Lot Number [id number] -Percent Used 100 -Lot number of Saline Used [id number] -Bleeding Controlled with Pressure Pressure -Treatment Response Procedure Procedure Tolerated Well Tolerated Well -Offloading No No -Debridement - Subq, 1st 20sq cm No No -Apply Skin Sub - 1st 25 sq cm - Legs 1 -Dermabond 1 -Theraskin - 101TSS (13 SQ CM) 13 Application 1-4 (per sq cm) Pain Scale: 0-10 Numeric Is Patient Pain Free? Yes Yes - Nurse 3 - General Ulcer D/C NN Start: 03/07/25 08:41 Freq: Status: Active Protocol: Activity Type Activity Date Activity User E-sign Co-sign Detail Recorded Client Recorded Date Recorded By Document 03/07/25 09:13 ML [id number] 03/07/25 09:14 ML Document 03/21/25 10:03 CP [id number] 03/21/25 10:05 CP 03/07/25 03/21/25 09:13 10:03 W[facility] Care Center Nurse 3 #6 LT POST LE -Ulcer Cleansing Rinsed/ Irrigated with Saline -Primary Dressing Applied C Hydrogel, NonAdherent Contact Layer -Other Dressing abd -Primary Dressing Covered/Secured with Dry Gauze Dry Gauze & Roll Gauze -Patient Supplied Dressing Yes -Hydrogel 1 Pain Scale: 0-10 Numeric Is Patient Pain Free? 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
== END 2025-03-29 23:59 | disposition home or self-care (01) ==
LOC: WC 09:00
PROVIDERS: PCP Internal Medicine; Referring Provider Student in an Organized Health Care Education/Training Program; Visit Provider Surgery Plastic and Reconstructive Surgery
DX: E10.622 Type 1 diabetes mellitus with other skin ulcer (principal); L97.925 Non-pressure chronic ulcer of unspecified part of left lower leg with muscle involvement without evidence of necrosis; N18.6 End stage renal disease; E10.22 Type 1 diabetes mellitus with diabetic chronic kidney disease; E10.42 Type 1 diabetes mellitus with diabetic polyneuropathy; E10.51 Type 1 diabetes mellitus with diabetic peripheral angiopathy without gangrene; Z94.0 Kidney transplant status
CPT/HCPCS: 15271; 99213; Q4121; G0463

== ENCOUNTER 2025-04-11 14:09 | Outpatient (RCR) | payer MEDICARE, MEDICAID, SELFPAY ==
[2025-04-11 14:10] VITALS: BP 132/74; PULSE 87; RESP 16; TEMP 36.7
--- NOTE | 2025-04-11 15:45 | PN.PCM_ITS ---
History of Present Illness Date of Service: 04/11/25 Chief Complaint: Surgical wound dehiscence of the left lower extremity History of Wound: The patient is seen and evaluated today as a courtesy to Dr. Duenas in his absence. The patient's history is as documented below: Raymundo Soler is a delightful 59-year-old male with history of type 1 diabetes as well as other multiple pre-existing comorbid medical conditions including end-stage kidney disease who underwent wide local excision for a lower lip squamous cell carcinoma as well as selective neck dissection at [facility] on 08 October 2024, followed by immediate reconstruction with a left cervical advancement flap, tensor fascia jaspreet sling, and left medial sural artery development and housing director free flap reconstruction anastomosed to the left facial artery. In addition, a split-thickness skin graft was obtained from the patient's left anterolateral thigh for reconstruction of the donor site. He was seen and evaluated by [facility] and referred to me for follow-up as he had persistent left calf surgical wound with exposure of underlying gastrocnemius muscle. The patient's operative report was reviewed (I reviewed extensive medical medical records from the clinical). The patient reported that he had been doing dressing changes for the left medial calf with the assistance of his . He also is complained that he was having some drooling. He had been eating like normal since surgery (no PEG tube) and felt like he was getting sufficient calories. The patient has multiple pre-existing conditions, including diabetes mellitus type 1, end-stage renal failure for which the patient has previously undergone renal transplantation, peripheral polyneuropathy, steroid-induced osteoporosis, and peripheral vascular disease. 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 The patient is making excellent urine. He takes Prograf and corticosteroids for immunosuppression. He does not smoke. Subjective Subjective 08 Nov 2024: Patient went to ENT at [facility] on 04 Nov 2024. Reportedly they debrided the lower lip reconstruction, and suggested he start Medihoney dressing changes. He reports significant progress in the wound since then. And his plan is to defer further reconstruction on the face until after radia tion has begun. With regards to the left calf wound, ENT has deferred wound care to our team at [place]. He got at the nutrition labs on 06 Nov 2024 (last Friday) and they demonstrated the following: Albumin 3.4 Prealbumin 14 A1c of 5.9 Hemoglobin of 10.4 with MCV of 100 Discussed high-protein intake with the patient today. We discussed wound care with wound VAC. The VAC was delivered and is ready for placement today. 15 Nov 2024: Doing well overall with wound VAC therapy. He is following up with dentistry for getting his teeth pulled in the setting of planned adjuvant radiation. No fevers chills or drainage from the leg. 25 Nov 2024: Patient endorses excellent 3 times per week VAC changes. Doing well overall. He decided to cancel his skin grafting procedure as he does not want another surgery and would like to continue local wound care. \ 13 December 2024: The patient is a 59-year-old male presenting for wound management on the left calf. The wound is located on the left calf and has been managed with a wound vacuum, which has shown positive results with no tunneling and a healthy g ranulated base. The patient has been using a wound vacuum three times a week, and there is consideration for using TheraSkin, a dermal substitute, to promote healing, although it has not yet been approved. Additionally, there is an excoriation on the medial leg, which has been covered with a bandage. Attestation: Documentation on this patient encounter was supported using ambient [employer] nology/ [employer] technology. The patient consented to recording for the purpose of documenting the encounter. Provider reviewed content of the generated note prior to signature. 20 December 2024: The patient is a 59-year-old male presenting with a left posterior medial calf wound. The wound measures 10 x 3.5 cm with no tunneling or undermining, and there is complete granulation over the fascia. The patient has been receiving TheraSkin applications and wound vacuum therapy, which have contributed to the healthy appearance of the wound. The patient has a history of immunosuppression due to a kidney transplant, which has posed challenges in wound healing. Despite these challenges, the wound is healing well. Attestation: Documentation on this patient encounter was supported using ambient [employer] technology/ voice [employer] technology. The patient consented to recording for the purpose of documenting the encounter. Provider reviewed content of the generated note prior to signature. 03 January 2025: Here today for follow-up. TheraSkin was well-integrated in the wound and was therefore left by Dr. Meneses last week. Monica today for another dressing change with the TheraSkin 10 January 2025: The patient is a 59-year-old male presenting with a left posterior calf wound. The wound has been healing from the inside out, with a reduction in size from 9 x 3 cm last week to 8-1/2 x 3 cm currently. The patient has been actively working towards healing, with interventions including Theraskin and the appli cation of lidocaine with epinephrine to stop bleeding and the use of maintenance dressings. Additionally, the patient is recovering from recent tooth extractions, with a follow-up appointment scheduled to assess healing progress. ROS - Integumentary: Left posterior calf wound healing from the inside out, size reduced to 8-1/2 x 3 cm from 9 x 3 cm last week Attestation: Documentation on this patient encounter was supported using ambient scribe technology/ voice AI technology. The patient consented to recording for the purpose of documenting the encounter. Provider reviewed content of the generated note prior to signature. 17 January 2025: Doing well. Tolerating theraskin. Not interested in skin graft (discussed) 24 January 2025: Doing well overall. Tolerating the weekly cadaver allograft applications. 07 Feb 2025: Patient doing well. Would like to continue Theraskin. Dr. Meneses elected to leave previous Theraskin on last week and did not change. 14 Feb 2025: Doing well. 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 21 February 2025: Doing well. Started lip radiation. Tolerating 07 Mar 2025: Doing well. Tolerating radiation therapy for the lip cancer. No issues with the TheraSkin 21 March 2025: Patient doing well overall. Tolerating dressing and tolerating radiation Current encounter, 11 April 2025: Patient has finished radiation for his lip cancer. Doing well overall. Reports that he is only on the corticosteroid at this point for immunosuppression for his kidney transplant. Objective Data Objective Data Vital Signs: Vital Signs Temp Pulse Resp BP O2 Del Method 98.1 F 87 16 132/74 H Room Air 04/11/25 14:10 04/11/25 14:10 04/11/25 14:10 04/11/25 14:10 04/11/25 14:10 Oxygen Delivery Method Room Air Charges/Coding Procedures Integumentary [id number]: [id number] [place] subq tissue 20 sq cm/< Physical Exam Narrative Left lower extremity wound measuring 5 x 1 cm Superficial with granulation tissue at the base and some fibrinous exudate Debridement Note Debridement Note Wound debrided: Left calf wound Laterality: Left Wound Grade/Stage: Stage III Type of Debridement: Excisional debridement Anesthesia Used: 4% Lidocaine Solution Depth: in the subcutaneous layer Percentage of wound debrided: 100 Instrument Used: 7mm curette Tissue Removed: Fibrinous exudate and hypertrophic granulation tissue Severity: Fat Layer Exposed Amount of bleeding with debridement: Mild Bleeding Controlled with: Compression and gauze Patient tolerated procedure: Patient tolerated procedure well Post-Debridement Measurements and Additional Note: Post-Debridement Measurements/Treatment - Nurse 1 - General Ulcer Assessment Start: 04/11/25 14:10 Freq: Status: Active Protocol: JOSÉ MANUEL Activity Type Activity Date Activity User E-sign Co-sign Detail Recorded Client Recorded Date Recorded By Document 04/11/25 14:10 DS [id number] 04/11/25 14:17 DS 04/11/25 14:10 WC - Today's Visit Information Type of service Follow-up Visit (Physician/CHILDREN'[employer]IST[employer] DIRECTOR ) Arrival Mode Ambulatory Patient Identification Verified (Name & Yes ) Patient Requires Transmission-Based No Precautions Safety Precautions Fall Prevention Vital Signs Temperature (97.8 F-99.1 F) 98.1 F Temperature Source Temporal Pulse Rate (60-100) 87 Pulse Location Monitor Respiratory Rate (12-18) 16 Respiratory rate source Observation Oxygen Delivery Method Room Air Blood Pressure (90/60-120/80) 132/74 H Blood Pressure Mean (mm Hg) 93 Source Monitor Position Sitting Blood Pressure Location Right Arm History Since Last Visit- (Skip if this is Patient's initial visit) Have you changed medications since your No last visit? Any new allergies or adverse reactions No Had a fall/change in ADL's that may No increase risk of falls Signs or symptoms of abuse and/or No neglect since last visit Have you been in the hospital since your No last visit? Has dressing in place as prescribed Yes Has compression in place as prescribed Yes Has offloadiing in place as prescribed N/A Experienced any changes in pain level or No management Left Footwear Regular Shoe Right Footwear Regular Shoe Pain Scale: 0-10 Numeric Is Patient Pain Free? Yes - Nurse 1 - General Ulcer Measurement Start: 04/11/25 14:10 Freq: Status: Active Protocol: Activity Type Activity Date Activity User E-sign Co-sign Detail Recorded Client Recorded Date Recorded By Document 04/11/25 14:10 DS [id number] 04/11/25 14:17 DS 04/11/25 14:10 Wound Center Nurse 1 #6 LT POST LE -Current Size (cm) - Length 4.8 -Current Size (cm) - Width 1.5 -Current Size (cm) - Depth 0.1 -Total Square Cm 7.20 -Date of Last Picture (Recall this 04/11/25 field) -Photo Taken Yes -Tunneling No -Undermining/Tunneling No -Circular Undermining No -Exudate Amt Small -Exudate Type Serosanguineous -Wound Margin Distinct, Outline Attached -Granulation Amt Large (67-100%) -Granulation Quality [place] -Texture (Eloisa-wound Skin Appearance) Assessed -Moisture (Eloisa-wound Skin Appearance) Assessed -Color (Eloisa-wound Skin Appearance) Assessed -Temperature (Eloisa-wound Skin No Abnormality Appearance) (Pt Warm) -Tenderness on Palpation (Eloisa-wound No Skin Appearance) -Ulcer Cleansing Soap and Water -Foul Odor after Cleansing No -Anesthetic Used 5% Lidocaine Gel WC - Nurse 2 - General Ulcer CM Notes Start: 04/11/25 14:10 Freq: Status: Active Protocol: Activity Type Activity Date Activity User E-sign Co-sign Detail Recorded Client Recorded Date Recorded By Document 04/11/25 14:25 JF [id number] 04/11/25 14:26 JF 04/11/25 14:25 Wound Center Nurse 2 -Time 14:25 -Correct Patient Yes -Correct Side, Site, Position Yes -Correct Procedure Yes -Procedure Performed Yes -Type of Procedure Debridement -Clinical Debridement Subcutaneous -Tissue Removed Subcutaneous -Post Debridement (cm) - Length 5 -Post Debridement (cm) - Width 1 -Post Debridement (cm) - Depth 0.1 -Total Square (Post) (cm) 5 -Area of Debridement (cm) - Length 5 -Area of Debridement (cm) - Width 1 -Total Square (Area) (cm) 5 -Tunneling No -Undermining/Tunneling No -Circular Undermining No -Wound/Ulcer Outcome Not Healed -Ulcer Cleansing Rinsed/ Irrigated with Saline -Foul Odor after Cleansing No -Bioengineered Tissue No -Offloading No -Debridement - Subq, 1st 20sq cm Yes Pain Scale: 0-10 Numeric Is Patient Pain Free? Yes WC - Nurse 3 - General Ulcer D/C NN Start: 04/11/25 14:10 Freq: Status: Active Protocol: Activity Type Activity Date Activity User E-sign Co-sign Detail Recorded Client Recorded Date Recorded By Document 04/11/25 14:43 KRIS [id number] 04/11/25 14:43 KRIS 04/11/25 14:43 [facility] Center Nurse 3 #6 LT POST LE -Ulcer Cleansing Rinsed/ Irrigated with Saline -Foul Odor after Cleansing No -Primary Dressing Applied Silicone Border Foam 6x6 -Other Dressing HYDROGEL/ ADAPTIC -Silicone Border Foam 6x6 1 LLE -Compression Wrap Rod Wrap Pain Scale: 0-10 Numeric Is Patient Pain Free? 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
--- NOTE | 2025-04-13 13:53 | WC ---
PHOTO-LLE POST 04/11/25
== END 2025-04-29 23:59 | disposition home or self-care (01) ==
LOC: WC 14:09
PROVIDERS: PCP Internal Medicine; Referring Provider Student in an Organized Health Care Education/Training Program; Visit Provider Surgery Plastic and Reconstructive Surgery
DX: E10.622 Type 1 diabetes mellitus with other skin ulcer (principal); L97.925 Non-pressure chronic ulcer of unspecified part of left lower leg with muscle involvement without evidence of necrosis; N18.6 End stage renal disease; E10.22 Type 1 diabetes mellitus with diabetic chronic kidney disease; E10.42 Type 1 diabetes mellitus with diabetic polyneuropathy; E10.51 Type 1 diabetes mellitus with diabetic peripheral angiopathy without gangrene; Z53.20 Procedure and treatment not carried out because of patient's decision for unspecified reasons; Z94.0 Kidney transplant status; Z85.828 Personal history of other malignant neoplasm of skin
CPT/HCPCS: 11042

== ENCOUNTER 2025-05-09 09:47 | Outpatient (RCR) | payer MEDICARE, MEDICAID, SELFPAY ==
[2025-05-09 10:00] VITALS: BP 131/66; PULSE 91; RESP 16; TEMP 36.2
--- NOTE | 2025-05-09 10:05 | PN.PCM_ITS ---
History of Present Illness Date of Service: 05/09/25 Chief Complaint: Surgical wound dehiscence of the left lower extremity History of Wound: The patient is seen and evaluated today as a courtesy to Dr. Duenas in his absence. The patient's history is as documented below: Raymundo Soler is a delightful 59-year-old male with history of type 1 diabetes as well as other multiple pre-existing comorbid medical conditions including end-stage kidney disease who underwent wide local excision for a lower lip squamous cell carcinoma as well as selective neck dissection at [facility] on 08 October 2024, followed by immediate reconstruction with a left cervical advancement flap, tensor fascia jaspreet sling, and left medial sural artery flask fitter free flap reconstruction anastomosed to the left facial artery. In addition, a split-thickness skin graft was obtained from the patient's left anterolateral thigh for reconstruction of the donor site. He was seen and evaluated by Dr. Miguel [facility] and referred to me for follow-up as he had persistent left calf surgical wound with exposure of underlying gastrocnemius muscle. The patient's operative report was reviewed (I reviewed extensive medical medical records from the clinical). The patient reported that he had been doing dressing changes for the left medial calf with the assistance of his . He also is complained that he was having some drooling. He had been eating like normal since surgery (no PEG tube) and felt like he was getting sufficient calories. The patient has multiple pre-existing conditions, including diabetes mellitus type 1, end-stage renal failure for which the patient has previously undergone renal transplantation, peripheral polyneuropathy, steroid-induced osteoporosis, and peripheral vascular disease. 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 The patient is making excellent urine. He takes Prograf and corticosteroids for immunosuppression. He does not smoke. Subjective Subjective 08 Nov 2024: Patient went to ENT at [facility] on 04 Nov 2024. Reportedly they debrided the lower lip reconstruction, and suggested he start Medihoney dressing changes. He reports significant progress in the wound since then. And his plan is to defer further reconstruction on the face until after radia tion has begun. With regards to the left calf wound, ENT has deferred wound care to our team at [place]. He got at the nutrition labs on 06 Nov 2024 (last Friday) and they demonstrated the following: Albumin 3.4 Prealbumin 14 A1c of 5.9 Hemoglobin of 10.4 with MCV of 100 Discussed high-protein intake with the patient today. We discussed wound care with wound VAC. The VAC was delivered and is ready for placement today. 15 Nov 2024: Doing well overall with wound VAC therapy. He is following up with dentistry for getting his teeth pulled in the setting of planned adjuvant radiation. No fevers chills or drainage from the leg. 25 Nov 2024: Patient endorses excellent 3 times per week VAC changes. Doing well overall. He decided to cancel his skin grafting procedure as he does not want another surgery and would like to continue local wound care. \ 13 December 2024: The patient is a 59-year-old male presenting for wound management on the left calf. The wound is located on the left calf and has been managed with a wound vacuum, which has shown positive results with no tunneling and a healthy g ranulated base. The patient has been using a wound vacuum three times a week, and there is consideration for using TheraSkin, a dermal substitute, to promote healing, although it has not yet been approved. Additionally, there is an excoriation on the medial leg, which has been covered with a bandage. Attestation: Documentation on this patient encounter was supported using ambient [employer] nology/ [employer] technology. The patient consented to recording for the purpose of documenting the encounter. Provider reviewed content of the generated note prior to signature. 20 December 2024: The patient is a 59-year-old male presenting with a left posterior medial calf wound. The wound measures 10 x 3.5 cm with no tunneling or undermining, and there is complete granulation over the fascia. The patient has been receiving TheraSkin applications and wound vacuum therapy, which have contributed to the healthy appearance of the wound. The patient has a history of immunosuppression due to a kidney transplant, which has posed challenges in wound healing. Despite these challenges, the wound is healing well. Attestation: Documentation on this patient encounter was supported using ambient [employer] technology/ voice [employer] technology. The patient consented to recording for the purpose of documenting the encounter. Provider reviewed content of the generated note prior to signature. 03 January 2025: Here today for follow-up. TheraSkin was well-integrated in the wound and was therefore left by Dr. Meneses last week. Monica today for another dressing change with the TheraSkin 10 January 2025: The patient is a 59-year-old male presenting with a left posterior calf wound. The wound has been healing from the inside out, with a reduction in size from 9 x 3 cm last week to 8-1/2 x 3 cm currently. The patient has been actively working towards healing, with interventions including Theraskin and the appli cation of lidocaine with epinephrine to stop bleeding and the use of maintenance dressings. Additionally, the patient is recovering from recent tooth extractions, with a follow-up appointment scheduled to assess healing progress. ROS - Integumentary: Left posterior calf wound healing from the inside out, size reduced to 8-1/2 x 3 cm from 9 x 3 cm last week Attestation: Documentation on this patient encounter was supported using ambient scribe technology/ voice AI technology. The patient consented to recording for the purpose of documenting the encounter. Provider reviewed content of the generated note prior to signature. 17 January 2025: Doing well. Tolerating theraskin. Not interested in skin graft (discussed) 24 January 2025: Doing well overall. Tolerating the weekly cadaver allograft applications. 07 Feb 2025: Patient doing well. Would like to continue Theraskin. Dr. Meneses elected to leave previous Theraskin on last week and did not change. 14 Feb 2025: Doing well. 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 21 February 2025: Doing well. Started lip radiation. Tolerating 07 Mar 2025: Doing well. Tolerating radiation therapy for the lip cancer. No issues with the TheraSkin 21 March 2025: Patient doing well overall. Tolerating dressing and tolerating radiation 11 April 2025: Patient has finished radiation for his lip cancer. Doing well overall. Reports that he is only on the corticosteroid at this point for immunosuppression for his kidney transplant. Current encounter, 09 May 2025: Doing well. Tolerating hydrogel dressing changes. Objective Data Objective Data Vital Signs: Vital Signs Temp Pulse Resp BP 97.2 F L 91 16 131/66 H 05/09/25 10:00 05/09/25 10:00 05/09/25 10:00 05/09/25 10:00 Physical Exam Narrative Left lower extremity wound measuring 4 x 1 cm Superficial with granulation tissue at the base and some fibrinous exudate Debridement Note Debridement Note Wound debrided: Right leg wound Laterality: Right Wound Grade/Stage: 3 Type of Debridement: Selective debridement Anesthesia Used: 4% Lidocaine Solution Depth: Down to and including healthy tissue Percentage of wound debrided: 100 Instrument Used: 7mm curette Tissue Removed: Scab and biofilm Severity: Limited To Skin Breakdown Amount of bleeding with debridement: Mild Bleeding Controlled with: Compression and gauze Patient tolerated procedure: Patient tolerated procedure well Post-Debridement Measurements and Additional Note: Post-Debridement Measurements/Treatment MARK - Nurse 1 - General Ulcer Assessment Start: 05/09/25 10:00 Freq: Status: Active Protocol: JOSÉ MANUEL Activity Type Activity Date Activity User E-sign Co-sign Detail Recorded Client Recorded Date Recorded By Document 05/09/25 10:00 SMITH [id number] 05/09/25 10:01 05/09/25 10:00 - Today's Visit Information Type of service Follow-up Visit (Physician/STATISTICAL METHODS PROFESSOR ) Arrival Mode Ambulatory Vital Signs Temperature (97.8 F-99.1 F) 97.2 F L Temperature Source Temporal Pulse Rate (60-100) 91 Pulse Location Monitor Respiratory Rate (12-18) 16 Respiratory rate source Observation Blood Pressure (90/60-120/80) 131/66 H Blood Pressure Mean (mm Hg) 87 Source Monitor Position Sitting Blood Pressure Location Right Arm Pain Scale: 0-10 Numeric Is Patient Pain Free? Yes MARK - Nurse 1 - General Ulcer Measurement Start: 05/09/25 10:00 Freq: Status: Active Protocol: Activity Type Activity Date Activity User E-sign Co-sign Detail Recorded Client Recorded Date Recorded By Document 05/09/25 10:00 SMITH [id number] 05/09/25 10:01 05/09/25 10:00 Wound Center Nurse 1 #6 LT POST LE -Current Size (cm) - Length 4.5 -Current Size (cm) - Width 1.5 -Current Size (cm) - Depth 0.1 -Total Square Cm 6.75 -Exudate Amt Small -Exudate Type Serous -Wound Margin Flat & Intact -Granulation Amt Large (67-100%) -Granulation Quality [place] -Necrosis Amt None Present (0 %) -Structure Exposed N/A -Texture (Eloisa-wound Skin Appearance) No Abnormality -Moisture (Eloisa-wound Skin Appearance) No Abnormality -Color (Eloisa-wound Skin Appearance) No Abnormality -Temperature (Eloisa-wound Skin No Abnormality Appearance) (Pt Warm) -Tenderness on Palpation (Eloisa-wound Yes Skin Appearance) -Ulcer Cleansing Rinsed/ Irrigated with Saline -Foul Odor after Cleansing No -Anesthetic Used 5% Lidocaine Gel Assessment/Plan Assessment/Plan (1) 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
--- NOTE | 2025-05-09 14:36 | WC ---
PHOTO-LEFT POST LOWER EXT. 05/09/25
== END 2025-05-29 23:59 | disposition home or self-care (01) ==
LOC: WC 09:47
PROVIDERS: PCP Internal Medicine; Referring Provider Student in an Organized Health Care Education/Training Program; Visit Provider Surgery Plastic and Reconstructive Surgery
DX: E10.622 Type 1 diabetes mellitus with other skin ulcer (principal); L97.921 Non-pressure chronic ulcer of unspecified part of left lower leg limited to breakdown of skin; E10.40 Type 1 diabetes mellitus with diabetic neuropathy, unspecified; E10.51 Type 1 diabetes mellitus with diabetic peripheral angiopathy without gangrene; M81.8 Other osteoporosis without current pathological fracture; Z94.0 Kidney transplant status; Z85.828 Personal history of other malignant neoplasm of skin; Z79.52 Long term (current) use of systemic steroids; Z79.899 Other long term (current) drug therapy
CPT/HCPCS: 97597